=== PATIENT | male | born 1970 | race Caucasian/White ===

== ENCOUNTER 2019-12-11 12:46 | Inpatient (IN) | payer MEDICARE, MEDICAID, SELFPAY ==
--- NOTE | ~2019-12-11 | CT_ITS ---
EXAMINATION: CT abdomen pelvis w con DATE: 12/11/2019 14:02 INDICATION: Blood in stool. TECHNIQUE: Computed tomography (CT) of the abdomen and pelvis was performed with 100 mL Omnipaque 350 intravenous contrast. Automated exposure control and iterative reconstruction technique were employe d. The dose-length product was 429.73 mGy-cm. COMPARISON: CT abdomen and pelvis 07/08/2018 FINDINGS: The visualized portions of the lung bases are clear without pneumonia or pleural effusion. The heart size is normal. No pericardial effusion. There is a small sliding hiatal hernia. There is w all thickening of the distal esophagus. The liver, gallbladder, spleen, pancreas, adrenal glands, and right kidney are normal. There is cortical thinning of left kidney. There are no dilated loops of raymond wel. The appendix is normal. There are no pathologically enlarged lymph nodes. There is no free intra peritoneal fluid. There is an old healed fracture of proximal right femur with internal fixation. The re is mild chronic anterior wedging of T8-T11 vertebral bodies. IMPRESSION: 1. Small sliding hiatal hernia. 2. Wall thickening of the distal esophagus, likely esophagitis. Reviewed, dictated and finalized at location A.
--- NOTE | ~2019-12-11 | XR_ITS ---
XR elbow RT 2V 12/11/2019 20:29 INDICATION: Right elbow pain PROCEDURE: 2 views right elbow. Lateral views nonstandard limiting evaluation for joint effusion. COMPARISON: No prior studies for comparison. FINDINGS: Fracture, dislocation or subluxation is not identified. The soft tissues appear within norm al limits. No foreign bodies are identified. IMPRESSION: 1: NO ACUTE BONE OR JOINT ABNORMALITY IDENTIFIED. Reviewed, dictated and finalized at location A.
--- NOTE | ~2019-12-11 | XR_ITS ---
XR wrist RT min 3V 12/11/2019 20:30 Indication: Right wrist pain Procedure: 3 views right wrist Comparison: No prior studies for comparison. Findings: Osteopenia. There are degenerative changes of the radiocarpal joint with joint space narrow ing. No acute fracture or traumatic malalignment. No significant soft tissue abnormality. No radiopaq ue foreign bodies. Study limited by nonstandard views. Impression: 1: No gross fracture or malalignment. Limited study. Reviewed, dictated and finalized at location A. Impression: 1: No gross fracture or malalignment. Limited study.
[2019-12-11 12:42] VITALS: BP 102/80; PULSE 74; RESP 18; TEMP 36.6; O2SAT 100
[2019-12-11 12:56] LABS: Basophils Absolute Auto 0.1 K/mm3 (0.0-0.1); Basophils Percent Auto 0.7 % (0.2-1.2); Eosinophils Absolute Auto 0.1 K/mm3 (0-0.3); Eosinophils Percent Auto 2.1 % (0-4.4); Hematocrit 39.1 % (42.0-52.0); Hemoglobin 12.8 g/dL (14.0-18.0); Immature Granulocyte Absolute 0.02 K/mm3 (0.00-0.031); Immature Granulocyte Percent A 0.3 % (0-0.5); Lymphocytes Absolute Auto 2.15 K/mm3 (0.9-3.2); Lymphocytes Percent Auto 32.1 % (18.3-44.2); Mean Corpuscular HGB Conc 32.7 g/dl (32-36); Mean Corpuscular Hemoglobin 28.9 pg (26-34); Mean Corpuscular Volume 88.3 fl (80-100); Mean Platelet Volume 8.8 fl (7.4-10.4); Monocytes Absolute Auto 0.6 K/mm3 (0.1-0.6); Monocytes Percent Auto 9.3 % (2.6-8.5); Neutrophils Absolute Auto 3.7 K/mm3 (1.3-6.7); Neutrophils Percent Auto 55.5 % (45.5-73.1); Platelet Count Result 170 k/mm3 (150-375); Red Blood Count 4.43 M/mm3 (4.6-6.20); Red Cell Distribution Width 12.7 % (11.5-14.5); White Blood Count 6.7 K/mm3 (4.5-10.0)
--- NOTE | 2019-12-11 13:00 | ED.GENADULT ---
HPI - General Adult General Chief complaint: GI Bleed Stated complaint: ?GI BLEED Source: patient and EMS History of Present Illness HPI narrative: Patient is 49 y/o female sent from care facility for abdominal pain and bloody stool. Patient admits that he has some left sided abdominal pain. However, he is unable to rate his pain or describe the nature of his pain. There is no known alleviating or exacerbating factor. He was noted to have blood in stool at the facility. Related Data Allergies Allergy/AdvReac Type Severity Reaction Status Date / Time No Known Allergies Allergy Verified 12/11/19 12:49 Review of Systems Review of Systems: ROS unobtainable: Yes unobtainable due to medical condition Exam Const: General: no acute distress and well developed Orientation/consciousness: oriented to person, oriented to place, oriented to time and patient oriented x3 HENMT: Head: normocephalic Ears: external ears normal General nose exam: Normal external nose present Eyes: General: appearance normal, both eyes and all related structures Conjunctivae: conjunctivae normal Neck: Neck: normal visual inspection and full ROM Chest: Chest palpation & inspection: normal inspection of the chest and no tenderness Resp: Effort & Inspection: normal respiratory effort Auscultation: clear to auscultation bilaterally Cardio: Rate: regular rate Rhythm: regular rhythm GI: GI Palp: No abdominal tenderness and Yes Soft to palpation Skin: General skin exam: normal color and turgor normal Neuro: General: oriented to person Cognition (Neuro): abnormal cognition Extrem: General: normal to inspection, full ROM and no pedal edema Psych: Appearance: grossly normal Mental Status: mental status grossly normal Affect: normal affect Course Consultations Consultation #1: Discussed with Dr. Mosquera, who agrees to consult. Date: 12/11/19 Time: 15:28 Consultation #2: Discussed with ANABELLE Vilchis, who agrees to admit to Dr. Watts. Date: 12/11/19 Time: 15:35 Vital Signs Vital signs: Vital Signs Temperature 36.6 C 12/11/19 12:42 Pulse Rate 74 12/11/19 12:42 Respiratory Rate 18 12/11/19 12:42 Blood Pressure 102/80 12/11/19 12:42 Pulse Oximetry 100 12/11/19 12:42 Temperature 36.6 C 12/11/19 12:42 Pulse Rate 74 12/11/19 15:53 Respiratory Rate 17 12/11/19 15:53 Blood Pressure 105/69 12/11/19 15:53 Pulse Oximetry 95 12/11/19 15:53 Medical Decision Making Vital Signs Vital Signs: Vital Signs Temperature 36.6 C 12/11/19 12:42 Pulse Rate 74 12/11/19 12:42 Respiratory Rate 18 12/11/19 12:42 Blood Pressure 102/80 12/11/19 12:42 Pulse Oximetry 100 12/11/19 12:42 Temperature 36.6 C 12/11/19 12:42 Pulse Rate 74 12/11/19 15:53 Respiratory Rate 17 12/11/19 15:53 Blood Pressure 105/69 12/11/19 15:53 Pulse Oximetry 95 12/11/19 15:53 Lab Data Result diagrams: 12/11/19 12:50 12/11/19 12:50 Labs: Lab Results 12/11/19 12/11/19 12/11/19 Range/Units 12:50 12:50 12:50 WBC 6.7 (4.5-10.0) K/mm3 RBC 4.43 L (4.6-6.20) M/mm3 Hgb 12.8 L (14.0-18.0) g/dL Hct 39.1 L (42.0-52.0) % MCV 88.3 (80-100) fl MCH 28.9 (26-34) pg MCHC 32.7 (32-36) g/dl RDW 12.7 (11.5-14.5) % Plt Count 170 (150-375) k/mm3 MPV 8.8 (7.4-10.4) fl Immature Gran % (Auto) 0.3 (0-0.5) % Neut % (Auto) 55.5 (45.5-73.1) % Lymph % (Auto) 32.1 (18.3-44.2) % [place] % (Auto) 9.3 H (2.6-8.5) % Eos % (Auto) 2.1 (0-4.4) % Baso % (Auto) 0.7 (0.2-1.2) % Lymph # (Auto) 2.15 (0.9-3.2) K/mm3 [place] # (Auto) 0.6 (0.1-0.6) K/mm3 Eos # (Auto) 0.1 (0-0.3) K/mm3 Baso # (Auto) 0.1 (0.0-0.1) K/mm3 Abs Immat Gran (auto) 0.02 (0.00-0.031) K/mm3 Absolute Neuts (auto) 3.7 (1.3-6.7) K/mm3 Absolute Nucleated RBC 0.0 (0.0-0.012) K/mm3 Nucleated RBC % 0.0 (0.0-0.2) % Sodium 139 (137-145) mmol/
[2019-12-11 13:08] LABS: Alanine Aminotransferase 14 U/L (4-50); Albumin Level 4.3 g/dL (3.5-5.1); Alkaline Phosphatase 98 U/L (38-126); Anion Gap 7 mmol/L (8-16); Aspartate Amino Transferase 21 U/L (17-59); Bilirubin,Total 0.6 mg/dL (0.2-1.3); Blood Urea Nitrogen 12 mg/dL (9-20); Calcium 9.3 mg/dL (8.4-10.2); Carbon Dioxide 38 mmol/L (22-30); Chloride 94 mmol/L (98-107); Estimated CRCL calculation 89 ml/min; Estimated Glomerular Filt Rate > 60; Glucose 100 mg/dL (75-110); Potassium 3.8 mmol/L (3.4-5.0); Sodium 139 mmol/L (137-145)
[2019-12-11 13:10] LABS: Lipase 91 U/L (23-300)
--- NOTE | 2019-12-11 13:37 | PC.NURSE ---
PATIENT ATTEMPTED TO GIVE URINE SAMPLE BUT WAS UNSUCCESSFUL.
[2019-12-11 13:50] VITALS: BP 105/74; PULSE 87; RESP 18; O2SAT 100
[2019-12-11 14:35] LABS: Add Urine Microscopic? NO; Appearance Urine Clear (Clear); Bilirubin Urine Negative (Negative); Blood Urine Negative (Negative); Color Urine Yellow (Yellow); Glucose Urine UA Negative (Negative); Ketones Urine Negative (Negative); Leukocyte Esterase Ur Negative LEU/UL (Negative); Nitrate Urine Negative (Negative); Protein Urine Negative (Negative); Urobilinogen Urine Negative mg/dL (<2.0)
[2019-12-11 14:42] LABS: Specific Grav Ur 1.033 (1.001-1.035)
[2019-12-11 15:53] VITALS: BP 105/69; PULSE 74; RESP 17; O2SAT 95
--- NOTE | 2019-12-11 16:15 | ADMGEN ---
This patient, Elan Garzon, was admitted to Medical Room 248-01. Patient/family oriented to hospital policies and general routines including ID bracelet, bed and alarms, visiting hours, pain management, procedures, bathroom and other care routines, personal items, smoking policy, room service/diet, and visiting hours. Information on how to activate the Rapid Response Team has been discussed. Patient/Family are encouraged to report perceived risks to care and to ask questions if they do not understand what they are told or what they should do.
[2019-12-11 16:30] VITALS: BMI 22.8
--- NOTE | 2019-12-11 16:47 | WPDGICN ---
Assessment and Plan Assessment and plan (1) Abdominal pain: Qualifiers: Abdominal location: unspecified location Qualified Code(s): R10.9 - Unspecified abdominal pain Code(s): R10.9 - Unspecified abdominal pain Status: Acute Assessment and Plan: Patient has left upper abdominal pain with abnormal CT scan suggesting esophagitis. Plan is for trial of IV Protonix. An EGD will be considered in the morning if pain persists. (2) Hematochezia: Code(s): K92.1 - Melena Status: Acute Assessment and Plan: Was a question or rectal bleeding at the care center. Plan is to verify this with stool Hemoccult. No signs of anemia by blood work. No blood noted at this time. (3) Mental handicap: Code(s): F79 - Unspecified intellectual disabilities Status: Acute GI Consult Note Consult date/time: 12/11/19 16:47 HPI: Elan Garzon is a 49 year old maleI am asked to see at the request of the ER. Patient has a history of mental retardation. Currently lives in a [facility]. Sent to the ER because of pain. Patient has difficulty giving a history. He does report that he has pain on the left side of his abdomen. Also complains of right shoulder pain. There was a question of bleeding that has not been confirmed. A CT scan performed in the ER suggests thickening of the distal esophagus and a hiatal hernia. Review of Systems Review of Systems: ROS unobtainable: Yes unobtainable due to mental status Meds Home Medications and Allergies Allergies Allergy/AdvReac Type Severity Reaction Status Date / Time No Known Allergies Allergy Verified 12/11/19 12:49 Vital Signs Vital Signs - 24 hr 12/11/19 12:42 12/11/19 13:50 12/11/19 15:53 Temperature 97.8 F Pulse Rate 74 87 74 Respiratory Rate 18 18 17 Blood Pressure 102/80 105/74 105/69 Pulse Oximetry 100 100 95 Exam Narrative: Exam Narrative: physical exam reveals patient to be alert but agitated not able to sit quietly. HEENT exam reveals no icterus. Lungs appear clear to auscultation percussion. Heart is without murmur. Abdomen is soft. No masses are encountered he appears mildly tender in left upper quadrant. Results Labs CBC & Chem 7: 12/11/19 12:50 12/11/19 12:50 Labs: Short CBC 12/11/19 Range/Units 12:50 WBC 6.7 (4.5-10.0) K/mm3 Hgb 12.8 L (14.0-18.0) g/dL Hct 39.1 L (42.0-52.0) % Plt Count 170 (150-375) k/mm3 BMP 12/11/19 12:50 Sodium 139 Potassium 3.8 Chloride 94 L Carbon Dioxide 38 H BUN 12 Creatinine 0.80 Glucose 100 Calcium 9.3 Liver Function 12/11/19 Range/Units 12:50 Total Bilirubin 0.6 (0.2-1.3) mg/dL AST 21 (17-59) U/L ALT 14 (4-50) U/L Alkaline Phosphatase 98 (38-126) U/L Albumin 4.3 (3.5-5.1) g/dL Urine 12/11/19 Range/Units 14:29 Urine Color Yellow (Yellow) Urine Appearance Clear (Clear) Urine pH 7.0 (5.0-9.0) Ur Specific [place] 1.033 (1.001-1.035) Urine Protein Negative (Negative) mg/dL Urine Glucose (UA) Negative (Negative) mg/dL
[2019-12-11 17:05] VITALS: BP 101/62; PULSE 67; RESP 20; TEMP 36.9; O2SAT 100
--- NOTE | 2019-12-11 19:00 | PM.IMHP ---
H&P: HPI History of Present Illness Date/Time: 12/11/19 19:00 Chief complaint: abdominal pain Narrative: Elan Garzon is a 49-year-old male with intellectual disability, schizophrenia, bipolar disorder, hypertension, and hyperlipidemia who presented to the emergency department earlier today via EMS from [facility] for evaluation of reported blood in stool. He is quite hard of hearing but once I spoke louder he was able to provide me with a fair history however given his underlying psychiatric illness and intellectual disability, some of this history is supplemented via a review of his electronic medical records. He reports ?just not feeling good? for the past couple of days, noting some vague discomfort in the left upper quadrant as well as fatigue. The pain is worse with palpation and he gives no alleviating factors. His appetite has not been that great, and he tells me is just not hungry. It sounds as though he might suffer from heartburn on occasion as well. Reportedly he had blood in his stool intermittently over the last several weeks, and was sent in today for evaluation. Aside from the abdominal pain, he also reports pain in his right elbow and right wrist and is unsure if he has sustained an injury to the area. He denies fever, chills, sweats, vomiting, pain with bowel movements, and dysuria. Review of Systems Review of Systems: Narrative: Twelve systems were reviewed with pertinent positives and negatives as per HPI. Somewhat limited given his underlying intellectual disability. Aside from what is detailed above, all other systems were reviewed and are negative. [facility] Past Medical History Medical History (Updated 12/11/19 @ 20:02 by Mame Brown PA-C) Bipolar disorder Cerebrovascular accident Old CVA noted on brain CT in July 2018. Chronic anemia Closed right hip fracture (~07/2018) Depression with anxiety Gastroesophageal reflux disease Hyperlipidemia Hypertension Intellectual disability Pneumothorax on left (~09/2018) Schizophrenia Surgical History Surgical History (Updated 12/11/19 @ 19:53 by Mame Brown PA-C) History of appendectomy History of hip surgery (~07/2018) ORIF right hip fracture with trochanteric nail device. History of tonsillectomy Family History Family History (Updated 12/11/19 @ 19:53 by Mame Brown PA-C) Other Unknown family medical history Social History Social History (Updated 12/11/19 @ 19:55 by Mame Brown PA-C) Social History: Surrogate decision maker: Soo Cedeño, power of senior database engineer. Code status: Full code. Smoking status: Never smoker Alcohol intake: never Substance use: never Additional living arrangements comments: Resides in a retirement in [place]. Additional occupation/education comments: Disabled. Spiritual care concerns: No Meds Home Medications and Allergies Home Medications Medication Instructions Recorded Confirmed Type acetaminophen 500 mg PO BID 12/11/19 12/11/19 History baclofen 10 mg PO DAILY 12/11/19 12/11/19 History benztropine 0.5 mg PO TID 12/11/19 12/11/19 History buspirone 10 mg PO TID 12/11/19 12/11/19 History cholecalciferol (vitamin D3) 2,000 unit PO DAILY 12/11/19 12/11/19 History [Vitamin D3] divalproex 125 mg PO DAILY 12/11/19 12/11/19 History divalproex 250 mg PO DAILY 12/11/19 12/11/19 History docusate sodium 100 mg PO DAILY 12/11/19 12/11/19 History ferrous sulfate 325 mg PO DAILY 12/11/19 12/11/19 History hydrochlorothiazide 25 mg PO DAILY 12/11/19 12/11/19 History hydrocodone-acetaminophen [[place]] 1 tablet PO BID PRN 12/11/19 12/11/19 History ibuprofen 800 mg PO BID PRN 12/11/19 12/11/19 History loratadine 10 mg PO DAILY PRN 12/11/19 12/11/19 History losartan 50 mg PO DAILY 12/11/19 12/11/19 History multivitamin,cp-ackc-[id number] 1 tablet PO DAILY 12/11/19 12/11/19 History [Complete Multivitamin] olanzapine [Zyprexa] 5 mg PO HS 12/11/19 12/11/19 History omeprazole
[2019-12-11] MEDS: SODIUM CHLORIDE 0.9% IV 250 ML 100 ML IV CONT (20:40)
[2019-12-11] MEDS: ROSUVASTATIN 10 MG TABLET PO (21:36)
[2019-12-11 22:00] VITALS: BP 98/58; PULSE 82; RESP 16; TEMP 36.6; O2SAT 98
[2019-12-12] VITALS (12 sets, daily range): BP systolic 70–106; BP diastolic 43–69; PULSE 56–77; RESP 14–20; TEMP 36.4–36.8; O2SAT 96–100; BMI 22.8
[2019-12-12 05:17] LABS: Basophils Percent Auto 0.6 % (0.2-1.2); Eosinophils Absolute Auto 0.2 K/mm3 (0-0.3); Eosinophils Percent Auto 3.4 % (0-4.4); Hemoglobin 12.5 g/dL (14.0-18.0); Immature Granulocyte Absolute 0.01 K/mm3 (0.00-0.031); Immature Granulocyte Percent A 0.2 % (0-0.5); Lymphocytes Absolute Auto 1.88 K/mm3 (0.9-3.2); Lymphocytes Percent Auto 37.6 % (18.3-44.2); Mean Corpuscular HGB Conc 32.9 g/dl (32-36); Mean Corpuscular Hemoglobin 28.9 pg (26-34); Mean Corpuscular Volume 87.8 fl (80-100); Mean Platelet Volume 8.9 fl (7.4-10.4); Monocytes Absolute Auto 0.4 K/mm3 (0.1-0.6); Monocytes Percent Auto 8.8 % (2.6-8.5); Neutrophils Absolute Auto 2.5 K/mm3 (1.3-6.7); Neutrophils Percent Auto 49.4 % (45.5-73.1); Platelet Count Result 163 k/mm3 (150-375); Red Blood Count 4.33 M/mm3 (4.6-6.20); Red Cell Distribution Width 12.9 % (11.5-14.5)
[2019-12-12 05:29] LABS: Anion Gap 5 mmol/L (8-16); Blood Urea Nitrogen 9 mg/dL (9-20); Calcium 9.4 mg/dL (8.4-10.2); Carbon Dioxide 37 mmol/L (22-30); Chloride 97 mmol/L (98-107); Estimated CRCL calculation 89 ml/min; Estimated Glomerular Filt Rate > 60; Glucose 84 mg/dL (75-110); Sodium 139 mmol/L (137-145)
[2019-12-12 06:28] LABS: Valproic Acid 21.4 ug/mL (50-120)
--- NOTE | 2019-12-12 08:26 | PM.IMPN ---
Progress Note: A&P Assessment and Plan (1) Abdominal pain: Qualifiers: Abdominal location: unspecified location Qualified Code(s): R10.9 - Unspecified abdominal pain Code(s): R10.9 - Unspecified abdominal pain Status: Acute Assessment and Plan: Patient has left upper abdominal pain and reports of blood in stool from staff. CT of the abdomen and pelvis demonstrated findings of esophagitis history of GERD which could be causing some of his discomfort. Dr. Mosquera has been consulted EGD done trial of IV Protonix. obtain stool for occult blood continue to monitor for resolution of pain and discomfort (2) Blood in stool: Code(s): K92.1 - Melena Status: Acute Assessment and Plan: Patient has left upper abdominal pain and reports of blood in stool from staff. stable vital signs, hemodynamically stable blood pressure and heart rate not tachy stable hemoglobin and hematocrit, CBC obtain stool for occult blood nursing staff monitoring BM and stool output (3) Chronic anemia: Code(s): D64.9 - Anemia, unspecified Status: Acute Assessment and Plan: chronic anemia on daily ferrous sulfate at home stable hemoglobin and hematocrit, (4) Gastroesophageal reflux disease: Code(s): K21.9 - Gastro-esophageal reflux disease without esophagitis Status: Acute Assessment and Plan: daily omeprazole at home (5) Esophagitis: Code(s): K20.90 - Esophagitis, unspecified without bleeding Status: Acute Assessment and Plan: Dr. Mosquera has been consulted EGD done trial of IV Protonix. continue to monitor for resolution of pain and discomfort (6) Intellectual disability: Code(s): F79 - Unspecified intellectual disabilities Status: Acute Assessment and Plan: on Zyprexa, divalproex, BuSpar own, benztropine chronic clear x-rays of the right elbow and wrist given reports of pain. continues to lay on the right side despite attempts at educating to turn (7) Psychiatric illness: Code(s): F99 - Mental disorder, not otherwise specified Status: Acute Assessment and Plan: on Zyprexa, divalproex, BuSpar own, benztropine chronic (8) Hypertension: Code(s): I10 - Essential (primary) hypertension Status: Inactive Assessment and Plan: blood pressures were reviewed well controlled. Home medications Include hydrochlorothiazide and losartan careful resuming his blood pressure meds as BPs are currently controlled avoid hypotension as that only increases the risk of GI or bowel ischemia (9) Hyperlipidemia: Code(s): E78.5 - Hyperlipidemia, unspecified Status: Inactive Assessment and Plan: home medication includes rosuvastatin 10 mg at bedtime resume prior to discharge (10) Dehydration: Code(s): E86.0 - Dehydration Status: Acute Assessment and Plan: dehydrated on exam dry on exam given a L of IV fluids hemodynamically stable with no tachycardia and systolic blood pressure is normal patient will need to be a feeder as he does not initiate his own oral hydration (11) Right arm pain: Code(s): M79.601 - Pain in right arm Status: Acute Assessment and Plan: pain in his right upper extremity. radiology studies of the right wrist and right elbow x-rays were clear without acute fractures or findings. unsure if he has fallen, sustained an injury to the area, or if this side is just sore from him always lying on it; almost like a compression injury. refused to turn on his left side for me and turns himself back onto his right side Subjective Date/time seen: 12/12/19 08:26 Elan had returned to his room from having his EGD with Dr. Mosquera, and was resting in his bed on his right side. Patient refusing to turn to his left side for me. He was willing to turn on his back but when I was done with my exam he quickly
[2019-12-12] MEDS: PANTOPRAZOLE 40 MG TABLET PO (08:51)
[2019-12-12] MEDS: DIVALPROEX SODIUM SPRINKLE 125 MG CAP.DR 250 MG PO (08:52)
[2019-12-12] MEDS: LACTATED RINGERS 1,000 ML 150 ML IV CONT (10:34)
--- NOTE | 2019-12-12 10:55 | WPDANESEPPF ---
Anes - Initial Pre Proc Eval Procedure: Operation Date: 12/12/19 11:30 Proposed Procedures p Esophagogastroduodenoscopy - Harrison Mosquera MD Date/Time: 12/12/19 10:55 Surgeon: Kinga Romero NP Pre Op Diagnosis: abdominal pain Patient Data Age: 49 Gender: M Height: 5 ft 6 in Weight: 64.3 kg Last Vital Signs Temp 36.6 C 12/12/19 10:25 Pulse 68 12/12/19 10:25 Resp 20 12/12/19 10:25 BP 94/55 L 12/12/19 10:25 Pulse Ox 99 12/12/19 10:25 Allergies Allergy/AdvReac Type Severity Reaction Status Date / Time No Known Allergies Allergy Verified 12/12/19 10:23 Home Medications Medication Instructions Recorded Confirmed Type acetaminophen 500 mg PO BID 12/11/19 12/11/19 History baclofen 10 mg PO DAILY 12/11/19 12/11/19 History benztropine 0.5 mg PO TID 12/11/19 12/11/19 History buspirone 10 mg PO TID 12/11/19 12/11/19 History cholecalciferol (vitamin D3) 2,000 unit PO DAILY 12/11/19 12/11/19 History [Vitamin D3] divalproex 125 mg PO DAILY 12/11/19 12/11/19 History divalproex 250 mg PO DAILY 12/11/19 12/11/19 History docusate sodium 100 mg PO DAILY 12/11/19 12/11/19 History ferrous sulfate 325 mg PO DAILY 12/11/19 12/11/19 History hydrochlorothiazide 25 mg PO DAILY 12/11/19 12/11/19 History hydrocodone-acetaminophen [[place]] 1 tablet PO BID PRN 12/11/19 12/11/19 History ibuprofen 800 mg PO BID PRN 12/11/19 12/11/19 History loratadine 10 mg PO DAILY PRN 12/11/19 12/11/19 History losartan 50 mg PO DAILY 12/11/19 12/11/19 History multivitamin,xp-[id number] 1 tablet PO DAILY 12/11/19 12/11/19 History [Complete Multivitamin] olanzapine [Zyprexa] 5 mg PO HS 12/11/19 12/11/19 History omeprazole 20 mg PO DAILY PRN 12/11/19 12/11/19 History polyethylene glycol 3350 [Miralax] 17 g PO DAILY 12/11/19 12/11/19 History rosuvastatin 10 mg PO HS 12/11/19 12/11/19 History Laboratory Tests 12/11/19 12/11/19 12/11/19 12:50 12:50 12:50 WBC 6.7 K/mm3 K/mm3 (4.5-10.0) RBC 4.43 M/mm3 L M/mm3 (4.6-6.20) Hgb 12.8 g/dL L g/dL (14.0-18.0) Hct 39.1 % L % (42.0-52.0) MCV 88.3 fl fl (80-100) MCH 28.9 pg pg (26-34) MCHC 32.7 g/dl g/dl (32-36) RDW 12.7 % % (11.5-14.5) Plt Count 170 k/mm3 k/mm3 (150-375) MPV 8.8 fl fl (7.4-10.4) Immature Gran % (Auto) 0.3 % % (0-0.5) Neut % (Auto) 55.5 % % (45.5-73.1) Lymph % (Auto) 32.1 % % (18.3-44.2) [place] % (Auto) 9.3 % H % (2.6-8.5) Eos % (Auto) 2.1 % % (0-4.4) Baso % (Auto) 0.7 % % (0.2-1.2) Lymph # (Auto) 2.15 K/mm3 K/mm3 (0.9-3.2) [place] # (Auto) 0.6 K/mm3 K/mm3 (0.1-0.6) Eos # (Auto) 0.1 K/mm3 K/mm3 (0-0.3) Baso # (Auto) 0.1 K/mm3 K/mm3 (0.0-0.1) Abs Immat Gran (auto) 0.02 K/mm3 K/mm3 (0.00-0.031) Absolute Neuts (auto) 3.7 K/mm3 K/mm3 (1.3-6.7) Absolute Nucleated RBC 0.0 K/mm3 K/mm3 (0.0-0.012) Nucleated RBC % 0.0 % % (0.0-0.2) Sodium 139 mmol/L mmol/L (137-145) Potassium 3.8 mmol/L mmol/L (3.4-5.0) Chloride 94 mmol/L L mmol/L (98-107) Carbon Dioxide 38 mmol/L H mmol/L (22-30) Anion Gap 7 mmol/L L mmol/L (8-16) BUN 12 mg/dL mg/dL (9-20) Creatinine 0.80 mg/dL mg/dL (0.7-1.3) Estim Creat Clear Calc 89 ml/min ml/min Estimated GFR > 60 (59 - ) Glucose 100 mg/dL mg/dL (75-110) Calcium 9.3 mg/dL mg/dL (8.4-10.2) Magnesium Total Bilirubin 0.6 mg/dL mg/dL (0.2-1.3) AST 21 U/L U/L (17-59) ALT 14 U/L U/L (4-50) Alkaline Phosphatase 98 U/L U/L (38-126) Total Protein 7.0 g/dL g/dL (6.3-8.2) Albumin 4.3 g/dL g/dL (3.5-5.1) Lipase 91 U/L U/L (23-300) Urine Color Urine [place]
--- NOTE | 2019-12-12 11:52 | SUR.PHASEII ---
ALL VISIBLE SKIN INTACT IN POST OP.
--- NOTE | 2019-12-12 12:08 | PC.NURSE ---
Patient return from GI lab per stretcher.
[2019-12-12] MEDS: LOSARTAN POTASSIUM 50 MG TABLET PO (12:24)
[2019-12-12] MEDS: CHOLECALCIFEROL 1,000 UNITS TABLET 2000 UNITS PO (12:26)
[2019-12-12] MEDS: BENZTROPINE MESYLATE 0.5 MG TABLET PO ×2 (12:26→16:51)
[2019-12-12] MEDS: DOCUSATE SODIUM 100 MG CAPSULE PO (12:26)
[2019-12-12] MEDS: busPIRone HCL 10 MG TABLET PO ×2 (12:27→16:51)
[2019-12-12] MEDS: FERROUS SULFATE 324 MG TABLET PO (12:27)
[2019-12-12] MEDS: THERAPEUTIC MULTIVITAMINS/MINERALS TAB (*BKC) 1 TABLET PO (12:27)
[2019-12-12] MEDS: polyethylene glycoL 3350 17 GM POWD.PACK PO (12:27)
[2019-12-12] MEDS: BACLOFEN 10 MG TABLET PO (12:32)
[2019-12-12] MEDS: ACETAMINOPHEN 500 MG TABLET PO ×2 (12:32→16:50)
[2019-12-12] MEDS: HYDROcodone/acetaminophen (*CRX) 7.5-325 MG TABLET 1 TAB PO (14:20)
[2019-12-12] MEDS: DIVALPROEX SODIUM SPRINKLE 125 MG CAP.DR PO (16:50)
[2019-12-12] MEDS: LANSOPRAZOLE ORAL SUSP 30 MG/10 ML ORAL.SUSP PO (16:51)
[2019-12-12] MEDS: ROSUVASTATIN 10 MG TABLET PO (20:26)
[2019-12-13 02:00] VITALS: BP 103/64; PULSE 71; RESP 14; TEMP 36.7; O2SAT 100
[2019-12-13 05:23] VITALS: BP 100/61; PULSE 67; RESP 18; TEMP 36.6; O2SAT 98
[2019-12-13 07:04] LABS: Hematocrit 38.9 % (42.0-52.0); Hemoglobin 12.7 g/dL (14.0-18.0); Mean Corpuscular HGB Conc 32.6 g/dl (32-36); Mean Corpuscular Hemoglobin 28.6 pg (26-34); Mean Corpuscular Volume 87.6 fl (80-100); Mean Platelet Volume 8.9 fl (7.4-10.4); Platelet Count Result 176 k/mm3 (150-375); Red Blood Count 4.44 M/mm3 (4.6-6.20); Red Cell Distribution Width 12.7 % (11.5-14.5); White Blood Count 4.6 K/mm3 (4.5-10.0)
[2019-12-13 07:27] LABS: Potassium 3.9 mmol/L (3.4-5.0)
[2019-12-13 07:50] LABS: Anion Gap 5 mmol/L (8-16); Blood Urea Nitrogen 7 mg/dL (9-20); Calcium 9.5 mg/dL (8.4-10.2); Carbon Dioxide 36 mmol/L (22-30); Chloride 100 mmol/L (98-107); Estimated CRCL calculation 89 ml/min; Estimated Glomerular Filt Rate > 60; Glucose 81 mg/dL (75-110); Sodium 141 mmol/L (137-145)
--- NOTE | 2019-12-13 08:26 | WPDGIPROGNO ---
Progress Note: A&P Additional Plan Patient remains difficult to get a history from. Appears to be tolerating some diet. On physical exam abdomen appears soft mild upper abdominal discomfort identified. Impression 1. Ulcerative esophagitis. This consistent with rather severe acid reflux. Plan is continue Protonix 40 mg p.o. b.i.d.. Avoid nonsteroidal anti-inflammatory agents. Try to elevate head of bed at night. Romayor foods will likely be tolerated best. 2. Mental handicap. Unchanged. May limit his ability to understand this condition. Plan to advance diet. Continue proton pump inhibitor. Disposition per primary care service. Subjective Date/time seen: 12/13/19 08:26 Objective Data Vital Signs Vital Signs: Vital Signs - 24 hr 12/12/19 08:40 12/12/19 10:25 12/12/19 11:32 Temperature 97.9 F Pulse Rate 68 65 Respiratory Rate 20 20 Blood Pressure 104/69 94/55 L 70/43 L Pulse Oximetry 99 99 12/12/19 11:42 12/12/19 11:52 12/12/19 12:02 Temperature Pulse Rate 58 L 56 L 57 L Respiratory Rate 14 16 18 Blood Pressure 77/48 L 92/57 L 101/64 Pulse Oximetry 100 100 100 12/12/19 14:00 12/12/19 18:00 12/12/19 20:00 Temperature 97.6 F 98.3 F Pulse Rate 77 72 72 Respiratory Rate 18 16 16 Blood Pressure 106/67 94/62 L Pulse Oximetry 100 98 98 12/12/19 21:57 12/13/19 02:00 12/13/19 05:23 Temperature 97.8 F 98.0 F 97.8 F Pulse Rate 73 71 67 Respiratory Rate 16 14 18 Blood Pressure 101/69 103/64 100/61 Pulse Oximetry 96 100 98 Intake/Output Intake/Output: Intake & Output 12/10/19 12/11/19 12/12/19 12/13/19 23:59 23:59 23:59 23:59 Intake Total 250 1210 50 Output Total 550 825 900 Balance -300 385 -850 Meds/Results Medications: Active Medications Generic Name Dose Route Start Last Admin Trade Name Freq PRN Reason Stop Dose Admin Acetaminophen 500 mg 12/12/19 09:00 12/12/19 16:50 Acetaminophen 500 Mg Tablet PO 500 mg BID SUZETTE Administration Hydrocodone Bitart/Acetaminophen 1 tab 12/11/19 20:03 12/12/19 14:20 Hydrocodone/Acetaminophen (*Crx) 7.5-325 Mg Tablet PO 1 tab BID PRN Administration Pain Baclofen 10 mg 12/12/19 12:00 12/12/19 12:32 Baclofen 10 Mg Tablet PO 10 mg DAILY@1200 SUZETTE Administration Benztropine Mesylate 0.5 mg 12/12/19 09:00 12/12/19 16:51 Benztropine Mesylate 0.5 Mg Tablet PO 0.5 mg TID SUZETTE Administration Buspirone HCl 10 mg 12/12/19 09:00 12/12/19 16:51 Buspirone Hcl 10 Mg Tablet PO 10 mg TID SUZETTE Administration Calcium Carbonate 200 mg 12/12/19 08:25 Calcium Carbonate (Tums) 500 Mg (200 Mg Elemental) PO Q6H PRN Indigestion Divalproex Sodium 125 mg 12/12/19 16:00 12/12/19 16:50 Divalproex Sodium Sprinkle 125 Mg Cap.Dr PO 125 mg DAILY@1600 [facility] Administration Divalproex Sodium 250 mg 12/12/19 09:00 12/12/19 08:52 Divalproex Sodium Sprinkle 125 Mg Cap.Dr PO 250 mg DAILY SUZETTE Administration Docusate Sodium 100 mg 12/13/19 09:00 Docusate Sodium Liq 100 Mg/10 Ml Udc PO DAILY [facility] Ferrous Sulfate 324 mg 12/12/19 09:00 12/12/19 12:27 Ferrous Sulfate 324 Mg Tablet PO 324 mg DAILY SUZETTE Administration Lansoprazole 30 mg 12/12/19 17:00 12/12/19 16:51 Lansoprazole Oral Susp 30 Mg/10 Ml Oral.Susp PO 30 mg BIDWM SUZETTE Administration Loratadine 10 mg 12/11/19 20:03 Loratadine 10 Mg Tablet PO DAILY PRN Allergy Symptoms Losartan Potassium 50 mg 12/12/19 09:00 12/12/19 12:24 Losartan Potassium 50 Mg Tablet PO 50 mg DAILY SUZETTE Administration Multivitamins/Calcium 1 tablet 12/12/19 09:00 12/12/19 12:27 Therapeutic Multivitamins/Minerals Tab (*Bkc) PO 1 tablet DAILY SUZETTE Administration Olanzapine 5 mg 12/11/19 21:00 12/12/19 20:26 Olanzapine Tab 5 Mg Tablet PO 5 mg HS SUZETTE Administration Polyethylene Glycol 17 gm 12/12/19 09:00 12/12/19 12:27 Polyethylene Glycol 3350 17 Gm Powd.Pack PO
[2019-12-13 08:30] VITALS: BP 117/71; PULSE 71; RESP 23; TEMP 36.6; O2SAT 100
[2019-12-13] MEDS: busPIRone HCL 10 MG TABLET PO ×2 (09:44→13:51)
[2019-12-13] MEDS: FERROUS SULFATE 324 MG TABLET PO (09:44)
[2019-12-13] MEDS: DIVALPROEX SODIUM SPRINKLE 125 MG CAP.DR 250 MG PO (09:44)
[2019-12-13] MEDS: DOCUSATE SODIUM LIQ 100 MG/10 ML UDC PO (09:44)
[2019-12-13] MEDS: BENZTROPINE MESYLATE 0.5 MG TABLET PO ×2 (09:44→13:51)
[2019-12-13] MEDS: CHOLECALCIFEROL 1,000 UNITS TABLET 2000 UNITS PO (09:44)
[2019-12-13] MEDS: LOSARTAN POTASSIUM 50 MG TABLET PO (09:45)
[2019-12-13] MEDS: THERAPEUTIC MULTIVITAMINS/MINERALS TAB (*BKC) 1 TABLET PO (09:45)
[2019-12-13] MEDS: polyethylene glycoL 3350 17 GM POWD.PACK PO (09:45)
[2019-12-13] MEDS: ACETAMINOPHEN 500 MG TABLET PO (09:49)
[2019-12-13] MEDS: LANSOPRAZOLE ORAL SUSP 30 MG/10 ML ORAL.SUSP PO (09:49)
--- NOTE | 2019-12-13 12:21 | PM.DS ---
DS: Admitting Diagnosis Admitting Diagnosis Admitting Diagnosis: abdominal pain DS: Discharge Diagnosis Discharge Diagnosis (1) Ulcerative esophagitis: Code(s): K22.10 - Ulcer of esophagus without bleeding Status: Acute (2) Gastroesophageal reflux disease: Qualifiers: Esophagitis bleeding: with hemorrhage Esophagitis presence: with esophagitis Qualified Code(s): K21.01 - Gastro-esophageal reflux disease with esophagitis, with bleeding Code(s): K21.9 - Gastro-esophageal reflux disease without esophagitis Status: Acute (3) Chronic anemia: Code(s): D64.9 - Anemia, unspecified Status: Acute (4) Intellectual disability: Code(s): F79 - Unspecified intellectual disabilities Status: Acute DS: Summary Hospital Course Reason for hospitalization: abdominal pain Hospital Course: Sent from [facility] to [place] because of pain. Patient has difficulty giving a history. He does report that he has pain on the left side of his abdomen. Also complains of right shoulder pain. There was a question of bleeding. A CT scan performed in the ER suggests thickening of the distal esophagus and a hiatal hernia. EGD revealed ulcerative esophagitis 12/11. Patient ate well after procedure and was at his baseline mental status. He wanted to return home. Status at Discharge Overall status at discharge: patient is back to baseline Time Spent with Patient Time attestation: Total time spent providing and/or coordinating discharge services:35 min Time spent: Greater than 30 minutes Exam Narrative: Exam Narrative: HEENT: sclerae nonicteric, pharyngeal mucosa pink and intact NECK: No JVD CHEST: Clear to auscultation. Normal effort. HEART: NL S1/S2, regular, no murmur ABDOMEN: BS+, soft, mild epigastric tenderness, no mass, no bruits EXTREMITIES: No cyanosis, edema, or clubbing NEUROLOGIC: CN intact and symmetric to inspection. MUSCULOSKELETAL: Tone increased PSYCH: Alert. Oriented to person only. DS: Data Data Completed and Pending Pending studies at discharge: Pending at discharge 12/12/19 11:33 Surgical [PTH] Routine Labs on day of discharge: Labs from last 24 hours 12/13/19 12/13/19 06:24 06:24 WBC 4.6 RBC 4.44 L Hgb 12.7 L Hct 38.9 L MCV 87.6 MCH 28.6 MCHC 32.6 RDW 12.7 Plt Count 176 MPV 8.9 Sodium 141 Potassium 3.9 Chloride 100 Carbon Dioxide 36 H Anion Gap 5 L BUN 7 L Creatinine 0.80 Estim Creat Clear Calc 89 Estimated GFR > 60 Glucose 81 Calcium 9.5 Discharge Plan Discharge Attending physician on discharge: Miguel Jauregui Consulting providers: ; Harrison Mosquera Discharging Clinician: Miguel Jauregui Patient Disposition: [facility] Longterm/Asst Living Activity: other - see discharge instructions Diet: regular Discharge Instructions: Up with assistance as tolerated. Patient Instructions: Pain Management (DC), Acute Abdominal Pain (DC), Esophagitis (DC) Stand Alone Forms: General Discharge Information, [facility] Discharge Discharge Medications: New hydrocodone-acetaminophen [Queen] 7.5-325 mg Tablet 1 tablet PO BID PRN (Reason: Pain) Qty: 10 RF: 0 lansoprazole 30 mg Capsule,Delayed Release(Dr/Ec) 30 mg PO BIDWM Qty: 60 RF: 0 Continued benztropine 0.5 mg Tablet 0.5 mg PO TID RF: 0 baclofen 10 mg Tablet 10 mg PO DAILY RF: 0 buspirone 10 mg Tablet 10 mg PO TID RF: 0 divalproex 125 mg Capsule, Delayed Rel Sprinkle 250 mg PO DAILY RF: 0 losartan 50 mg Tablet 50 mg PO DAILY RF: 0 polyethylene glycol 3350 [Miralax] 17 gram Powder In Packet 17 g PO DAILY RF: 0 olanzapine [Zyprexa] 5 mg Tablet 5 mg PO HS RF: 0 ferrous sulfate 325 mg (65 mg iron) Tablet 325 mg PO DAILY RF: 0 divalproex 125 mg Capsule, Delayed Rel Sprinkle 125 mg PO DAILY RF: 0 docusate sodium 100 mg Tablet 100 mg PO DAILY RF: 0 loratadine
[2019-12-13 14:00] VITALS: BP 93/51; PULSE 70; RESP 15; TEMP 36.8; O2SAT 100
[2019-12-13] MEDS: BACLOFEN 10 MG TABLET PO (14:08)
== END 2019-12-13 17:05 | DRG 368 ==
LOC: ANHED 13:39 → ANH2MED 16:13
PROVIDERS: Internal Medicine Gastroenterology; Nurse Practitioner; Physician Assistant; Admitting Provider Internal Medicine; Emergency Provider Emergency Medicine; PCP General Practice; Visit Provider Internal Medicine
PROC: 0DJ08ZZ Inspection of Upper Intestinal Tract, Via Natural or Artificial Opening Endoscopic (ICD-10-PCS; CPT 43235; principal; 2019-12-12 11:30)
DX: K21.01 Gastro-esophageal reflux disease with esophagitis, with bleeding (principal); K22.11 Ulcer of esophagus with bleeding; K44.9 Diaphragmatic hernia without obstruction or gangrene; K31.7 Polyp of stomach and duodenum; D64.9 Anemia, unspecified; E86.0 Dehydration; F79 Unspecified intellectual disabilities; M79.601 Pain in right arm; F20.9 Schizophrenia, unspecified; F31.9 Bipolar disorder, unspecified; I10 Essential (primary) hypertension; E78.5 Hyperlipidemia, unspecified; F41.8 Other specified anxiety disorders; Z86.73 Personal history of transient ischemic attack (TIA), and cerebral infarction without residual deficits
CPT/HCPCS: 36415; 73070; 73110; 74177; 80048; 80053; 80164; 81003; 83690; 83735; 85025; 85027; 88305; 96360; 96361; 99285; A9270; G0378; J2001; J2704; J7050; J7120; Q9967

== ENCOUNTER 2020-05-05 13:54 | Emergency (ER) | payer MEDICARE, MEDICAID, SELFPAY ==
--- NOTE | ~2020-05-05 | CT_ITS ---
EXAMINATION: CT abdomen pelvis w con DATE: 05/05/2020 15:18 INDICATION: Abdominal pain. TECHNIQUE: Computed tomography (CT) of the abdomen and pelvis was performed with 100 mL Omnipaque-350 intravenous contrast. Automated exposure control and iterative reconstruction technique were employe d. The dose-length product was 652.10 mGy-cm. COMPARISON: 12/11/2019 FINDINGS: Lung bases are clear. Visualized inferior heart is normal. No pericardial or pleural effusion. Athero sclerotic coronary artery calcification. Small sliding-type hiatal hernia with suggestion of edematou s wall thickening at the distal esophagus which could be related to reflux esophagitis. Liver, gallbl adder, pancreas, spleen, bilateral adrenal glands and kidneys are normal. Moderate amount of stool th roughout the colon. No abnormal bowel wall thickening or obstruction. Appendix is normal. Bladder is normal. No free intraperitoneal gas or fluid. No pathologically enlarged abdominal or pelvic lymphade nopathy. Chronic mild anterior wedging at T10-T12. Old healed right proximal right femoral fracture w ith antegrade intramedullary hailey and and femoral neck dynamic compression screw fixation. IMPRESSION: 1. Small sliding-type hiatal hernia with demonstrates . Wall thickening at the distal esophagus sugge stive of reflux esophagitis. 2. No acute intra-abdominal/pelvic process. Reviewed, dictated and finalized at location A. IMPRESSION: 1. Small sliding-type hiatal hernia with demonstrates . Wall thickening at the distal esophagus suggestive of reflux esophagitis. 2. No acute intra-abdominal/pelvic process.
[2020-05-05 13:57] VITALS: BP 97/59; PULSE 73; RESP 16; TEMP 36.8; O2SAT 100
--- NOTE | 2020-05-05 14:26 | ED.GENADULT ---
HPI - General Adult General Chief complaint: Unspecified Stated complaint: L SIDED ABD PAIN Time Seen by Provider: 05/05/20 14:05 Source: RN notes reviewed History of Present Illness HPI narrative: Patient presents to emergency department from [facility] for abdominal pain. History is per patient and the staff patient notes left-sided abdominal pain that has improved per the nursing staff patient's been having abdominal pain for the last day he was given several laxatives at the [facility] with large bowel movement and notes that since he had bowel movement improvement of his pain denies any fevers or chills nausea vomiting diarrhea or any other symptoms scheduled for CT scan of the abdomen pelvis tomorrow Related Data Home Medications Medication Instructions Recorded Confirmed Complete Multivitamin 1 tablet PO DAILY 12/11/19 12/11/19 baclofen 10 mg PO DAILY 12/11/19 12/11/19 benztropine 0.5 mg PO TID 12/11/19 12/11/19 buspirone 10 mg PO TID 12/11/19 12/11/19 cholecalciferol (vitamin D3) 2,000 unit PO DAILY 12/11/19 12/11/19 [Vitamin D3] divalproex 125 mg PO DAILY 12/11/19 12/11/19 divalproex 250 mg PO DAILY 12/11/19 12/11/19 docusate sodium 100 mg PO DAILY 12/11/19 12/11/19 ferrous sulfate 325 mg PO DAILY 12/11/19 12/11/19 loratadine 10 mg PO DAILY PRN 12/11/19 12/11/19 losartan 50 mg PO DAILY 12/11/19 12/11/19 olanzapine [Zyprexa] 5 mg PO HS 12/11/19 12/11/19 polyethylene glycol 3350 [Miralax] 17 g PO DAILY 12/11/19 12/11/19 rosuvastatin 10 mg PO HS 12/11/19 12/11/19 Allergies Allergy/AdvReac Type Severity Reaction Status Date / Time No Known Allergies Allergy Verified 05/05/20 14:06 Review of Systems Review of Systems: Narrative: Gen.: Denies fevers or chills ENT: Denies congestion Respiratory: Denies shortness of breath CV: Denies chest pain GI: See HPI denies burning, urgency, frequency or hematuria Musculoskeletal: Denies back pain or muscle pain Neuro: Denies numbness, tingling, weakness or focal weakness Skin: Denies rash Except as documented, all other systems reviewed and negative [facility] Past Medical History Medical History Bipolar disorder Cerebrovascular accident Old CVA noted on brain CT in July 2018. Chronic anemia Closed right hip fracture (~07/2018) Depression with anxiety Gastroesophageal reflux disease Hyperlipidemia Hypertension Intellectual disability Pneumothorax on left (~09/2018) Schizophrenia Surgical History Surgical History History of appendectomy History of hip surgery (~07/2018) ORIF right hip fracture with trochanteric nail device. History of tonsillectomy Family History Family History Other Unknown family medical history Social History Social History Social History: Surrogate decision maker: Soo Cedeño power of document review attorney. Code status: Full code. Smoking status: Never smoker Alcohol intake: never Substance use: never Additional living arrangements comments: Resides in a [facility]ci in [place]. Additional occupation/education comments: Disabled. Spiritual care concerns: No Exam Narrative: Exam Narrative: APPEARANCE: No acute distress, nontoxic, resting in bed HEENT: Normocephalic, atraumatic, OMM RESPIRATORY: No respiratory distress, clear to auscultation bilaterally with no rhonchi wheezing or rales CARDIOVASCULAR: RRR s murmur ABDOMINAL: Soft nondistended mild diffuse tender palpation no rebound or guarding MUSCULOSKELETAl: Moves all extremities. No clubbing, cyanosis or edema. NEURO: Awake and alert. Following commands, speech normal, no focal deficits SKIN:: Warm, dry. Normal Color PSYCHIATRIC: Normal affect/mood Course Course Emergency Course: Called and discussed with Dr. Jauregui patient's PCP brittany
[2020-05-05 14:39] LABS: Basophils Absolute Auto 0.1 K/mm3 (0.0-0.1); Basophils Percent Auto 0.9 % (0.2-1.2); Eosinophils Absolute Auto 0.2 K/mm3 (0-0.3); Eosinophils Percent Auto 3.3 % (0-4.4); Hematocrit 41.9 % (42.0-52.0); Hemoglobin 13.8 g/dL (14.0-18.0); Immature Granulocyte Absolute 0.02 K/mm3 (0.00-0.031); Immature Granulocyte Percent A 0.3 % (0-0.5); Lymphocytes Absolute Auto 1.95 K/mm3 (0.9-3.2); Lymphocytes Percent Auto 30.6 % (18.3-44.2); Mean Corpuscular HGB Conc 32.9 g/dl (32-36); Mean Corpuscular Hemoglobin 30.1 pg (26-34); Mean Corpuscular Volume 91.5 fl (80-100); Mean Platelet Volume 9.2 fl (7.4-10.4); Monocytes Absolute Auto 0.5 K/mm3 (0.1-0.6); Monocytes Percent Auto 7.1 % (2.6-8.5); Neutrophils Absolute Auto 3.7 K/mm3 (1.3-6.7); Neutrophils Percent Auto 57.8 % (45.5-73.1); Platelet Count Result 171 k/mm3 (150-375); Red Blood Count 4.58 M/mm3 (4.6-6.20); Red Cell Distribution Width 11.9 % (11.5-14.5); White Blood Count 6.4 K/mm3 (4.5-10.0)
[2020-05-05 14:42] LABS: Add Urine Microscopic? YES; Appearance Urine Cloudy (Clear); Bilirubin Urine Negative (Negative); Blood Urine Negative (Negative); Color Urine Yellow (Yellow); Glucose Urine UA Negative (Negative); Ketones Urine Negative (Negative); Leukocyte Esterase Ur Negative LEU/UL (Negative); Mucus Urine Rare /lpf; Nitrate Urine Negative (Negative); Protein Urine Negative (Negative); RBC Urine 0-2 /hpf (0-2); Specific Grav Ur 1.017 (1.001-1.035); Urobilinogen Urine Negative mg/dL (<2.0); WBC Urine 0-3 /hpf
[2020-05-05 15:02] LABS: Alanine Aminotransferase 15 U/L (4-50); Albumin Level 4.1 g/dL (3.5-5.1); Alkaline Phosphatase 91 U/L (38-126); Anion Gap 3 mmol/L (8-16); Aspartate Amino Transferase 24 U/L (17-59); Blood Urea Nitrogen 12 mg/dL (9-20); Calcium 9.2 mg/dL (8.4-10.2); Carbon Dioxide 35 mmol/L (22-30); Chloride 104 mmol/L (98-107); Estimated CRCL calculation 81 ml/min; Estimated Glomerular Filt Rate > 60; Glucose 86 mg/dL (75-110); Lipase 83 U/L (23-300); Potassium 4.6 mmol/L (3.4-5.0); Sodium 142 mmol/L (137-145)
[2020-05-05] MEDS: SODIUM CHLORIDE 0.9% IV 1,000 ML 999 ML IV CONT (15:06)
--- NOTE | 2020-05-05 16:16 | PC.NURSE ---
PT sitting up eating sandwich, chips, and drinking soda
[2020-05-05 16:17] VITALS: BP 108/70; PULSE 74; RESP 16; O2SAT 97
[2020-05-05 17:05] LABS: Valproic Acid < 10.0 ug/mL (50-120)
[2020-05-05 18:40] VITALS: BP 114/72; PULSE 74; RESP 16; O2SAT 99
[2020-05-05 21:29] VITALS: BP 145/97; PULSE 64; RESP 16; O2SAT 97
[2020-05-05 23:26] VITALS: BP 136/86; PULSE 72; RESP 18; O2SAT 99
--- NOTE | 2020-05-05 23:26 | PC.NURSE ---
Assumed care of pt at this time, pt is alert on stretcher, responds to verbal stimuli, dressed w/ assist, IV removed. Per bedside report, EMS is to pick pt up at aprox 0000, per [facility]en unit sec. EMS called w/ update of aprox 0100 arrival time for pt transport. stem roller or crusher operator notified.
[2020-05-06 01:39] VITALS: BP 137/81; PULSE 81; RESP 15; O2SAT 98
--- NOTE | 2020-05-06 01:41 | PC.NURSE ---
Addendum entered by Carmen Boyd 05/06/20 02:14: [facility]ANCE[facility]ED [facility] AT 0209 Original Note: 1709: [facility] was called for return transport. No trucks available. 1710: [facility] was called for return transport to [facility]. ETA 1843 1910: Called [facility] for status...ETA midnight. 2314: Called [facility] for status...ETA 0100 0102: Called [facility] for status...ETA 0230 0123: Called [facility]...declined. 0127: Called [facility] for return transport...accepted...truck en route.
== END 2020-05-06 02:16 ==
PROVIDERS: Emergency Provider Emergency Medicine; PCP General Practice
DX: R10.9 Unspecified abdominal pain (principal); D64.9 Anemia, unspecified; K21.9 Gastro-esophageal reflux disease without esophagitis; E78.5 Hyperlipidemia, unspecified; I10 Essential (primary) hypertension; F31.9 Bipolar disorder, unspecified; F20.9 Schizophrenia, unspecified; F41.8 Other specified anxiety disorders; F79 Unspecified intellectual disabilities; Z86.73 Personal history of transient ischemic attack (TIA), and cerebral infarction without residual deficits; K44.9 Diaphragmatic hernia without obstruction or gangrene; R93.3 Abnormal findings on diagnostic imaging of other parts of digestive tract
CPT/HCPCS: 36415; 74177; 80053; 80164; 81001; 83690; 85025; 96360; 99284; J7030; Q9967

== ENCOUNTER 2020-05-21 09:12 | Inpatient (IN) | payer MEDICARE, MEDICAID, SELFPAY ==
[2020-05-21] VITALS (8 sets, daily range): BP systolic 105–123; BP diastolic 57–91; PULSE 61–75; RESP 12–21; TEMP 36.1–36.7; O2SAT 95–100; BMI 23.7
--- NOTE | ~2020-05-21 | XR_ITS ---
EXAMINATION: XR chest 1V portable DATE: 05/21/2020 10:42 INDICATION: Mid chest pain. TECHNIQUE: A single frontal view of the chest was obtained. COMPARISON: Chest 2 views 10/01/2018, CT abdomen and pelvis 05/05/2020 FINDINGS: The patient is rotated to his right. There is no pneumonia, pleural effusion, or pneumothor ax. The heart size is normal. IMPRESSION: 1. No acute cardiopulmonary disease. Reviewed, dictated and finalized at location A.
--- NOTE | ~2020-05-21 | CT_ITS ---
EXAMINATION: CT abdomen pelvis w con EXAM DATE: 05/21/2020 13:25 INDICATION: Diffuse abdominal pain. TECHNIQUE: Spiral CT of the abdomen and pelvis was performed following intravenous injection of 100 m L Omnipaque 350. Axial, coronal and sagittal images were reviewed. The dose-length product (DLP) fo r this examination was 547.89 mGy-cm. The exposure was tailored according to patient size (auto mA e xposure control), and iterative reconstruction (ASIR) was used as additional dose reduction technique . Comparison is made to prior examination from 05/05/2020. FINDINGS: The liver, spleen, adrenal glands and pancreas are unremarkable. Gallbladder is unremarkab le. No biliary obstruction. Portal and splenic veins are patent. Kidneys enhance symmetrically. T here is no hydronephrosis. The prostate is unremarkable. The bladder is unremarkable. There is no retroperitoneal or pelvic lymphadenopathy. There is mild to moderate scattered arteriosclerotic di sease. The appendix is not positively visualized. There is no pericecal inflammatory change to suggest appe ndicitis. There is moderate-sized gastroesophageal hiatal hernia. There is mild scattered colonic d iverticulosis. There is no adjacent inflammatory change to suggest diverticulitis. There is expected amount of colonic stool. No free intraperitoneal gas. The heart is normal in size. There are no pericardial or pleural effusions. The lung bases are unremarkable. There are no osteoblastic or os teolytic lesions identified. There is a right hip gamma nail. IMPRESSION: 1. No acute intra-abdominal findings. 2. Moderate gastroesophageal hiatal hernia. Reviewed, dictated and finalized at location A.
--- NOTE | ~2020-05-21 | XR_ITS ---
EXAMINATION: XR abdomen/kub 1V EXAM DATE: 05/21/2020 11:53 INDICATION: Abdominal pain. TECHNIQUE: Frontal projection(s) of the abdomen for interpretation. Comparison is made to prior exami nation from 07/26/2018. FINDINGS: There is expected amount of colonic stool and gas. No small bowel dilation, nonobstructiv e bowel gas pattern. There are no suspicious calcifications identified. There is no organomegaly suspected. There is a right hip gamma nail. IMPRESSION: Unremarkable abdomen x-ray exam. Reviewed, dictated and finalized at location A.
--- NOTE | 2020-05-21 10:05 | PC.NURSE ---
[facility]ed [facility] and spoke with Beba. Beba states that pt is bed bound, states that pt is a full code and that she is unaware of when pts last bowl movement was.
[2020-05-21] MEDS: ONDANSETRON INJ 4 MG/2 ML VIAL IV PUSH (10:17)
--- NOTE | 2020-05-21 10:21 | ED.ABDPAIN ---
HPI - Abdominal Pain General Chief Complaint: Abdominal Pain Stated Complaint: abd pain Time Seen by Provider: 05/21/20 09:32 Source: EMS Mode of arrival: EMS Limitations: physical limitation History of Present Illness HPI narrative: Patient is a 50 year old male with history of CVA, bipolar intellectual disabilities who presents for evaluation of abdominal pain. EMS states care home sent patient in for evaluation of abdominal pain. Patient will state he has abdominal pain but he is unable to give specific history about pain. residential reported that he had a normal bowel movement today. He is constantly dry heaving. Related Data Home Medications Medication Instructions Recorded Confirmed Complete Multivitamin 1 tablet PO DAILY 12/11/19 05/21/20 baclofen 10 mg PO DAILY 12/11/19 05/21/20 benztropine 0.5 mg PO TID 12/11/19 05/21/20 buspirone 10 mg PO TID 12/11/19 05/21/20 cholecalciferol (vitamin D3) 2,000 unit PO DAILY 12/11/19 05/21/20 [Vitamin D3] divalproex 125 mg PO DAILY 12/11/19 05/21/20 docusate sodium 100 mg PO DAILY 12/11/19 05/21/20 ferrous sulfate 325 mg PO DAILY 12/11/19 05/21/20 loratadine 10 mg PO DAILY PRN 12/11/19 05/21/20 losartan 50 mg PO DAILY 12/11/19 05/21/20 olanzapine [Zyprexa] 5 mg PO HS 12/11/19 05/21/20 polyethylene glycol 3350 [Miralax] 17 g PO DAILY 12/11/19 05/21/20 rosuvastatin 10 mg PO HS 12/11/19 05/21/20 magnesium citrate [Citroma] 300 ml PO DAILY PRN 05/21/20 05/21/20 omeprazole 20 mg PO BID 05/21/20 05/21/20 ondansetron 4 mg PO Q6H PRN 05/21/20 05/21/20 sennosides-docusate sodium [Senna 2 tab-cap PO PRN PRN 05/21/20 05/21/20 with Docusate Sodium] Allergies Allergy/AdvReac Type Severity Reaction Status Date / Time No Known Allergies Allergy Verified 05/21/20 15:19 Review of Systems Review of Systems: ROS unobtainable: Yes unobtainable due to mental status PMFSH Past Medical History Medical History Bipolar disorder Cerebrovascular accident Old CVA noted on brain CT in July 2018. Chronic anemia Closed right hip fracture (~07/2018) Depression with anxiety Gastroesophageal reflux disease Hyperlipidemia Hypertension Intellectual disability Pneumothorax on left (~09/2018) Schizophrenia Surgical History Surgical History History of appendectomy History of hip surgery (~07/2018) ORIF right hip fracture with trochanteric nail device. History of tonsillectomy Family History Family History Other Unknown family medical history Social History Social History Social History: Surrogate decision maker: Soo Cedeño power of state's attorney. Code status: Full code. Smoking status: Never smoker Alcohol intake: never Substance use: never Substance use type: does not use Additional living arrangements comments: Resides in a nursing home in [place]. Additional occupation/education comments: Disabled. Gender identity (if verbalized by the patient): Male Spiritual care concerns: No Exam Const: General: alert Nutritional Appearance: thin Other: able to state name Eyes: EOM: EOMs intact bilaterally Chest: Chest palpation & inspection: normal inspection of the chest Resp: Effort & Inspection: normal respiratory effort and no retractions Auscultation: clear to auscultation bilaterally Cardio: Rate: regular rate Rhythm: regular rhythm Heart sounds: no murmurs GI: GI Palp: Yes Soft to palpation, Yes Tenderness to palpation present (GI) (diffuse, he reports pain every where you touch even on chest), No Guarding due to palpation present (GI) and No Rigid due to palpation Auscultation: normal bowel sounds : Testes: Testes normal Other: no fecal impaction on rectal exam Neuro: General: moves all extremities Co
[2020-05-21 10:22] LABS: Basophils Percent Auto 0.7 % (0.2-1.2); Eosinophils Absolute Auto 0.1 K/mm3 (0-0.3); Eosinophils Percent Auto 1.9 % (0-4.4); Hematocrit 39.7 % (42.0-52.0); Immature Granulocyte Absolute 0.01 K/mm3 (0.00-0.031); Immature Granulocyte Percent A 0.2 % (0-0.5); Lymphocytes Absolute Auto 1.43 K/mm3 (0.9-3.2); Lymphocytes Percent Auto 25.1 % (18.3-44.2); Mean Corpuscular HGB Conc 32.7 g/dl (32-36); Mean Corpuscular Hemoglobin 29.9 pg (26-34); Mean Corpuscular Volume 91.3 fl (80-100); Mean Platelet Volume 9.3 fl (7.4-10.4); Monocytes Absolute Auto 0.5 K/mm3 (0.1-0.6); Monocytes Percent Auto 9.1 % (2.6-8.5); Neutrophils Absolute Auto 3.6 K/mm3 (1.3-6.7); Platelet Count Result 163 k/mm3 (150-375); Red Blood Count 4.35 M/mm3 (4.6-6.20); Red Cell Distribution Width 11.7 % (11.5-14.5); White Blood Count 5.7 K/mm3 (4.5-10.0)
[2020-05-21 10:27] LABS: Add Urine Microscopic? YES; Appearance Urine Clear (Clear); Bilirubin Urine Negative (Negative); Blood Urine Negative (Negative); Color Urine Yellow (Yellow); Glucose Urine UA Negative (Negative); Ketones Urine Negative (Negative); Leukocyte Esterase Ur Negative LEU/UL (Negative); Mucus Urine Rare /lpf; Nitrate Urine Negative (Negative); Protein Urine Negative (Negative); RBC Urine 0-2 /hpf (0-2); Specific Grav Ur 1.014 (1.001-1.035); Urobilinogen Urine Negative mg/dL (<2.0); WBC Urine 0-3 /hpf
[2020-05-21 10:44] LABS: Alanine Aminotransferase 15 U/L (4-50); Albumin Level 4.5 g/dL (3.5-5.1); Alkaline Phosphatase 82 U/L (38-126); Anion Gap 6 mmol/L (8-16); Aspartate Amino Transferase 20 U/L (17-59); Bilirubin,Total 0.8 mg/dL (0.2-1.3); Blood Urea Nitrogen 12 mg/dL (9-20); Calcium 9.2 mg/dL (8.4-10.2); Carbon Dioxide 35 mmol/L (22-30); Chloride 103 mmol/L (98-107); Estimated CRCL calculation 81 ml/min; Estimated Glomerular Filt Rate > 60; Glucose 91 mg/dL (75-110); Lipase 94 U/L (23-300); Potassium 4.2 mmol/L (3.4-5.0); Sodium 144 mmol/L (137-145)
[2020-05-21] MEDS: BELLADONNA ALK/PHENOB ELIX 10 ML, MAG HYDROX/ALUMINUM HYD/SIMETH 30 ML, LIDOCAINE HCL 2... PO (11:00)
[2020-05-21] MEDS: MORPHINE SULFATE (*CRX) 4 MG/ML INJ IV PUSH (11:01)
[2020-05-21 11:11] LABS: Valproic Acid 10.5 ug/mL (50-120)
[2020-05-21] MEDS: diphenhydrAMINE HCl INJ 50 MG/ML VIAL 25 MG IV PUSH (11:21)
[2020-05-21] MEDS: METOCLOPRAMIDE HCL INJ 10 MG/2 ML VIAL IV PUSH (11:21)
--- NOTE | 2020-05-21 11:31 | PC.NURSE ---
Per beside report, this patient is bed-confined. I have placed padding between his knees and between his lower legs. Position on bed changed to prevent excess pressure at this time.
--- NOTE | 2020-05-21 12:30 | PC.NURSE ---
Patient turned to left side to ease pressure.
--- NOTE | 2020-05-21 14:30 | PC.NURSE ---
Patient repositioned to ease pressure.
--- NOTE | 2020-05-21 15:03 | ADMGEN ---
This patient, Elan Garzon, was admitted to Medical Room 255-01. Patient/family oriented to hospital policies and general routines including ID bracelet, bed and alarms, visiting hours, pain management, procedures, bathroom and other care routines, personal items, smoking policy, room service/diet, and visiting hours. Information on how to activate the Rapid Response Team has been discussed. Patient/Family are encouraged to report perceived risks to care and to ask questions if they do not understand what they are told or what they should do.
--- NOTE | 2020-05-21 15:05 | PM.IMHP ---
H&P: HPI History of Present Illness Date/Time: 05/21/20 15:05Who is from [facility]. The patient has intellectual disability, schizophrenia, bipolar disorder and a history of ulcerative esophagitis. This is consistent with severe acid reflux. The patient had been admitted here on 12/11/2019 and was discharged on 12/13/2019. The patient was seen by GI at that time. Patient was instructed to eat bland food as tolerated and to elevate the head of bed at night. Avoid nonsteroid on anti-inflammatories. The patient was to continue on Protonix b.i.d.. The patient did have an EGD at that time. It was showing reflux esophagitis grade iv. The esophagitis exhibited bleeding on contact. He did have a cold forceps biopsy at that time. He also was found have a medium hiatal hernia. Patient was also found to have multiple medium polyps in the fundus and the body of the stomach. They were not bleeding. The polyps were partially retrieved. The patient comes in today with complaints of abdominal pain. The patient also complains of right arm pain. The patient is constantly dry heaving. Abdominal pelvis CT from today was read as no acute intra-abdominal findings. Moderate gastroesophageal hiatal hernia. Abdominal x-ray was read as unremarkable abdominal x-ray. Patient was given IV fluids, IV Tylenol, and IV Zofran. He was also given a GI cocktail, Benadryl, and Reglan in the emergency room. The patient continued to complain of abdominal pain. GI has been consulted. Patient is being admitted into observation status on the date of service of 05/21/2020. Chief Complaint: Abdominal pain Review of Systems Review of Systems: All systems reviewed & are unremarkable except as noted in HPI and below Constitutional: Constitutional: Reports as per HPI and Reports no additional constitutional complaints Eyes: Eyes: Reports as per HPI and Reports no additional eye complaints ENT: Reports system reviewed and no additional complaints, except as documented and Reports Normal hearing present Cardiovascular: Cardiovascular: Reports no additional cardiovascular complaints Respiratory: Respiratory: Reports no additional respiratory complaints and Reports no additional respiratory complaints Gastrointestinal: Gastrointestinal: Reports as per HPI and Reports no additional gastrointestinal complaints Musculoskeletal: Musculoskeletal: Reports no additional musculoskeletal complaints Integumentary/Breasts: Skin/Breast: Reports system reviewed and no additional complaints, except as docu and Reports as per HPI Neurologic: Reports system reviewed and no additional complaints, except as documented, Reports as per HPI and Reports Normal hearing present Psychiatric: Psychiatric: Reports no additional psychiatric complaints and Reports as per HPI Endocrine: Endocrine: Reports no additional endocrine complaints Hematologic/Lymphatic: Hematologic/Lymphatic: Reports no additional hematologic/lymphatic complaints Allergic/Immunologic: Allergic/Immunologic: Reports no additional allergic/immunologic complaints [facility] Past Medical History Medical History Bipolar disorder Cerebrovascular accident Old CVA noted on brain CT in July 2018. Chronic anemia Closed right hip fracture (~07/2018) Depression with anxiety Gastroesophageal reflux disease Hyperlipidemia Hypertension Intellectual disability Pneumothorax on left (~09/2018) Schizophrenia Surgical History Surgical History History of appendectomy History of hip surgery (~07/2018) ORIF right hip fracture with trochanteric nail device. History of tonsillectomy Family History Family History Other Unknown family medical history Social History Social History Social History: Emilyro
[2020-05-21] MEDS: SODIUM CHLORIDE 0.9% IV 1,000 ML 125 ML IV CONT (16:15)
[2020-05-21] MEDS: OLANZapine 10 MG INJ VIAL 5 MG IM (17:34)
[2020-05-21] MEDS: PANTOPRAZOLE SODIUM IV 40 MG VIAL IV PUSH (20:03)
[2020-05-22] MEDS: SODIUM CHLORIDE 0.9% IV 1,000 ML 125 ML IV CONT ×3 (00:44→16:52)
[2020-05-22 05:38] LABS: Basophils Percent Auto 0.6 % (0.2-1.2); Eosinophils Absolute Auto 0.2 K/mm3 (0-0.3); Eosinophils Percent Auto 3.7 % (0-4.4); Hematocrit 36.6 % (42.0-52.0); Hemoglobin 12.5 g/dL (14.0-18.0); Immature Granulocyte Absolute 0.01 K/mm3 (0.00-0.031); Immature Granulocyte Percent A 0.2 % (0-0.5); Lymphocytes Absolute Auto 1.68 K/mm3 (0.9-3.2); Lymphocytes Percent Auto 32.9 % (18.3-44.2); Mean Corpuscular HGB Conc 34.2 g/dl (32-36); Mean Corpuscular Hemoglobin 30.9 pg (26-34); Mean Corpuscular Volume 90.6 fl (80-100); Mean Platelet Volume 9.3 fl (7.4-10.4); Monocytes Absolute Auto 0.5 K/mm3 (0.1-0.6); Monocytes Percent Auto 9.2 % (2.6-8.5); Neutrophils Absolute Auto 2.7 K/mm3 (1.3-6.7); Neutrophils Percent Auto 53.4 % (45.5-73.1); Platelet Count Result 147 k/mm3 (150-375); Red Blood Count 4.04 M/mm3 (4.6-6.20); Red Cell Distribution Width 11.6 % (11.5-14.5); White Blood Count 5.1 K/mm3 (4.5-10.0)
[2020-05-22 05:59] LABS: Alanine Aminotransferase 12 U/L (4-50); Albumin Level 3.9 g/dL (3.5-5.1); Alkaline Phosphatase 85 U/L (38-126); Anion Gap 2 mmol/L (8-16); Aspartate Amino Transferase 18 U/L (17-59); Bilirubin,Total 1.5 mg/dL (0.2-1.3); Blood Urea Nitrogen 12 mg/dL (9-20); Calcium 8.8 mg/dL (8.4-10.2); Carbon Dioxide 33 mmol/L (22-30); Chloride 106 mmol/L (98-107); Estimated CRCL calculation 74 ml/min; Estimated Glomerular Filt Rate > 60; Glucose 83 mg/dL (75-110); Lipase 56 U/L (23-300); Sodium 141 mmol/L (137-145)
[2020-05-22 06:00] VITALS: BP 151/76; PULSE 73; RESP 21; TEMP 36.3; O2SAT 100
[2020-05-22 08:19] VITALS: O2SAT 92
[2020-05-22] MEDS: PANTOPRAZOLE SODIUM IV 40 MG VIAL IV PUSH ×2 (08:40→20:59)
[2020-05-22 09:04] LABS: Bilirubin Indirect 1.3 mg/dL (0-1.1)
--- NOTE | 2020-05-22 11:54 | PM.IMPN ---
Progress Note: A&P Assessment and Plan (1) Epigastric pain: Code(s): R10.13 - Epigastric pain Status: Acute Assessment and Plan: He has a hx of severe ulcerative esophagitis which was diagnosed on 12/11/20. He now has recurrent epigastric pain. CT abd/pelvis demonstrated no acute findings. Continue analgesics as needed Continue pantoprazole IV BID Continue carafate GI following and input appreciated, EGD planned for 05/24 (2) Nausea & vomiting: Code(s): R11.2 - Nausea with vomiting, unspecified Status: Acute Assessment and Plan: Possibly secondary to esophagitis. GI following, appreciate input. Diet advanced to clear liquids and will see how he tolerates. Continue antiemetics as needed Continue pantoprazole IV BID EGD planned for 05/24 (3) Ulcerative esophagitis: Code(s): K22.10 - Ulcer of esophagus without bleeding Status: Chronic Assessment and Plan: EGD performed 12/11/20 demonstrated severe ulcerative esophagitis, grade IV. Pathology demonstrated squamocolumnar mucosa with erosion and mixed inflammation without metaplasia (including no Tijerina's esophagus). Continue pantoprazole IV BID Continue carafate Pt to avoid NSAIDs, ASA Encourage anti-reflux measures including elevate HOB at night Repeat EGD planned for 05/24 (4) Chronic anemia: Code(s): D64.9 - Anemia, unspecified Status: Acute Assessment and Plan: Labs are consistent with baseline. Continue oral ferrous sulfate Check vitamin B12 and folate Continue to monitor (5) Schizophrenia: Code(s): F20.9 - Schizophrenia, unspecified Status: Chronic Assessment and Plan: Mood is stable. Continue divalproex and olanzapine, resumed today since no longer NPO (6) Hiatal hernia: Code(s): K44.9 - Diaphragmatic hernia without obstruction or gangrene Status: Acute Assessment and Plan: Moderate gastroesophageal hiatal hernia on CT abd/pelvis. Await EGD findings, he may benefit from fundoplication GI following (7) Gastric polyps: Code(s): K31.7 - Polyp of stomach and duodenum Status: Acute Assessment and Plan: Visualized on EGD 12/11/20. Pathology showed fundic gland polyps. Subjective Date/time seen: 05/22/20 11:54 Mr. Garzon is a 50 y.o. male with PMH significant for esophagitis, schizophrenia, intellectual disability, bipolar disorder, hypertension, chronic anemia, and hyperlipidemia who is seen in follow-up for abdominal pain. History is limited given the patients underlying intellectual disability as he only answers some questions and gives minimal answers. He continues to complain of epigastric abdominal pain. He has not had any vomiting. He is voiding without difficulty and continent. He denies chest pain and shortness of breath. He denies fever and chills. He expressed to the nurse that he is hungry and would like to try to eat. He denies leg pain and swelling. Exam Narrative: Exam Narrative: General: Well-developed 50 y.o. male lying supine in bed resting in no acute distress. HEENMT: Normocephalic and atraumatic. Sclera anicteric. EOMI. Oral mucosa tacky. Neck: Supple. Cardiac: Regular rate and rhythm. S1 and S2 normal. Lungs: Lungs are clear to auscultation bilaterally. Abdomen: Bowel sounds active in all 4 quadrants. Abdomen is soft, non-distended, and tender in the epigastrium. No guarding or rebound tenderness. Extremities: Warm and well-perfused. No lower extremity edema or calf tenderness. DP and PT 2+. Muscle wasting in the lower extremities. Right hand contracted. Neurological: Alert and oriented to self. No focal neurological deficits noted. Speech is clear. Skin: Warm and dry. Psychiatric: Patient has underlying intellectual disability and psychiatric illness. Insight and judgement are poor. Patient is pleasant but anxious. Affect flat.
--- NOTE | 2020-05-22 12:41 | WPDGICN ---
Assessment and Plan Assessment and plan (1) Nausea & vomiting: Code(s): R11.2 - Nausea with vomiting, unspecified Status: Acute Assessment and Plan: antiemetics prn ppi twice daily, will add carafate egd to assess esophagus this Sunday (2) Epigastric pain: Code(s): R10.13 - Epigastric pain Status: Acute Assessment and Plan: probably from previous egd findings and severe peptic disease in esophagus (3) Ulcerative esophagitis: Code(s): K22.10 - Ulcer of esophagus without bleeding Status: Chronic (4) Dehydration: Code(s): E86.0 - Dehydration Status: Acute Assessment and Plan: treated medically (5) Psychiatric illness: Code(s): F99 - Mental disorder, not otherwise specified Status: Acute Assessment and Plan: baseline, on multiple meds (6) Gastroesophageal reflux disease: Qualifiers: Esophagitis presence: with esophagitis Esophagitis bleeding: with hemorrhage Qualified Code(s): K21.01 - Gastro-esophageal reflux disease with esophagitis, with bleeding Code(s): K21.9 - Gastro-esophageal reflux disease without esophagitis Status: Acute Assessment and Plan: ppi, carafate (7) Hiatal hernia: Code(s): K44.9 - Diaphragmatic hernia without obstruction or gangrene Status: Acute GI Consult Note Consult date/time: 05/22/20 12:41 HPI: Elan Garzon is a 50 year old male with history of intellectual disability, schizophrenia, bipolar disorder and history of severe ulcerative esophagitis and hiatal hernia (evaluated by Dr Mosquera 11/2019 with EGD) during previous hospitalization. He is poor historian and most of history obtained from records. He came with upper abdominal pain from long term, unable to provide much history, also dry heaving and feeling sick. Abdominal pelvis CT reviewed with no acute intra-abdominal findings, moderate gastroesophageal hiatal hernia. Patient was given IV fluids, IV Tylenol, IV Zofran, GI cocktail and started on ppi. Review of Systems Review of Systems: All systems reviewed & are unremarkable except as noted in HPI and below Constitutional: Constitutional: Reports as per HPI and Reports no additional constitutional complaints Eyes: Eyes: Reports as per HPI and Reports no additional eye complaints ENT: Reports system reviewed and no additional complaints, except as documented and Reports Normal hearing present Cardiovascular: Cardiovascular: Reports no additional cardiovascular complaints Respiratory: Respiratory: Reports no additional respiratory complaints and Reports no additional respiratory complaints Gastrointestinal: Gastrointestinal: Reports as per HPI and Reports no additional gastrointestinal complaints Musculoskeletal: Musculoskeletal: Reports no additional musculoskeletal complaints Integumentary/Breasts: Skin/Breast: Reports system reviewed and no additional complaints, except as docu and Reports as per HPI Neurologic: Reports system reviewed and no additional complaints, except as documented, Reports as per HPI and Reports Normal hearing present Psychiatric: Psychiatric: Reports no additional psychiatric complaints and Reports as per HPI Endocrine: Endocrine: Reports no additional endocrine complaints Hematologic/Lymphatic: Hematologic/Lymphatic: Reports no additional hematologic/lymphatic complaints Allergic/Immunologic: Allergic/Immunologic: Reports no additional allergic/immunologic complaints [facility] Past Medical History Medical History Bipolar disorder Cerebrovascular accident Old CVA noted on brain CT in July 2018. Chronic anemia Closed right hip fracture (~07/2018) Depression with anxiety Gastroesophageal reflux disease Hyperlipidemia Hypertension Intellectual disability Pneumothorax on left (~09/2018) Schizophrenia Surgical History Surgical History (Reviewed 05/21/20 @ 15
[2020-05-22 13:56] VITALS: BP 137/84; PULSE 75; RESP 20; TEMP 36.6; O2SAT 100
[2020-05-22] MEDS: BENZTROPINE MESYLATE 0.5 MG TABLET PO ×2 (14:32→16:41)
[2020-05-22] MEDS: busPIRone HCL 10 MG TABLET PO ×2 (14:32→16:41)
[2020-05-22] MEDS: BACLOFEN 10 MG TABLET PO (14:32)
[2020-05-22] MEDS: SUCRALFATE SUSP 100 MG/ML 10 ML UDC 1000 MG PO ×2 (16:41→21:00)
[2020-05-22] MEDS: FERROUS SULFATE 324 MG TABLET PO (16:41)
[2020-05-22] MEDS: DIVALPROEX SODIUM SPRINKLE 125 MG CAP.DR PO (16:41)
[2020-05-22] MEDS: ONDANSETRON INJ 4 MG/2 ML VIAL IV PUSH (16:52)
[2020-05-22] MEDS: ROSUVASTATIN 10 MG TABLET PO (20:59)
[2020-05-22] MEDS: ENOXAPARIN 40 MG/0.4 ML SYRINGE SUB-Q (21:00)
[2020-05-22 21:30] VITALS: BP 132/77; PULSE 66; RESP 16; TEMP 36.4; O2SAT 98
[2020-05-22 21:50] VITALS: O2SAT 99
[2020-05-23] MEDS: SODIUM CHLORIDE 0.9% IV 1,000 ML 125 ML IV CONT (01:00)
[2020-05-23 05:30] LABS: Basophils Percent Auto 0.5 % (0.2-1.2); Eosinophils Absolute Auto 0.2 K/mm3 (0-0.3); Eosinophils Percent Auto 3.2 % (0-4.4); Hemoglobin 12.3 g/dL (14.0-18.0); Immature Granulocyte Absolute 0.02 K/mm3 (0.00-0.031); Immature Granulocyte Percent A 0.4 % (0-0.5); Lymphocytes Absolute Auto 1.43 K/mm3 (0.9-3.2); Lymphocytes Percent Auto 25.8 % (18.3-44.2); Mean Corpuscular HGB Conc 34.2 g/dl (32-36); Mean Corpuscular Hemoglobin 30.4 pg (26-34); Mean Corpuscular Volume 89.1 fl (80-100); Mean Platelet Volume 9.1 fl (7.4-10.4); Monocytes Absolute Auto 0.5 K/mm3 (0.1-0.6); Monocytes Percent Auto 8.3 % (2.6-8.5); Neutrophils Absolute Auto 3.4 K/mm3 (1.3-6.7); Neutrophils Percent Auto 61.8 % (45.5-73.1); Platelet Count Result 149 k/mm3 (150-375); Red Blood Count 4.04 M/mm3 (4.6-6.20); Red Cell Distribution Width 11.7 % (11.5-14.5); White Blood Count 5.5 K/mm3 (4.5-10.0)
[2020-05-23 05:39] LABS: Alanine Aminotransferase 11 U/L (4-50); Albumin Level 3.9 g/dL (3.5-5.1); Alkaline Phosphatase 82 U/L (38-126); Anion Gap 3 mmol/L (8-16); Aspartate Amino Transferase 18 U/L (17-59); Bilirubin,Total 1.4 mg/dL (0.2-1.3); Blood Urea Nitrogen 7 mg/dL (9-20); Carbon Dioxide 32 mmol/L (22-30); Chloride 108 mmol/L (98-107); Estimated CRCL calculation 81 ml/min; Estimated Glomerular Filt Rate > 60; Glucose 84 mg/dL (75-110); Magnesium 1.7 mg/dL (1.6-2.3); Potassium 4.4 mmol/L (3.4-5.0); Sodium 143 mmol/L (137-145)
[2020-05-23 06:00] VITALS: BP 135/76; PULSE 62; RESP 18; TEMP 36.5; O2SAT 97
[2020-05-23] MEDS: SUCRALFATE SUSP 100 MG/ML 10 ML UDC 1000 MG PO ×4 (06:31→20:43)
[2020-05-23 06:46] LABS: Folic Acid > 20.0 ng/mL (2.76->20)
[2020-05-23] MEDS: SODIUM CHLORIDE 0.9% IV 1,000 ML 75 ML IV CONT (09:04)
[2020-05-23] MEDS: ONDANSETRON INJ 4 MG/2 ML VIAL IV PUSH (09:05)
[2020-05-23] MEDS: FERROUS SULFATE 324 MG TABLET PO (09:05)
[2020-05-23] MEDS: PANTOPRAZOLE SODIUM IV 40 MG VIAL IV PUSH ×2 (09:05→20:43)
[2020-05-23] MEDS: BENZTROPINE MESYLATE 0.5 MG TABLET PO ×3 (09:05→17:21)
[2020-05-23] MEDS: busPIRone HCL 10 MG TABLET PO ×3 (09:05→17:21)
[2020-05-23] MEDS: DOCUSATE SODIUM 100 MG CAPSULE PO (09:05)
[2020-05-23] MEDS: CHOLECALCIFEROL 1,000 UNITS TABLET 2000 UNITS PO (09:33)
[2020-05-23] MEDS: LOSARTAN POTASSIUM 50 MG TABLET PO (09:33)
--- NOTE | 2020-05-23 10:10 | PM.IMPN ---
Progress Note: A&P Assessment and Plan (1) Epigastric pain: Code(s): R10.13 - Epigastric pain Status: Acute Assessment and Plan: He has a hx of severe ulcerative esophagitis which was diagnosed on 12/11/20. He now has recurrent epigastric pain. CT abd/pelvis demonstrated no acute findings. Continue analgesics as needed Continue pantoprazole IV BID Continue carafate GI following and input appreciated, EGD planned for 05/24 (2) Nausea & vomiting: Code(s): R11.2 - Nausea with vomiting, unspecified Status: Acute Assessment and Plan: Possibly secondary to esophagitis. He has not had any vomiting. He reports some nausea still. He is tolerating full liquid diet. GI following, appreciate input Continue antiemetics as needed Continue pantoprazole IV BID EGD planned for 05/24 (3) Ulcerative esophagitis: Code(s): K22.10 - Ulcer of esophagus without bleeding Status: Chronic Assessment and Plan: EGD performed 12/11/20 demonstrated severe ulcerative esophagitis, grade IV. Pathology demonstrated squamocolumnar mucosa with erosion and mixed inflammation without metaplasia (including no Tijerina's esophagus). Continue pantoprazole IV BID Continue carafate Pt to avoid NSAIDs, ASA Encourage anti-reflux measures including elevate HOB at night Repeat EGD planned for 05/24 (4) Chronic anemia: Code(s): D64.9 - Anemia, unspecified Status: Acute Assessment and Plan: Labs are consistent with baseline. Vitamin B12 and folate sufficient. Continue oral ferrous sulfate Continue to monitor (5) Schizophrenia: Code(s): F20.9 - Schizophrenia, unspecified Status: Chronic Assessment and Plan: Mood is stable. Continue divalproex and olanzapine (6) Hiatal hernia: Code(s): K44.9 - Diaphragmatic hernia without obstruction or gangrene Status: Acute Assessment and Plan: Moderate gastroesophageal hiatal hernia on CT abd/pelvis. Await EGD findings, he may benefit from fundoplication GI following (7) Gastric polyps: Code(s): K31.7 - Polyp of stomach and duodenum Status: Acute Assessment and Plan: Visualized on EGD 12/11/20. Pathology showed fundic gland polyps. Subjective Date/time seen: 05/23/20 10:10 Mr. Garzon is a 50 y.o. male with PMH significant for esophagitis, schizophrenia, intellectual disability, bipolar disorder, hypertension, chronic anemia, and hyperlipidemia who is seen in follow-up for abdominal pain. History is limited given the patients underlying intellectual disability. He was advanced to full liquids and he is doing okay with this. He has belching and flatus per RN reports. He has not had a bowel movement yet. He still complains of epigastric pain which improves with IV tylenol. He also notes some mild nausea. He denies chest pain and shortness of breath. He is voiding okay with no issues. He did work with OT today. Exam Narrative: Exam Narrative: General: Well-developed 50 y.o. male lying on his right side in bed in no acute distress. HEENMT: Normocephalic and atraumatic. Sclera anicteric. EOMI. Oral mucosa tacky. Neck: Supple. Cardiac: Regular rate and rhythm. S1 and S2 normal. Lungs: Lungs are clear to auscultation bilaterally. Abdomen: Bowel sounds are normoactive. Abdomen is soft, non-distended, and tender in the epigastrium without rebound tenderness or guarding. Extremities: Warm and well-perfused. No lower extremity edema or calf tenderness. DP and PT 2+. Muscle wasting in the lower extremities. Contracture of the right hand. Neurological: Alert and oriented to self. No focal neurological deficits noted. Speech is clear. Skin: Warm and dry. Psychiatric: Patient has underlying intellectual disability and psychiatric illness. Insight and judgement are poor. Affect flat. Mood pleasant. Objective Data Vital S
--- NOTE | 2020-05-23 10:19 | WPDGIPROGNO ---
Progress Note: A&P Assessment and Plan (1) Ulcerative esophagitis: Code(s): K22.10 - Ulcer of esophagus without bleeding Status: Chronic Assessment and Plan: will proceed with egd tomorrow to reassess, last time had severe esophagitis continue with iv protonix and carafate (2) Epigastric pain: Code(s): R10.13 - Epigastric pain Status: Acute Assessment and Plan: will assess with egd on liquid diet for now (3) Hiatal hernia: Code(s): K44.9 - Diaphragmatic hernia without obstruction or gangrene Status: Acute (4) Intellectual disability: Code(s): F79 - Unspecified intellectual disabilities Status: Acute Subjective Date/time seen: 05/23/20 10:19 Interval history: still epigastric discomfort Review of Systems Review of Systems: All systems reviewed & are unremarkable except as noted in HPI and below Exam Const: General: no acute distress Limitations: behavioral limitations HENMT: General nose exam: Normal nares present Eyes: General: appearance normal, both eyes and all related structures Neck: Neck: supple Resp: Auscultation: clear to auscultation bilaterally Cardio: Rate: regular rate GI: Inspection: non-distended GI Palp: Yes Soft to palpation Auscultation: normal bowel sounds Skin: General skin exam: normal color Neuro: Cognition (Neuro): abnormal cognition (baseline) Motor exam (neuro): 5/5 motor strength present throughout Extrem: General: no edema Psych: Affect: Anxious affect present Other: flat affect Objective Data Vital Signs Vital Signs: Vital Signs - 24 hr 05/22/20 13:56 05/22/20 21:30 05/22/20 21:50 Temperature 97.8 F 97.6 F Pulse Rate 75 66 Respiratory Rate 20 16 Blood Pressure 137/84 132/77 Pulse Oximetry 100 98 99 05/23/20 06:00 Temperature 97.7 F Pulse Rate 62 Respiratory Rate 18 Blood Pressure 135/76 Pulse Oximetry 97 Intake/Output Intake/Output: Intake & Output 05/20/20 05/21/20 05/22/20 05/23/20 23:59 23:59 23:59 23:59 Intake Total 200 3400 2550 Output Total 150 2700 1450 Balance 50 700 1100 Meds/Results Medications: Active Medications Generic Name Dose Route Start Last Admin Trade Name Freq PRN Reason Stop Dose Admin Baclofen 10 mg 05/22/20 12:00 05/22/20 14:32 Baclofen 10 Mg Tablet PO 10 mg NOON SUZETTE Administration Benztropine Mesylate 0.5 mg 05/22/20 13:45 05/23/20 09:05 Benztropine Mesylate 0.5 Mg Tablet PO 0.5 mg TID SUZETTE Administration Buspirone HCl 10 mg 05/22/20 13:45 05/23/20 09:05 Buspirone Hcl 10 Mg Tablet PO 10 mg TID SUZETTE Administration Divalproex Sodium 125 mg 05/22/20 16:00 05/22/20 16:41 Divalproex Sodium Sprinkle 125 Mg Cap.Dr PO 125 mg DAILY@1600 SUZETTE Administration Docusate Sodium 100 mg 05/23/20 09:00 05/23/20 09:05 Docusate Sodium 100 Mg Capsule PO 100 mg DAILY SUZETTE Administration Enoxaparin Sodium 40 mg 05/22/20 21:00 05/22/20 21:00 Enoxaparin 40 Mg/0.4 Ml Syringe SUB-Q 40 mg HS SUZETTE Administration Ferrous Sulfate 324 mg 05/22/20 09:00 05/23/20 09:05 Ferrous Sulfate 324 Mg Tablet PO 324 mg DAILY SUZETTE Administration Sodium Chloride 1,000 mls @ 75 mls/hr 05/21/20 13:40 05/23/20 09:04 Normal Saline Iv IV CONT 75 mls/hr .[id number] SUZETTE Administration Lorazepam 1 mg 05/21/20 15:04 Lorazepam Inj (*Crx) 2 Mg/Ml Vial IV PUSH Q6H PRN Anxiety Losartan Potassium 50 mg 05/23/20 09:00 05/23/20 09:33 Losartan Potassium 50 Mg Tablet PO 50 mg DAILY SUZETTE Administration Olanzapine 5 mg 05/22/20 21:00 05/22/20 21:00 Olanzapine Tab 5 Mg Tablet PO 5 mg HS SUZETTE Administration Ondansetron HCl 4 mg 05/21/20 13:40 05/23/20 09:05 Ondansetron Inj 4 Mg/2 Ml Vial IV PUSH 4 mg Q4H PRN Administration Nausea Pantoprazole Sodium 40 mg 05/21/20 21:00 05/23/20 09:05 Pantoprazole Sodium Iv 40 Mg Vial IV PUSH 40 mg Q12HR SUZETTE Admini
[2020-05-23] MEDS: BACLOFEN 10 MG TABLET PO (11:55)
[2020-05-23 14:00] VITALS: BP 127/85; PULSE 77; RESP 18; TEMP 36.2; O2SAT 100
[2020-05-23] MEDS: DIVALPROEX SODIUM SPRINKLE 125 MG CAP.DR PO (17:21)
[2020-05-23] MEDS: ROSUVASTATIN 10 MG TABLET PO (20:43)
[2020-05-23] MEDS: ENOXAPARIN 40 MG/0.4 ML SYRINGE SUB-Q (20:54)
[2020-05-23 21:26] VITALS: BP 128/87; PULSE 59; RESP 18; TEMP 36.8; O2SAT 97
[2020-05-24] VITALS (7 sets, daily range): BP systolic 97–136; BP diastolic 55–85; PULSE 52–75; RESP 14–18; TEMP 36.3–36.7; O2SAT 98–100
[2020-05-24] MEDS: SODIUM CHLORIDE 0.9% IV 1,000 ML 75 ML IV CONT ×2 (00:29→19:31)
[2020-05-24 05:58] LABS: Basophils Percent Auto 0.5 % (0.2-1.2); Eosinophils Absolute Auto 0.2 K/mm3 (0-0.3); Eosinophils Percent Auto 4.1 % (0-4.4); Hematocrit 35.8 % (42.0-52.0); Hemoglobin 12.3 g/dL (14.0-18.0); Immature Granulocyte Absolute 0.02 K/mm3 (0.00-0.031); Immature Granulocyte Percent A 0.3 % (0-0.5); Lymphocytes Percent Auto 30.9 % (18.3-44.2); Mean Corpuscular HGB Conc 34.4 g/dl (32-36); Mean Corpuscular Hemoglobin 30.6 pg (26-34); Mean Corpuscular Volume 89.1 fl (80-100); Mean Platelet Volume 9.3 fl (7.4-10.4); Monocytes Absolute Auto 0.6 K/mm3 (0.1-0.6); Monocytes Percent Auto 9.9 % (2.6-8.5); Neutrophils Absolute Auto 3.2 K/mm3 (1.3-6.7); Neutrophils Percent Auto 54.3 % (45.5-73.1); Platelet Count Result 152 k/mm3 (150-375); Red Blood Count 4.02 M/mm3 (4.6-6.20); Red Cell Distribution Width 11.8 % (11.5-14.5); White Blood Count 5.8 K/mm3 (4.5-10.0)
[2020-05-24 06:14] LABS: Alanine Aminotransferase 11 U/L (4-50); Albumin Level 3.9 g/dL (3.5-5.1); Alkaline Phosphatase 84 U/L (38-126); Anion Gap 4 mmol/L (8-16); Aspartate Amino Transferase 20 U/L (17-59); Bilirubin,Total 1.2 mg/dL (0.2-1.3); Blood Urea Nitrogen 5 mg/dL (9-20); Calcium 8.6 mg/dL (8.4-10.2); Carbon Dioxide 31 mmol/L (22-30); Chloride 108 mmol/L (98-107); Estimated CRCL calculation 81 ml/min; Estimated Glomerular Filt Rate > 60; Glucose 82 mg/dL (75-110); Magnesium 1.7 mg/dL (1.6-2.3); Potassium 3.7 mmol/L (3.4-5.0); Sodium 143 mmol/L (137-145)
[2020-05-24] MEDS: SUCRALFATE SUSP 100 MG/ML 10 ML UDC 1000 MG PO ×4 (06:53→20:05)
[2020-05-24] MEDS: ONDANSETRON INJ 4 MG/2 ML VIAL IV PUSH (08:28)
[2020-05-24] MEDS: PANTOPRAZOLE SODIUM IV 40 MG VIAL IV PUSH ×2 (08:28→20:05)
[2020-05-24] MEDS: busPIRone HCL 10 MG TABLET PO ×3 (10:08→17:03)
[2020-05-24] MEDS: BENZTROPINE MESYLATE 0.5 MG TABLET PO ×3 (10:08→17:03)
[2020-05-24] MEDS: LACTATED RINGERS 1,000 ML 150 ML IV CONT (11:25)
--- NOTE | 2020-05-24 11:25 | WPDANESEPPF ---
Anes - Initial Pre Proc Eval Procedure: Operation Date: 05/24/20 12:00 Proposed Procedures p Esophagogastroduodenoscopy - Ottoniel House MD Date/Time: 05/24/20 11:25 Surgeon: Kinga Romero NP Pre Op Diagnosis: intractable abdominal pain Patient Data Age: 50 Gender: M Height: 5 ft 7 in Weight: 68.8 kg Last Vital Signs Temp 98.0 F 05/24/20 11:21 Pulse 60 05/24/20 11:21 Resp 16 05/24/20 11:21 BP 97/56 L 05/24/20 11:21 Pulse Ox 100 05/24/20 11:21 Allergies Allergy/AdvReac Type Severity Reaction Status Date / Time No Known Allergies Allergy Verified 05/21/20 15:19 Home Medications Medication Instructions Recorded Confirmed Type Complete Multivitamin 1 tablet PO DAILY 12/11/19 05/21/20 History baclofen 10 mg PO DAILY 12/11/19 05/21/20 History benztropine 0.5 mg PO TID 12/11/19 05/21/20 History buspirone 10 mg PO TID 12/11/19 05/21/20 History cholecalciferol (vitamin D3) 2,000 unit PO DAILY 12/11/19 05/21/20 History [Vitamin D3] divalproex 125 mg PO DAILY 12/11/19 05/21/20 History docusate sodium 100 mg PO DAILY 12/11/19 05/21/20 History ferrous sulfate 325 mg PO DAILY 12/11/19 05/21/20 History loratadine 10 mg PO DAILY PRN 12/11/19 05/21/20 History losartan 50 mg PO DAILY 12/11/19 05/21/20 History olanzapine [Zyprexa] 5 mg PO HS 12/11/19 05/21/20 History polyethylene glycol 3350 [Miralax] 17 g PO DAILY 12/11/19 05/21/20 History rosuvastatin 10 mg PO HS 12/11/19 05/21/20 History acetaminophen 1,000 mg PO BID #0 tablet 12/13/19 05/21/20 Rx hydrocodone-acetaminophen [[place]] 1 tablet PO BID PRN #10 tablet 12/13/19 05/21/20 Rx magnesium citrate [Citroma] 300 ml PO DAILY PRN 05/21/20 05/21/20 History omeprazole 20 mg PO BID 05/21/20 05/21/20 History ondansetron 4 mg PO Q6H PRN 05/21/20 05/21/20 History sennosides-docusate sodium [Senna 2 tab-cap PO PRN PRN 05/21/20 05/21/20 History with Docusate Sodium] Laboratory Tests 05/23/20 05/24/20 05/24/20 14:01 05:28 05:28 WBC 5.8 K/mm3 K/mm3 (4.5-10.0) RBC 4.02 M/mm3 L M/mm3 (4.6-6.20) Hgb 12.3 g/dL L g/dL (14.0-18.0) Hct 35.8 % L % (42.0-52.0) MCV 89.1 fl fl (80-100) MCH 30.6 pg pg (26-34) MCHC 34.4 g/dl g/dl (32-36) RDW 11.8 % % (11.5-14.5) Plt Count 152 k/mm3 k/mm3 (150-375) MPV 9.3 fl fl (7.4-10.4) Immature Gran % (Auto) 0.3 % % (0-0.5) Neut % (Auto) 54.3 % % (45.5-73.1) Lymph % (Auto) 30.9 % % (18.3-44.2) [place] % (Auto) 9.9 % H % (2.6-8.5) Eos % (Auto) 4.1 % % (0-4.4) Baso % (Auto) 0.5 % % (0.2-1.2) Lymph # (Auto) 1.80 K/mm3 K/mm3 (0.9-3.2) [place] # (Auto) 0.6 K/mm3 K/mm3 (0.1-0.6) Eos # (Auto) 0.2 K/mm3 K/mm3 (0-0.3) Baso # (Auto) 0.0 K/mm3 K/mm3 (0.0-0.1) Abs Immat Gran (auto) 0.02 K/mm3 K/mm3 (0.00-0.031) Absolute Neuts (auto) 3.2 K/mm3 K/mm3 (1.3-6.7) Absolute Nucleated RBC 0.0 K/mm3 K/mm3 (0.0-0.012) Nucleated RBC % 0.0 % % (0.0-0.2) Sodium 143 mmol/L mmol/L (137-145) Potassium 3.7 mmol/L mmol/L (3.4-5.0) Chloride 108 mmol/L H mmol/L (98-107) Carbon Dioxide 31 mmol/L H mmol/L (22-30) Anion Gap 4 mmol/L L mmol/L (8-16) BUN 5 mg/dL L mg/dL (9-20) Creatinine 0.90 mg/dL mg/dL (0.7-1.3) Estim Creat Clear Calc 81 ml/min ml/min Estimated GFR > 60 (59 - ) Glucose 82 mg/dL mg/dL (75-110) Calcium 8.6 mg/dL mg/dL (8.4-10.2) Magnesium 1.7 mg/dL mg/dL (1.6-2.3) Total Bilirubin 1.2 mg/dL mg/dL (0.2-1.3) AST 20 U/L U/L (17-59) ALT 11 U/L U/L (4-50) Alkaline Phosphatase 84 U/L U/L (38-126) Total Protein 6.0 g/dL L g/dL (6.3-8.2) Albumin 3.9 g/dL g/dL (3.5-
[2020-05-24] MEDS: FERROUS SULFATE 324 MG TABLET PO (13:39)
[2020-05-24] MEDS: BACLOFEN 10 MG TABLET PO (13:39)
[2020-05-24] MEDS: CHOLECALCIFEROL 1,000 UNITS TABLET 2000 UNITS PO (13:39)
[2020-05-24] MEDS: LOSARTAN POTASSIUM 50 MG TABLET PO (13:39)
--- NOTE | 2020-05-24 16:16 | PM.IMPN ---
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 continues to have pain, especially with gentle palpation to upper abdomen. 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 continue with iv protonix and carafate advanced from liquid diet to regular diet by GI dr. (2) Epigastric pain: Code(s): R10.13 - Epigastric pain Status: Acute Assessment and Plan: advanced from liquid diet to regular diet by GI dr. continues to have pain, especially with gentle palpation to upper abdomen. 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 Continued protonix. appreciate GI consulation and treating (3) Hiatal hernia: Code(s): K44.9 - Diaphragmatic hernia without obstruction or gangrene Status: Acute Assessment and Plan: underwent EGD today no mention of hiatal hernia in EGD report (4) Intellectual disability: Code(s): F79 - Unspecified intellectual disabilities Status: Acute Assessment and Plan: He is difficult to exam and discuss, due to his delayed mental status and mental health co-morbidities. Must keep questions simple and limited. Also very hard of hearing and needs to read lips - difficult to do with mask protocol. Subjective Date/time seen: 05/24/20 16:16 Interval history: Elan is very slowly improving but still having epigastric and generalized abdominal discomfort.. He is tolerating some of his diet today. No N/V. He continues to have pain, especially with gentle palpation to upper abdomen. He underwent an EGD today, found 2 cm Tijerina's Distal Esophagus with biopsies done and 2 polyps removed with 1 clipped due to bleeding. Continued oral protonix. He is difficult to exam and discuss, due to his delayed mental status and mental health co-morbidities. Review of Systems Review of Systems: All systems reviewed & are unremarkable except as noted in HPI and below ROS unobtainable: Yes unobtainable due to mental status Constitutional: Constitutional: Reports as per HPI, Reports no additional constitutional complaints, Reports anorexia, Reports fatigue, Denies headache(s), Reports malaise, Reports poor appetite, Reports weakness and Reports weight loss Eyes: Eyes: Reports as per HPI and Reports no additional eye complaints ENT: Reports system reviewed and no additional complaints, except as documented, Reports as per HPI and Reports Normal hearing present Cardiovascular: Cardiovascular: Reports as per HPI, Reports no additional cardiovascular complaints, Denies chest pain, Denies chest pain at rest and Denies chest pain with activity Respiratory: Respiratory: Reports as per HPI, Reports no additional respiratory complaints, Reports no additional respiratory complaints, Denies chest congestion, Reports cough, Denies hemoptysis, Denies pain with cough, Denies dyspnea, Denies dyspnea on exertion, Denies snoring, Denies stridor and Denies wheezing Gastrointestinal: Gastrointestinal: Reports as per HPI, Reports no additional gastrointestinal complaints, Reports abdominal pain, Denies belching, Denies melena, Denies bloating, Reports dyspepsia, Denies diarrhea, Denies loose stools, Denies nausea, Denies odynophagia, Denies vomiting and Denies hematemesis Genitourinary: Genitourinary: Reports as per HPI Musculoskeletal: Musculoskeletal: Reports no additional musculoskeletal complaints, Reports as per HPI and Denies back pain Integumentary/Breasts: Skin/Breast: Reports system reviewed and no additional complaints, except as docu and Reports as per HPI Neurologic: Reports system reviewed and no additional complaints, except as documented, Reports as per HPI and Reports Normal hearing p
[2020-05-24] MEDS: DIVALPROEX SODIUM SPRINKLE 125 MG CAP.DR PO (17:03)
[2020-05-24 19:43] LABS: SARS-CoV-2 RNA PCR Negative
[2020-05-24] MEDS: ENOXAPARIN 40 MG/0.4 ML SYRINGE SUB-Q (20:05)
[2020-05-24] MEDS: ROSUVASTATIN 10 MG TABLET PO (20:05)
[2020-05-25 05:07] VITALS: BP 143/80; PULSE 64; RESP 20; TEMP 36.3; O2SAT 97
[2020-05-25] MEDS: SUCRALFATE SUSP 100 MG/ML 10 ML UDC 1000 MG PO ×2 (06:31→11:47)
--- NOTE | 2020-05-25 07:10 | WPDGIPROGNO ---
Progress Note: A&P Assessment and Plan (1) Epigastric pain: Code(s): R10.13 - Epigastric pain Status: Acute Assessment and Plan: pain seems to be diminished. Nothing specific was seen on endoscopy to explain his symptoms. I did find what looks like Tijerina's esophagus and biopsies are pending. He certainly should be discharged on PPI (2) Ulcerative esophagitis: Code(s): K22.10 - Ulcer of esophagus without bleeding Status: Chronic Assessment and Plan: much improved over previous endoscopy. No ulceration although now it looks as though he may have a short segment of Tijerina's mucosa Subjective Date/time seen: 05/25/20 07:10 the patient was sleepy but arousable. He denies pain at this time. It appeared that he had eaten some potato chips earlier. I asked him if he wanted breakfast and he said yes. Awaiting results of his biopsies but if stable he could be discharged and call the office tomorrow Exam GI: Inspection: normal to inspection GI Palp: Yes Soft to palpation, Yes Tenderness to palpation present (GI) ( minimal tenderness in epigastric area) and No Guarding due to palpation present (GI) Auscultation: normal bowel sounds Objective Data Vital Signs Vital Signs: Vital Signs - 24 hr 05/24/20 11:21 05/24/20 12:20 05/24/20 12:30 Temperature 36.7 C Pulse Rate 60 52 L 55 L Respiratory Rate 16 16 14 Blood Pressure 97/56 L 97/55 L 122/73 Pulse Oximetry 100 100 100 05/24/20 12:40 05/24/20 14:00 05/24/20 21:06 Temperature 36.7 C 36.3 C L Pulse Rate 58 L 64 75 Respiratory Rate 15 16 18 Blood Pressure 125/82 135/64 136/85 Pulse Oximetry 100 100 100 05/25/20 05:07 Temperature 36.3 C L Pulse Rate 64 Respiratory Rate 20 Blood Pressure 143/80 H Pulse Oximetry 97 Intake/Output Intake/Output: Intake & Output 05/22/20 05/23/20 05/24/20 05/25/20 23:59 23:59 23:59 23:59 Intake Total 3400 4610 2030 240 Output Total 2700 2275 1900 600 Balance 700 2335 130 -360 Meds/Results Medications: Active Medications Generic Name Dose Route Start Last Admin Trade Name Freq PRN Reason Stop Dose Admin Baclofen 10 mg 05/22/20 12:00 05/24/20 13:39 Baclofen 10 Mg Tablet PO 10 mg NOON SUZETTE Administration Benztropine Mesylate 0.5 mg 05/22/20 13:45 05/24/20 17:03 Benztropine Mesylate 0.5 Mg Tablet PO 0.5 mg TID SUZETTE Administration Buspirone HCl 10 mg 05/22/20 13:45 05/24/20 17:03 Buspirone Hcl 10 Mg Tablet PO 10 mg TID SUZETTE Administration Divalproex Sodium 125 mg 05/22/20 16:00 05/24/20 17:03 Divalproex Sodium Sprinkle 125 Mg Cap.Dr PO 125 mg DAILY@1600 SUZETTE Administration Docusate Sodium 100 mg 05/23/20 09:00 05/24/20 10:05 Docusate Sodium 100 Mg Capsule PO Not Given DAILY SUZETTE Enoxaparin Sodium 40 mg 05/22/20 21:00 05/24/20 20:05 Enoxaparin 40 Mg/0.4 Ml Syringe SUB-Q 40 mg HS SUZETTE Administration Ferrous Sulfate 324 mg 05/22/20 09:00 05/24/20 13:39 Ferrous Sulfate 324 Mg Tablet PO 324 mg DAILY SUZETTE Administration Sodium Chloride 1,000 mls @ 75 mls/hr 05/21/20 13:40 05/24/20 19:31 Normal Saline Iv IV CONT 75 mls/hr .[id number] SUZETTE Administration Lorazepam 1 mg 05/21/20 15:04 Lorazepam Inj (*Crx) 2 Mg/Ml Vial IV PUSH Q6H PRN Anxiety Losartan Potassium 50 mg 05/23/20 09:00 05/24/20 13:39 Losartan Potassium 50 Mg Tablet PO 50 mg DAILY SUZETTE Administration Olanzapine 5 mg 05/22/20 21:00 05/24/20 20:05 Olanzapine Tab 5 Mg Tablet PO 5 mg HS SUZETTE Administration Ondansetron HCl 4 mg 05/21/20 13:40 05/24/20 08:28 Ondansetron Inj 4 Mg/2 Ml Vial IV PUSH 4 mg Q4H PRN Administration Nausea Pantoprazole Sodium 40 mg 05/21/20 21:00 05/24/20 20:05 Pantoprazole Sodium Iv 40 Mg Vial IV PUSH 40 mg Q12HR SUZETTE Administration Rosuvastatin Calcium 10 mg 05/22/20 21:00 05/24/20 20:05 Rosuvastatin 10 Mg Tablet PO 10 mg HS SUZETTE Administration
[2020-05-25 08:33] VITALS: BP 130/81; PULSE 61; RESP 12; TEMP 36.5; O2SAT 99
--- NOTE | 2020-05-25 08:39 | WPDANESPN ---
Anes - Prog Note Post-Op Date/Time: 05/25/20 08:39 Cardiovascular status: normal Respiratory status: normal Airway patency: baseline Mental status: baseline Post-Op hydration status: normal Vital Signs: Last Vital Signs Temp 36.5 C 05/25/20 08:33 Pulse 61 05/25/20 08:33 Resp 12 05/25/20 08:33 BP 130/81 05/25/20 08:33 Pulse Ox 99 05/25/20 08:33 Pain Score (VAS): 02/21 I/O: Intake & Output 05/24/20 05/25/20 05/25/20 23:59 07:59 15:59 Intake Total 580 240 Output Total 600 Balance 580 -360 Laboratory Tests 05/24/20 05:28 05/24/20 05:28 05/23/20 14:01 SARS-CoV-2 RNA (RT-PCR) Negative Post-procedural complaints: none Patient Feedback: Patient satisfied with anesthetic care.
[2020-05-25] MEDS: SODIUM CHLORIDE 0.9% IV 1,000 ML 75 ML IV CONT (09:10)
[2020-05-25] MEDS: LOSARTAN POTASSIUM 50 MG TABLET PO (10:01)
[2020-05-25] MEDS: FERROUS SULFATE 324 MG TABLET PO (10:01)
[2020-05-25] MEDS: CHOLECALCIFEROL 1,000 UNITS TABLET 2000 UNITS PO (10:02)
[2020-05-25] MEDS: busPIRone HCL 10 MG TABLET PO ×2 (10:03→14:04)
[2020-05-25] MEDS: BENZTROPINE MESYLATE 0.5 MG TABLET PO ×2 (10:05→14:06)
[2020-05-25] MEDS: DOCUSATE SODIUM 100 MG CAPSULE PO (10:06)
[2020-05-25] MEDS: PANTOPRAZOLE SODIUM IV 40 MG VIAL IV PUSH (10:08)
--- NOTE | 2020-05-25 10:19 | PC.NURSE ---
GAVE PT DOCUSATE CAPSULE IN APPLESAUCE, INSTRUCTED PT TO SWALLOW PILL WHOLE. PT BIT CAPSULE, RELEASING CONTENTS INTO PT MOUTH. PT SPAT OUT BROKEN SHELL OF CAPSULE, NO LIQUID NOTED. SHELL DISPOSED OF.
[2020-05-25] MEDS: BACLOFEN 10 MG TABLET PO (11:50)
--- NOTE | 2020-05-25 13:39 | PM.DS ---
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 House which demonstrated 2 cm short-segment Tijerina's mucosa in the distal esophagus. Biopsies taken to confirm diagnosis which are pending. He will need to call Dr. moss office in 2-3 days to obtain results and will need to follow-up as an outpatient. He was started on pantoprazole 40 mg BID. (2) Ulcerative esophagitis: Code(s): K22.10 - Ulcer of esophagus without bleeding Status: Chronic Assessment and Plan: History of severe ulcerative esophagitis diagnosed on 12/11/2020 from previous EGD. This was felt to be the source of his epigastric pain. CT abdomen/pelvis demonstrated no acute findings. Continue Protonix as above. He was started on carafate. Diet was slowly advanced. Continue bland diet. Follow up with GI as above. (3) Gastric polyps: Code(s): K31.7 - Polyp of stomach and duodenum Status: Acute Assessment and Plan: Visualized on EGD in the fundus. Two polypectomies were performed. Clip placed at polypectomy site to prevent bleeding. (4) Chronic anemia: Code(s): D64.9 - Anemia, unspecified Status: Acute Assessment and Plan: Hemoglobin and hematocrit remained consistent with baseline. Vitals were stable and he had no evidence of bleeding. Continue ferrous sulfate. (5) Intellectual disability: Code(s): F79 - Unspecified intellectual disabilities Status: Acute Assessment and Plan: Given intellectual disability, there was difficulty with communicating to explain results and instructions. The patient resides in a detention with his mother. I provided all instructions to detention to implement. [place] staff manages patient's medications. (6) Schizophrenia: Code(s): F20.9 - Schizophrenia, unspecified Status: Chronic Assessment and Plan: Mood remained stable. Continue psychiatric medication regimen. DS: Summary Hospital Course Reason for hospitalization: Epigastric pain Hospital Course: Date of admission: 05/21/2020 Date of discharge: 05/25/2020 Elmo Garzon is a 50-year-old male with history intellectual disability, bipolar disorder, schizophrenia, CVA, chronic anemia, GERD, and erosive esophagitis to the emergency department on 05/21/2020 from detention with complaints of epigastric pain. He had been having regular bowel movements but was dry heaving. He was not able to provide much further history. Upon presentation to the ED, his vital signs are stable and he was afebrile, H&H slightly decreased, additional CBC and BMP unremarkable, lipase 94, CXR with no acute cardiopulmonary disease, abdominal x-ray unremarkable, and CT abdomen/pelvis showed no acute intra-abdominal findings with moderate gastroesophageal hiatal hernia. He was admitted to the hospitalist service for further evaluation and management and was seen in consultation by Gastroenterology. Please see above for further details. He underwent EGD on 05/24/2020 which demonstrated likely Tijerina esophagus. His diet was slowly advanced and his epigastric pain improved significantly. He should continue a bland diet and follow-up with GI. Given his overall improvement, he was determined to no longer require inpatient care and felt to be stable for discharge. I explained to him his medication changes and worrisome signs and symptoms for which to return, however given his intellectual disability he had difficulty with understanding this. I then provided further instructions to detention staff, including worrisome signs and symptoms for which to return and follow-up instructions. He was discharged in hemodynamically stable condition on 05/25/2020.
--- NOTE | 2020-05-25 15:20 | PC.NURSE ---
On 05/25/20, the student, [FLORI SANCHEZ], provided care and completed [facility] documentation on this patient. I have reviewed the student's documentation and agree with the findings.
== END 2020-05-25 16:10 | DRG 382 ==
LOC: ANHED 12:18 → ANH2MED 14:11
PROVIDERS: Internal Medicine Gastroenterology; Physician Assistant; Admitting Provider Internal Medicine; Emergency Provider General Practice; PCP General Practice; Visit Provider Physician Assistant
PROC: 0DJ08ZZ Inspection of Upper Intestinal Tract, Via Natural or Artificial Opening Endoscopic (ICD-10-PCS; CPT 43235; principal; 2020-05-24 12:00)
DX: K22.10 Ulcer of esophagus without bleeding (principal); K21.00 Gastro-esophageal reflux disease with esophagitis, without bleeding; K44.9 Diaphragmatic hernia without obstruction or gangrene; K31.7 Polyp of stomach and duodenum; Z20.822 Contact with and (suspected) exposure to COVID-19; E86.0 Dehydration; D64.9 Anemia, unspecified; F20.9 Schizophrenia, unspecified; F79 Unspecified intellectual disabilities; F31.9 Bipolar disorder, unspecified; F41.8 Other specified anxiety disorders; E78.5 Hyperlipidemia, unspecified; M79.601 Pain in right arm; I10 Essential (primary) hypertension; Z86.73 Personal history of transient ischemic attack (TIA), and cerebral infarction without residual deficits; Z79.899 Other long term (current) drug therapy
CPT/HCPCS: 36415; 71045; 74018; 74177; 80053; 80164; 81001; 82248; 82607; 82746; 83690; 83735; 85025; 88305; 88313; 96361; 96372; 96374; 96375; 96376; 97110; 97116; 97161; 97166; 99285; A9270; C9113; C9803; G0378; J0131; J1200; J1650; J2270; J2405; J2704; J2765; J7030; J7120; Q9967; U0003; U0005

== ENCOUNTER 2020-06-30 10:32 | Inpatient (IN) | payer MEDICARE, MEDICAID, SELFPAY ==
[2020-06-30] VITALS (18 sets, daily range): BP systolic 93–137; BP diastolic 51–92; PULSE 60–106; RESP 12–22; TEMP 36.7–36.8; O2SAT 22–100
--- NOTE | ~2020-06-30 | CT_ITS ---
EXAMINATION: CT abdomen pelvis w con EXAM DATE: 06/30/2020 12:11 INDICATION: Diffuse abdominal pain . TECHNIQUE: Spiral CT of the abdomen and pelvis was performed following intravenous injection of 100 m L Omnipaque 350. Axial, coronal and sagittal images of the abdomen and pelvis were reviewed. The do se-length product (DLP) for this examination was 597.66 mGy-cm. The exposure was tailored according to patient size (auto mA exposure control), and iterative reconstruction (ASIR) was used as additiona l dose reduction technique. Comparison is made to prior examination from 05/21/2020. FINDINGS: The liver, spleen, adrenal glands and pancreas are unremarkable. Gallbladder is unremarka ble. No biliary obstruction. Portal and splenic veins are patent. Kidneys enhance symmetrically. There is no hydronephrosis. The prostate is unremarkable. The bladder is unremarkable. There is n o retroperitoneal or pelvic lymphadenopathy. There is mild to moderate scattered arteriosclerotic d isease. The appendix is not positively visualized. There is no pericecal inflammatory change to suggest appe ndicitis. There is moderate-sized gastroesophageal hiatal hernia. There is mild scattered colonic d iverticulosis. There is no adjacent inflammatory change to suggest diverticulitis. There is moderate amount of colonic stool. No free intraperitoneal gas. The heart is normal in size. There are no pericardial or pleural effusions. The lung bases are unremarkable. There are no osteoblastic or os teolytic lesions identified. There is a right hip gamma nail. There is no significant interval change . IMPRESSION: 1. No acute intra-abdominal findings. 2. Moderate gastroesophageal hiatal hernia. Reviewed, dictated and finalized at location A.
--- NOTE | ~2020-06-30 | NM_ITS ---
EXAMINATION: NM hepatobiliary wo pharm DATE: 07/02/2020 10:04 INDICATION: Cholelithiasis. Abdominal pain. COMPARISON: CT abdomen and pelvis 06/30/2020 TECHNIQUE: 5 mCi Tc-99m mebrofenin (Choletec) was administered intravenously. Scintigraphic images o f the abdomen were obtained for one hour. Then, the patient drank 8 oz Ensure, and imaging was contin ued for 60 minutes. FINDINGS: There is normal clearance of radiotracer from the blood pool. There is homogeneous tracer u ptake by the liver. Activity progresses to the bowel and gallbladder. Gallbladder ejection fraction (GBEF) was 11%. Note that with this technique, normal GBEF >= 33%. IMPRESSION: 1. Low gallbladder ejection fraction, consistent with gallbladder dysfunction and/or chronic cholecy stitis. Reviewed, dictated and finalized at location A. IMPRESSION: 1. Low gallbladder ejection fraction, consistent with gallbladder dysfunction and/or chronic cholecystitis.
--- NOTE | ~2020-06-30 | XR_ITS ---
EXAMINATION: XR abdomen/kub 1V INDICATION: Constipation and abdominal pain TECHNIQUE: Supine views of the abdomen were obtained on 2 radiographs. COMPARISON: 05/21/2020 FINDINGS: The bowel gas pattern is nonspecific. There are no dilated loops of bowel. Calcified athero sclerosis is noted. There are changes of antegrade intramedullary hailey and interlocking intratrochante brittany screw fixation in the right femur. The lung bases are clear. IMPRESSION: 1. No radiographic correlate for the patient's symptoms. Reviewed, dictated and finalized at location A.
--- NOTE | ~2020-06-30 | US_ITS ---
EXAMINATION: US abdomen limited DATE: 07/01/2020 12:38 INDICATION: Abdominal pain. TECHNIQUE: Multiple grayscale and Doppler ultrasound images of the abdomen were obtained. COMPARISON: CT abdomen and pelvis 06/30/2020 FINDINGS: The pancreas is obscured by bowel gas. The liver is normal without focal lesion. There is n ormal flow in main portal vein. The gallbladder is normal in size and contains gallstones. No gallbla dder wall thickening. There was a positive sonographic Mack sign. The common duct is normal and liya sures 3 mm. Right kidney is normal. IMPRESSION: 1. Cholelithiasis. No imaging evidence of acute cholecystitis despite a positive sonographic Mack s ign. Reviewed, dictated and finalized at location A. IMPRESSION: 1. Cholelithiasis. No imaging evidence of acute cholecystitis despite a positiv e sonographic Mack sign.
--- NOTE | 2020-06-30 11:19 | ED.ABDPAIN ---
HPI - Abdominal Pain General Chief Complaint: Abdominal Pain Stated Complaint: LLQ ABD PAIN/VOMITING Time Seen by Provider: 06/30/20 10:56 Source: patient, EMS and RN notes reviewed Mode of arrival: EMS Limitations: clinical condition History of Present Illness HPI narrative: Patient is 50 years old white male brought [facility] because of diffuse abdominal pain for unknown duration. History of intellectual disability. Unable to information from the patient, according to the old records that patient been having abdominal pain for months. Related Data Home Medications Medication Instructions Recorded Confirmed Complete Multivitamin 1 tablet PO DAILY 12/11/19 06/14/20 baclofen 10 mg PO DAILY 12/11/19 06/14/20 benztropine 0.5 mg PO TID 12/11/19 06/14/20 buspirone 10 mg PO TID 12/11/19 06/14/20 cholecalciferol (vitamin D3) 2,000 unit PO DAILY 12/11/19 06/14/20 [Vitamin D3] divalproex 125 mg PO DAILY 12/11/19 06/14/20 docusate sodium 100 mg PO DAILY 12/11/19 06/14/20 ferrous sulfate 325 mg PO DAILY 12/11/19 06/14/20 loratadine 10 mg PO DAILY PRN 12/11/19 06/14/20 losartan 50 mg PO DAILY 12/11/19 06/14/20 olanzapine [Zyprexa] 5 mg PO HS 12/11/19 06/14/20 polyethylene glycol 3350 [Miralax] 17 g PO DAILY 12/11/19 06/14/20 rosuvastatin 10 mg PO HS 12/11/19 06/14/20 magnesium citrate [Citroma] 300 ml PO DAILY PRN 05/21/20 06/14/20 ondansetron 4 mg PO Q6H PRN 05/21/20 06/14/20 sennosides-docusate sodium [Senna 2 tab-cap PO PRN PRN 05/21/20 06/14/20 with Docusate Sodium] Allergies Allergy/AdvReac Type Severity Reaction Status Date / Time No Known Allergies Allergy Verified 06/14/20 14:51 Review of Systems Review of Systems: ROS unobtainable: Yes unobtainable due to medical condition PMFSH Past Medical History Medical History Bipolar disorder Cerebrovascular accident Old CVA noted on brain CT in July 2018. Chronic anemia Closed right hip fracture (~07/2018) Depression with anxiety Epigastric pain Gastroesophageal reflux disease Hiatal hernia Hyperlipidemia Hypertension Intellectual disability Nausea & vomiting Pneumothorax on left (~09/2018) Schizophrenia Surgical History Surgical History History of appendectomy History of hip surgery (~07/2018) ORIF right hip fracture with trochanteric nail device. History of tonsillectomy Family History Family History Other Unknown family medical history Social History Social History Social History: Surrogate decision maker: Soo Cedeño power of bankruptcy attorney. Code status: Full code. Smoking status: Never smoker Alcohol intake: never Substance use: never Substance use type: does not use Additional living arrangements comments: Resides in a halfway in [place]. Additional occupation/education comments: Disabled. Gender identity (if verbalized by the patient): Male Spiritual care concerns: No Exam Narrative: Exam Narrative: General appearance: Well-developed, well-nourished, looks in pain, Skin: Pale Head: Normocephalic, nontraumatic Eyes: Clear conjunctiva ENT: Oropharynx normal, ears normal, nose normal Neck: Supple, nontender Chest and respiratory: Airway patent, no respiratory distress, no accessory muscle use Heart: Regular rate/rhythm Abdomen: Diffuse generalized abdominal tenderness, quiet bowel sounds, diffuse guarding, no rebound Neurologic: Alert Course Course Emergency Course: Stable Consultations C
[2020-06-30] MEDS: ONDANSETRON INJ 4 MG/2 ML VIAL (11:32)
[2020-06-30] MEDS: SODIUM CHLORIDE 0.9% IV 1,000 ML 999 ML (11:32)
[2020-06-30] MEDS: HYDROmorphone HCL INJ (*CRX) 1 MG/ML SYR (11:32)
[2020-06-30 11:37] LABS: Basophils Percent Auto 0.5 % (0.2-1.2); Eosinophils Absolute Auto 0.1 K/mm3 (0-0.3); Eosinophils Percent Auto 2.3 % (0-4.4); Hematocrit 36.5 % (42.0-52.0); Hemoglobin 12.1 g/dL (14.0-18.0); Immature Granulocyte Absolute 0.01 K/mm3 (0.00-0.031); Immature Granulocyte Percent A 0.2 % (0-0.5); Lymphocytes Absolute Auto 1.78 K/mm3 (0.9-3.2); Lymphocytes Percent Auto 28.9 % (18.3-44.2); Mean Corpuscular HGB Conc 33.2 g/dl (32-36); Mean Corpuscular Volume 90.3 fl (80-100); Mean Platelet Volume 9.1 fl (7.4-10.4); Monocytes Absolute Auto 0.5 K/mm3 (0.1-0.6); Monocytes Percent Auto 7.5 % (2.6-8.5); Neutrophils Absolute Auto 3.7 K/mm3 (1.3-6.7); Neutrophils Percent Auto 60.6 % (45.5-73.1); Platelet Count Result 159 k/mm3 (150-375); Red Blood Count 4.04 M/mm3 (4.6-6.20); Red Cell Distribution Width 11.7 % (11.5-14.5); White Blood Count 6.2 K/mm3 (4.5-10.0)
[2020-06-30 11:47] LABS: Alanine Aminotransferase 14 U/L (4-50); Albumin Level 4.2 g/dL (3.5-5.1); Alkaline Phosphatase 77 U/L (38-126); Anion Gap 4 mmol/L (8-16); Aspartate Amino Transferase 21 U/L (17-59); Bilirubin,Total 0.8 mg/dL (0.2-1.3); Blood Urea Nitrogen 13 mg/dL (9-20); Calcium 9.4 mg/dL (8.4-10.2); Carbon Dioxide 36 mmol/L (22-30); Chloride 103 mmol/L (98-107); Estimated Glomerular Filt Rate > 60; Glucose 97 mg/dL (75-110); Lipase 83 U/L (23-300); Potassium 4.3 mmol/L (3.4-5.0); Sodium 143 mmol/L (137-145)
[2020-06-30 13:01] LABS: Add Urine Microscopic? YES; Appearance Urine Clear (Clear); Bilirubin Urine Negative (Negative); Blood Urine Negative (Negative); Color Urine Amber (Yellow); Glucose Urine UA Negative (Negative); Ketones Urine Negative (Negative); Leukocyte Esterase Ur Negative LEU/UL (Negative); Mucus Urine Few /lpf; Nitrate Urine Negative (Negative); Protein Urine 1+ mg/dL (Negative); Urobilinogen Urine Negative mg/dL (<2.0); WBC Urine 0-3 /hpf
[2020-06-30 13:11] LABS: Specific Grav Ur 1.048 (1.001-1.035)
--- NOTE | 2020-06-30 13:30 | PM.IMHP ---
H&P: HPI History of Present Illness Date/Time: 06/30/20 13:30 Chief Complaint: Abdominal pain. Narrative: This is a 50-year-old male with GERD and history of ulcerative esophagitis, intellectual disability, schizophrenia, bipolar disorder, hypertension, and hyperlipidemia who presented to the emergency department earlier today via EMS from [place] for evaluation of abdominal pain. The patient is quite hard of hearing and if you speak loudly enough to him he seems to understand and is able to provide a fair history. Given his underlying psychiatric illness and intellectual disability however some of the following is supplemented via a review of his electronic medical records. The patient is known to the hospitalist service with prior visits for similar complaints. More recently had an upper endoscopy per Dr. House on 05/24/2020 which showed a gastric polyp and findings Tijerina's esophagitis. Today he comes in once again with diffuse abdominal pain that he is unable to truly localize. He cannot really qualify the pain either any gives no aggravating or alleviating factors. It is my understanding that he was referred to a surgeon for evaluation for possible gallbladder dysfunction however he has not yet had an appointment. At the time my evaluation he is resting comfortably and when I go to examine him he guards his abdomen and grimaces and moans in pain. He denies fever, chills, sweats, chest pain, shortness of breath, vomiting, and diarrhea. [facility] Past Medical History Medical History (Updated 06/30/20 @ 19:51 by Mame Brown PA-C) Bipolar disorder Cerebrovascular accident Old CVA noted on brain CT in July 2018. Chronic anemia Closed right hip fracture (~07/2018) Depression with anxiety Epigastric pain Gastroesophageal reflux disease Hiatal hernia Hyperlipidemia Hypertension Intellectual disability Nausea & vomiting Pneumothorax on left (~09/2018) Schizophrenia Surgical History Surgical History History of appendectomy History of hip surgery (~07/2018) ORIF right hip fracture with trochanteric nail device. History of tonsillectomy Family History Family History Other Unknown family medical history Social History Social History Social History: Surrogate decision maker: Soo Cedeño power of ip attorney. Code status: Full code. Smoking status: Never smoker Alcohol intake: unknown Substance use: unknown Substance use type: does not use Additional living arrangements comments: Resides in a fdc in [place]. Additional occupation/education comments: Disabled. Gender identity (if verbalized by the patient): Male Spiritual care concerns: No Meds Home Medications and Allergies Home Medications Medication Instructions Recorded Confirmed Type baclofen 10 mg PO DAILY 12/11/19 06/30/20 History benztropine 0.5 mg PO TID 12/11/19 06/30/20 History buspirone 10 mg PO TID 12/11/19 06/30/20 History cholecalciferol (vitamin D3) 2,000 unit PO DAILY 12/11/19 06/30/20 History [Vitamin D3] divalproex 125 mg PO DAILY 12/11/19 06/30/20 History docusate sodium 100 mg PO DAILY 12/11/19 06/30/20 History ferrous sulfate 325 mg PO DAILY 12/11/19 06/30/20 History loratadine 10 mg PO DAILY PRN 12/11/19 06/30/20 History losartan 50 mg PO DAILY 12/11/19 06/30/20 History olanzapine [Zyprexa] 5 mg PO HS 12/11/19 06/30/20 History polyethylene glycol 3350 [Miralax] 17 g PO DAILY 12/11/19 06/30/20 History rosuvastatin 10 mg PO HS 12/11/19 06/30/20 History acetaminophen 1,000 mg PO BID #0 tablet 12/13/19 06/30/20 Rx magnesium citrate [Citroma] 30 ml PO DAILY PRN 05/21/20 06/30/20 History ondansetron 4 mg PO Q6H PRN 05/21/20 06/30/20 History sennosides-docusate sodium [Senna 2 tab-cap PO Q6H PRN 05/21/20 06/30/20 History with Docusate So
[2020-06-30] MEDS: PANTOPRAZOLE SODIUM IV 40 MG VIAL IV PUSH (16:03)
--- NOTE | 2020-06-30 16:10 | PC.NURSE ---
This patient, Elan Garzon, was admitted to [facility] Surg Room 331-01. Patient/family oriented to hospital policies and general routines including ID bracelet, bed and alarms, visiting hours, pain management, procedures, bathroom and other care routines, personal items, smoking policy, room service/diet, and visiting hours. Report received from BOO RN Information on how to activate the Rapid Response Team has been discussed. Patient/Family are encouraged to report perceived risks to care and to ask questions if they do not understand what they are told or what they should do.
--- NOTE | 2020-06-30 16:54 | WPDGICN ---
Assessment and Plan Assessment and plan (1) Abdominal pain: Qualifiers: Abdominal location: generalized Qualified Code(s): R10.84 - Generalized abdominal pain Code(s): R10.9 - Unspecified abdominal pain Status: Acute Assessment and Plan: I will obtain serum lead levels to rule out the remote possibility of lead poisoning. Also will obtain C reactive protein. In my opinion he does not have an acute abdomen. He is NPO for now. I will wait until morning to try feeding him GI Consult Note Consult date/time: 06/30/20 16:54 HPI: Elan Garzon is a 50 year old male who presents to the emergency room with a complaint of abdominal pain. He was recently hospitalized with the same symptoms and evaluation was negative. He has had 2 previous CAT scans that were unremarkable. Although he was found to have erosive esophagitis on endoscopy last fall, 1 that I performed a few weeks ago did not show any significant disease to account for his symptoms. I had recently seen him in the office and examination was the same. He seems tender diffusely in his abdomen. Findings are otherwise unremarkable. Obtaining a history from him which is reliable is challenging because he suffers from schizophrenia, and he is very non communicative. Evaluation in the emergency room was negative but they felt that it would be best to watch him overnight. When I walk into his room he was lying on his side, awake and appeared comfortable. I spoke to him for a while and he did not complain until after I asked him if he was having pain. At that point he grabbed his abdomen, squeezing it, while moaning. Likewise when I try to examine him. He yelled out when my fingers were barely touching his skin! Review of Systems Review of Systems: All systems reviewed & are unremarkable except as noted in HPI and below PMFSH Past Medical History Medical History Bipolar disorder Cerebrovascular accident Old CVA noted on brain CT in July 2018. Chronic anemia Closed right hip fracture (~07/2018) Depression with anxiety Epigastric pain Gastroesophageal reflux disease Hiatal hernia Hyperlipidemia Hypertension Intellectual disability Nausea & vomiting Pneumothorax on left (~09/2018) Schizophrenia Surgical History Surgical History History of appendectomy History of hip surgery (~07/2018) ORIF right hip fracture with trochanteric nail device. History of tonsillectomy Family History Family History Other Unknown family medical history Social History Social History Social History: Surrogate decision maker: Soo Cedeño power of food analyst. Code status: Full code. Smoking status: Never smoker Alcohol intake: unknown Substance use: unknown Substance use type: does not use Additional living arrangements comments: Resides in a fdc in [place]. Additional occupation/education comments: Disabled. Gender identity (if verbalized by the patient): Male Spiritual care concerns: No Meds Home Medications and Allergies Home Medications Medication Instructions Recorded Confirmed Type Complete Multivitamin 1 tablet PO DAILY 12/11/19 06/14/20 History baclofen 10 mg PO DAILY 12/11/19 06/14/20 History benztropine 0.5 mg PO TID 12/11/19 06/14/20 History buspirone 10 mg PO TID 12/11/19 06/14/20 History cholecalciferol (vitamin D3) 2,000 unit PO DAILY 12/11/19 06/14/20 History [Vitamin D3] divalproex 125 mg PO DAILY 12/11/19 06/14/20 History docusate sodium 100 mg PO DAILY 12/11/19 06/14/20 History ferrous sulfate 325 mg PO DAILY 12/11/19 06/14/20 History loratadine 10 mg PO DAILY PRN 12/11/19 06/14/20 History losartan 50 mg PO DAILY 12/11/19 06/14/20 History olanzapine [Zyprexa] 5 mg PO H
[2020-06-30] MEDS: SODIUM CHLORIDE 0.9% IV 1,000 ML 125 ML IV CONT (17:42)
[2020-06-30 17:44] LABS: CRP 0.5 mg/dL (<1.0)
[2020-07-01] MEDS: SODIUM CHLORIDE 0.9% IV 1,000 ML 125 ML IV CONT ×3 (04:31→23:20)
[2020-07-01 05:34] VITALS: BP 135/87; PULSE 77; RESP 18; TEMP 37.2; O2SAT 99
[2020-07-01] MEDS: PANTOPRAZOLE SODIUM IV 40 MG VIAL IV PUSH (08:47)
[2020-07-01] MEDS: HYDROmorphone HCL INJ (*CRX) 1 MG/ML SYR 0.5 MG IV PUSH ×3 (08:51→23:43)
[2020-07-01 10:25] VITALS: O2SAT 96
--- NOTE | 2020-07-01 11:32 | WPDGIPROGNO ---
Progress Note: A&P Assessment and Plan (1) Abdominal pain: Qualifiers: Abdominal location: generalized Qualified Code(s): R10.84 - Generalized abdominal pain Code(s): R10.9 - Unspecified abdominal pain Status: Acute Assessment and Plan: I am not sure that we will ever find a reason for his pain. The fact that he was tender to light touch, even when I pressed my thumb in to his right flank, and stroke to his left flank with my finger, stain OUCH each time, leads me to doubt that he has an organic illness as there is no localization. 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 I would like to try him on a tricyclic such as amitriptyline. it can take a few weeks to see the benefit of this. Therefore from my perspective he could be discharged and follow up in the office in a couple of weeks Also it appears a hydromorphone did not relieve his pain as he had had an injection a little less than 2 hours before I saw him. Subjective Date/time seen: 07/01/20 11:32 the patient was lying on his right side. Awake. Appears comfortable. However, when I ask him if he is having any pain he points to his mid abdomen, groaning as he does so. He states that it never goes away. He states he has no problem eating. Review of Systems Review of Systems: All systems reviewed & are unremarkable except as noted in HPI and below Exam Const: General: cooperative Nutritional Appearance: average body habitus GI: Inspection: normal to inspection GI Palp: Yes abdominal tenderness ( Generalized. Tender to even very light touch), Yes Soft to palpation and Yes Guarding due to palpation present (GI) Auscultation: normal bowel sounds Other: he pointed to his mid abdomen as the source of his pain. I press slightly with my thumb on his right flank and he flanged and set out loudly. I dense stroke to his left flank lightly with my index finger with the same result and complaint of pain. Objective Data Vital Signs Vital Signs: Vital Signs - 24 hr 06/30/20 12:12 06/30/20 12:13 06/30/20 12:15 Temperature Pulse Rate 67 64 62 Respiratory Rate 13 12 Blood Pressure 93/51 L 109/76 Pulse Oximetry 100 100 99 06/30/20 12:16 06/30/20 12:30 06/30/20 13:29 Temperature Pulse Rate 61 95 106 H Respiratory Rate 12 15 14 Blood Pressure 126/92 H 109/66 Pulse Oximetry 99 98 22 L 06/30/20 14:03 06/30/20 15:13 06/30/20 15:15 Temperature Pulse Rate 65 63 63 Respiratory Rate 12 22 H 17 Blood Pressure 115/76 125/80 Pulse Oximetry 99 100 100 06/30/20 15:16 06/30/20 15:42 06/30/20 20:15 Temperature Pulse Rate 62 65 60 Respiratory Rate 14 14 18 Blood Pressure 116/73 Pulse Oximetry 100 99 98 06/30/20 21:56 07/01/20 05:34 07/01/20 10:25 Temperature 36.8 C 37.2 C Pulse Rate 60 77 Respiratory Rate 18 18 Blood Pressure 137/66 135/87 Pulse Oximetry 98 99 96 Intake/Output Intake/Output: Intake & Output 06/28/20 06/29/20 06/30/20 07/01/20 23:59 23:59 23:59 23:59 Intake Total 1000 1000 Output Total 225 240 Balance 775 760 Meds/Results Medications: Active Medications Generic Name Dose Route Start Last Admin Trade Name Freq PRN Reason Stop Dose Admin Baclofen 10 mg 07/01/20 12:00 Baclofen 10 Mg Tablet PO 1200 SUZETTE Benztropine Mesylate 0.5 mg 07/01/20 13:00 Benztropine Mesylate 0.5 Mg Tablet PO TID SUZETTE Buspirone HCl 10 mg 07/01/20 09:15 Buspirone Hcl 10 Mg Tablet PO TID [facility] Dicyclomine HCl 20 mg 06/30/20 14:06 Dicyclomine Hcl Inj 20 Mg/2 Ml Vial IM Q6H PRN Abdominal Cramping Divalproex Sodium 125 mg 07/01/20 16:00 Divalproex Sodium Sprinkle 125 Mg Cap.Dr PO DAILY@1600 [facility] Docusate Sodium 100 mg 07/01/20 09:15 Docusate Sodium 100 Mg Capsule PO DAILY [facility] Ferrous Sulfate 324 mg 07/01/20 09:15 Ferrous Sulfate 324 Mg Tablet PO DAILY SUZETTE Hydromorphone HCl 0.5 mg 06/30/20 14:06
[2020-07-01 14:00] VITALS: BP 130/73; PULSE 82; RESP 16; TEMP 37.1; O2SAT 100
--- NOTE | 2020-07-01 15:28 | PM.IMPN ---
Progress Note: A&P Assessment and Plan (1) Intractable abdominal pain: Code(s): R10.9 - Unspecified abdominal pain Status: Acute Assessment and Plan: Has been undergoing outpatient work up. Endoscopy 05/[address] House demonstrated healing of his previously esophagitis. Appreciate Dr. House's recommendations. He describes he may have a component of visceral hypersensitivity and has started amitriptyline for same. Right upper quadrant ultrasound demonstrates cholelithiasis. Apparently he had been referred to a general surgeon on outpatient basis for evaluation of this but had not yet been to an appointment. Will obtain HIDA scan to evaluate the function of the gallbladder. Differentials include visceral hypersensitivity, biliary dyskinesia. HIDA in AM. Continue supportive care, IV hydration. (2) Gastroesophageal reflux disease: Qualifiers: Esophagitis presence: with esophagitis Esophagitis bleeding: with hemorrhage Qualified Code(s): K21.01 - Gastro-esophageal reflux disease with esophagitis, with bleeding Code(s): K21.9 - Gastro-esophageal reflux disease without esophagitis Status: Chronic Assessment and Plan: Continue PPI. (3) Chronic anemia: Code(s): D64.9 - Anemia, unspecified Status: Chronic Assessment and Plan: Appears chronic based on review of previous labs. H&H low but stable, no evidence of acute bleeding. Monitor CBC. Continue his home iron supplementation. (4) Dehydration: Code(s): E86.0 - Dehydration Status: Acute Assessment and Plan: Continue IV hydration and monitor fluid status since he is still vomiting. (5) Hypertension: Code(s): I10 - Essential (primary) hypertension Status: Chronic Assessment and Plan: Blood pressures reviewed, stable last 130/73. Resume his home losartan in AM. Monitor BP and adjust treatment as needed. (6) Intellectual disability: Code(s): F79 - Unspecified intellectual disabilities Status: Chronic Assessment and Plan: Cooperative. Resting. (7) Psychiatric illness: Code(s): F99 - Mental disorder, not otherwise specified Status: Chronic Assessment and Plan: EMR indicates he has diagnoses of schizophrenia and bipolar disorder. Continue his home medications. Subjective Date/time seen: 07/01/20 1430 Interval history: Mr. Garzon is a 50yo M admitted for abdominal pain. He is a bit difficult to obtain a reliable history from due to intellectual disability, schizophrenia and bipolar disorder. Upon my entering the room he is sleeping comfortably. Once I wake him up, he does start to moan and seem to be in pain. Nursing has notified me late this afternoon that he was vomiting and couldn't keep down clear liquids with medications. Further complete review of systems is unobtainable. Review of Systems Review of Systems: ROS unobtainable: Yes unobtainable due to medical condition Exam Narrative: Exam Narrative: General: Thin, chronically ill-appearing male lying on his left side in bed in no acute distress. HEENT: Hard of hearing. PERRL, EOMI. Sclerae anicteric. Tacky mucous membranes. Lips are cracked. Neck: Supple. No JVD. Respiratory: Lungs are clear to auscultation bilaterally. Respirations even and nonlabored. Tolerating room air. Cardiovascular: Rate and rhythm regular. Gastrointestinal: He begins to guard his stomach before even touch him, grimacing and moaning with even barely touching the abdomen. Positive bowel sounds. Skin: Warm and dry. Generalized pallor. Extremities: No cyanosis, clubbing, or edema. Right arm is co
[2020-07-01] MEDS: ONDANSETRON INJ 4 MG/2 ML VIAL IV PUSH (16:06)
--- NOTE | 2020-07-01 18:00 | PC.NURSE ---
Patient drank and tired to eat but when he does he has a couple of bites and his stomach hurts. Patient belches and dry heaves. Also c/o abdomen hurts.
[2020-07-01] MEDS: AMITRIPTYLINE HCL 10 MG TABLET PO (20:27)
[2020-07-01] MEDS: ROSUVASTATIN 10 MG TABLET PO (20:27)
[2020-07-01 21:47] VITALS: BP 137/81; PULSE 86; RESP 20; TEMP 36.7; O2SAT 99
[2020-07-01 22:45] VITALS: O2SAT 98
[2020-07-02 05:42] VITALS: BP 154/82; PULSE 80; RESP 18; TEMP 37.1; O2SAT 97
[2020-07-02] MEDS: ONDANSETRON INJ 4 MG/2 ML VIAL IV PUSH ×2 (10:18→14:21)
[2020-07-02] MEDS: HYDROmorphone HCL INJ (*CRX) 1 MG/ML SYR 0.5 MG IV PUSH ×3 (10:18→15:15)
[2020-07-02] MEDS: PANTOPRAZOLE SODIUM IV 40 MG VIAL IV PUSH (10:22)
--- NOTE | 2020-07-02 12:23 | WPDGIPROGNO ---
Progress Note: A&P Assessment and Plan (1) Abdominal pain: Qualifiers: Abdominal location: generalized Qualified Code(s): R10.84 - Generalized abdominal pain Code(s): R10.9 - Unspecified abdominal pain Status: Acute Additional Plan because he has gallstones, he is getting a HIDA scan today. Surgery consult would be appropriate Time Spent With Patient Time with patient: less than 15 minutes Subjective Date/time seen: 07/02/20 12:23 he complained of pain when he had dinner last night. By my examination he is always tender. Review of Systems Review of Systems: All systems reviewed & are unremarkable except as noted in HPI and below Exam GI: Inspection: normal to inspection GI Palp: Yes Tenderness to palpation present (GI) ( Diffusely) Auscultation: normal bowel sounds Objective Data Vital Signs Vital Signs: Vital Signs - 24 hr 07/01/20 14:00 07/01/20 21:47 07/01/20 22:45 Temperature 37.1 C 36.7 C Pulse Rate 82 86 Respiratory Rate 16 20 Blood Pressure 130/73 137/81 Pulse Oximetry 100 99 98 07/02/20 05:42 Temperature 37.1 C Pulse Rate 80 Respiratory Rate 18 Blood Pressure 154/82 H Pulse Oximetry 97 Intake/Output Intake/Output: Intake & Output 06/29/20 06/30/20 07/01/20 07/02/20 23:59 23:59 23:59 23:59 Intake Total 1000 3240 Output Total 225 640 700 Balance 775 2600 -700 Meds/Results Medications: Active Medications Generic Name Dose Route Start Last Admin Trade Name Freq PRN Reason Stop Dose Admin Amitriptyline HCl 10 mg 07/01/20 21:00 07/01/20 20:27 Amitriptyline Hcl 10 Mg Tablet PO 10 mg HS SUZETTE Administration Baclofen 10 mg 07/01/20 12:00 07/01/20 16:00 Baclofen 10 Mg Tablet PO Not Given 1200 SUZETTE Benztropine Mesylate 0.5 mg 07/01/20 13:00 07/02/20 11:44 Benztropine Mesylate 0.5 Mg Tablet PO Not Given TID SUZETTE Buspirone HCl 10 mg 07/01/20 09:15 07/02/20 11:44 Buspirone Hcl 10 Mg Tablet PO Not Given TID SUZETTE Dicyclomine HCl 20 mg 06/30/20 14:06 Dicyclomine Hcl Inj 20 Mg/2 Ml Vial IM Q6H PRN Abdominal Cramping Divalproex Sodium 125 mg 07/01/20 16:00 07/01/20 16:40 Divalproex Sodium Sprinkle 125 Mg Cap.Dr PO Not Given DAILY@1600 [facility] Docusate Sodium 100 mg 07/01/20 09:15 07/02/20 11:45 Docusate Sodium 100 Mg Capsule PO Not Given DAILY [facility] Ferrous Sulfate 324 mg 07/01/20 09:15 07/02/20 11:45 Ferrous Sulfate 324 Mg Tablet PO Not Given DAILY [facility] Hydromorphone HCl 0.5 mg 06/30/20 14:06 07/02/20 10:18 Hydromorphone Hcl Inj (*Crx) 1 Mg/Ml Syr IV PUSH 0.5 mg Q4H PRN Administration Pain Rated 7-10 Sodium Chloride 1,000 mls @ 125 mls/hr 06/30/20 14:10 07/01/20 23:20 Normal Saline Iv IV CONT 125 mls/hr .Q8H SUZETTE Administration Losartan Potassium 50 mg 07/02/20 09:00 07/02/20 11:45 Losartan Potassium 50 Mg Tablet PO Not Given DAILY [facility] Olanzapine 5 mg 07/01/20 21:00 07/01/20 20:27 Olanzapine Tab 5 Mg Tablet PO 5 mg HS SUZETTE Administration Ondansetron HCl 4 mg 06/30/20 14:06 07/02/20 10:18 Ondansetron Inj 4 Mg/2 Ml Vial IV PUSH 4 mg Q4H PRN Administration Nausea Pantoprazole Sodium 40 mg 06/30/20 09:00 07/02/20 10:22 Pantoprazole Sodium Iv 40 Mg Vial IV PUSH 40 mg QAM SUZETTE Administration Rosuvastatin Calcium 10 mg 07/01/20 21:00 07/01/20 20:27 Rosuvastatin 10 Mg Tablet PO 10 mg HS SUZETTE Administration Vitamin D 2,000 units 07/01/20 09:25 07/02/20 11:44 Cholecalciferol 1,000 Units Tablet PO Not Given DAILY [facility] Radiology Results: ITS Impressions Abdomen/Pelvis CT 06/30/20 12:13 IMPRESSION: 1. No acute intra-abdominal findings. 2. Moderate gastroesophageal hiatal hernia. Abdomen Ultrasound 07/01/20 12:51 IMPRESSION: 1. Cholelithiasis. No imaging evidence of acute cholecystitis despite a positive sonographic Mack sign. Hepatobiliary Scan
--- NOTE | 2020-07-02 12:58 | PM.IMPN ---
Progress Note: A&P Assessment and Plan (1) Intractable abdominal pain: Code(s): R10.9 - Unspecified abdominal pain Status: Acute Assessment and Plan: Has been undergoing outpatient work up. Endoscopy 05/[address] House demonstrated healing of his previously seen esophagitis. Appreciate Dr. House's recommendations. He describes he may have a component of visceral hypersensitivity and has started amitriptyline for same. RUQ ultrasound demonstrates cholelithiasis. Apparently he had been referred to a general surgeon on outpatient basis for evaluation of this but had not yet been to an appointment. HIDA demonstrates low gallbladder EF suggesting possible biliary dyskinesia or chronic cholecystitis. He is not tolerating any oral intake without dry heaving. Will consult general surgery and appreciate their recommendations. Continue IV hydration and pain control. (2) Gastroesophageal reflux disease: Qualifiers: Esophagitis presence: with esophagitis Esophagitis bleeding: with hemorrhage Qualified Code(s): K21.01 - Gastro-esophageal reflux disease with esophagitis, with bleeding Code(s): K21.9 - Gastro-esophageal reflux disease without esophagitis Status: Chronic Assessment and Plan: Continue PPI. (3) Chronic anemia: Code(s): D64.9 - Anemia, unspecified Status: Chronic Assessment and Plan: Appears chronic based on review of previous labs. H&H low but stable, no evidence of acute bleeding. Monitor CBC. Continue his home iron supplementation. (4) Dehydration: Code(s): E86.0 - Dehydration Status: Acute Assessment and Plan: Continue IV hydration and monitor fluid status since he is still vomiting. (5) Hypertension: Code(s): I10 - Essential (primary) hypertension Status: Chronic Assessment and Plan: Blood pressures reviewed, a bit elevated this morning but overall stable. Continue losartan although I am unsure if he is throwing up his medications. Monitor BP and adjust treatment as needed. (6) Intellectual disability: Code(s): F79 - Unspecified intellectual disabilities Status: Chronic Assessment and Plan: Cooperative. Resting. (7) Psychiatric illness: Code(s): F99 - Mental disorder, not otherwise specified Status: Chronic Assessment and Plan: EMR indicates he has diagnoses of schizophrenia and bipolar disorder. Continue his home medications as he can tolerate. Subjective Date/time seen: 07/02/20 12:30 Interval history: Mr. Garzon is a 50yo M admitted for abdominal pain. He is difficult to obtain a reliable history from due to intellectual disability, schizophrenia and bipolar disorder, and being hard of hearing. Upon my entering the room he is sleeping comfortably. Once I wake him up, he does start to moan and clench his stomach. Nursing has notified me that he has not tolerated any oral intake and keeps dry heaving. Further complete review of systems is unobtainable. Review of Systems Review of Systems: ROS unobtainable: Yes unobtainable due to medical condition Exam Narrative: Exam Narrative: General: Thin, chronically ill-appearing male lying on his right side in bed in no acute distress. HEENT: Hard of hearing. PERRL, EOMI. Sclerae anicteric. Tacky mucous membranes. Lips are cracked. Neck: Supple. No JVD. Respiratory: Lungs are clear to auscultation bilaterally. Respirations even and nonlabored. Tolerating room air. Cardiovascular: Rate and rhythm regular. Gastrointestinal: He begins to guard his stomach before I even touch him, grimacing and moaning with barely touching t
[2020-07-02 14:00] VITALS: BP 119/77; PULSE 83; RESP 22; TEMP 36.6; O2SAT 99
--- NOTE | 2020-07-02 15:46 | WPDCN ---
Assessment and Plan Assessment and plan (1) Intractable abdominal pain: Code(s): R10.9 - Unspecified abdominal pain Status: Acute Assessment and Plan: hard to evaluate nature of true pain, believe pt has chronic cholecystitis, cholelithiasis but doubt he would be this symptomatic given no findings suggesting acute cholecystitis, would likely benefit from cholecystectomy but not sure to what extent, long d/w POA and plan to observe over the weekend before making decision regarding surgery, will try to restart diet and advance to low fat diet as cb (2) Mental handicap: Code(s): F79 - Unspecified intellectual disabilities Status: Acute Assessment and Plan: difficult exam and history, largely obtained via chart, pt went from sleeping to writhing around in pain, pt reports tenderness whether I palpated abdomen or upper arm HPI Data of Consult Date/Time: 07/02/20 15:46 Requesting Physician: SHU Haji Primary Care Provider: Kervin Burton, Consult Narrative Narrative: Elan Garzon is a 50 year old male we are being asked to evaluate for intractable abdominal pain. Pt has had this pain for quite a while and has been apparently progressively worsening. Pt is largely non-communicative so history is very difficult to obtain. Pt resides at [facility] and from chart he has not been able to tolerate much po secondary to pain and dry heaves. Pt has had extensive workup that has been largely unremarkable. Recent U/S and HIDA are suggestive of chronic cholecystitis, cholelithiasis. Review of Systems Review of Systems: ROS unobtainable: Yes unobtainable due to mental status PMFSH Past Medical History Medical History Bipolar disorder Cerebrovascular accident Old CVA noted on brain CT in July 2018. Chronic anemia Closed right hip fracture (~07/2018) Depression with anxiety Epigastric pain Gastroesophageal reflux disease Hiatal hernia Hyperlipidemia Hypertension Intellectual disability Nausea & vomiting Pneumothorax on left (~09/2018) Schizophrenia Surgical History Surgical History History of appendectomy History of hip surgery (~07/2018) ORIF right hip fracture with trochanteric nail device. History of tonsillectomy Family History Family History Other Unknown family medical history Social History Social History Social History: Surrogate decision maker: Soo Cedeño power of prosecuting attorney. Code status: Full code. Smoking status: Never smoker Alcohol intake: unknown Substance use: unknown Substance use type: does not use Additional living arrangements comments: Res[facility] in a [facility] in [place]. Additional occupation/education comments: Disabled. Gender identity (if verbalized by the patient): Male Spiritual care concerns: No Meds Home Medications and Allergies Home Medications Medication Instructions Recorded Confirmed Type baclofen 10 mg PO DAILY 12/11/19 06/30/20 History benztropine 0.5 mg PO TID 12/11/19 06/30/20 History buspirone 10 mg PO TID 12/11/19 06/30/20 History cholecalciferol (vitamin D3) 2,000 unit PO DAILY 12/11/19 06/30/20 History [Vitamin D3] divalproex 125 mg PO DAILY 12/11/19 06/30/20 History docusate sodium 100 mg PO DAILY 12/11/19 06/30/20 History ferrous sulfate 325 mg PO DAILY 12/11/19 06/30/20 History loratadine 10 mg PO DAILY PRN 12/11/19 06/30/20 History losartan 50 mg PO DAILY 12/11/19 06/30/20 History olanzapine [Zyprexa] 5 mg PO HS 12/11/19 06/30/20 History polyethylene glycol 3350 [Miralax] 17 g PO DAILY 12/11/19 06/30/20 History rosuvastatin 10 mg PO HS 12/11/19 06/30/20 History acetaminophen 1,000 mg PO BID #0 tablet 12/13/19 06/30/20 Rx magnesium citrate [Citroma] 30 ml PO DAILY PRN
[2020-07-02 15:52] LABS: Lead, Blood <1 mcg/dL (<5)
[2020-07-02] MEDS: SODIUM CHLORIDE 0.9% IV 1,000 ML 125 ML IV CONT (16:27)
--- NOTE | 2020-07-02 17:00 | PC.NURSE ---
Patient ate 1/2 sandwich and 20 minutes later screaming out in pain. Radha [facility] called.
[2020-07-02] MEDS: BENZTROPINE MESYLATE 0.5 MG TABLET PO (17:23)
[2020-07-02] MEDS: DIVALPROEX SODIUM SPRINKLE 125 MG CAP.DR PO (17:23)
[2020-07-02] MEDS: busPIRone HCL 10 MG TABLET PO (17:24)
[2020-07-02] MEDS: AMITRIPTYLINE HCL 10 MG TABLET PO (20:50)
[2020-07-02] MEDS: ROSUVASTATIN 10 MG TABLET PO (20:50)
[2020-07-02 22:00] VITALS: BP 131/78; PULSE 78; RESP 16; TEMP 36.2; O2SAT 97
[2020-07-03] MEDS: SODIUM CHLORIDE 0.9% IV 1,000 ML 125 ML IV CONT (04:41)
[2020-07-03 06:00] VITALS: BP 157/59; PULSE 69; RESP 16; TEMP 36.7; O2SAT 100
[2020-07-03] MEDS: HYDROmorphone HCL INJ (*CRX) 1 MG/ML SYR 0.5 MG IV PUSH (07:30)
[2020-07-03 08:26] LABS: Basophils Percent Auto 0.4 % (0.2-1.2); Eosinophils Absolute Auto 0.2 K/mm3 (0-0.3); Eosinophils Percent Auto 3.9 % (0-4.4); Hematocrit 34.3 % (42.0-52.0); Hemoglobin 11.6 g/dL (14.0-18.0); Immature Granulocyte Absolute 0.01 K/mm3 (0.00-0.031); Immature Granulocyte Percent A 0.2 % (0-0.5); Lymphocytes Absolute Auto 1.28 K/mm3 (0.9-3.2); Lymphocytes Percent Auto 27.5 % (18.3-44.2); Mean Corpuscular HGB Conc 33.8 g/dl (32-36); Mean Corpuscular Hemoglobin 29.7 pg (26-34); Mean Corpuscular Volume 87.7 fl (80-100); Monocytes Absolute Auto 0.5 K/mm3 (0.1-0.6); Monocytes Percent Auto 9.7 % (2.6-8.5); Neutrophils Absolute Auto 2.7 K/mm3 (1.3-6.7); Neutrophils Percent Auto 58.3 % (45.5-73.1); Platelet Count Result 146 k/mm3 (150-375); Red Blood Count 3.91 M/mm3 (4.6-6.20); Red Cell Distribution Width 11.4 % (11.5-14.5); White Blood Count 4.7 K/mm3 (4.5-10.0)
[2020-07-03] MEDS: SODIUM CHLORIDE 0.9% IV 1,000 ML 75 ML IV CONT ×2 (08:30→12:22)
[2020-07-03] MEDS: BENZTROPINE MESYLATE 0.5 MG TABLET PO ×3 (08:32→17:21)
[2020-07-03] MEDS: busPIRone HCL 10 MG TABLET PO ×3 (08:32→17:21)
[2020-07-03] MEDS: DOCUSATE SODIUM 100 MG CAPSULE PO (08:32)
[2020-07-03] MEDS: FERROUS SULFATE 324 MG TABLET PO (08:32)
[2020-07-03] MEDS: CHOLECALCIFEROL 1,000 UNITS TABLET 2000 UNITS PO (08:32)
[2020-07-03] MEDS: LOSARTAN POTASSIUM 50 MG TABLET PO (08:33)
[2020-07-03] MEDS: PANTOPRAZOLE SODIUM IV 40 MG VIAL IV PUSH (08:33)
[2020-07-03 08:47] LABS: Alanine Aminotransferase 10 U/L (4-50); Albumin Level 3.8 g/dL (3.5-5.1); Alkaline Phosphatase 76 U/L (38-126); Anion Gap 5 mmol/L (8-16); Aspartate Amino Transferase 19 U/L (17-59); Bilirubin,Total 0.9 mg/dL (0.2-1.3); Blood Urea Nitrogen 7 mg/dL (9-20); Calcium 9.1 mg/dL (8.4-10.2); Carbon Dioxide 30 mmol/L (22-30); Chloride 106 mmol/L (98-107); Estimated Glomerular Filt Rate > 60; Glucose 91 mg/dL (75-110); Magnesium 1.7 mg/dL (1.6-2.3); Potassium 4.1 mmol/L (3.4-5.0); Sodium 141 mmol/L (137-145)
--- NOTE | 2020-07-03 09:18 | PM.PNGS ---
Progress Note: A&P Assessment and Plan (1) Chronic cholecystitis: Code(s): K81.1 - Chronic cholecystitis Status: Acute Assessment and Plan: cb po, low fat diet, if cont to have intractable pain, N/V will proceed c cholecystectomy early next week Subjective Subjective Date/Time Seen: 07/03/20 09:18 no acute changes, still c/o pain, but was able to cb some po Review of Systems Review of Systems: ROS unobtainable: Yes unobtainable due to mental status Exam Const: General: no acute distress and ill appearing Nutritional Appearance: overweight Resp: Effort & Inspection: normal respiratory effort Auscultation: clear to auscultation bilaterally Cardio: Rate: regular rate Rhythm: regular rhythm GI: Inspection: normal to inspection GI Palp: Yes Soft to palpation and Yes Tenderness to palpation present (GI) Objective Data Vital Signs Vital Signs: Vital Signs - 24 hr 07/02/20 14:00 07/02/20 22:00 07/03/20 06:00 Temperature 36.6 C 36.2 C L 36.7 C Pulse Rate 83 78 69 Respiratory Rate 22 H 16 16 Blood Pressure 119/77 131/78 157/59 H Pulse Oximetry 99 97 100 Intake/Output Intake/Output: Intake & Output 06/30/20 07/01/20 07/02/20 07/03/20 23:59 23:59 23:59 23:59 Intake Total 1000 3240 1240 2150 Output Total 044 059 4282 1250 Balance 775 2600 40 900 Meds/Results Medications: Active Medications Generic Name Dose Route Start Last Admin Trade Name Freq PRN Reason Stop Dose Admin Amitriptyline HCl 10 mg 07/01/20 21:00 07/02/20 20:50 Amitriptyline Hcl 10 Mg Tablet PO 10 mg HS SUZETTE Administration Baclofen 10 mg 07/01/20 12:00 07/02/20 12:53 Baclofen 10 Mg Tablet PO Not Given 1200 SUZETTE Benztropine Mesylate 0.5 mg 07/01/20 13:00 07/03/20 08:32 Benztropine Mesylate 0.5 Mg Tablet PO 0.5 mg TID SUZETTE Administration Buspirone HCl 10 mg 07/01/20 09:15 07/03/20 08:32 Buspirone Hcl 10 Mg Tablet PO 10 mg TID SUZETTE Administration Dicyclomine HCl 20 mg 06/30/20 14:06 Dicyclomine Hcl Inj 20 Mg/2 Ml Vial IM Q6H PRN Abdominal Cramping Divalproex Sodium 125 mg 07/01/20 16:00 07/02/20 17:23 Divalproex Sodium Sprinkle 125 Mg Cap.Dr PO 125 mg DAILY@1600 SUZETTE Administration Docusate Sodium 100 mg 07/01/20 09:15 07/03/20 08:32 Docusate Sodium 100 Mg Capsule PO 100 mg DAILY SUZETTE Administration Ferrous Sulfate 324 mg 07/01/20 09:15 07/03/20 08:32 Ferrous Sulfate 324 Mg Tablet PO 324 mg DAILY SUZETTE Administration Hydromorphone HCl 0.5 mg 06/30/20 14:06 07/03/20 07:30 Hydromorphone Hcl Inj (*Crx) 1 Mg/Ml Syr IV PUSH 0.5 mg Q4H PRN Administration Pain Rated 7-10 Sodium Chloride 1,000 mls @ 75 mls/hr 06/30/20 14:10 07/03/20 08:30 Normal Saline Iv IV CONT 75 mls/hr .[id number] SUZETTE Administration Losartan Potassium 50 mg 07/02/20 09:00 07/03/20 08:33 Losartan Potassium 50 Mg Tablet PO 50 mg DAILY SUZETTE Administration Olanzapine 5 mg 07/01/20 21:00 07/02/20 20:50 Olanzapine Tab 5 Mg Tablet PO 5 mg HS SUZETTE Administration Ondansetron HCl 4 mg 06/30/20 14:06 07/02/20 14:21 Ondansetron Inj 4 Mg/2 Ml Vial IV PUSH 4 mg Q4H PRN Administration Nausea Pantoprazole Sodium 40 mg 06/30/20 09:00 07/03/20 08:33 Pantoprazole Sodium Iv 40 Mg Vial IV PUSH 40 mg QAM SUZETTE Administration Rosuvastatin Calcium 10 mg 07/01/20 21:00 07/02/20 20:50 Rosuvastatin 10 Mg Tablet PO 10 mg HS SUZETTE Administration Vitamin D 2,000 units 07/01/20 09:25 07/03/20 08:32 Cholecalciferol 1,000 Units Tablet PO 2,000 units DAILY SUZETTE Administration Radiology Results: ITS Impressions Abdomen/Pelvis CT 06/30/20 12:13 IMPRESSION: 1. No acute intra-abdominal findings. 2. Moderate gastroesophageal hiatal hernia. Abdomen Ultrasound 07/01/20 12:51 IMPRESSION: 1. Cholelithiasis. No imaging evidence of acute cholecystitis despite a positive sonographic Mack
--- NOTE | 2020-07-03 10:13 | WPDGIPROGNO ---
Progress Note: A&P Additional Plan Bia for Dr. House 03 Jul 2020 Patient continues to demonstrate abdominal pain. Not answering questions. Edu some po VSS soft/tender Hct 34, WBC 5. LFT's normal A/P Abdominal pain and abnormal imaging-biliary - Abnormal HIDA - Case d/w Dr. Borjas of surgery - POA has not consented to CCx - Observe over weekend and consider CCx Sunday Thanks, [facility] [phone] Subjective Date/time seen: 07/03/20 10:13 Objective Data Vital Signs Vital Signs: Vital Signs - 24 hr 07/02/20 14:00 07/02/20 22:00 07/03/20 06:00 Temperature 36.6 C 36.2 C L 36.7 C Pulse Rate 83 78 69 Respiratory Rate 22 H 16 16 Blood Pressure 119/77 131/78 157/59 H Pulse Oximetry 99 97 100 Intake/Output Intake/Output: Intake & Output 06/30/20 07/01/20 07/02/20 07/03/20 23:59 23:59 23:59 23:59 Intake Total 1000 3240 1240 2150 Output Total 578 624 2019 1250 Balance 775 2600 40 900 Meds/Results Medications: Active Medications Generic Name Dose Route Start Last Admin Trade Name Freq PRN Reason Stop Dose Admin Amitriptyline HCl 10 mg 07/01/20 21:00 07/02/20 20:50 Amitriptyline Hcl 10 Mg Tablet PO 10 mg HS SUZETTE Administration Baclofen 10 mg 07/01/20 12:00 07/02/20 12:53 Baclofen 10 Mg Tablet PO Not Given 1200 SUZETTE Benztropine Mesylate 0.5 mg 07/01/20 13:00 07/03/20 08:32 Benztropine Mesylate 0.5 Mg Tablet PO 0.5 mg TID SUZETTE Administration Buspirone HCl 10 mg 07/01/20 09:15 07/03/20 08:32 Buspirone Hcl 10 Mg Tablet PO 10 mg TID SUZETTE Administration Dicyclomine HCl 20 mg 06/30/20 14:06 Dicyclomine Hcl Inj 20 Mg/2 Ml Vial IM Q6H PRN Abdominal Cramping Divalproex Sodium 125 mg 07/01/20 16:00 07/02/20 17:23 Divalproex Sodium Sprinkle 125 Mg Cap.Dr PO 125 mg DAILY@1600 SUZETTE Administration Docusate Sodium 100 mg 07/01/20 09:15 07/03/20 08:32 Docusate Sodium 100 Mg Capsule PO 100 mg DAILY SUZETTE Administration Ferrous Sulfate 324 mg 07/01/20 09:15 07/03/20 08:32 Ferrous Sulfate 324 Mg Tablet PO 324 mg DAILY SUZETTE Administration Hydromorphone HCl 0.5 mg 06/30/20 14:06 07/03/20 07:30 Hydromorphone Hcl Inj (*Crx) 1 Mg/Ml Syr IV PUSH 0.5 mg Q4H PRN Administration Pain Rated 7-10 Sodium Chloride 1,000 mls @ 75 mls/hr 06/30/20 14:10 07/03/20 08:30 Normal Saline Iv IV CONT 75 mls/hr .[id number] SUZETTE Administration Losartan Potassium 50 mg 07/02/20 09:00 07/03/20 08:33 Losartan Potassium 50 Mg Tablet PO 50 mg DAILY SUZETTE Administration Magnesium Oxide 400 mg 07/03/20 09:50 Magnesium Oxide 400 Mg Tablet PO QAM SUZETTE Olanzapine 5 mg 07/01/20 21:00 07/02/20 20:50 Olanzapine Tab 5 Mg Tablet PO 5 mg HS SUZETTE Administration Ondansetron HCl 4 mg 06/30/20 14:06 07/02/20 14:21 Ondansetron Inj 4 Mg/2 Ml Vial IV PUSH 4 mg Q4H PRN Administration Nausea Pantoprazole Sodium 40 mg 06/30/20 09:00 07/03/20 08:33 Pantoprazole Sodium Iv 40 Mg Vial IV PUSH 40 mg QAM SUZETTE Administration Rosuvastatin Calcium 10 mg 07/01/20 21:00 07/02/20 20:50 Rosuvastatin 10 Mg Tablet PO 10 mg HS SUZETTE Administration Vitamin D 2,000 units 07/01/20 09:25 07/03/20 08:32 Cholecalciferol 1,000 Units Tablet PO 2,000 units DAILY SUZETTE Administration Radiology Results: ITS Impressions Abdomen/Pelvis CT 06/30/20 12:13 IMPRESSION: 1. No acute intra-abdominal findings. 2. Moderate gastroesophageal hiatal hernia. Abdomen Ultrasound 07/01/20 12:51 IMPRESSION: 1. Cholelithiasis. No imaging evidence of acute cholecystitis despite a positive sonographic Mack sign. Hepatobiliary Scan Nuclear Medicine 07/02/20 10:17 IMPRESSION: 1. Low gallbladder ejection fraction, consistent with gallbladder dysfunction and/or chronic cholecystitis. Labs Labs: Laboratory Results - last 24 hr 06/30/20 07/03/20 07/03/20 17:14 08:14 08:14 WBC
[2020-07-03] MEDS: BACLOFEN 10 MG TABLET PO (12:18)
[2020-07-03] MEDS: MAGNESIUM OXIDE 400 MG TABLET PO (12:18)
[2020-07-03] MEDS: ONDANSETRON INJ 4 MG/2 ML VIAL IV PUSH (12:22)
--- NOTE | 2020-07-03 12:23 | PM.IMPN ---
Progress Note: A&P Assessment and Plan (1) Intractable abdominal pain: Code(s): R10.9 - Unspecified abdominal pain Status: Acute Assessment and Plan: Has been undergoing outpatient work up. Endoscopy 05/[address] House demonstrated healing of his previously seen esophagitis. Appreciate Dr. House's recommendations. He describes he may have a component of visceral hypersensitivity and has started amitriptyline for same. RUQ ultrasound demonstrates cholelithiasis. Apparently he had been referred to a general surgeon on outpatient basis for evaluation of this but had not yet been to an appointment. HIDA demonstrated low gallbladder EF suggesting possible biliary dyskinesia or chronic cholecystitis. Appreciate surgery recommendations - Noted Dr Borjas's plan to advance diet and monitor this weekend to evaluate if he needs cholecystectomy. Continue IV hydration and pain control. (2) Gastroesophageal reflux disease: Qualifiers: Esophagitis presence: with esophagitis Esophagitis bleeding: with hemorrhage Qualified Code(s): K21.01 - Gastro-esophageal reflux disease with esophagitis, with bleeding Code(s): K21.9 - Gastro-esophageal reflux disease without esophagitis Status: Chronic Assessment and Plan: Continue PPI. (3) Chronic anemia: Code(s): D64.9 - Anemia, unspecified Status: Chronic Assessment and Plan: Appears chronic based on review of previous labs. H&H low but stable, no evidence of acute bleeding. Monitor CBC. Continue his home iron supplementation. (4) Dehydration: Code(s): E86.0 - Dehydration Status: Acute Assessment and Plan: Continue gentle IV hydration until he can tolerate a bit more PO intake. (5) Hypertension: Code(s): I10 - Essential (primary) hypertension Status: Chronic Assessment and Plan: Blood pressures reviewed, a bit elevated this morning but overall stable. Continue losartan although I am unsure if he is throwing up his medications. Monitor BP and adjust treatment as needed. (6) Intellectual disability: Code(s): F79 - Unspecified intellectual disabilities Status: Chronic Assessment and Plan: Cooperative. Resting. (7) Psychiatric illness: Code(s): F99 - Mental disorder, not otherwise specified Status: Chronic Assessment and Plan: EMR indicates he has diagnoses of schizophrenia and bipolar disorder. Continue his home medications as he can tolerate. Subjective Date/time seen: 07/03/20 1015 Interval history: Mr. Garzon is a 50yo M admitted for abdominal pain. He is difficult to obtain a reliable history from due to intellectual disability, schizophrenia and bipolar disorder, and being hard of hearing. Tells me his stomach hurts. Further complete review of systems is unobtainable. Has not had any vomiting today so far. Review of Systems Review of Systems: ROS unobtainable: Yes unobtainable due to medical condition Exam Narrative: Exam Narrative: General: Thin, chronically ill-appearing male lying on his right side in bed in no acute distress. HEENT: Hard of hearing++. PERRL, EOMI. Sclerae anicteric. Tacky mucous membranes. Lips are cracked. Neck: Supple. No JVD. Respiratory: Lungs are clear to auscultation bilaterally. Respirations even and nonlabored. Tolerating room air. Cardiovascular: Rate and rhythm regular. Gastrointestinal: He begins to guard his stomach before I touch him, grimacing and moaning with even auscultating the abdomen. Bowel sounds present. Skin: Warm and dry. Generalized pallor. Extremities: No edema or pain to palpation. Atrop
[2020-07-03 14:00] VITALS: BP 108/66; PULSE 77; RESP 16; TEMP 36.4; O2SAT 99
[2020-07-03 16:18] VITALS: O2SAT 99
[2020-07-03] MEDS: DIVALPROEX SODIUM SPRINKLE 125 MG CAP.DR PO (17:20)
[2020-07-03] MEDS: AMITRIPTYLINE HCL 10 MG TABLET PO (20:31)
[2020-07-03] MEDS: ROSUVASTATIN 10 MG TABLET PO (20:31)
[2020-07-03 21:05] VITALS: O2SAT 98
[2020-07-03 22:00] VITALS: BP 116/65; PULSE 65; RESP 16; TEMP 36.9; O2SAT 98
[2020-07-04] MEDS: SODIUM CHLORIDE 0.9% IV 1,000 ML 75 ML IV CONT (01:45)
[2020-07-04 06:00] VITALS: BP 147/90; PULSE 57; RESP 16; TEMP 37.2; O2SAT 100
[2020-07-04] MEDS: CHOLECALCIFEROL 1,000 UNITS TABLET 2000 UNITS PO (08:16)
[2020-07-04] MEDS: BENZTROPINE MESYLATE 0.5 MG TABLET PO ×2 (08:16→12:07)
[2020-07-04] MEDS: DOCUSATE SODIUM 100 MG CAPSULE PO (08:16)
[2020-07-04] MEDS: FERROUS SULFATE 324 MG TABLET PO (08:16)
[2020-07-04] MEDS: MAGNESIUM OXIDE 400 MG TABLET PO (08:16)
[2020-07-04] MEDS: busPIRone HCL 10 MG TABLET PO ×2 (08:16→12:08)
[2020-07-04] MEDS: LOSARTAN POTASSIUM 50 MG TABLET PO (08:16)
[2020-07-04] MEDS: PANTOPRAZOLE SODIUM IV 40 MG VIAL IV PUSH (08:17)
--- NOTE | 2020-07-04 08:32 | PM.IMPN ---
Progress Note: A&P Assessment and Plan (1) Intractable abdominal pain: Code(s): R10.9 - Unspecified abdominal pain Status: Acute Assessment and Plan: Has been undergoing outpatient work up. Endoscopy 05/[address] House demonstrated healing of his previously seen esophagitis. Appreciate Dr. House's recommendations. He describes he may have a component of visceral hypersensitivity and has started amitriptyline for same. RUQ ultrasound demonstrates cholelithiasis. Apparently he had been referred to a general surgeon on outpatient basis for evaluation of this but had not yet been to an appointment. HIDA demonstrated low gallbladder EF suggesting possible biliary dyskinesia or chronic cholecystitis. Appreciate surgery recommendations - Noted Dr Borjas's plan to advance diet as tolerated, monitor this weekend and re-evaluate Sunday if he needs cholecystectomy. He seems more comfortable today. Continue gentle IV hydration and pain control. (2) Gastroesophageal reflux disease: Qualifiers: Esophagitis presence: with esophagitis Esophagitis bleeding: with hemorrhage Qualified Code(s): K21.01 - Gastro-esophageal reflux disease with esophagitis, with bleeding Code(s): K21.9 - Gastro-esophageal reflux disease without esophagitis Status: Chronic Assessment and Plan: Continue PPI. (3) Chronic anemia: Code(s): D64.9 - Anemia, unspecified Status: Chronic Assessment and Plan: Appears chronic based on review of previous labs. H&H low but stable, no evidence of acute bleeding. Monitor CBC. Continue his home iron supplementation. (4) Dehydration: Code(s): E86.0 - Dehydration Status: Acute Assessment and Plan: Continue gentle IV hydration for now until he can tolerate a bit more PO intake. (5) Hypertension: Code(s): I10 - Essential (primary) hypertension Status: Chronic Assessment and Plan: Blood pressures reviewed, last 147/90. Continue losartan. Monitor BP and adjust treatment as needed. (6) Intellectual disability: Code(s): F79 - Unspecified intellectual disabilities Status: Chronic Assessment and Plan: Cooperative. Resting. (7) Psychiatric illness: Code(s): F99 - Mental disorder, not otherwise specified Status: Chronic Assessment and Plan: EMR indicates he has diagnoses of schizophrenia and bipolar disorder. Continue his home medications as he can tolerate. Subjective Date/time seen: 07/04/20 08:30 Interval history: Mr. Garzon is a 50yo M admitted for abdominal pain. He is difficult to obtain a reliable history from due to intellectual disability, schizophrenia and bipolar disorder, and being hard of hearing. Tells me his stomach hurts. Further complete review of systems is unobtainable. Has not had any vomiting today so far. Seems more comfortable than yesterday. Review of Systems Review of Systems: ROS unobtainable: Yes unobtainable due to medical condition Exam Narrative: Exam Narrative: General: Thin, chronically ill-appearing male lying on his right side in bed in no acute distress. HEENT: Hard of hearing++. PERRL, EOMI. Sclerae anicteric. Tacky mucous membranes. Lips are cracked. Neck: Supple. No JVD. Respiratory: Lungs are clear to auscultation bilaterally. Respirations even and nonlabored. Tolerating room air. Cardiovascular: Rate and rhythm regular. Gastrointestinal: He begins to guard his stomach before I touch him, grimacing and moaning with even auscultating the abdomen. Bowel sounds present. Skin: Warm and dry. Generalized pallor. Extremities: No edema or pain t
[2020-07-04] MEDS: HYDROmorphone HCL INJ (*CRX) 1 MG/ML SYR 0.5 MG IV PUSH (09:24)
[2020-07-04 09:51] VITALS: O2SAT 97
--- NOTE | 2020-07-04 10:33 | PM.PNGS ---
Progress Note: A&P Assessment and Plan (1) Chronic cholecystitis: Code(s): K81.1 - Chronic cholecystitis Status: Acute Assessment and Plan: would likely benefit from cholecystectomy, long d/w POA and she would like to hold off on surgery at this time, she would like pt to be transferred back to [facility] and reevaluated in a few wks as outpt, cont low fat diet for now (2) Psychiatric illness: Code(s): F99 - Mental disorder, not otherwise specified Status: Chronic Assessment and Plan: difficult exam given mental status Subjective Subjective Date/Time Seen: 07/04/20 10:33 doing better, less pain med requirement, cb po, resting comfortably this am Review of Systems Review of Systems: ROS unobtainable: Yes unobtainable due to mental status Exam Const: General: no acute distress Resp: Effort & Inspection: normal respiratory effort Auscultation: clear to auscultation bilaterally Cardio: Rate: regular rate Rhythm: regular rhythm GI: Inspection: normal to inspection and non-distended GI Palp: Yes Soft to palpation, Yes Tenderness to palpation present (GI) and No Guarding due to palpation present (GI) Objective Data Vital Signs Vital Signs: Vital Signs - 24 hr 07/03/20 14:00 07/03/20 16:18 07/03/20 21:05 Temperature 36.4 C L Pulse Rate 77 Respiratory Rate 16 Blood Pressure 108/66 Pulse Oximetry 99 99 98 07/03/20 22:00 07/04/20 06:00 07/04/20 09:51 Temperature 36.9 C 37.2 C Pulse Rate 65 57 L Respiratory Rate 16 16 Blood Pressure 116/65 147/90 H Pulse Oximetry 98 100 97 Intake/Output Intake/Output: Intake & Output 07/01/20 07/02/20 07/03/20 07/04/20 23:59 23:59 23:59 23:59 Intake Total 3240 1240 4130 1150 Output Total 640 1200 2150 550 Balance 2600 40 1980 600 Meds/Results Medications: Active Medications Generic Name Dose Route Start Last Admin Trade Name Freq PRN Reason Stop Dose Admin Acetaminophen 650 mg 07/04/20 08:58 Acetaminophen 325 Mg Tablet PO Q4H PRN Pain Rated 5 or Less Hydrocodone Bitart/Acetaminophen 1 tab 07/04/20 08:58 Hydrocodone/Acetaminophen (*Crx) 5-325 Mg Tablet PO Q6H PRN Pain Rated 6 or Greater Amitriptyline HCl 10 mg 07/01/20 21:00 07/03/20 20:31 Amitriptyline Hcl 10 Mg Tablet PO 10 mg HS SUZETTE Administration Baclofen 10 mg 07/01/20 12:00 07/03/20 12:18 Baclofen 10 Mg Tablet PO 10 mg 1200 SUZETTE Administration Benztropine Mesylate 0.5 mg 07/01/20 13:00 07/04/20 08:16 Benztropine Mesylate 0.5 Mg Tablet PO 0.5 mg TID SUZETTE Administration Buspirone HCl 10 mg 07/01/20 09:15 07/04/20 08:16 Buspirone Hcl 10 Mg Tablet PO 10 mg TID SUZETTE Administration Dicyclomine HCl 20 mg 06/30/20 14:06 Dicyclomine Hcl Inj 20 Mg/2 Ml Vial IM Q6H PRN Abdominal Cramping Divalproex Sodium 125 mg 07/01/20 16:00 07/03/20 17:20 Divalproex Sodium Sprinkle 125 Mg Cap.Dr PO 125 mg DAILY@1600 SUZETTE Administration Docusate Sodium 100 mg 07/01/20 09:15 07/04/20 08:16 Docusate Sodium 100 Mg Capsule PO 100 mg DAILY SUZETTE Administration Ferrous Sulfate 324 mg 07/01/20 09:15 07/04/20 08:16 Ferrous Sulfate 324 Mg Tablet PO 324 mg DAILY SUZETTE Administration Hydromorphone HCl 0.5 mg 07/04/20 08:58 07/04/20 09:24 Hydromorphone Hcl Inj (*Crx) 1 Mg/Ml Syr IV PUSH 0.5 mg Q4H PRN Administration Breakthrough Pain Sodium Chloride 1,000 mls @ 75 mls/hr 06/30/20 14:10 07/04/20 01:45 Normal Saline Iv IV CONT 75 mls/hr .[id number] SUZETTE Administration Losartan Potassium 50 mg 07/02/20 09:00 07/04/20 08:16 Losartan Potassium 50 Mg Tablet PO 50 mg DAILY SUZETTE Administration Magnesium Oxide 400 mg 07/03/20 09:50 07/04/20 08:16 Magnesium Oxide 400 Mg Tablet PO 400 mg QAM SUZETTE Administration Olanzapine 5 mg 07/01/20 21:00 07/03/20 20:31 Olanzapine Tab 5 Mg Tablet PO 5 mg HS SUZETTE Administration Ondansetro
--- NOTE | 2020-07-04 10:38 | WPDGIPROGNO ---
Progress Note: A&P Additional Plan Bia for Dr. House 04 Jul 2020 Patient continues to demonstrate abdominal pain. Not answering questions. Per nurse cb some po VSS soft/tender 07-03-2020 Hct 34, WBC 5. LFT's normal A/P Abdominal pain and abnormal imaging-biliary: - Abnormal HIDA - Case d/w Dr. Borjas of surgery yesterday - POA has not consented to CCx - Observe over weekend and consider CCx Sunday Further recommendations per Dr. House tomorrow. Thanks, [facility] [phone] Subjective Date/time seen: 07/04/20 10:38 Objective Data Vital Signs Vital Signs: Vital Signs - 24 hr 07/03/20 14:00 07/03/20 16:18 07/03/20 21:05 Temperature 36.4 C L Pulse Rate 77 Respiratory Rate 16 Blood Pressure 108/66 Pulse Oximetry 99 99 98 07/03/20 22:00 07/04/20 06:00 07/04/20 09:51 Temperature 36.9 C 37.2 C Pulse Rate 65 57 L Respiratory Rate 16 16 Blood Pressure 116/65 147/90 H Pulse Oximetry 98 100 97 Intake/Output Intake/Output: Intake & Output 07/01/20 07/02/20 07/03/20 07/04/20 23:59 23:59 23:59 23:59 Intake Total 3240 1240 4130 1150 Output Total 640 1200 2150 550 Balance 2600 40 1980 600 Meds/Results Medications: Active Medications Generic Name Dose Route Start Last Admin Trade Name Freq PRN Reason Stop Dose Admin Acetaminophen 650 mg 07/04/20 08:58 Acetaminophen 325 Mg Tablet PO Q4H PRN Pain Rated 5 or Less Hydrocodone Bitart/Acetaminophen 1 tab 07/04/20 08:58 Hydrocodone/Acetaminophen (*Crx) 5-325 Mg Tablet PO Q6H PRN Pain Rated 6 or Greater Amitriptyline HCl 10 mg 07/01/20 21:00 07/03/20 20:31 Amitriptyline Hcl 10 Mg Tablet PO 10 mg HS SUZETTE Administration Baclofen 10 mg 07/01/20 12:00 07/03/20 12:18 Baclofen 10 Mg Tablet PO 10 mg 1200 SUZETTE Administration Benztropine Mesylate 0.5 mg 07/01/20 13:00 07/04/20 08:16 Benztropine Mesylate 0.5 Mg Tablet PO 0.5 mg TID SUZETTE Administration Buspirone HCl 10 mg 07/01/20 09:15 07/04/20 08:16 Buspirone Hcl 10 Mg Tablet PO 10 mg TID SUZETTE Administration Dicyclomine HCl 20 mg 06/30/20 14:06 Dicyclomine Hcl Inj 20 Mg/2 Ml Vial IM Q6H PRN Abdominal Cramping Divalproex Sodium 125 mg 07/01/20 16:00 07/03/20 17:20 Divalproex Sodium Sprinkle 125 Mg Cap.Dr PO 125 mg DAILY@1600 SUZETTE Administration Docusate Sodium 100 mg 07/01/20 09:15 07/04/20 08:16 Docusate Sodium 100 Mg Capsule PO 100 mg DAILY SUZETTE Administration Ferrous Sulfate 324 mg 07/01/20 09:15 07/04/20 08:16 Ferrous Sulfate 324 Mg Tablet PO 324 mg DAILY SUZETTE Administration Hydromorphone HCl 0.5 mg 07/04/20 08:58 07/04/20 09:24 Hydromorphone Hcl Inj (*Crx) 1 Mg/Ml Syr IV PUSH 0.5 mg Q4H PRN Administration Breakthrough Pain Sodium Chloride 1,000 mls @ 75 mls/hr 06/30/20 14:10 07/04/20 01:45 Normal Saline Iv IV CONT 75 mls/hr .[id number] SUZETTE Administration Losartan Potassium 50 mg 07/02/20 09:00 07/04/20 08:16 Losartan Potassium 50 Mg Tablet PO 50 mg DAILY SUZETTE Administration Magnesium Oxide 400 mg 07/03/20 09:50 07/04/20 08:16 Magnesium Oxide 400 Mg Tablet PO 400 mg QAM SUZETTE Administration Olanzapine 5 mg 07/01/20 21:00 07/03/20 20:31 Olanzapine Tab 5 Mg Tablet PO 5 mg HS SUZETTE Administration Ondansetron HCl 4 mg 06/30/20 14:06 07/03/20 12:22 Ondansetron Inj 4 Mg/2 Ml Vial IV PUSH 4 mg Q4H PRN Administration Nausea Pantoprazole Sodium 40 mg 06/30/20 09:00 07/04/20 08:17 Pantoprazole Sodium Iv 40 Mg Vial IV PUSH 40 mg QAM SUZETTE Administration Rosuvastatin Calcium 10 mg 07/01/20 21:00 07/03/20 20:31 Rosuvastatin 10 Mg Tablet PO 10 mg HS SUZETTE Administration Vitamin D 2,000 units 07/01/20 09:25 07/04/20 08:16 Cholecalciferol 1,000 Units Tablet PO 2,000 units DAILY SUZETTE Administration Radiology Results: ITS Impressions Abdomen/Pelvis CT 06/30/20 12:13 IMPRESSION:
--- NOTE | 2020-07-04 11:47 | PM.DS ---
DS: Admitting Diagnosis Admitting Diagnosis Admitting Diagnosis: Intractable abdominal pain DS: Discharge Diagnosis Discharge Diagnosis (1) Intractable abdominal pain: Code(s): R10.9 - Unspecified abdominal pain Status: Acute Assessment and Plan: Date of Admission 06/30/20 Date of Discharge 07/04/20 Mr. Garzon is a 50 yo M with intellectual disability, schizophrenia, bipolar disorder, GERD, chronic anemia, and hypertension who [facility] for evaluation of intermittent abdominal pain. It is very difficult to obtain a reliable history directly from the patient thus most of this information is obtained from EMR. It was noted from [facility] staff that his abdominal pain has been ongoing for months. He had an outpatient ultrasound that showed gallstones, and he apparently was referred to a general surgeon but had not been to an appointment yet. He has also followed with [facility], Dr House, on an outpatient basis and had a recent EGD early May that did not reveal an etiology of his pain. Initially he was not able to tolerate any oral intake and was dry heaving, hollering out in pain. He was treated with supportive care including bowel rest, pain control, IV hydration, and antiemetics. He was seen by GI, Dr House, who started the patient on amitriptyline to treat visceral hypersensitivity. RUQ ultrasound was repeated and again demonstrated cholelithiasis without evidence of acute cholecystitis. HIDA scan was obtained that showed reduced gallbladder ejection fraction consistent with possible chronic cholecystitis. General surgery was consulted and patient was evaluated by Dr Borjas. Dr Borjas spoke with patient's POA at length and POA wished to hold off on laparoscopic cholecystectomy for now. Dr Borjas recommends to follow up as outpatient for reevaluation. Day of discharge, he has had no vomiting or dry heaving and has eaten some solid food without complaining of worsening pain. He is hemodynamically stable for discharge today 07/04 and is encouraged to follow up with general surgery outpatient. Endoscopy 05/[address] House demonstrated healing of his previously seen esophagitis. Dr House, GI, describes he may have a component of visceral hypersensitivity and has started amitriptyline for same. RUQ ultrasound demonstrates cholelithiasis. HIDA demonstrated low gallbladder EF suggesting possible biliary dyskinesia or chronic cholecystitis. Appreciate surgery recommendations - Noted Dr Borjas's plan to follow up outpatient. Diet advanced slowly as tolerated. Tolerating solid food today. (2) Gastroesophageal reflux disease: Qualifiers: Esophagitis presence: with esophagitis Esophagitis bleeding: with hemorrhage Qualified Code(s): K21.01 - Gastro-esophageal reflux disease with esophagitis, with bleeding Code(s): K21.9 - Gastro-esophageal reflux disease without esophagitis Status: Chronic Assessment and Plan: Continue PPI. (3) Chronic anemia: Code(s): D64.9 - Anemia, unspecified Status: Chronic Assessment and Plan: Appears chronic based on review of previous labs. H&H low but stable, no evidence of acute bleeding. Continue his home iron supplementation. (4) Dehydration: Code(s): E86.0 - Dehydration Status: Acute Assessment and Plan: Treated with IV hydration. (5) Hypertension: Code(s): I10 - Essential (primary) hypertension Status: Chronic Assessment and Plan: Continue home losartan. (6) Intellectual disability: Code(s): F79 - Unspecified intellectual disabilities Status: Chronic Assessment and Plan: Viktor
[2020-07-04] MEDS: BACLOFEN 10 MG TABLET PO (12:07)
--- NOTE | 2020-07-04 12:51 | PC.NURSE ---
Report called to [facility] at [facility] [place] [facility] [place] Zora Zhang.
[2020-07-05 10:02] LABS: Collection Sample VENOUS
== END 2020-07-04 13:50 | DRG 444 ==
LOC: ANHED 14:05 → ANH3MEDSUR 15:31
PROVIDERS: Internal Medicine Gastroenterology; Physician Assistant; Admitting Provider Hospitalist; Emergency Provider Emergency Medicine; PCP General Practice; Visit Provider Family Medicine
DX: K81.1 Chronic cholecystitis (principal); K20.91 Esophagitis, unspecified with bleeding; R10.9 Unspecified abdominal pain; E78.5 Hyperlipidemia, unspecified; D64.9 Anemia, unspecified; E86.0 Dehydration; I10 Essential (primary) hypertension; F20.9 Schizophrenia, unspecified
CPT/HCPCS: 36415; 51701; 74018; 74177; 76705; 78226; 80053; 81001; 83605; 83655; 83690; 83735; 85025; 86140; 96361; 96374; 96375; 96376; 99285; A9270; A9537; C9113; G0378; J1170; J2405; J7030; Q9967

== ENCOUNTER 2020-07-21 00:38 | Day surgery (SDC) | payer MEDICARE, MEDICAID, SELFPAY ==
[2020-07-21] VITALS (11 sets, daily range): BP systolic 113–174; BP diastolic 77–104; PULSE 60–72; RESP 10–20; TEMP 36.1–36.6; O2SAT 100
--- NOTE | 2020-07-21 09:59 | WPDANESEPPF ---
Anes - Initial Pre Proc Eval Procedure: Operation Date: 07/21/20 12:00 Proposed Procedures p Laparoscopic Cholecystectomy - Sophia Borjas MD Date/Time: 07/21/20 09:59 Surgeon: Sophia Borjas MD Pre Op Diagnosis: cholecystitis with stones Patient Data Age: 50 Gender: M Height: Weight: 67 kg Allergies Allergy/AdvReac Type Severity Reaction Status Date / Time No Known Allergies Allergy Verified 07/15/20 15:30 Home Medications Medication Instructions Recorded Confirmed Type baclofen 10 mg PO DAILY 12/11/19 07/15/20 History benztropine 0.5 mg PO TID 12/11/19 07/15/20 History buspirone 10 mg PO TID 12/11/19 07/15/20 History cholecalciferol (vitamin D3) 2,000 unit PO DAILY 12/11/19 07/15/20 History [Vitamin D3] divalproex 125 mg PO QPM 12/11/19 07/15/20 History docusate sodium 100 mg PO DAILY 12/11/19 07/15/20 History ferrous sulfate 325 mg PO DAILY 12/11/19 07/15/20 History loratadine 10 mg PO DAILY PRN 12/11/19 07/15/20 History losartan 50 mg PO QAM 12/11/19 07/15/20 History olanzapine [Zyprexa] 5 mg PO HS 12/11/19 07/15/20 History polyethylene glycol 3350 [Miralax] 17 g PO DAILY 12/11/19 07/15/20 History rosuvastatin 10 mg PO HS 12/11/19 07/15/20 History acetaminophen 1,000 mg PO BID #0 tablet 12/13/19 07/15/20 Rx magnesium citrate [Citroma] 30 ml PO DAILY PRN 05/21/20 07/15/20 History ondansetron 4 mg PO Q6H PRN 05/21/20 07/15/20 History sennosides-docusate sodium [Senna 2 tab-cap PO Q6-8H PRN 05/21/20 07/15/20 History with Docusate Sodium] Adult One Daily Multivitamin 1 tablet PO DAILY 06/30/20 07/15/20 History Fleet Enema 118 ml RECTAL ONCE PRN 06/30/20 07/15/20 History bisacodyl 10 mg RECTAL DAILY PRN 06/30/20 07/15/20 History famotidine 20 mg PO BID 06/30/20 07/15/20 History magnesium hydroxide [Milk of 2,400 mg PO HS PRN 06/30/20 07/15/20 History Magnesia] omeprazole 20 mg PO BID 06/30/20 07/15/20 History amitriptyline 10 mg PO HS 30 Days #30 tablet 07/04/20 07/15/20 Rx hydrocodone-acetaminophen 1 tablet PO Q8H PRN #7 tablet 07/04/20 07/15/20 Rx magnesium oxide 400 mg PO QAM 14 Days #14 tablet 07/04/20 07/15/20 Rx Patient hx anesthesia problems: none Family hx anesthesia problems: none PMFSH Past Medical History Medical History Bipolar disorder Cerebrovascular accident Old CVA noted on brain CT in July 2018. Chronic anemia Closed right hip fracture (~07/2018) Depression with anxiety Epigastric pain Gastroesophageal reflux disease Hiatal hernia Hyperlipidemia Hypertension Intellectual disability Nausea & vomiting Pneumothorax on left (~09/2018) Schizophrenia Surgical History Surgical History History of appendectomy History of hip surgery (~07/2018) ORIF right hip fracture with trochanteric nail device. History of tonsillectomy Family History Family History Other Unknown family medical history Social History Social History Social History: Surrogate decision maker: Soo Cedeño power of personal injury attorney. Code status: Full code. Smoking status: Never smoker Additional smoking assessment comments: NO SMOKING, DRUG OR ALCHOLOL USE AVAILABLE FROM [facility] Alcohol intake: unknown Substance use: unknown Substance use type: does not use Living arrangements: longterm Additional living arrangements comments: Resides in a [facility] in [place]. Additional occupation/education comments: Disabled. Gender identity (if verbalized by the patient): Male Spiritual care concerns: No Anes - Eval Final PreProcedure Day of Procedure 07/21/20 09:59 Patient weight: normal Heart: regular rate and rhythm Lungs: decreased breath sounds Airway: Mallampati scale class III Neurological: other (alert) Last oral intake: >/=
--- NOTE | 2020-07-21 10:15 | SUR.PREOP ---
verified with Ananth Blackman Nurse, that patient did not take any medications this AM and has been NPO since midnight.
[2020-07-21] MEDS: KETOROLAC 15 MG/ML VIAL (*BKC) IV PUSH (10:27)
[2020-07-21] MEDS: ACETAMINOPHEN 500 MG TABLET 1000 MG PO (10:27)
[2020-07-21] MEDS: LACTATED RINGERS 1,000 ML 30 ML IV CONT ×2 (10:27→11:56)
--- NOTE | 2020-07-21 10:30 | WPDHPUPDATE1 ---
History and Physical Update Update Date/Time: 07/21/20 10:30 History and Physical has been reviewed, including an updated exam of the patient. There are NO changes in the patient's condition. Risks, benefits, and alternatives have been discussed and questions answered. Patient agrees to proceed with procedure.
[2020-07-21] MEDS: BUPIVACAINE/EPINEPHRINE 0.5% 10 ML VIAL 30 ML INFILTRATE (10:48)
[2020-07-21] MEDS: ceFAZolin 2 GM/D5W 50 ML 2 GM/50 ML BAG IVPB (10:48)
[2020-07-21 11:42] LABS: Alanine Aminotransferase 16 U/L (4-50); Albumin Level 4.7 g/dL (3.5-5.1); Alkaline Phosphatase 97 U/L (38-126); Aspartate Amino Transferase 28 U/L (17-59); Bilirubin,Total 0.8 mg/dL (0.2-1.3); Lipase 83 U/L (23-300)
[2020-07-21 11:43] LABS: Amylase 98 U/L (30-110)
--- NOTE | 2020-07-21 11:55 | W.PM.PROC2 ---
Procedure Note - Detailed Date of Procedure 07/21/20 Pre-op Diagnosis cholecystitis with stones Post-op Diagnosis same Procedure Performed laparoscopic cholecystectomy Surgeon Sophia Borjas MD Anesthesia general Indications 50 y/o M c chronic cholecystitis, cholelithiasis Findings chronic cholecystitis Description of Procedure The patient was taken to the operating room placed in the supine position. After adequate induction of general anesthesia, the patient was prepped and draped in normal sterile fashion. A time-out was then performed to verify the patient's identity as well as the procedure being performed. I then made a 5 mm incision in the infraumbilical region. Through this, a Veress needle was placed into the peritoneal cavity and CO2 gas was then insufflated. After adequate pneumoperitoneum was achieved, the Veress needle was removed and a 5 mm optiview trocar was placed through this incision under direct visualization. I then placed the laparoscope through this trocar site and under direct visualization placed a further 12 mm subxiphoid port as well as 2 additional 5 mm ports in the right upper abdomen. The gallbladder was then identified and was noted to be moderately inflamed. I was able to place a grasper at the dome of the gallbladder and this was retracted anterior and cephalad up over the liver. A 2nd retractor was then placed at the infundibulum and retracted laterally, this allowed visualization of the triangle of Calot. I then was able to visualize the cystic duct in its entirety from its proximal insertion into the gallbladder, to its distal junction with the common hepatic/common bile duct junction. At this point, I carefully skeletonized the proximal cystic duct with the [place] dissector. I then clipped and transected the proximal cystic duct. Next I visualized the cystic artery. Again the artery was skeletonized, clipped, and transected. I then used the Bovie cautery to take down the peritoneal attachments of the gallbladder off the liver bed. Once the gallbladder specimen was completely detached, an endo-pouch was placed through the 12 mm port site. I then placed the gallbladder specimen into the Endo pouch and removed the endo-pouch from the 12 mm port site. The specimen will now be sent to pathology for further review. I then copiously irrigated the right upper quadrant. Hemostasis was noted in the liver bed, the clips were noted to be in good position on both the cystic duct stump and the cystic artery stump. No other pathology was noted in the right upper quadrant. I then moved the laparoscope to the subxiphoid port. No iatrogenic injury or other pathology was noted in the lower abdomen. I then closed the 12 mm trocar site under direct visualization using the Terence cone and 0 Vicryl suture. At this point, the abdomen was desufflated and all ports removed. All port sites were then closed with 4.O Monocryl subcuticular sutures. Dermabond was placed on each incision. The patient tolerated the procedure well, was extubated in the operating room postoperative and will be transferred to the recovery room in stable condition. Estimated Blood Loss 5 Drains No Packing No Pathology yes Complications No immediate complications Condition stable Disposition PACU
--- NOTE | 2020-07-21 12:27 | SUR.PHASEI ---
1220- Pt has a 2x2 gauze over rt lower quad surgical site. Surgical site bleeding and dressing saturated. Dressing removed and new gauze to hold pressure per RN. Called Dr. Borjas and explained that site is bleeding, no skin glue noted. Pressure being held per RN. Bleeding slowing down. He stated to hold pressure and apply new dressing. Call if bleeding does not slow down or stop.
[2020-07-21] MEDS: fentaNYL CITRATE INJ (*CRX) 100 MCG/2 ML VIAL 25 MCG IV PUSH ×3 (12:54→13:07)
[2020-07-21] MEDS: oxyCODONE (*CRX) 5 MG/5 ML ORAL SOLN IR PO (14:12)
== END 2020-07-21 14:45 ==
PROVIDERS: PCP General Practice; Visit Provider Surgery
PROC: 0FT44ZZ Resection of Gallbladder, Percutaneous Endoscopic Approach (ICD-10-PCS; CPT 47562; principal; 2020-07-21 12:00)
DX: K80.10 Calculus of gallbladder with chronic cholecystitis without obstruction (principal); I10 Essential (primary) hypertension; E78.5 Hyperlipidemia, unspecified; K21.9 Gastro-esophageal reflux disease without esophagitis; D64.9 Anemia, unspecified; F31.9 Bipolar disorder, unspecified; F20.9 Schizophrenia, unspecified; Z86.73 Personal history of transient ischemic attack (TIA), and cerebral infarction without residual deficits; Z79.891 Long term (current) use of opiate analgesic
CPT/HCPCS: 47562; 36415; 80076; 82150; 83690; 86850; 86900; 86901; 88304; A9270; J0690; J1100; J1885; J2250; J2405; J2704; J2710; J3010; J7030; J7120

== ENCOUNTER 2020-08-15 18:30 | Inpatient (IN) | payer MEDICARE, MEDICAID, SELFPAY ==
[2020-08-15] VITALS (20 sets, daily range): BP systolic 138–167; BP diastolic 86–116; PULSE 107–126; RESP 13–27; TEMP 37.1–37.7; O2SAT 95–100; BMI 21.6
--- NOTE | ~2020-08-15 | CT_ITS ---
EXAMINATION: CT abdomen pelvis w con EXAM DATE: 08/15/2020 19:53 INDICATION: Nausea and abdominal pain. TECHNIQUE: Spiral CT of the abdomen and pelvis was performed following intravenous injection of 100 m L Omnipaque 350. Axial, coronal and sagittal images of the abdomen and pelvis were reviewed. The do se-length product (DLP) for this examination was 468.89 mGy-cm. The exposure was tailored according to patient size (auto mA exposure control), and iterative reconstruction (ASIR) was used as additiona l dose reduction technique. Comparison is made to prior examination from 06/30/2020. FINDINGS: The liver, spleen, adrenal glands and pancreas are unremarkable. There are cholecystectomy clips. Portal and splenic veins are patent. Kidneys enhance symmetrically. There is no hydronephr osis. The prostate is unremarkable. The bladder is unremarkable. There is no retroperitoneal or p elvic lymphadenopathy. There is mild to moderate scattered arteriosclerotic disease. The appendix is not positively visualized. There is no pericecal inflammatory change to suggest appe ndicitis. There is moderate-sized gastroesophageal hiatal hernia. There is colonic fluid, correlat e for diarrhea. No free intraperitoneal gas. The heart is normal in size. There are no pericardi al or pleural effusions. The lung bases are unremarkable. There are no osteoblastic or osteolytic l esions identified. There is a right hip gamma nail. IMPRESSION: 1. Colonic fluid, correlate for diarrhea or gastroenteritis. 2. Moderate hiatal hernia. Reviewed, dictated and finalized at location .
--- NOTE | ~2020-08-15 | XR_ITS ---
EXAMINATION: XR abdomen obstructive series DATE: 08/18/2020 09:18 INDICATION: Constipation. TECHNIQUE: Upright and supine views of the abdomen were obtained. COMPARISON: CT abdomen and pelvis 08/15/2020 FINDINGS: There are no dilated loops of bowel. There is a small volume of stool in the colon. No free intraperitoneal gas. Surgical clips in the right upper quadrant are likely from cholecystectomy. The re is a moderate-sized hiatal hernia. There is internal fixation of proximal right femur. IMPRESSION: 1. Moderate-sized hiatal hernia. Reviewed, dictated and finalized at location A.
--- NOTE | 2020-08-15 18:43 | ECG_ITS ---
Measurements Intervals [place] Rate: 106 P: 42 PA: 160 QRS: 69 QRSD: 77 T: 50 QT: 326 QTc: 435 Interpretive Statements SINUS TACHYCARDIA ABNORMAL ECG Electronically Signed On 08-15-2020 21:48:14 CDT by Cornelio Waddell D.O.
[2020-08-15 18:54] LABS: Basophils Percent Auto 0.2 % (0.2-1.2); Eosinophils Percent Auto 0.1 % (0-4.4); Hematocrit 45.5 % (42.0-52.0); Hemoglobin 14.7 g/dL (14.0-18.0); Immature Granulocyte Absolute 0.06 K/mm3 (0.00-0.031); Immature Granulocyte Percent A 0.4 % (0-0.5); Lymphocytes Absolute Auto 1.44 K/mm3 (0.9-3.2); Lymphocytes Percent Auto 9.3 % (18.3-44.2); Mean Corpuscular HGB Conc 32.3 g/dl (32-36); Mean Corpuscular Hemoglobin 29.8 pg (26-34); Mean Corpuscular Volume 92.1 fl (80-100); Mean Platelet Volume 10.4 fl (7.4-10.4); Monocytes Absolute Auto 1.2 K/mm3 (0.1-0.6); Monocytes Percent Auto 7.7 % (2.6-8.5); Neutrophils Absolute Auto 12.7 K/mm3 (1.3-6.7); Neutrophils Percent Auto 82.3 % (45.5-73.1); Platelet Count Result 215 k/mm3 (150-375); Red Blood Count 4.94 M/mm3 (4.6-6.20); Red Cell Distribution Width 12.1 % (11.5-14.5); White Blood Count 15.4 K/mm3 (4.5-10.0)
[2020-08-15] MEDS: MORPHINE SULFATE (*CRX) 4 MG/ML INJ IV PUSH (19:10)
[2020-08-15] MEDS: SODIUM CHLORIDE 0.9% IV 1,000 ML 999 ML IV CONT (19:10)
[2020-08-15] MEDS: ONDANSETRON INJ 4 MG/2 ML VIAL IV PUSH (19:10)
--- NOTE | 2020-08-15 19:17 | ED.GENADULT ---
HPI - General Adult General Chief complaint: Abdominal Pain Stated complaint: bowel obstruction? Time Seen by Provider: 08/15/20 18:43 Source: EMS and RN notes reviewed History of Present Illness HPI narrative: Patient is a 50 y/o male sent here for abdominal pain and vomiting. Patient has been vomiting up dark brown liquid. Patient is poor historian and unable to provide additional history. It's uncertain how long it's his symptoms has been going on. Of note, he had gallbladder surgery about 1 month ago. Related Data Home Medications Medication Instructions Recorded Confirmed baclofen 10 mg PO DAILY 12/11/19 08/10/20 benztropine 0.5 mg PO TID 12/11/19 08/10/20 buspirone 10 mg PO TID 12/11/19 08/10/20 cholecalciferol (vitamin D3) 2,000 unit PO DAILY 12/11/19 08/10/20 [Vitamin D3] divalproex 125 mg PO QPM 12/11/19 08/10/20 docusate sodium 100 mg PO DAILY 12/11/19 08/10/20 ferrous sulfate 325 mg PO DAILY 12/11/19 08/10/20 loratadine 10 mg PO DAILY PRN 12/11/19 08/10/20 losartan 50 mg PO QAM 12/11/19 08/10/20 olanzapine [Zyprexa] 5 mg PO HS 12/11/19 08/10/20 polyethylene glycol 3350 [Miralax] 17 g PO DAILY 12/11/19 08/10/20 rosuvastatin 10 mg PO HS 12/11/19 08/10/20 magnesium citrate [Citroma] 30 ml PO DAILY PRN 05/21/20 08/10/20 ondansetron 4 mg PO Q6H PRN 05/21/20 08/10/20 sennosides-docusate sodium [Senna 2 tab-cap PO Q6-8H PRN 05/21/20 08/10/20 with Docusate Sodium] Adult One Daily Multivitamin 1 tablet PO DAILY 06/30/20 08/10/20 Fleet Enema 118 ml RECTAL ONCE PRN 06/30/20 08/10/20 bisacodyl 10 mg RECTAL DAILY PRN 06/30/20 08/10/20 famotidine 20 mg PO BID 06/30/20 08/10/20 magnesium hydroxide [Milk of 2,400 mg PO HS PRN 06/30/20 08/10/20 Magnesia] omeprazole 20 mg PO BID 06/30/20 08/10/20 Allergies Allergy/AdvReac Type Severity Reaction Status Date / Time No Known Allergies Allergy Verified 08/10/20 13:36 Review of Systems Review of Systems: ROS unobtainable: Yes unobtainable due to mental status PMFSH Past Medical History Medical History Bipolar disorder Cerebrovascular accident Old CVA noted on brain CT in July 2018. Chronic anemia Closed right hip fracture (~07/2018) Depression with anxiety Epigastric pain Gastroesophageal reflux disease Hiatal hernia Hyperlipidemia Hypertension Intellectual disability Nausea & vomiting Pneumothorax on left (~09/2018) Schizophrenia Surgical History Surgical History History of appendectomy History of hip surgery (~07/2018) ORIF right hip fracture with trochanteric nail device. History of tonsillectomy Hx laparoscopic cholecystectomy Family History Family History Other Unknown family medical history Social History Social History Social History: Surrogate decision maker: Soo Cedeño power of welfare supervisor. Code status: Full code. Smoking status: Never smoker Additional smoking assessment comments: NO SMOKING, DRUG OR ALCHOLOL USE AVAILABLE FROM [facility] Alcohol intake: unknown Substance use: unknown Substance use type: does not use Additional living arrangements comments: Resides in a halfway in [place]. Additional occupation/education comments: Disabled. Gender identity (if verbalized by the patient): Male Spiritual care concerns: No Exam Const: General: no acute distress, well developed and ill appearing Orientation/consciousness: lethargic HENMT: Head: normocephalic Ears: external ears normal General nose exam: Normal external nose present Eyes: General: appearance normal, both eyes and all related structures Conjunctivae: conjunctivae normal Neck: Neck: normal visual inspection and full ROM Chest: Chest palpation & inspection: normal inspection of the chest and no tenderness Resp: Effort & In
[2020-08-15 19:29] LABS: Albumin Level 5.1 g/dL (3.5-5.1); Alkaline Phosphatase 108 U/L (38-126); Anion Gap 14 mmol/L (8-16); Aspartate Amino Transferase 38 U/L (17-59); Bilirubin,Total 1.1 mg/dL (0.2-1.3); Blood Urea Nitrogen 22 mg/dL (9-20); Carbon Dioxide 28 mmol/L (22-30); Chloride 103 mmol/L (98-107); Estimated CRCL calculation 77 ml/min; Estimated Glomerular Filt Rate > 60; Glucose 139 mg/dL (75-110); Lipase 68 U/L (23-300); Potassium 4.2 mmol/L (3.4-5.0); Sodium 145 mmol/L (137-145)
[2020-08-15 19:41] LABS: Alanine Aminotransferase 21 U/L (4-50)
[2020-08-15 19:42] LABS: Add Urine Microscopic? YES; Appearance Urine Clear (Clear); Bilirubin Urine Negative (Negative); Blood Urine Negative (Negative); Color Urine Yellow (Yellow); Glucose Urine UA Negative (Negative); Ketones Urine Trace mg/dL (Negative); Leukocyte Esterase Ur Negative LEU/UL (Negative); Mucus Urine Rare /lpf; Nitrate Urine Negative (Negative); Protein Urine 2+ mg/dL (Negative); RBC Urine 0-2 /hpf (0-2); Specific Grav Ur 1.026 (1.001-1.035); Urobilinogen Urine Negative mg/dL (<2.0); WBC Urine 0-3 /hpf
--- NOTE | 2020-08-15 22:15 | PM.IMHP ---
H&P: HPI History of Present Illness Date/Time: 08/15/20 22:15 Chief Complaint: Abdominal pain, nausea and Vomiting Narrative: Patient is a 50 y/o male who is sent from his correction for abdominal pain and nausea vomiting that has been going on for past few days. He has poor historian and most of the history is taken from the medical record. According to the records he has been vomiting dark brown liquid since past few days and has not been eating well. He does state that whenever he eats something everything comes back up. He also reports is really hurting in his belly and points to the lower area of the abdomen. he denies any fever or chills. He has underlying bipolar disorder history of stroke intellectual disability. CT abdomen done in the ER showed colonic fluid correlate for diarrhea gastroenteritis with no other abnormality. Review of Systems Review of Systems: ROS unobtainable: Yes unobtainable due to medical condition PMFSH Past Medical History Medical History Bipolar disorder Cerebrovascular accident Old CVA noted on brain CT in July 2018. Chronic anemia Closed right hip fracture (~07/2018) Depression with anxiety Epigastric pain Gastroesophageal reflux disease Hiatal hernia Hyperlipidemia Hypertension Intellectual disability Nausea & vomiting Pneumothorax on left (~09/2018) Schizophrenia Surgical History Surgical History History of appendectomy History of hip surgery (~07/2018) ORIF right hip fracture with trochanteric nail device. History of tonsillectomy Hx laparoscopic cholecystectomy Family History Family History Other Unknown family medical history Social History Social History Social History: Surrogate decision maker: Soo Cedeño power of tax associate attorney. Code status: Full code. Smoking status: Never smoker Additional smoking assessment comments: NO SMOKING, DRUG OR ALCHOLOL USE AVAILABLE FROM GROUP [facility] Alcohol intake: unknown Substance use: unknown Substance use type: does not use Additional living arrangements comments: Resides in a correction in [employer]. Additional occupation/education comments: Disabled. Gender identity (if verbalized by the patient): Male Spiritual care concerns: No Meds Home Medications and Allergies Home Medications Medication Instructions Recorded Confirmed Type baclofen 10 mg PO DAILY 12/11/19 08/10/20 History benztropine 0.5 mg PO TID 12/11/19 08/10/20 History buspirone 10 mg PO TID 12/11/19 08/10/20 History cholecalciferol (vitamin D3) 2,000 unit PO DAILY 12/11/19 08/10/20 History [Vitamin D3] divalproex 125 mg PO QPM 12/11/19 08/10/20 History docusate sodium 100 mg PO DAILY 12/11/19 08/10/20 History ferrous sulfate 325 mg PO DAILY 12/11/19 08/10/20 History loratadine 10 mg PO DAILY PRN 12/11/19 08/10/20 History losartan 50 mg PO QAM 12/11/19 08/10/20 History olanzapine [Zyprexa] 5 mg PO HS 12/11/19 08/10/20 History polyethylene glycol 3350 [Miralax] 17 g PO DAILY 12/11/19 08/10/20 History rosuvastatin 10 mg PO HS 12/11/19 08/10/20 History acetaminophen 1,000 mg PO BID #0 tablet 12/13/19 08/10/20 Rx magnesium citrate [Citroma] 30 ml PO DAILY PRN 05/21/20 08/10/20 History ondansetron 4 mg PO Q6H PRN 05/21/20 08/10/20 History sennosides-docusate sodium [Senna 2 tab-cap PO Q6-8H PRN 05/21/20 08/10/20 History with Docusate Sodium] Adult One Daily Multivitamin 1 tablet PO DAILY 06/30/20 08/10/20 History Fleet Enema 118 ml RECTAL ONCE PRN 06/30/20 08/10/20 History bisacodyl 10 mg RECTAL DAILY PRN 06/30/20 08/10/20 History famotidine 20 mg PO BID 06/30/20 08/10/20 History magnesium hydroxide [Milk of 2,400 mg PO HS PRN 06/30/20 08/10/20 History Magnesia] omeprazole 20 mg PO BID 06/30/20 08/10/20 History amitriptyline
[2020-08-15] MEDS: SODIUM CHLORIDE 0.9% IV 1,000 ML 100 ML IV CONT (23:23)
--- NOTE | 2020-08-15 23:37 | ADMGEN ---
This patient, Elan Garzon, was admitted to 2 Medical Room 240-01. Patient/family oriented to hospital policies and general routines including ID bracelet, bed and alarms, visiting hours, pain management, procedures, bathroom and other care routines, personal items, smoking policy, room service/diet, and visiting hours. Information on how to activate the Rapid Response Team has been discussed. Patient/Family are encouraged to report perceived risks to care and to ask questions if they do not understand what they are told or what they should do.
[2020-08-16 04:41] VITALS: BP 130/85; PULSE 102; RESP 16; TEMP 36.4; O2SAT 97
[2020-08-16] MEDS: BACLOFEN 10 MG TABLET PO (09:04)
[2020-08-16] MEDS: ACETAMINOPHEN 500 MG TABLET 1000 MG PO ×2 (09:04→17:30)
[2020-08-16] MEDS: THERAPEUTIC MULTIVITAMINS/MINERALS TAB (*BKC) 1 TABLET PO (09:04)
[2020-08-16] MEDS: LOSARTAN POTASSIUM 50 MG TABLET PO (09:04)
[2020-08-16] MEDS: CHOLECALCIFEROL 1,000 UNITS TABLET 2000 UNITS PO (09:04)
[2020-08-16] MEDS: FAMOTIDINE 20 MG TABLET PO ×2 (09:04→17:30)
[2020-08-16] MEDS: polyethylene glycoL 3350 17 GM POWD.PACK PO (09:05)
[2020-08-16] MEDS: ENOXAPARIN 40 MG/0.4 ML SYRINGE SUB-Q (09:05)
[2020-08-16] MEDS: busPIRone HCL 10 MG TABLET PO ×3 (09:05→17:29)
[2020-08-16] MEDS: FERROUS SULFATE 324 MG TABLET PO (09:05)
[2020-08-16] MEDS: MAGNESIUM OXIDE 400 MG TABLET PO (09:05)
[2020-08-16] MEDS: DOCUSATE SODIUM 100 MG CAPSULE PO (09:05)
[2020-08-16] MEDS: PANTOPRAZOLE 40 MG TABLET PO (09:06)
[2020-08-16] MEDS: BENZTROPINE MESYLATE 0.5 MG TABLET PO ×2 (13:01→17:29)
[2020-08-16 14:00] VITALS: BP 129/86; PULSE 91; RESP 12; TEMP 36.6; O2SAT 100
--- NOTE | 2020-08-16 15:50 | PM.IMPN ---
Progress Note: A&P Assessment and Plan (1) Gastroenteritis: Code(s): K52.9 - Noninfective gastroenteritis and colitis, unspecified Status: Acute Assessment and Plan: consulted GI due to frequent GI history - gastroenteritis and hope to rule out H.Pylori IVFs restarted clear liquid diet at this time on IV protonix BID and Carafate now WBC 15.4 now, no fevers noted Started on IV Cipro and IV Flagyl he has received Zofran for nausea and that has resolved at this point no diarrhea today per nursing staff (2) Dehydration: Code(s): E86.0 - Dehydration Status: Acute Assessment and Plan: has received over 3 L of IV fluids during ER admission restarted him on maintenance fluids 75 mL an hour normal saline this evening on clear liquid diet orally ordered strict intake and output tracking the 1st CBC showed patient to be dry - but repeating the CBC this evening and in the morning maintaining renal function, BUN is 22 but creatinine is 0.9 repeating a BMP this evening (3) Leukocytosis: Code(s): D72.829 - Elevated white blood cell count, unspecified Status: Acute Assessment and Plan: WBC 15.4 at admission rechecking this evening and in the morning IVFs Started on IV Cipro and IV Flagyl he has received Zofran for nausea and that has resolved at this point no diarrhea today per nursing staff no cough and lung sounds are clear, lipase is normal at 68, his urinalysis is clear. (4) Intractable nausea and vomiting: Code(s): R11.2 - Nausea with vomiting, unspecified Status: Acute Assessment and Plan: stopped for now none today ordered strict Intake/output no concerns per nursing staff using IV for most meds in my past experience, found that this patient easily becomes nauseated with motion or repositioning - almost similar to motion sickness or s/s during symptomatic orthostatic hypotension or severe dehydration (except this patient does not ambulate but does use wheelchair , so need to minimize quick movements during repositioning and rehydrate) will order vital sign checks at lying and sitting - partial set of orthostatic VS (5) Hypertension: Qualifiers: Hypertension type: essential hypertension Qualified Code(s): I10 - Essential (primary) hypertension Code(s): I10 - Essential (primary) hypertension Status: Chronic Assessment and Plan: chronic and treated Hyperlipidemia continue home medications heart rate 102-110, blood pressure 130/85 continue to monitor electrolytes and vital signs (6) Psychiatric illness: Code(s): F99 - Mental disorder, not otherwise specified Status: Chronic Assessment and Plan: Chronic and stable continue home medications at discharge patient will likely return to the same facility as I believe his mother lives there as well (7) Chronic anemia: Code(s): D64.9 - Anemia, unspecified Status: Chronic Assessment and Plan: H/H = 14.7/ 45.5 is actually elevated or normal for this patient, while upon review of all his other labwork shows him to be chronically anemic - today's CBC results seems to be further evidence that he is dry, restarted IVFs. Last Iron level checked in 2019. on daily iron at home. (8) Gastroesophageal reflux disease: Qualifiers: Esophagitis bleeding: with hemorrhage Esophagitis presence: with esophagitis Qualified Code(s): K21.01 - Gastro-esophageal reflux disease with esophagitis, with bleeding Code(s): K21.9 - Gastro-esophageal reflux disease without esophagitis Status: Chronic Assessment and Plan: consulted GI due to frequent GI history - gastroenteritis and hope to rule out H.Pylori Hiatal hernia IVFs restarted clear liquid diet at this time on IV protonix BID and Carafate now WBC 15.4 now, no fevers noted (9) Intellectual disability: Code(s): F79 - Unspecified intellectual disabilities
[2020-08-16] MEDS: LORATADINE 10 MG TABLET PO (17:30)
[2020-08-16] MEDS: DIVALPROEX SODIUM SPRINKLE 125 MG CAP.DR PO (17:30)
[2020-08-16] MEDS: SUCRALFATE SUSP 100 MG/ML 10 ML UDC 1000 MG PO ×2 (17:31→20:07)
[2020-08-16] MEDS: metroNIDAZOLE 500 MG/ISO 100ML 500 MG/100 ML BAG 100 MG IVPB ×2 (17:31→22:34)
[2020-08-16] MEDS: CIPROFLOXACIN 400 MG/D5W 200ML 200 ML 200 MG IVPB (18:33)
[2020-08-16] MEDS: SODIUM CHLORIDE 0.9% IV 1,000 ML 75 ML IV CONT (18:35)
[2020-08-16] MEDS: ONDANSETRON INJ 4 MG/2 ML VIAL IV PUSH (18:35)
--- NOTE | 2020-08-16 18:44 | PC.NURSE ---
On 08/16/20, the LP RN, Leny Conway, provided care and completed [facility] documentation on this patient. I have reviewed the LP RN's documentation and agree with the findings.
[2020-08-16 19:05] LABS: Hematocrit 36.1 % (42.0-52.0); Hemoglobin 11.5 g/dL (14.0-18.0); Mean Corpuscular HGB Conc 31.9 g/dl (32-36); Mean Corpuscular Hemoglobin 30.1 pg (26-34); Mean Corpuscular Volume 94.5 fl (80-100); Mean Platelet Volume 9.3 fl (7.4-10.4); Platelet Count Result 152 k/mm3 (150-375); Red Blood Count 3.82 M/mm3 (4.6-6.20); Red Cell Distribution Width 11.9 % (11.5-14.5); White Blood Count 7.4 K/mm3 (4.5-10.0)
[2020-08-16 19:16] LABS: Anion Gap 8 mmol/L (8-16); Blood Urea Nitrogen 16 mg/dL (9-20); Calcium 8.8 mg/dL (8.4-10.2); Carbon Dioxide 30 mmol/L (22-30); Chloride 103 mmol/L (98-107); Estimated CRCL calculation 91 ml/min; Estimated Glomerular Filt Rate > 60; Glucose 127 mg/dL (75-110); Potassium 4.1 mmol/L (3.4-5.0); Sodium 141 mmol/L (137-145)
[2020-08-16] MEDS: PANTOPRAZOLE SODIUM IV 40 MG VIAL IV PUSH (20:07)
[2020-08-16] MEDS: ROSUVASTATIN 10 MG TABLET PO (20:07)
[2020-08-16] MEDS: OLANZapine 5 MG TABLET PO (20:07)
[2020-08-16] MEDS: AMITRIPTYLINE HCL 10 MG TABLET PO (20:07)
[2020-08-16 22:00] VITALS: BP 118/60; PULSE 84; RESP 18; TEMP 36.6; O2SAT 100
[2020-08-17] VITALS (8 sets, daily range): BP systolic 110–128; BP diastolic 66–84; PULSE 67–88; RESP 13–28; TEMP 36.1–36.6; O2SAT 96–100
[2020-08-17 05:05] LABS: Basophils Percent Auto 0.7 % (0.2-1.2); Eosinophils Absolute Auto 0.4 K/mm3 (0-0.3); Eosinophils Percent Auto 7.1 % (0-4.4); Hematocrit 33.9 % (42.0-52.0); Hemoglobin 10.9 g/dL (14.0-18.0); Immature Granulocyte Absolute 0.02 K/mm3 (0.00-0.031); Immature Granulocyte Percent A 0.3 % (0-0.5); Lymphocytes Absolute Auto 1.98 K/mm3 (0.9-3.2); Lymphocytes Percent Auto 32.6 % (18.3-44.2); Mean Corpuscular HGB Conc 32.2 g/dl (32-36); Mean Corpuscular Hemoglobin 30.1 pg (26-34); Mean Corpuscular Volume 93.6 fl (80-100); Mean Platelet Volume 9.7 fl (7.4-10.4); Monocytes Absolute Auto 0.7 K/mm3 (0.1-0.6); Monocytes Percent Auto 10.7 % (2.6-8.5); Neutrophils Percent Auto 48.6 % (45.5-73.1); Platelet Count Result 148 k/mm3 (150-375); Red Blood Count 3.62 M/mm3 (4.6-6.20); Red Cell Distribution Width 11.8 % (11.5-14.5); White Blood Count 6.1 K/mm3 (4.5-10.0)
[2020-08-17 05:25] LABS: Alanine Aminotransferase 9 U/L (4-50); Albumin Level 3.6 g/dL (3.5-5.1); Alkaline Phosphatase 67 U/L (38-126); Anion Gap 6 mmol/L (8-16); Aspartate Amino Transferase 15 U/L (17-59); Blood Urea Nitrogen 11 mg/dL (9-20); Calcium 8.7 mg/dL (8.4-10.2); Carbon Dioxide 30 mmol/L (22-30); Chloride 107 mmol/L (98-107); Estimated CRCL calculation 91 ml/min; Estimated Glomerular Filt Rate > 60; Glucose 87 mg/dL (75-110); Potassium 4.4 mmol/L (3.4-5.0); Sodium 143 mmol/L (137-145)
[2020-08-17] MEDS: metroNIDAZOLE 500 MG/ISO 100ML 500 MG/100 ML BAG 100 MG IVPB ×3 (06:24→20:07)
[2020-08-17] MEDS: SUCRALFATE SUSP 100 MG/ML 10 ML UDC 1000 MG PO ×4 (06:24→20:07)
[2020-08-17] MEDS: CIPROFLOXACIN 400 MG/D5W 200ML 200 ML 200 MG IVPB ×2 (08:24→17:35)
[2020-08-17] MEDS: SODIUM CHLORIDE 0.9% IV 1,000 ML 60 ML IV CONT (09:55)
[2020-08-17] MEDS: LACTATED RINGERS 1,000 ML 150 ML IV CONT (11:20)
--- NOTE | 2020-08-17 11:30 | WPDANESEPPF ---
Anes - Initial Pre Proc Eval Procedure: Operation Date: 08/17/20 12:30 Proposed Procedures p Esophagogastroduodenoscopy - Ottoniel House MD Date/Time: 08/17/20 11:30 Surgeon: aRdha Nevarez PA-C Pre Op Diagnosis: Gastroenteritis Patient Data Age: 50 Gender: M Height: 1.75 m Weight: 66.8 kg Last Vital Signs Temp 97.2 F L 08/17/20 11:18 Pulse 74 08/17/20 11:18 Resp 20 08/17/20 11:18 BP 116/75 08/17/20 11:18 Pulse Ox 100 08/17/20 11:18 Allergies Allergy/AdvReac Type Severity Reaction Status Date / Time No Known Allergies Allergy Verified 08/17/20 11:17 Home Medications Medication Instructions Recorded Confirmed Type baclofen 10 mg PO DAILY 12/11/19 08/15/20 History benztropine 0.5 mg PO TID 12/11/19 08/15/20 History buspirone 10 mg PO TID 12/11/19 08/15/20 History cholecalciferol (vitamin D3) 2,000 unit PO DAILY 12/11/19 08/15/20 History [Vitamin D3] divalproex 125 mg PO QPM 12/11/19 08/15/20 History docusate sodium 100 mg PO DAILY 12/11/19 08/15/20 History ferrous sulfate 325 mg PO DAILY 12/11/19 08/15/20 History loratadine 10 mg PO DAILY PRN 12/11/19 08/15/20 History losartan 50 mg PO QAM 12/11/19 08/15/20 History olanzapine [Zyprexa] 5 mg PO HS 12/11/19 08/15/20 History polyethylene glycol 3350 [Miralax] 17 g PO DAILY 12/11/19 08/15/20 History rosuvastatin 10 mg PO HS 12/11/19 08/15/20 History acetaminophen 1,000 mg PO BID #0 tablet 12/13/19 08/15/20 Rx magnesium citrate [Citroma] 30 ml PO DAILY PRN 05/21/20 08/15/20 History ondansetron 4 mg PO Q6H PRN 05/21/20 08/15/20 History sennosides-docusate sodium [Senna 2 tab-cap PO Q6-8H PRN 05/21/20 08/15/20 History with Docusate Sodium] Adult One Daily Multivitamin 1 tablet PO DAILY 06/30/20 08/15/20 History Fleet Enema 118 ml RECTAL ONCE PRN 06/30/20 08/15/20 History bisacodyl 10 mg RECTAL DAILY PRN 06/30/20 08/15/20 History famotidine 20 mg PO BID 06/30/20 08/15/20 History magnesium hydroxide [Milk of 2,400 mg PO HS PRN 06/30/20 08/15/20 History Magnesia] omeprazole 20 mg PO BID 06/30/20 08/15/20 History amitriptyline 10 mg PO HS 30 Days #30 tablet 07/04/20 08/15/20 Rx hydrocodone-acetaminophen 1 tablet PO Q8H PRN #7 tablet 07/04/20 08/15/20 Rx magnesium oxide 400 mg PO QAM 14 Days #14 tablet 07/04/20 08/15/20 Rx Laboratory Tests 08/16/20 08/16/20 08/17/20 19:00 19:00 04:44 WBC 7.4 K/mm3 K/mm3 6.1 K/mm3 K/mm3 (4.5-10.0) (4.5-10.0) RBC 3.82 M/mm3 L M/mm3 3.62 M/mm3 L M/mm3 (4.6-6.20) (4.6-6.20) Hgb 11.5 g/dL L D g/dL 10.9 g/dL L g/dL (14.0-18.0) (14.0-18.0) Hct 36.1 % L % 33.9 % L % (42.0-52.0) (42.0-52.0) MCV 94.5 fl fl 93.6 fl fl (80-100) (80-100) MCH 30.1 pg pg 30.1 pg pg (26-34) (26-34) MCHC 31.9 g/dl L g/dl 32.2 g/dl g/dl (32-36) (32-36) RDW 11.9 % % 11.8 % % (11.5-14.5) (11.5-14.5) Plt Count 152 k/mm3 k/mm3 148 k/mm3 L k/mm3 (150-375) (150-375) MPV 9.3 fl fl 9.7 fl fl (7.4-10.4) (7.4-10.4) Immature Gran % (Auto) 0.3 % % (0-0.5) Neut % (Auto) 48.6 % % (45.5-73.1) Lymph % (Auto) 32.6 % % (18.3-44.2) [place] % (Auto) 10.7 % H % (2.6-8.5) Eos % (Auto) 7.1 % H % (0-4.4) Baso % (Auto) 0.7 % % (0.2-1.2) Lymph # (Auto) 1.98 K/mm3 K/mm3 (0.9-3.2) [place] # (Auto) 0.7 K/mm3 H K/mm3 (0.1-0.6) Eos # (Auto) 0.4 K/mm3 H K/mm3 (0-0.3) Baso # (Auto) 0.0 K/mm3 K/mm3 (0.0-0.1) Abs Immat Gran (auto) 0.02 K/mm3 K/mm3 (0.00-0.031) Absolute Neuts (auto) 3.0 K/mm3 K/mm3 (1.3-6.7) Absolute Nucleated RBC 0.0 K/mm3 K/mm3 (0.0-0.012) Nucleated RBC % 0.0 % % (0.0-0.2) Sodium 141 mmol/L mmol/L (137-145) Potassium 4.1 mmol/L mmol/L (3.4-5.0) Chloride 103 mmol/L mmol/L (98-107) Carbon Dioxide 30 mmol/L mmol/L (22-30) Anion Ga
--- NOTE | 2020-08-17 12:26 | WPDGICN ---
Assessment and Plan Assessment and plan (1) Leukocytosis: Code(s): D72.829 - Elevated white blood cell count, unspecified Status: Acute Assessment and Plan: this is resolving but suggests the possibility of a recent infection (2) Intractable nausea and vomiting: Code(s): R11.2 - Nausea with vomiting, unspecified Status: Acute Assessment and Plan: to be assessed with EGD today. He has been tested in the past for H pylori. We will try to do it again today but results will not be totally valid due to the fact he has been on a PPI. (3) Epigastric pain: Code(s): R10.13 - Epigastric pain Status: Acute Assessment and Plan: I doubt that he has ulcers. None were present when he had endoscopy with for similar symptomatology a few months ago, although now he apparently has had some very dark emesis suggesting the possibility of blood. Lovenox has been held pending EGD GI Consult Note Consult date/time: 08/17/20 12:26 HPI: Elan Garzon is a 50 year old male Who was hospitalized having been brought to emergency room with vomiting and abdominal pain. He has been hospitalized in the past with abdominal pain. A few months ago with perform an EGD that showed some gastritis. He then as now he complains of severe pain even before 1 touches his abdomen. He had been found have gallstones and had an abnormal HIDA scan. Subsequently his gallbladder was removed 2 months ago. On admission he did have an elevated white blood count which is now normal. CT scan was normal except for showing fluid in the colon. He has AFib. It is difficult to obtain a very thorough history because he has history of cerebrovascular accident. He has a diagnosis of schizophrenia, and also is known to have some intellectual disability Review of Systems Review of Systems: All systems reviewed & are unremarkable except as noted in HPI and below FOR[facility]LY [facility] Past Medical History Medical History Bipolar disorder Cerebrovascular accident Old CVA noted on brain CT in July 2018. Chronic anemia Closed right hip fracture (~07/2018) Depression with anxiety Epigastric pain Gastroesophageal reflux disease Hiatal hernia Hyperlipidemia Hypertension Intellectual disability Nausea & vomiting Pneumothorax on left (~09/2018) Schizophrenia Surgical History Surgical History History of appendectomy History of hip surgery (~07/2018) ORIF right hip fracture with trochanteric nail device. History of tonsillectomy Hx laparoscopic cholecystectomy Family History Family History Other Unknown family medical history Social History Social History Social History: Surrogate decision maker: Soo Cedeño power of yard stocker. Code status: Full code. Smoking status: Unknown if ever smoked Alcohol intake: unknown Substance use: unknown Substance use type: does not use Additional living arrangements comments: Resides in a nursing home in [place]. Additional occupation/education comments: Disabled. Gender identity (if verbalized by the patient): Male Spiritual care concerns: No Meds Home Medications and Allergies Home Medications Medication Instructions Recorded Confirmed Type baclofen 10 mg PO DAILY 12/11/19 08/15/20 History benztropine 0.5 mg PO TID 12/11/19 08/15/20 History buspirone 10 mg PO TID 12/11/19 08/15/20 History cholecalciferol (vitamin D3) 2,000 unit PO DAILY 12/11/19 08/15/20 History [Vitamin D3] divalproex 125 mg PO QPM 12/11/19 08/15/20 History docusate sodium 100 mg PO DAILY 12/11/19 08/15/20 History ferrous sulfate 325 mg PO DAILY 12/11/19 08/15/20 History loratadine 10 mg PO DAILY PRN 12/11/19 08/15/20 History losartan 50 mg PO QAM 12/11/19 08/15/20 Hi
--- NOTE | 2020-08-17 12:43 | PM.IMPN ---
Progress Note: A&P Assessment and Plan (1) Gastroenteritis: Code(s): K52.9 - Noninfective gastroenteritis and colitis, unspecified Status: Acute Assessment and Plan: Patient is a 50-year-old man with a history of *, who presented to the emergency room via EMS from his half-way facility with complaints of abdominal pain and an episode of coffee-ground emesis prior to EMS arrival. Initial labs showed low-grade temperature at 99.9? F, tachycardic rate at 126 per, increased respiratory rate 22, blood pressure elevated 156/116, pulse ox normal at 96% on room air. Initial labs showed leukocytosis at 15,400, with elevated neutrophils at 82%, normal H&H, normal CMP, normal urinalysis. CT abdomen pelvis showed colonic fluid, correlate with diarrhea or gastroenteritis. The patient was started on IV antibiotics for gastroenteritis with IV Flagyl and Cipro and started on IV fluid hydration. GI was consulted for further evaluation and monitoring. GI was consulted and is planning on performing an EGD today for further evaluation due to coffee-ground emesis in GI symptoms Appreciate GIs input for diet advancement Continue on IV protonix BID and Carafate now WBC was 15.4, and now normal. no more fevers. Continue on IV Cipro and IV Flagyl p.r.n. Zofran for nausea stool cultures were ordered but never obtained since he has not had any more bowel movements during admission. Continue monitoring. Appreciate GIs input (2) Coffee ground emesis: Code(s): K92.0 - Hematemesis Status: Acute Assessment and Plan: Prior to arrival. He has not had any more episodes of vomiting while admitted. He had been started on Lovenox for DVT prophylaxis but will keep this on hold until we can get an EGD for further evaluation of the GI bleeding. Continue PPI twice daily. Appreciate GI is the recommendations. SCDs for DVT prophylaxis until further evaluation can be done. (3) Dehydration: Code(s): E86.0 - Dehydration Status: Acute Assessment and Plan: has received over 3 L of IV fluids during ER admission continued on maintenance fluids 60 mL an hour normal saline until he is able to advance his diet without any issues appears well hydrated at this time BMP is normal. Continue monitoring. (4) Leukocytosis: Code(s): D72.829 - Elevated white blood cell count, unspecified Status: Acute Assessment and Plan: WBC 15.4 at admission. Normalized. Continue IV antibiotics. Continue monitoring. (5) Intractable nausea and vomiting: Code(s): R11.2 - Nausea with vomiting, unspecified Status: Acute Assessment and Plan: Resolved. Still having some abdominal discomfort. Plans for EGD today. Will see about advancing his diet after EGD findings. (6) Hypertension: Qualifiers: Hypertension type: essential hypertension Qualified Code(s): I10 - Essential (primary) hypertension Code(s): I10 - Essential (primary) hypertension Status: Chronic Assessment and Plan: Blood pressure stable at 112/84. Continue on home medications, Lisinopril. Continue monitoring. (7) Psychiatric illness: Code(s): F99 - Mental disorder, not otherwise specified Status: Chronic Assessment and Plan: Continue home medications. (8) Chronic anemia: Code(s): D64.9 - Anemia, unspecified Status: Chronic Assessment and Plan: H&H was within normal limits on arrival, which showed he was dehydrated since He is anemic at baseline. H&H is 10/33%. Iron labs
[2020-08-17] MEDS: ONDANSETRON INJ 4 MG/2 ML VIAL IV PUSH ×2 (13:00→18:43)
[2020-08-17] MEDS: HYDROcodone/acetaminophen (*CRX) 5-325 MG TABLET 1 TAB PO (13:35)
[2020-08-17] MEDS: FAMOTIDINE 20 MG TABLET PO ×2 (14:27→17:39)
[2020-08-17] MEDS: LOSARTAN POTASSIUM 50 MG TABLET PO (14:27)
[2020-08-17] MEDS: MAGNESIUM OXIDE 400 MG TABLET PO (14:27)
[2020-08-17] MEDS: BENZTROPINE MESYLATE 0.5 MG TABLET PO ×2 (14:27→17:38)
[2020-08-17] MEDS: BACLOFEN 10 MG TABLET PO (14:27)
[2020-08-17] MEDS: FERROUS SULFATE 324 MG TABLET PO (14:27)
[2020-08-17] MEDS: CHOLECALCIFEROL 1,000 UNITS TABLET 2000 UNITS PO (14:27)
[2020-08-17] MEDS: DOCUSATE SODIUM 100 MG CAPSULE PO (14:28)
[2020-08-17] MEDS: LORATADINE 10 MG TABLET PO (14:28)
[2020-08-17] MEDS: busPIRone HCL 10 MG TABLET PO ×2 (14:28→17:39)
[2020-08-17] MEDS: ACETAMINOPHEN 500 MG TABLET 1000 MG PO (17:38)
[2020-08-17] MEDS: DIVALPROEX SODIUM SPRINKLE 125 MG CAP.DR PO (17:38)
[2020-08-17] MEDS: OLANZapine 5 MG TABLET PO (20:07)
[2020-08-17] MEDS: AMITRIPTYLINE HCL 10 MG TABLET PO (20:07)
[2020-08-17] MEDS: ROSUVASTATIN 10 MG TABLET PO (20:07)
[2020-08-17] MEDS: PANTOPRAZOLE SODIUM IV 40 MG VIAL IV PUSH (20:17)
[2020-08-18] MEDS: metroNIDAZOLE 500 MG/ISO 100ML 500 MG/100 ML BAG 100 MG IVPB ×3 (05:01→20:06)
[2020-08-18 05:39] LABS: Hemoglobin 10.7 g/dL (14.0-18.0); Mean Corpuscular HGB Conc 31.5 g/dl (32-36); Mean Corpuscular Hemoglobin 29.6 pg (26-34); Mean Corpuscular Volume 94.2 fl (80-100); Mean Platelet Volume 9.6 fl (7.4-10.4); Platelet Count Result 147 k/mm3 (150-375); Red Blood Count 3.61 M/mm3 (4.6-6.20); Red Cell Distribution Width 11.7 % (11.5-14.5); White Blood Count 5.1 K/mm3 (4.5-10.0)
[2020-08-18 05:44] LABS: Anion Gap 7 mmol/L (8-16); Blood Urea Nitrogen 9 mg/dL (9-20); Calcium 8.9 mg/dL (8.4-10.2); Carbon Dioxide 32 mmol/L (22-30); Chloride 105 mmol/L (98-107); Estimated CRCL calculation 82 ml/min; Estimated Glomerular Filt Rate > 60; Glucose 86 mg/dL (75-110); Potassium 4.1 mmol/L (3.4-5.0); Sodium 144 mmol/L (137-145)
[2020-08-18 06:00] VITALS: BP 123/80; PULSE 72; RESP 16; TEMP 36.4; O2SAT 97
[2020-08-18] MEDS: CIPROFLOXACIN 400 MG/D5W 200ML 200 ML 200 MG IVPB ×2 (06:08→18:01)
[2020-08-18] MEDS: SODIUM CHLORIDE 0.9% IV 1,000 ML 60 ML IV CONT (06:08)
[2020-08-18] MEDS: SUCRALFATE SUSP 100 MG/ML 10 ML UDC 1000 MG PO ×3 (06:09→20:05)
[2020-08-18] MEDS: CHOLECALCIFEROL 1,000 UNITS TABLET 2000 UNITS PO (09:02)
[2020-08-18] MEDS: THERAPEUTIC MULTIVITAMINS/MINERALS TAB (*BKC) 1 TABLET PO (09:02)
[2020-08-18] MEDS: LORATADINE 10 MG TABLET PO (09:02)
[2020-08-18] MEDS: MAGNESIUM OXIDE 400 MG TABLET PO (09:02)
[2020-08-18] MEDS: FERROUS SULFATE 324 MG TABLET PO (09:02)
[2020-08-18] MEDS: ACETAMINOPHEN 500 MG TABLET 1000 MG PO ×2 (09:02→18:00)
[2020-08-18] MEDS: BACLOFEN 10 MG TABLET PO (09:02)
[2020-08-18] MEDS: DOCUSATE SODIUM 100 MG CAPSULE PO (09:02)
[2020-08-18] MEDS: LOSARTAN POTASSIUM 50 MG TABLET PO (09:02)
[2020-08-18] MEDS: BENZTROPINE MESYLATE 0.5 MG TABLET PO ×2 (09:02→18:00)
[2020-08-18] MEDS: busPIRone HCL 10 MG TABLET PO ×2 (09:02→18:00)
[2020-08-18] MEDS: PANTOPRAZOLE SODIUM IV 40 MG VIAL IV PUSH ×2 (09:03→20:05)
[2020-08-18] MEDS: FAMOTIDINE 20 MG TABLET PO ×2 (09:03→18:01)
[2020-08-18 14:00] VITALS: BP 138/85; PULSE 89; RESP 16; TEMP 36.7; O2SAT 98
[2020-08-18] MEDS: ONDANSETRON INJ 4 MG/2 ML VIAL IV PUSH (14:46)
--- NOTE | 2020-08-18 15:07 | PM.IMPN ---
Progress Note: A&P Assessment and Plan (1) Gastroenteritis: Code(s): K52.9 - Noninfective gastroenteritis and colitis, unspecified Status: Acute Assessment and Plan: Patient is a 50-year-old man with a history of intellectual delay, who presented to the emergency room via EMS from his care home facility with complaints of abdominal pain and an episode of coffee-ground emesis prior to EMS arrival. Initial labs showed low-grade temperature at 99.9? F, tachycardic rate at 126 per, increased respiratory rate 22, blood pressure elevated 156/116, pulse ox normal at 96% on room air. Initial labs showed leukocytosis at 15,400, with elevated neutrophils at 82%, normal H&H, normal CMP, normal urinalysis. CT abdomen pelvis showed colonic fluid, correlate with diarrhea or gastroenteritis. The patient was started on IV antibiotics for gastroenteritis with IV Flagyl and Cipro and started on IV fluid hydration. GI was consulted for further evaluation and monitoring. 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 H. Pylori was negative. Nothing found to explain why the patient has abdominal pain. I called Dr. House,GI, who does not recommend any further work up at this time. Continue on IV protonix BID and Carafate now Since the patient continues to have abdominal pain, has not had a bowel movement since arrival and has a history of constipation I will order an obstructive abdominal x-ray series for further evaluation. WBC was 15.4, and now normal. no more fevers. Continue on IV Cipro and IV Flagyl P.r.n. Zofran for nausea Stool cultures were ordered but never obtained since he has not had any more bowel movements during admission. Continue monitoring. Appreciate GIs input (2) Coffee ground emesis: Code(s): K92.0 - Hematemesis Status: Acute Assessment and Plan: Prior to arrival. He has not had any more episodes of vomiting while admitted. He had been started on Lovenox for DVT prophylaxis but will keep this on hold until we can get an EGD for further evaluation of the GI bleeding. Continue PPI twice daily. Appreciate GI is the recommendations. SCDs for DVT prophylaxis until further evaluation can be done. (3) Dehydration: Code(s): E86.0 - Dehydration Status: Acute Assessment and Plan: He has received over 3 L of IV fluids during ER admission continued on maintenance fluids 60 mL an hour normal saline until he is able to advance his diet without any issues appears well hydrated at this time BMP is normal. Continue monitoring. (4) Leukocytosis: Code(s): D72.829 - Elevated white blood cell count, unspecified Status: Acute Assessment and Plan: WBC 15.4 at admission. Normalized. Continue IV antibiotics. Continue monitoring. (5) Intractable nausea and vomiting: Code(s): R11.2 - Nausea with vomiting, unspecified Status: Acute Assessment and Plan: Resolved. Still having some abdominal discomfort. Plans for EGD today. Will see about advancing his diet after EGD findings. (6) Hypertension: Qualifiers: Hypertension type: essential hypertension Qualified Code(s): I10 - Essential (primary) hypertension Code(s): I10 - Essential (primary) hypertension Status: Chronic Assessment and Plan: Blood pressure stable at 122/78. Continue on home medications, Lisinopril. Continue monitoring. (7) Psychiatric illness: Code(s): F99 - Mental disorder, not otherwise specified Status: Chronic
[2020-08-18 16:10] VITALS: O2SAT 98
[2020-08-18 20:00] VITALS: PULSE 80; RESP 16; O2SAT 99
[2020-08-18] MEDS: OLANZapine 5 MG TABLET PO (20:05)
[2020-08-18] MEDS: ROSUVASTATIN 10 MG TABLET PO (20:05)
[2020-08-18] MEDS: AMITRIPTYLINE HCL 10 MG TABLET PO (20:05)
[2020-08-18] MEDS: HYDROcodone/acetaminophen (*CRX) 5-325 MG TABLET 1 TAB PO (20:06)
[2020-08-18 20:53] VITALS: BP 137/89; PULSE 80; RESP 16; TEMP 36.7; O2SAT 99
[2020-08-19] MEDS: SODIUM CHLORIDE 0.9% IV 1,000 ML 60 ML IV CONT (03:34)
[2020-08-19 05:05] VITALS: BP 122/78; PULSE 60; RESP 16; TEMP 36.4; O2SAT 99
[2020-08-19] MEDS: metroNIDAZOLE 500 MG/ISO 100ML 500 MG/100 ML BAG 100 MG IVPB (05:05)
[2020-08-19] MEDS: CIPROFLOXACIN 400 MG/D5W 200ML 200 ML 200 MG IVPB (06:11)
--- NOTE | 2020-08-19 06:42 | WPDGIPROGNO ---
Progress Note: A&P Assessment and Plan (1) Abdominal pain: Qualifiers: Abdominal location: generalized Qualified Code(s): R10.84 - Generalized abdominal pain Code(s): R10.9 - Unspecified abdominal pain Status: Acute Assessment and Plan: I we have not yet been able to correlate his complaint of pain , which is all is diffuse and exquisite, with any organic disease process. I believe there for that that particular symptom is somewhat fabricated. there is no doubt that he was vomiting on admission but we see no explanation for that. Now that he is able to tolerate eating I think that he could be discharged (2) Esophagitis: Code(s): K20.90 - Esophagitis, unspecified without bleeding Status: Acute Assessment and Plan: I again took biopsies to rule out Tijerina's. This had been done twice before. I believe what looks like Tijerina's is simply excoriation, and denuded epithelium from acid reflux. Oddly he does not complain of chest pain. Most recent biopsies are still pending. (3) Psychiatric illness: Code(s): F99 - Mental disorder, not otherwise specified Status: Acute Assessment and Plan: This makes clarification of his symptomatology difficult, as his symptoms seem to be more subjective than obstructive. I will sign off for now. I think he can be discharged Subjective Date/time seen: 08/19/20 06:42 The patient was sleeping soundly when I entered the room. He woke when I called his name. As he has done couple days ago, when I had touched and moved slightly his blanket, without actually touching his abdomen, he wailed out in pain! I had mentioned to the hospitalist that I had seen the same thing on a previous admission. I think the fact we have a very negative workup, multiple times on multiple admissions and now with his dramatic almost theatrical complaints of pain, that is safe to say that he does not have organic disease. I do not see a need for any further workup at this time Review of Systems Review of Systems: All systems reviewed & are unremarkable except as noted in HPI and below Exam Const: General: comfortable ( asleep, until I woke him) Limitations: behavioral limitations and language barrier GI: Inspection: normal to inspection GI Palp: Yes abdominal tenderness ( always diffuse pain vocalized loudly by patient with light touch) Auscultation: normal bowel sounds Objective Data Vital Signs Vital Signs: Vital Signs - 24 hr 08/18/20 14:00 08/18/20 16:10 08/18/20 20:00 Temperature 36.7 C Pulse Rate 89 80 Respiratory Rate 16 16 Blood Pressure 138/85 Pulse Oximetry 98 98 99 08/18/20 20:53 08/19/20 05:05 Temperature 36.7 C 36.4 C L Pulse Rate 80 60 Respiratory Rate 16 16 Blood Pressure 137/89 122/78 Pulse Oximetry 99 99 Intake/Output Intake/Output: Intake & Output 08/16/20 08/17/20 08/18/20 08/19/20 23:59 23:59 23:59 23:59 Intake Total 3165 2020 3790 400 Output Total 400 1650 3950 650 Balance 9219 491 -733 -305 Meds/Results Medications: Active Medications Generic Name Dose Route Start Last Admin Trade Name Freq PRN Reason Stop Dose Admin Acetaminophen 1,000 mg 08/16/20 09:00 08/18/20 18:00 Acetaminophen 500 Mg Tablet PO 1,000 mg BID SUZETTE Administration Hydrocodone Bitart/Acetaminophen 1 tab 08/16/20 00:36 08/18/20 20:06 Hydrocodone/Acetaminophen (*Crx) 5-325 Mg Tablet PO 1 tab Q8H PRN Administration pain (scale score 7-10) Amitriptyline HCl 10 mg 08/16/20 21:00 08/18/20 20:05 Amitriptyline Hcl 10 Mg Tablet PO 10 mg HS SUZETTE Administration Baclofen 10 mg 08/16/20 09:00 08/18/20 09:02 Baclofen 10 Mg Tablet PO 10 mg DAILY SUZETTE Administration Benztropine Mesylate 0.5 mg 08/16/20 09:00 08/18/20 18:00 Benztropine Mesylate 0.5 Mg Tablet PO 0.5 mg TID SUZETTE Administration Bisacodyl 10 mg 08/16/20 00:36 Bisacodyl 10 Mg Suppository RECTAL DAILY P
[2020-08-19] MEDS: SUCRALFATE SUSP 100 MG/ML 10 ML UDC 1000 MG PO (06:52)
[2020-08-19] MEDS: CHOLECALCIFEROL 1,000 UNITS TABLET 2000 UNITS PO (07:59)
[2020-08-19] MEDS: MAGNESIUM OXIDE 400 MG TABLET PO (08:00)
[2020-08-19] MEDS: FERROUS SULFATE 324 MG TABLET PO (08:00)
[2020-08-19] MEDS: BACLOFEN 10 MG TABLET PO (08:00)
[2020-08-19] MEDS: LORATADINE 10 MG TABLET PO (08:00)
[2020-08-19] MEDS: busPIRone HCL 10 MG TABLET PO (08:00)
[2020-08-19] MEDS: DOCUSATE SODIUM 100 MG CAPSULE PO (08:00)
[2020-08-19] MEDS: BENZTROPINE MESYLATE 0.5 MG TABLET PO (08:00)
[2020-08-19] MEDS: THERAPEUTIC MULTIVITAMINS/MINERALS TAB (*BKC) 1 TABLET PO (08:00)
[2020-08-19] MEDS: ACETAMINOPHEN 500 MG TABLET 1000 MG PO (08:00)
[2020-08-19] MEDS: FAMOTIDINE 20 MG TABLET PO (08:01)
[2020-08-19] MEDS: PANTOPRAZOLE SODIUM IV 40 MG VIAL IV PUSH (08:01)
[2020-08-19] MEDS: LOSARTAN POTASSIUM 50 MG TABLET PO (08:01)
[2020-08-19] MEDS: ENOXAPARIN 40 MG/0.4 ML SYRINGE SUB-Q (08:01)
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
== END 2020-08-19 12:30 | DRG 391 ==
LOC: ANHED 18:52 → ANH2MED 22:20
PROVIDERS: Emergency Medicine Emergency Medical Services; Internal Medicine Gastroenterology; Nurse Practitioner; Admitting Provider Internal Medicine; Emergency Provider Emergency Medicine; PCP General Practice; Visit Provider Physician Assistant
PROC: 0DJ08ZZ Inspection of Upper Intestinal Tract, Via Natural or Artificial Opening Endoscopic (ICD-10-PCS; CPT 43235; principal; 2020-08-17 12:30)
DX: K52.9 Noninfective gastroenteritis and colitis, unspecified (principal); K21.01 Gastro-esophageal reflux disease with esophagitis, with bleeding; E86.0 Dehydration; K31.7 Polyp of stomach and duodenum; K31.9 Disease of stomach and duodenum, unspecified; K44.9 Diaphragmatic hernia without obstruction or gangrene; D72.829 Elevated white blood cell count, unspecified; I10 Essential (primary) hypertension; D64.9 Anemia, unspecified; F79 Unspecified intellectual disabilities; E78.5 Hyperlipidemia, unspecified; F31.9 Bipolar disorder, unspecified; F20.9 Schizophrenia, unspecified; F41.8 Other specified anxiety disorders; Z90.49 Acquired absence of other specified parts of digestive tract; Z86.73 Personal history of transient ischemic attack (TIA), and cerebral infarction without residual deficits
CPT/HCPCS: 36415; 74019; 74177; 80048; 80053; 81001; 83690; 85025; 85027; 87081; 88305; 93005; 96361; 96372; 96374; 96375; 99285; A9270; C9113; G0378; J0744; J1650; J2270; J2405; J2704; J7030; J7120; Q9967

== ENCOUNTER 2020-10-24 21:25 | Emergency (ER) | payer MEDICARE, MEDICAID, SELFPAY ==
--- NOTE | ~2020-10-24 | CT_ITS ---
EXAMINATION: CT abdomen pelvis w con EXAM DATE: 10/24/2020 23:32 INDICATION: Abdominal pain . TECHNIQUE: Spiral CT of the abdomen and pelvis was performed following intravenous injection of 100 m L Omnipaque 350. Axial, coronal and sagittal images of the abdomen and pelvis were reviewed. The do se-length product (DLP) for this examination was 592.56 mGy-cm. The exposure was tailored according to patient size (auto mA exposure control), and iterative reconstruction (ASIR) was used as additiona l dose reduction technique. There is no prior study for comparison. FINDINGS: There is moderate-sized gastroesophageal hiatal hernia. There is diffuse edema of the dista l esophagus consistent with esophagitis. The liver, spleen, adrenal glands and pancreas are unremark able. There are cholecystectomy clips. Portal and splenic veins are patent. Kidneys enhance symmet rically. There is no hydronephrosis. The prostate is unremarkable. The bladder is unremarkable. There is no retroperitoneal or pelvic lymphadenopathy. There is mild scattered arteriosclerotic dis ease. There are no findings to suggest appendicitis. There is expected amount of colonic stool. No free intraperitoneal gas. The heart is normal in size. There are no pericardial or pleural effusions. Lungs appear somewhat hyperinflated with narrow cardiac silhouette. There is a right hip gamma nail. There are old left rib fractures posteriorly. IMPRESSION: Moderate hiatal hernia, esophageal edema. Esophagitis. Reviewed, dictated and finalized at location B.
[2020-10-24 21:24] VITALS: BP 158/115; PULSE 91; RESP 15; TEMP 37.7; O2SAT 99
[2020-10-24] MEDS: ONDANSETRON INJ 4 MG/2 ML VIAL IV PUSH (22:22)
[2020-10-24] MEDS: SODIUM CHLORIDE 0.9% IV 1,000 ML 999 ML IV CONT (22:22)
[2020-10-24] MEDS: DICYCLOMINE HCL INJ 20 MG/2 ML VIAL IM (22:22)
[2020-10-24 22:24] LABS: Basophils Percent Auto 0.5 % (0.2-1.2); Eosinophils Absolute Auto 0.1 K/mm3 (0-0.3); Immature Granulocyte Absolute 0.01 K/mm3 (0.00-0.031); Immature Granulocyte Percent A 0.2 % (0-0.5); Lymphocytes Absolute Auto 1.45 K/mm3 (0.9-3.2); Lymphocytes Percent Auto 25.1 % (18.3-44.2); Mean Corpuscular HGB Conc 32.5 g/dl (32-36); Mean Corpuscular Hemoglobin 30.6 pg (26-34); Mean Corpuscular Volume 94.1 fl (80-100); Mean Platelet Volume 9.9 fl (7.4-10.4); Monocytes Absolute Auto 0.6 K/mm3 (0.1-0.6); Monocytes Percent Auto 9.7 % (2.6-8.5); Neutrophils Absolute Auto 3.7 K/mm3 (1.3-6.7); Neutrophils Percent Auto 63.5 % (45.5-73.1); Platelet Count Result 155 k/mm3 (150-375); Red Blood Count 4.25 M/mm3 (4.6-6.20); Red Cell Distribution Width 12.2 % (11.5-14.5); White Blood Count 5.8 K/mm3 (4.5-10.0)
[2020-10-24 22:51] LABS: Alanine Aminotransferase 10 U/L (4-50); Albumin Level 4.1 g/dL (3.5-5.1); Alkaline Phosphatase 88 U/L (38-126); Anion Gap 8 mmol/L (8-16); Aspartate Amino Transferase 17 U/L (17-59); Bilirubin,Total 0.6 mg/dL (0.2-1.3); Blood Urea Nitrogen 12 mg/dL (9-20); Calcium 9.3 mg/dL (8.4-10.2); Carbon Dioxide 31 mmol/L (22-30); Chloride 104 mmol/L (98-107); Estimated CRCL calculation 72 ml/min; Estimated Glomerular Filt Rate > 60; Glucose 119 mg/dL (65-110); Lipase 93 U/L (23-300); Potassium 4.4 mmol/L (3.4-5.0); Sodium 143 mmol/L (137-145)
[2020-10-24 22:52] LABS: Lactic Acid Reflex 0.9 mmol/L (0.7-2.1)
[2020-10-24 23:00] LABS: Add Urine Microscopic? YES; Appearance Urine Clear (Clear); Bilirubin Urine Negative (Negative); Blood Urine Negative (Negative); Color Urine Yellow (Yellow); Glucose Urine UA Negative (Negative); Ketones Urine Negative (Negative); Leukocyte Esterase Ur Negative LEU/UL (Negative); Mucus Urine Rare /lpf; Nitrate Urine Negative (Negative); Protein Urine Negative (Negative); RBC Urine 0-2 /hpf (0-2); WBC Urine 0-3 /hpf
--- NOTE | 2020-10-25 00:30 | ED.GENADULT ---
HPI - General Adult General Chief complaint: Abdominal Pain Stated complaint: abd pain Time Seen by Provider: 10/24/20 21:42 History of Present Illness HPI narrative: Patient is a 50-year-old gentleman who presents the emergency department with chief complaint of abdominal pain patient reports that for the last week he has been having discomfort throughout his abdomen reports is not worsened by anything nor is it improved by anything. The patient has had significant decreased appetite and has only been taking protein shakes. Patient denies vomiting reports that he has had constipation with this patient reports not improved by anything or is worsened by anything Related Data Home Medications Medication Instructions Recorded Confirmed baclofen 10 mg PO DAILY 12/11/19 08/15/20 benztropine 0.5 mg PO TID 12/11/19 08/15/20 buspirone 10 mg PO TID 12/11/19 08/15/20 cholecalciferol (vitamin D3) 2,000 unit PO DAILY 12/11/19 08/15/20 [Vitamin D3] divalproex 125 mg PO QPM 12/11/19 08/15/20 docusate sodium 100 mg PO DAILY 12/11/19 08/15/20 ferrous sulfate 325 mg PO DAILY 12/11/19 08/15/20 loratadine 10 mg PO DAILY PRN 12/11/19 08/15/20 losartan 50 mg PO QAM 12/11/19 08/15/20 olanzapine [Zyprexa] 5 mg PO HS 12/11/19 08/15/20 polyethylene glycol 3350 [Miralax] 17 g PO DAILY 12/11/19 08/15/20 rosuvastatin 10 mg PO HS 12/11/19 08/15/20 magnesium citrate [Citroma] 30 ml PO DAILY PRN 05/21/20 08/15/20 ondansetron 4 mg PO Q6H PRN 05/21/20 08/15/20 sennosides-docusate sodium [Senna 2 tab-cap PO Q6-8H PRN 05/21/20 08/15/20 with Docusate Sodium] Adult One Daily Multivitamin 1 tablet PO DAILY 06/30/20 08/15/20 Fleet Enema 118 ml RECTAL ONCE PRN 06/30/20 08/15/20 bisacodyl 10 mg RECTAL DAILY PRN 06/30/20 08/15/20 famotidine 20 mg PO BID 06/30/20 08/15/20 magnesium hydroxide [Milk of 2,400 mg PO HS PRN 06/30/20 08/15/20 Magnesia] omeprazole 20 mg PO BID 06/30/20 08/15/20 Allergies Allergy/AdvReac Type Severity Reaction Status Date / Time No Known Allergies Allergy Verified 08/17/20 11:17 Review of Systems Review of Systems: A 10 system review of systems was completed on the patient and is negative except for what is stated in the HPI. Nursing and ancillary documentation was reviewed. [facility] Past Medical History Medical History Bipolar disorder Cerebrovascular accident Old CVA noted on brain CT in July 2018. Chronic anemia Closed right hip fracture (~07/2018) Depression with anxiety Epigastric pain Gastroesophageal reflux disease Hiatal hernia Hyperlipidemia Hypertension Intellectual disability Nausea & vomiting Pneumothorax on left (~09/2018) Schizophrenia Surgical History Surgical History History of appendectomy History of hip surgery (~07/2018) ORIF right hip fracture with trochanteric nail device. History of tonsillectomy Hx laparoscopic cholecystectomy Family History Family History Other Unknown family medical history Social History Social History Social History: Surrogate decision maker: Soo Cedeño power of personal injury attorney. Code status: Full code. Smoking status: Unknown if ever smoked Alcohol intake: unknown Substance use: unknown Substance use type: does not use Additional living arrangements comments: Res[place] [facility] [place]. Additional occupation/education comments: Disabled. Gender identity (if verbalized by the patient): Male Spiritual care concerns: No Exam Narrative: GENERAL: Well-appearing, well-nourished, and in no acute distress. HEAD: Normocephalic, atraumatic. EYES: PERRLA and EOMI. ENT: Nares clear, no rhinorrhea or epistaxis. Mucous membranes moist. NECK: Supple. CHEST: Clear to auscultation. No resp
[2020-10-25 01:00] VITALS: BP 150/95; PULSE 88; RESP 18; O2SAT 100
[2020-10-25 02:00] VITALS: BP 147/96; PULSE 87; RESP 18; O2SAT 100
[2020-10-25 03:01] VITALS: BP 148/89; PULSE 88; RESP 18; O2SAT 100
[2020-10-25 03:07] VITALS: BP 156/98; PULSE 89; RESP 18; O2SAT 97
== END 2020-10-25 06:00 ==
PROVIDERS: Emergency Provider Emergency Medicine; PCP General Practice
DX: R10.9 Unspecified abdominal pain (principal); K29.70 Gastritis, unspecified, without bleeding; K59.00 Constipation, unspecified; F31.9 Bipolar disorder, unspecified; F41.8 Other specified anxiety disorders; E78.5 Hyperlipidemia, unspecified; I10 Essential (primary) hypertension; F20.9 Schizophrenia, unspecified; Z86.73 Personal history of transient ischemic attack (TIA), and cerebral infarction without residual deficits; Z86.2 Personal history of diseases of the blood and blood-forming organs and certain disorders involving the immune mechanism; Z87.19 Personal history of other diseases of the digestive system; Z90.49 Acquired absence of other specified parts of digestive tract; Z90.89 Acquired absence of other organs
CPT/HCPCS: 36415; 51701; 74177; 80053; 81001; 83605; 83690; 85025; 96361; 96372; 96374; 99284; J0500; J2405; J7030; Q9967

== ENCOUNTER 2021-06-27 09:45 | Observation (INO) | payer OTHER, SELFPAY ==
[2021-06-27] VITALS (16 sets, daily range): BP systolic 117–150; BP diastolic 72–96; PULSE 73–91; RESP 13–25; TEMP 36.4–36.8; O2SAT 93–100; BMI 20.5
--- NOTE | ~2021-06-27 | CT_ITS ---
EXAMINATION: CT chest abdomen pelvis w con DATE: 06/27/2021 11:09 INDICATION: Epigastric abdominal pain. TECHNIQUE: Computed tomography (CT) of the chest, abdomen, and pelvis was performed with 100 mL Omnip aque 300 intravenous contrast. Automated exposure control and iterative reconstruction technique were employed. The dose-length product was 836.10 mGy-cm. COMPARISON: CT abdomen and pelvis 10/24/2020 FINDINGS: CHEST CT: There is a small left pneumothorax. There is a small left pleural effusion. There is mild dependent a telectasis on the left. The heart size is normal. There are coronary artery calcifications. No perica rdial effusion. There is a small sliding hiatal hernia. There is fluid in the esophagus. There is mil d chronic anterior wedging of multiple thoracic vertebral bodies. There are old left rib fractures. ABDOMEN/PELVIS CT: The liver is normal. There are changes of cholecystectomy. There is a 9 mm cyst in the spleen. The pa ncreas and adrenal glands are normal. There is cortical thinning of the kidneys. The appendix is norm al. There are no dilated loops of bowel. There are no pathologically enlarged lymph nodes. There is n o free intraperitoneal fluid. There is internal fixation of right femur. There is mild lumbar spondyl osis. IMPRESSION: 1. Small left hydropneumothorax. 2. Small sliding hiatal hernia. Reviewed, dictated and finalized at location B.
--- NOTE | ~2021-06-27 | XR_ITS ---
EXAMINATION: XR chest 2V DATE: 06/27/2021 10:14 INDICATION: Chest pain. TECHNIQUE: Frontal and lateral views of the chest were obtained. COMPARISON: Chest single view 05/21/2020 FINDINGS: There is a small left pneumothorax. No pneumonia or pleural effusion. The heart size is nor mal. There is thoracic kyphosis with mild chronic anterior wedging of multiple vertebral bodies. Ther e are surgical clips in the abdomen. IMPRESSION: 1. Small left pneumothorax. I called this result to Dr. Dozier. Reviewed, dictated and finalized at location B.
--- NOTE | ~2021-06-27 | XR_ITS ---
EXAMINATION: XR chest 2V DATE: 06/28/2021 06:12 INDICATION: Pneumothorax TECHNIQUE: frontal and lateral views of the chest were obtained. COMPARISON: Chest radiograph dated 06/27/2021 FINDINGS: Patient is rotated slightly to the left. No interval change in a small left pneumothorax. No other ai rspace opacities, pulmonary edema or pleural effusion. The cardiomediastinal silhouette is normal. Th oracic kyphosis with mild anterior wedging of the few lower thoracic vertebral bodies. Cholecystectom y clips in the right upper quadrant. IMPRESSION: 1. Unchanged small left pneumothorax. Reviewed, dictated and finalized at location A.
--- NOTE | 2021-06-27 09:50 | ECG_ITS ---
Measurements Intervals [place] Rate: 82 P: 74 CT: 155 QRS: 81 QRSD: 82 T: 81 QT: 343 QTc: 401 Interpretive Statements SINUS RHYTHM MINIMAL Q WAVES- INFERIOR LEADS BASELINE ARTIFACT- I, II, III, AVR, AVL, AVF, V1 BORDERLINE ECG Electronically Signed On 06-27-2021 11:20:28 CDT by Cornelio Waddell D.O.
--- NOTE | 2021-06-27 10:04 | ED.CHESTPAIN ---
HPI - Chest Pain General Chief Complaint: Chest Pain Stated Complaint: chest pain, int x 1 week Time Seen by Provider: 06/27/21 09:51 Source: patient and old records reviewed Mode of arrival: EMS History of Present Illness HPI narrative: 51 y/o male presents from a local LT facility. He has significant developmental disability and is very [place]. He is complaining of chest pain and epigastric pain. According to the retirement staff, he has been complaining of the chest pain for about week. The [employer] saw him today and sent him to the ER for evaluation. He is saying that he feels like he cannot belch. He is poor historian due to his mental limitations. He does have a history of a lot of GI problems. He was seen here in October of last year and was found to have esophagitis at that time. He has had is gallbladder previously removed. He has not had any fever. No vomiting or diarrhea. Related Data Home Medications Medication Instructions Recorded Confirmed baclofen 10 mg PO DAILY 12/11/19 08/15/20 benztropine 0.5 mg PO TID 12/11/19 08/15/20 buspirone 10 mg PO TID 12/11/19 08/15/20 cholecalciferol (vitamin D3) 2,000 unit PO DAILY 12/11/19 08/15/20 [Vitamin D3] divalproex 125 mg PO QPM 12/11/19 08/15/20 docusate sodium 100 mg PO DAILY 12/11/19 08/15/20 ferrous sulfate 325 mg PO DAILY 12/11/19 08/15/20 loratadine 10 mg PO DAILY PRN 12/11/19 08/15/20 losartan 50 mg PO QAM 12/11/19 08/15/20 olanzapine [Zyprexa] 5 mg PO HS 12/11/19 08/15/20 polyethylene glycol 3350 [Miralax] 17 g PO DAILY 12/11/19 08/15/20 rosuvastatin 10 mg PO HS 12/11/19 08/15/20 magnesium citrate [Citroma] 30 ml PO DAILY PRN 05/21/20 08/15/20 ondansetron 4 mg PO Q6H PRN 05/21/20 08/15/20 sennosides-docusate sodium [Senna 2 tab-cap PO Q6-8H PRN 05/21/20 08/15/20 with Docusate Sodium] Adult One Daily Multivitamin 1 tablet PO DAILY 06/30/20 08/15/20 Fleet Enema 118 ml RECTAL ONCE PRN 06/30/20 08/15/20 bisacodyl 10 mg RECTAL DAILY PRN 06/30/20 08/15/20 famotidine 20 mg PO BID 06/30/20 08/15/20 magnesium hydroxide [Milk of 2,400 mg PO HS PRN 06/30/20 08/15/20 Magnesia] omeprazole 20 mg PO BID 06/30/20 08/15/20 Allergies Allergy/AdvReac Type Severity Reaction Status Date / Time No Known Allergies Allergy Verified 08/17/20 11:17 [facility] Past Medical History Medical History (Updated 06/27/21 @ 14:29 by Elise Hernandez, LUIS) Bipolar disorder Cerebrovascular accident Old CVA noted on brain CT in July 2018. Chronic anemia Closed right hip fracture (~07/2018) Depression with anxiety Epigastric pain Gastroesophageal reflux disease Hiatal hernia Hyperlipidemia Hypertension Intellectual disability Nausea & vomiting Pneumothorax on left (~09/2018) Schizophrenia Surgical History Surgical History History of appendectomy History of hip surgery (~07/2018) ORIF right hip fracture with trochanteric nail device. History of tonsillectomy Hx laparoscopic cholecystectomy Family History Family History Other Unknown family medical history Social History Social History Social History: Surrogate decision maker: Soo Cedeño power of trial attorney. Code status: Full code. Smoking status: Unknown if ever smoked Alcohol intake: unknown Substance use: unknown Substance use type: does not use Additional living arrangements comments: Resides in a [facility] in [place]. Additional occupation/education comments: Disabled. Gender identity (if verbalized by the patient): Male Spiritual care concerns: No Exam Const: General: no acute distress and alert Orientation/consciousness: patient oriented x3 HENMT: Head: normal to inspection Eyes: Conjunctivae: conjunctivae normal Neck: Neck: normal visual inspection Chest: Chest palpation & inspection: normal inspection of the
--- NOTE | 2021-06-27 10:07 | PC.NURSE ---
Pt taken to X-ray
[2021-06-27] MEDS: PANTOPRAZOLE SODIUM IV 40 MG VIAL IV PUSH (10:30)
[2021-06-27] MEDS: SODIUM CHLORIDE 0.9% IV 1,000 ML 999 ML IV CONT (10:30)
[2021-06-27] MEDS: ONDANSETRON INJ 4 MG/2 ML VIAL IV PUSH (10:31)
[2021-06-27 10:47] LABS: Alanine Aminotransferase 16 U/L (6-50); Albumin Level 4.3 g/dL (3.5-5.1); Alkaline Phosphatase 97 U/L (38-126); Anion Gap 7 mmol/L (8-16); Aspartate Amino Transferase 20 U/L (17-59); Bilirubin,Total 0.8 mg/dL (0.2-1.3); Blood Urea Nitrogen 10 mg/dL (9-20); Calcium 9.5 mg/dL (8.4-10.2); Carbon Dioxide 33 mmol/L (22-30); Chloride 103 mmol/L (98-107); Estimated CRCL calculation 88 ml/min; Estimated Glomerular Filt Rate > 60; Glucose 97 mg/dL (65-110); Lipase 113 U/L (23-300); Potassium 4.8 mmol/L (3.4-5.0); Sodium 143 mmol/L (137-145)
[2021-06-27 10:53] LABS: Basophils Percent Auto 0.4 % (0.2-1.2); Eosinophils Absolute Auto 0.1 K/mm3 (0-0.3); Eosinophils Percent Auto 2.1 % (0-4.4); Hematocrit 39.9 % (42.0-52.0); Immature Granulocyte Absolute 0.01 K/mm3 (0.00-0.031); Immature Granulocyte Percent A 0.1 % (0-0.5); Lymphocytes Absolute Auto 1.65 K/mm3 (0.9-3.2); Lymphocytes Percent Auto 24.3 % (18.3-44.2); Mean Corpuscular HGB Conc 32.6 g/dl (32-36); Mean Corpuscular Hemoglobin 31.5 pg (26-34); Mean Corpuscular Volume 96.6 fl (80-100); Mean Platelet Volume 10.3 fl (7.4-10.4); Monocytes Absolute Auto 0.6 K/mm3 (0.1-0.6); Monocytes Percent Auto 8.8 % (2.6-8.5); Neutrophils Absolute Auto 4.4 K/mm3 (1.3-6.7); Neutrophils Percent Auto 64.3 % (45.5-73.1); Platelet Count Result 178 k/mm3 (150-375); Red Blood Count 4.13 M/mm3 (4.6-6.20); Red Cell Distribution Width 11.6 % (11.5-14.5); White Blood Count 6.8 K/mm3 (4.5-10.0)
[2021-06-27 10:58] LABS: Troponin I < 0.012 ng/mL (0.000-0.034)
[2021-06-27 11:04] LABS: Partial Thromboplastin Time 30.5 SECONDS (22.3-36.8); Prothrombin Time 12.8 Seconds (11.1-14.7)
--- NOTE | 2021-06-27 13:14 | PM.IMHP ---
H&P: HPI History of Present Illness Date/Time: 06/27/21 13:14 this is a 51-year-old male patient who resides in a Long-term facility. The patient has significant developmental disabilities and is very hard of hearing. The patient was complaining of left-sided chest pain and epigastric discomfort. He has been complaining of this for approximately 1 week. A provider at the facility saw the patient and sent him to the emergency room. The patient states that his stomach hurts and he cannot belch. Patient was seen here several times in the past for GI symptoms. Patient recently had a gallbladder removed and has a history of esophagitis. The patient was given a GI cocktail in the emergency room, Protonix, Zofran and a [place]. Patient's H&H remains at his baseline 13.[address] of the abdomen chest and pelvis was read as a small left hydropneumothorax. Small sliding hiatal hernia. Chest x-ray also shows the small left pneumothorax. Surgery has been consulted and requested that a repeat chest x-ray be performed tomorrow. The patient is being admitted to observation status on the date of service of 06/27/2021. ( His last EGD was noted on 08/17/2020. He was diagnosed with reflux esophagitis, Tijerina's esophagus without dysplasia, gastric polyp and duodenal nodule.) Chief Complaint: left chest pain Review of Systems Review of Systems: All systems reviewed & are unremarkable except as noted in HPI and below Constitutional: Constitutional: Reports as per HPI and Reports no additional constitutional complaints Eyes: Eyes: Reports as per HPI and Reports no additional eye complaints ENT: Reports system reviewed and no additional complaints, except as documented and Reports Normal hearing present Cardiovascular: Cardiovascular: Reports no additional cardiovascular complaints Respiratory: Respiratory: Reports no additional respiratory complaints and Reports no additional respiratory complaints Gastrointestinal: Gastrointestinal: Reports as per HPI and Reports no additional gastrointestinal complaints Musculoskeletal: Musculoskeletal: Reports no additional musculoskeletal complaints Integumentary/Breasts: Skin/Breast: Reports system reviewed and no additional complaints, except as docu and Reports as per HPI Neurologic: Reports system reviewed and no additional complaints, except as documented, Reports as per HPI and Reports Normal hearing present Psychiatric: Psychiatric: Reports no additional psychiatric complaints and Reports as per HPI Endocrine: Endocrine: Reports no additional endocrine complaints Hematologic/Lymphatic: Hematologic/Lymphatic: Reports no additional hematologic/lymphatic complaints Allergic/Immunologic: Allergic/Immunologic: Reports no additional allergic/immunologic complaints [facility] Past Medical History Medical History (Updated 06/27/21 @ 14:20 by Cuca Trinidad NP) Bipolar disorder Cerebrovascular accident Old CVA noted on brain CT in July 2018. Chronic anemia Closed right hip fracture (~07/2018) Depression with anxiety Epigastric pain Gastroesophageal reflux disease Hiatal hernia Hyperlipidemia Hypertension Intellectual disability Nausea & vomiting Pneumothorax on left (~09/2018) Schizophrenia Surgical History Surgical History History of appendectomy History of hip surgery (~07/2018) ORIF right hip fracture with trochanteric nail device. History of tonsillectomy Hx laparoscopic cholecystectomy Family History Family History Other Unknown family medical history Social History Social History Social History: Surrogate decision maker: Soo Cedeño power of divorce attorney. Code status: Full code. Smoking status: Unknown if ever smoked Alcohol intake: unknown Substance use: unknown Substance use type
[2021-06-27 13:50] LABS: Troponin I < 0.012 ng/mL (0.000-0.034)
--- NOTE | 2021-06-27 15:18 | ADMGEN ---
This patient, Elan Garzon, was admitted to [facility] Surg Room 325-01 at 1450. Patient/family oriented to hospital policies and general routines including ID bracelet, bed and alarms, visiting hours, pain management, procedures, bathroom and other care routines, personal items, smoking policy, room service/diet, and visiting hours. Information on how to activate the Rapid Response Team has been discussed. Patient/Family are encouraged to report perceived risks to care and to ask questions if they do not understand what they are told or what they should do.
[2021-06-27 16:16] LABS: Troponin I < 0.012 ng/mL (0.000-0.034)
--- NOTE | 2021-06-27 16:25 | PM.CNGS ---
Assessment and Plan Assessment and plan (1) Hemopneumothorax on left: Code(s): J94.2 - Hemothorax Status: Acute Assessment and Plan: Small apical left pneumothorax noted on CT. Would recommend to continue to monitor this for now. Will repeat a chest x-ray tomorrow morning. If this remains stable, then he will likely be able to be discharged. If this enlarges, then he may require chest tube placement. (2) Intellectual disability: Code(s): F79 - Unspecified intellectual disabilities Status: Chronic (3) Schizophrenia: Qualifiers: Schizophrenia type: unspecified Qualified Code(s): F20.9 - Schizophrenia, unspecified Code(s): F20.9 - Schizophrenia, unspecified Status: Chronic (4) Hypertension: Qualifiers: Hypertension type: essential hypertension Qualified Code(s): I10 - Essential (primary) hypertension Code(s): I10 - Essential (primary) hypertension Status: Chronic Additional Plan I have discussed the patient's case and plan of care with Dr. Noriega. Thank you for allowing us to see the patient in consultation and we will continue to follow along with you. History of Present Illness Consult details Consult date: 06/27/21 Reason for consult: other (Small left pneumothorax) Requesting physician: Elise Hernandez APRN Narrative: This is a 51-year-old male who presented from a custodial with a history of significant developmental disability and who is hard of hearing. He is alert but unable to answer majority of my questions, therefore his history is compiled from review of his electronic medical record. He apparently had been complaining of left-sided chest pain and epigastric discomfort for 1 week which prompted the nursing facility to send him into the ER. In the ED, he was found to have a small left apical pneumothorax on chest x-ray. He had a CT of the chest abdomen and pelvis that showed a small left hydropneumothorax, small sliding hiatal hernia. He has been admitted. Our service is consulted for these small left pneumothorax. The patient is now seen on medical floor. Vital signs are stable. Review of Systems Review of Systems: ROS unobtainable: Yes unobtainable due to medical condition [facility] Past Medical History Medical History Bipolar disorder Cerebrovascular accident Old CVA noted on brain CT in July 2018. Chronic anemia Closed right hip fracture (~07/2018) Depression with anxiety Epigastric pain Gastroesophageal reflux disease Hiatal hernia Hyperlipidemia Hypertension Intellectual disability Nausea & vomiting Pneumothorax on left (~09/2018) Schizophrenia Surgical History Surgical History History of appendectomy History of hip surgery (~07/2018) ORIF right hip fracture with trochanteric nail device. History of tonsillectomy Hx laparoscopic cholecystectomy Family History Family History Other Unknown family medical history Social History Social History Social History: Surrogate decision maker: Soo Cedeño power of state's attorney. Code status: Full code. Smoking status: Unknown if ever smoked Alcohol intake: unknown Substance use: unknown Substance use type: does not use Additional living arrangements comments: Resides in a [facility] in [place]. Additional occupation/education comments: Disabled. Gender identity (if verbalized by the patient): Male Spiritual care concerns: No Meds Home Medications and Allergies Home Medications Medication Instructions Recorded Confirmed Type baclofen 10 mg PO DAILY 12/11/19 08/15/20 History benztropine 0.5 mg PO TID 12/11/19 08/15/20 History buspirone 10 mg PO TID 12/11/19 08/15/20 History cholecalciferol (vitamin D3)
--- NOTE | 2021-06-27 17:43 | PM.IMPN ---
Subjective Date/time seen: 06/27/21 17:43 Objective Data Vital Signs Vital Signs: Vital Signs - 24 hr 06/27/21 09:51 06/27/21 10:06 06/27/21 10:18 Temperature 98.2 F Pulse Rate 85 87 81 Respiratory Rate 16 16 Blood Pressure 117/87 Pulse Oximetry 99 06/27/21 10:30 06/27/21 10:31 06/27/21 10:32 Temperature Pulse Rate 86 83 82 Respiratory Rate 18 18 15 Blood Pressure 123/95 H 136/86 Pulse Oximetry 97 98 97 06/27/21 10:45 06/27/21 10:46 06/27/21 11:43 Temperature Pulse Rate 89 91 Respiratory Rate 13 25 H Blood Pressure 132/87 Pulse Oximetry 96 97 99 06/27/21 12:07 06/27/21 13:50 06/27/21 14:40 Temperature Pulse Rate 73 77 77 Respiratory Rate 14 20 17 Blood Pressure 123/96 H 126/72 150/83 H Pulse Oximetry 100 100 100 06/27/21 14:50 Temperature 97.8 F Pulse Rate 79 Respiratory Rate 16 Blood Pressure 121/73 Pulse Oximetry 96 Intake/Output Intake/Output: Intake & Output 06/24/21 06/25/21 06/26/21 06/27/21 23:59 23:59 23:59 23:59 Intake Total 1000 Balance 1000 Meds/Results Medications: Active Medications Generic Name Dose Route Start Last Admin Trade Name Freq PRN Reason Stop Dose Admin Hydrocodone Bitart/Acetaminophen 1 tab 06/27/21 13:10 Hydrocodone/Acetaminophen (*Crx) 5-325 Mg Tablet PO Q4H PRN Pain Rated 4-6 Ondansetron HCl 4 mg 06/27/21 13:10 Ondansetron Inj 4 Mg/2 Ml Vial IV PUSH Q4H PRN Nausea Pantoprazole Sodium 20 mg 06/27/21 17:00 Pantoprazole Sodium Iv 40 Mg Vial IV PUSH BID [facility] Radiology Results: ITS Impressions Chest X-Ray 06/27/21 10:14 IMPRESSION: 1. Small left pneumothorax. I called this result to Dr. Dozier. Chest/Abdomen/Pelvis CT 06/27/21 11:40 IMPRESSION: 1. Small left hydropneumothorax. 2. Small sliding hiatal hernia. Labs Labs: Laboratory Results - last 24 hr 06/27/21 06/27/21 06/27/21 10:19 10:19 10:19 WBC 6.8 RBC 4.13 L Hgb 13.0 L Hct 39.9 L MCV 96.6 MCH 31.5 MCHC 32.6 RDW 11.6 Plt Count 178 MPV 10.3 Immature Gran % (Auto) 0.1 Neut % (Auto) 64.3 Lymph % (Auto) 24.3 [place] % (Auto) 8.8 H Eos % (Auto) 2.1 Baso % (Auto) 0.4 Lymph # (Auto) 1.65 [place] # (Auto) 0.6 Eos # (Auto) 0.1 Baso # (Auto) 0.0 Abs Immat Gran (auto) 0.01 Absolute Neuts (auto) 4.4 Absolute Nucleated RBC 0.0 Nucleated RBC % 0.0 PT 12.8 INR 1.0 APTT 30.5 Sodium 143 Potassium 4.8 Chloride 103 Carbon Dioxide 33 H Anion Gap 7 L BUN 10 Creatinine 0.80 Estim Creat Clear Calc 88 Estimated GFR > 60 Glucose 97 Calcium 9.5 Total Bilirubin 0.8 AST 20 ALT 16 Alkaline Phosphatase 97 Troponin I < 0.012 Total Protein 7.0 Albumin 4.3 Lipase 113 06/27/21 06/27/21 13:24 15:27 WBC RBC Hgb Hct MCV MCH MCHC RDW Plt Count MPV Immature Gran % (Auto) Neut % (Auto) Lymph % (Auto) [place] % (Auto) Eos % (Auto) Baso % (Auto) Lymph # (Auto) [place] # (Auto) Eos # (Auto) Baso # (Auto) Abs Immat Gran (auto) Absolute Neuts (auto) Absolute Nucleated RBC Nucleated RBC % PT INR APTT Sodium Potassium Chloride Carbon Dioxide Anion Gap BUN Creatinine Estim Creat Clear Calc Estimated GFR Glucose Calcium Total Bilirubin AST ALT Alkaline Phosphatase Troponin I < 0.012 < 0.012 Total Protein Albumin Lipase Quality VTE Prophylaxis VTE prophylaxis: mechanical ordered
[2021-06-27] MEDS: PANTOPRAZOLE SODIUM IV 40 MG VIAL 20 MG IV PUSH (18:01)
[2021-06-27] MEDS: busPIRone HCL 10 MG TABLET PO (21:03)
[2021-06-27] MEDS: AMITRIPTYLINE HCL 10 MG TABLET PO (21:03)
[2021-06-27] MEDS: DIVALPROEX SODIUM SPRINKLE 125 MG CAP.DR 250 MG PO (21:03)
[2021-06-27] MEDS: ROSUVASTATIN 10 MG TABLET PO (21:04)
[2021-06-27] MEDS: OLANZapine 5 MG TABLET PO (21:04)
[2021-06-27] MEDS: HYDROcodone/acetaminophen (*CRX) 5-325 MG TABLET 1 TAB PO (21:04)
[2021-06-27] MEDS: BENZTROPINE MESYLATE 0.5 MG TABLET PO (21:04)
[2021-06-28] VITALS (10 sets, daily range): BP systolic 96–120; BP diastolic 56–73; PULSE 68–88; RESP 16–20; TEMP 36.4–36.6; O2SAT 94–99
[2021-06-28] MEDS: busPIRone HCL 10 MG TABLET PO ×3 (05:48→21:05)
[2021-06-28 06:17] LABS: Basophils Percent Auto 0.4 % (0.2-1.2); Eosinophils Absolute Auto 0.2 K/mm3 (0-0.3); Eosinophils Percent Auto 4.3 % (0-4.4); Hematocrit 36.5 % (42.0-52.0); Hemoglobin 12.4 g/dL (14.0-18.0); Immature Granulocyte Absolute 0.01 K/mm3 (0.00-0.031); Immature Granulocyte Percent A 0.2 % (0-0.5); Lymphocytes Absolute Auto 1.74 K/mm3 (0.9-3.2); Lymphocytes Percent Auto 35.5 % (18.3-44.2); Mean Corpuscular Volume 94.3 fl (80-100); Mean Platelet Volume 9.8 fl (7.4-10.4); Monocytes Absolute Auto 0.5 K/mm3 (0.1-0.6); Monocytes Percent Auto 9.6 % (2.6-8.5); Neutrophils Absolute Auto 2.5 K/mm3 (1.3-6.7); Platelet Count Result 143 k/mm3 (150-375); Red Blood Count 3.87 M/mm3 (4.6-6.20); Red Cell Distribution Width 11.4 % (11.5-14.5); White Blood Count 4.9 K/mm3 (4.5-10.0)
[2021-06-28 06:26] LABS: Alanine Aminotransferase 13 U/L (6-50); Albumin Level 3.7 g/dL (3.5-5.1); Alkaline Phosphatase 89 U/L (38-126); Anion Gap 4 mmol/L (8-16); Aspartate Amino Transferase 20 U/L (17-59); Bilirubin,Total 0.8 mg/dL (0.2-1.3); Blood Urea Nitrogen 8 mg/dL (9-20); Carbon Dioxide 36 mmol/L (22-30); Chloride 102 mmol/L (98-107); Estimated CRCL calculation 79 ml/min; Estimated Glomerular Filt Rate > 60; Glucose 83 mg/dL (65-110); Lipase 58 U/L (23-300); Magnesium 1.7 mg/dL (1.6-2.3); Potassium 4.7 mmol/L (3.4-5.0); Sodium 142 mmol/L (137-145)
[2021-06-28] MEDS: BACLOFEN 10 MG TABLET PO (10:00)
[2021-06-28] MEDS: LOSARTAN POTASSIUM 25 MG TABLET PO (10:00)
[2021-06-28] MEDS: PANTOPRAZOLE SODIUM IV 40 MG VIAL 20 MG IV PUSH ×2 (10:00→16:47)
[2021-06-28] MEDS: SENNA/DOCUSATE SODIUM TABLET 2 TAB PO (10:00)
[2021-06-28] MEDS: SACCHAROMYCES BOULARDII 250 MG CAPSULE PO ×2 (10:00→16:47)
[2021-06-28] MEDS: DOCUSATE SODIUM 100 MG CAPSULE PO (10:00)
[2021-06-28] MEDS: polyethylene glycoL 3350 17 GM POWD.PACK PO (10:00)
[2021-06-28] MEDS: BENZTROPINE MESYLATE 0.5 MG TABLET PO ×2 (10:01→21:05)
[2021-06-28] MEDS: FERROUS SULFATE 324 MG TABLET PO (10:01)
[2021-06-28] MEDS: CHOLECALCIFEROL 1,000 UNITS TABLET 2000 UNITS PO (10:01)
[2021-06-28] MEDS: THERAPEUTIC MULTIVITAMINS/MINERALS TAB (*BKC) 1 TABLET PO (10:01)
--- NOTE | 2021-06-28 10:34 | PM.IMPN ---
Progress Note: A&P Assessment and Plan (1) Hydropneumothorax: Code(s): J94.8 - Other specified pleural conditions Status: Acute Assessment and Plan: surgery has been consulted. Repeat chest x-ray 06/28/2021. Patient still complaining of chest pain continue pain control most likely related to pneumothorax. (2) Hypertension: Qualifiers: Hypertension type: essential hypertension Qualified Code(s): I10 - Essential (primary) hypertension Code(s): I10 - Essential (primary) hypertension Status: Chronic Assessment and Plan: Continue with home medication. Continue with losartan. . (3) Schizophrenia: Qualifiers: Schizophrenia type: unspecified Qualified Code(s): F20.9 - Schizophrenia, unspecified Code(s): F20.9 - Schizophrenia, unspecified Status: Chronic Assessment and Plan: Continue with home medications. Continue with Zyprexa. (4) Epigastric pain: Code(s): R10.13 - Epigastric pain Status: Acute Assessment and Plan: IV Protonix. The patient did have a GI cocktail earlier. The patient is also on Vicodin. He has chronic stomach issues. Improved. (5) Intellectual disability: Code(s): F79 - Unspecified intellectual disabilities Status: Chronic Assessment and Plan: It is very difficult for the patient to communicate. . (6) Hyperlipidemia: Code(s): E78.5 - Hyperlipidemia, unspecified Status: Acute Assessment and Plan: Continue with home medication it looks like he has been on rosuvastatin. (7) Chronic anemia: Code(s): D64.9 - Anemia, unspecified Status: Chronic Assessment and Plan: Patient appears to be at his baseline. Continue with ferrous sulfate (8) Depression with anxiety: Code(s): F41.8 - Other specified anxiety disorders Status: Inactive Assessment and Plan: Continue with home medications. Subjective Date/time seen: 06/28/21 10:34 Interval history: 51 years old male was admitted to the hospital with chest pain was found to have hydropneumothorax surgery was consulted conservative management was started repeat chest x-ray today Patient is poor historian still complaining of chest pain Patient denies fever headache fever shortness of breath I am seeing the patient for chest pain Exam Narrative: Alert Chest no wheeze crackles Abdomen nontender nondistended CVS S1 + S2 Lower extremity edema Neurology functional quadriparesis Objective Data Vital Signs Vital Signs: Vital Signs - 24 hr 06/27/21 10:45 06/27/21 10:46 06/27/21 11:43 Temperature Pulse Rate 89 91 Respiratory Rate 13 25 H Blood Pressure 132/87 Pulse Oximetry 96 97 99 06/27/21 12:07 06/27/21 13:50 06/27/21 14:40 Temperature Pulse Rate 73 77 77 Respiratory Rate 14 20 17 Blood Pressure 123/96 H 126/72 150/83 H Pulse Oximetry 100 100 100 06/27/21 14:50 06/27/21 20:00 06/27/21 20:48 Temperature 97.8 F Pulse Rate 79 75 Respiratory Rate 16 Blood Pressure 121/73 Pulse Oximetry 96 93 06/27/21 21:36 06/28/21 00:00 06/28/21 04:00 Temperature 97.6 F Pulse Rate 75 78 88 Respiratory Rate 17 Blood Pressure 132/78 Pulse Oximetry 98 06/28/21 05:34 Temperature 97.8 F Pulse Rate 70 Respiratory Rate 18 Blood Pressure 115/66 Pulse Oximetry 99 Intake/Output Intake/Output: Intake & Output 06/25/21 06/26/21 06/27/21 06/28/21 23:59 23:59 23:59 23:59 Intake Total 2210 Output Total 300 200 Balance 1910 -200 Meds/Results Medications: Active Medications Generic Name Dose Route Start Last Admin Trade Name Freq PRN Reason Stop Dose Admin Hydrocodone Bitart/Acetaminophen 1 tab 06/27/21 13:10 06/27/21 21:04 Hydrocodone/Acetaminophen (*Crx) 5-325 Mg Tablet PO 1 tab Q4H PRN Administration Pain Rated 4-6 Amitriptyline HCl 10 mg 06/27/21 21:00 06/27/21 21:03 Amitriptyl
[2021-06-28] MEDS: HYDROcodone/acetaminophen (*CRX) 5-325 MG TABLET 1 TAB PO ×2 (10:38→16:50)
--- NOTE | 2021-06-28 11:19 | PM.PNGS ---
Progress Note: A&P Assessment and Plan (1) Hemopneumothorax on left: Code(s): J94.2 - Hemothorax Status: Acute Assessment and Plan: Chest x-ray this morning still shows a small left pneumothorax that is unchanged. He is still on room air and doing well. This appears stable and it is okay from our standpoint to discharge the patient back to the snf. He can follow-up with the primary provider at the snf. (2) Intellectual disability: Code(s): F79 - Unspecified intellectual disabilities Status: Chronic (3) Schizophrenia: Qualifiers: Schizophrenia type: unspecified Qualified Code(s): F20.9 - Schizophrenia, unspecified Code(s): F20.9 - Schizophrenia, unspecified Status: Chronic (4) Hypertension: Qualifiers: Hypertension type: essential hypertension Qualified Code(s): I10 - Essential (primary) hypertension Code(s): I10 - Essential (primary) hypertension Status: Chronic Additional Plan I have discussed the patient's case and plan of care with Dr. Noriega. Subjective Subjective Date/Time Seen: 06/28/21 11:19 Patient reports: no new complaints Interval history: Patient with significant developmental disability and history is difficult to obtain. He still reports having some chest pain in the same location pointing to his left anterior chest. No other complaints at this time. Remains on room air and without any respiratory distress. Exam Const: General: comfortable and no acute distress Chest: Chest palpation & inspection: normal inspection of the chest Resp: Effort & Inspection: normal respiratory effort Auscultation: clear to auscultation bilaterally Psych: Insight: Limited insight present (Psych) Judgement: Limited judgement present (Psych) Objective Data Vital Signs Vital Signs: Vital Signs - 24 hr 06/27/21 11:43 06/27/21 12:07 06/27/21 13:50 Temperature Pulse Rate 73 77 Respiratory Rate 14 20 Blood Pressure 123/96 H 126/72 Pulse Oximetry 99 100 100 06/27/21 14:40 06/27/21 14:50 06/27/21 20:00 Temperature 97.8 F Pulse Rate 77 79 75 Respiratory Rate 17 16 Blood Pressure 150/83 H 121/73 Pulse Oximetry 100 96 06/27/21 20:48 06/27/21 21:36 06/28/21 00:00 Temperature 97.6 F Pulse Rate 75 78 Respiratory Rate 17 Blood Pressure 132/78 Pulse Oximetry 93 98 06/28/21 04:00 06/28/21 05:34 06/28/21 08:00 Temperature 97.8 F Pulse Rate 88 70 73 Respiratory Rate 18 Blood Pressure 115/66 Pulse Oximetry 99 Intake/Output Intake/Output: Intake & Output 06/25/21 06/26/21 06/27/21 06/28/21 23:59 23:59 23:59 23:59 Intake Total 2210 Output Total 300 200 Balance 1910 -200 Meds/Results Medications: Active Medications Generic Name Dose Route Start Last Admin Trade Name Freq PRN Reason Stop Dose Admin Hydrocodone Bitart/Acetaminophen 1 tab 06/27/21 13:10 06/28/21 10:38 Hydrocodone/Acetaminophen (*Crx) 5-325 Mg Tablet PO 1 tab Q4H PRN Administration Pain Rated 4-6 Amitriptyline HCl 10 mg 06/27/21 21:00 06/27/21 21:03 Amitriptyline Hcl 10 Mg Tablet PO 10 mg HS SUZETTE Administration Baclofen 10 mg 06/28/21 09:00 06/28/21 10:00 Baclofen 10 Mg Tablet PO 10 mg DAILY SUZETTE Administration Benztropine Mesylate 0.5 mg 06/27/21 21:00 06/28/21 10:01 Benztropine Mesylate 0.5 Mg Tablet PO 0.5 mg Q12HR SUZETTE Administration Bisacodyl 10 mg 06/27/21 18:32 Bisacodyl 10 Mg Suppository RECTAL DAILY PRN Constipation Buspirone HCl 10 mg 06/27/21 22:00 06/28/21 05:48 Buspirone Hcl 10 Mg Tablet PO 10 mg Q8HR SUZETTE Administration Divalproex Sodium 250 mg 06/27/21 17:00 06/27/21 21:03 Divalproex Sodium Sprinkle 125 Mg Cap.Dr PO 250 mg DAILY@1700 SUZETTE Administration Docusate Sodium 100 mg 06/28/21 09:00 06/28/21 10:00 Docusate Sodium 100 Mg Capsule PO 100 mg DAILY SUZETTE Administration Zach
[2021-06-28] MEDS: DIVALPROEX SODIUM SPRINKLE 125 MG CAP.DR 250 MG PO (16:47)
[2021-06-28] MEDS: ROSUVASTATIN 10 MG TABLET PO (21:05)
[2021-06-28] MEDS: OLANZapine 5 MG TABLET PO (21:05)
[2021-06-28] MEDS: AMITRIPTYLINE HCL 10 MG TABLET PO (21:06)
[2021-06-29] VITALS (7 sets, daily range): BP systolic 111–112; BP diastolic 71–73; PULSE 53–83; RESP 16–20; TEMP 36.1–36.3; O2SAT 97–99
[2021-06-29] MEDS: busPIRone HCL 10 MG TABLET PO ×2 (05:52→15:56)
[2021-06-29] MEDS: HYDROcodone/acetaminophen (*CRX) 5-325 MG TABLET 1 TAB PO ×2 (09:39→15:54)
[2021-06-29] MEDS: PANTOPRAZOLE SODIUM IV 40 MG VIAL 20 MG IV PUSH ×2 (09:41→17:52)
[2021-06-29] MEDS: CHOLECALCIFEROL 1,000 UNITS TABLET 2000 UNITS PO (09:41)
[2021-06-29] MEDS: polyethylene glycoL 3350 17 GM POWD.PACK PO (09:41)
[2021-06-29] MEDS: BENZTROPINE MESYLATE 0.5 MG TABLET PO (09:42)
[2021-06-29] MEDS: LORATADINE 10 MG TABLET PO (09:42)
[2021-06-29] MEDS: LOSARTAN POTASSIUM 25 MG TABLET PO (09:42)
[2021-06-29] MEDS: BACLOFEN 10 MG TABLET PO (09:42)
[2021-06-29] MEDS: SACCHAROMYCES BOULARDII 250 MG CAPSULE PO ×2 (09:42→17:53)
[2021-06-29] MEDS: FERROUS SULFATE 324 MG TABLET PO (09:42)
[2021-06-29] MEDS: THERAPEUTIC MULTIVITAMINS/MINERALS TAB (*BKC) 1 TABLET PO (09:42)
[2021-06-29] MEDS: DOCUSATE SODIUM 100 MG CAPSULE PO (09:42)
--- NOTE | 2021-06-29 10:55 | PM.DS ---
DS: Admitting Diagnosis Discharge Date 06/29/2021 Admitting Diagnosis Chest pain DS: Discharge Diagnosis Discharge Diagnosis (1) Hydropneumothorax: Code(s): J94.8 - Other specified pleural conditions Status: Acute Assessment and Plan: surgery has been consulted. Repeat chest x-ray 06/28/2021 no significant change. Chest pain has improved continue pain medication troponin was negative Most likely chest pain is related to pneumothorax expected to improve follow-up chest x-ray in 2 weeks. (2) Hypertension: Qualifiers: Hypertension type: essential hypertension Qualified Code(s): I10 - Essential (primary) hypertension Code(s): I10 - Essential (primary) hypertension Status: Chronic Assessment and Plan: Continue with home medication. Continue with losartan. . (3) Schizophrenia: Qualifiers: Schizophrenia type: unspecified Qualified Code(s): F20.9 - Schizophrenia, unspecified Code(s): F20.9 - Schizophrenia, unspecified Status: Chronic Assessment and Plan: Continue with home medications. Continue with Zyprexa. (4) Epigastric pain: Code(s): R10.13 - Epigastric pain Status: Acute Assessment and Plan: Protonix. The patient did have a GI cocktail earlier. The patient is also on Vicodin. He has chronic stomach issues. Improved. Follow-up with GI as outpatient (5) Intellectual disability: Code(s): F79 - Unspecified intellectual disabilities Status: Chronic Assessment and Plan: It is very difficult for the patient to communicate. . (6) Hyperlipidemia: Code(s): E78.5 - Hyperlipidemia, unspecified Status: Acute Assessment and Plan: Continue with home medication . (7) Chronic anemia: Code(s): D64.9 - Anemia, unspecified Status: Chronic Assessment and Plan: Patient appears to be at his baseline. Continue with ferrous sulfate (8) Depression with anxiety: Code(s): F41.8 - Other specified anxiety disorders Status: Inactive Assessment and Plan: Continue with home medications. DS: Summary Hospital Course Hospital Course: 51 years old male was admitted to the hospital with chest pain was found to have hydropneumothorax surgery was consulted conservative management no surgical intervention repeat chest x-ray in 2 weeks recommend follow-up with pulmonology as out pt Time Spent with Patient Time attestation: Total time spent providing and/or coordinating discharge services: 35 minutes Exam Narrative: Alert Chest no wheeze crackles Abdomen nontender nondistended CVS S1 + S2 Lower extremity edema Neurology functional quadriparesis Discharge Plan Discharge Attending physician on discharge: Emilie Carter M.A. Consulting providers: Ruben Noriega Discharging Clinician: Emilie Carter M.A. Patient Disposition: SNF Activity: as tolerated Diet: other - see discharge instructions Discharge Instructions: Resume home diet Patient Instructions: Spontaneous Pneumothorax (DC) Stand Alone Forms: General Discharge Information Follow-up/Referrals: Micheal,Kervin Mares MD [Primary Care Provider] - Ruben Noriega, [Physician] - Discharge Medications: Continued benztropine 0.5 mg Tablet 0.5 mg PO BID RF: 0 baclofen 10 mg Tablet 10 mg PO DAILY RF: 0 buspirone 10 mg Tablet 10 mg PO TID RF: 0 losartan 50 mg Tablet 25 mg PO QAM RF: 0 polyethylene glycol 3350 [Miralax] 17 gram Powder In Packet 17 g PO DAILY RF: 0 olanzapine [Zyprexa] 5 mg Tablet 5 mg PO HS RF: 0 ferrous sulfate 325 mg (65 mg iron) Tablet 325 mg PO DAILY RF: 0 divalproex 125 mg Capsule, Delayed Rel Sprinkle 250 mg PO QPM RF: 0 docusate sodium 100 mg Tablet 100 mg PO DAILY RF: 0 loratadine 10 mg Tablet 10 mg PO DAILY PRN (Reason: Allergy Symptoms) RF: 0 rosuvastatin 10 m
[2021-06-29 11:42] LABS: EDCOVIDSCREEN Negative (Negative)
[2021-06-29] MEDS: DIVALPROEX SODIUM SPRINKLE 125 MG CAP.DR 250 MG PO (17:53)
== END 2021-06-29 18:50 ==
LOC: ANHED 11:51 → ANH3MEDSUR 14:29
PROVIDERS: Emergency Medicine; Nurse Practitioner; Admitting Provider Family Medicine; Emergency Provider Nurse Practitioner Family; PCP General Practice; Visit Provider Internal Medicine
DX: R07.9 Chest pain, unspecified (principal); J94.2 Hemothorax; I10 Essential (primary) hypertension; K21.9 Gastro-esophageal reflux disease without esophagitis; E78.5 Hyperlipidemia, unspecified; F20.9 Schizophrenia, unspecified; R10.13 Epigastric pain; F79 Unspecified intellectual disabilities; D64.9 Anemia, unspecified; F41.8 Other specified anxiety disorders
CPT/HCPCS: 36415; 71046; 71260; 74177; 80053; 82728; 83690; 83735; 84443; 84484; 85025; 85610; 85730; 87426; 93005; 96361; 96374; 96375; 96376; 99285; A9270; C9113; C9803; G0378; J2405; J7030; Q9967

== ENCOUNTER 2022-04-04 10:02 | Emergency (ER) | payer OTHER, SELFPAY ==
[2022-04-04] VITALS (17 sets, daily range): BP systolic 104–137; BP diastolic 43–98; PULSE 80–95; RESP 12–19; TEMP 36.9; O2SAT 90–100
--- NOTE | ~2022-04-04 | CT_ITS ---
EXAMINATION: CT abdomen pelvis w con DATE: 04/04/2022 12:02 INDICATION: Bilateral lower abdominal pain TECHNIQUE: Computed tomography (CT) of the abdomen and pelvis was performed with 100 cc Omnipaque 350 intravenous contrast. The dose-length product was 523.46 mGy-cm. Automated exposure control and iter ative reconstruction technique were employed. COMPARISON: CT dated 06/27/2021 FINDINGS: Lung bases are unremarkable. Heart size normal. Large hiatal hernia containing debris in th e distal esophagus and stomach. No significant pleural or pericardial effusion. Fatty infiltration of the liver. The spleen, pancreas, adrenal glands and kidneys are unremarkable. S tatus post cholecystectomy. Nonobstructive bowel pattern. Moderate fluid throughout the colon with re tained fecal material in the distal colon and rectum. No obstruction. No significant vascular abnorma lity. No lymphadenopathy. No free air or free fluid. There is dynamic compression screw and intramedu llary hailey in the right femur. There is scoliosis. IMPRESSION: 1. Large hiatal hernia with retained debris in the distal esophagus and stomach. 2: Moderate retained fecal material in the distal colon and rectum, consistent with fecal impaction. Reviewed, dictated and finalized at location L. [place] CLASS WELDER IMPRESSION: 1. Large hiatal hernia with retained debris in the distal esophagus and stomach . 2: Moderate retained fecal material in the distal colon and rectum, consistent with fecal impaction.
[2022-04-04] MEDS: ONDANSETRON INJ 4 MG/2 ML VIAL IV PUSH (10:49)
[2022-04-04] MEDS: MORPHINE SULFATE (*CRX) 4 MG/ML INJ IV PUSH (10:50)
[2022-04-04 11:00] LABS: Appearance Urine Clear (Clear); Bilirubin Urine Negative (Negative); Blood Urine Negative (Negative); Color Urine Yellow (Yellow); Glucose Urine UA Negative (Negative); Ketones Urine Negative (Negative); Leukocyte Esterase Ur Negative LEU/UL (Negative); Nitrate Urine Negative (Negative); Protein Urine Negative (Negative); Specific Grav Ur 1.015 (1.001-1.035)
[2022-04-04 11:01] LABS: Basophils Percent Auto 0.3 % (0.2-1.2); Eosinophils Absolute Auto 0.1 K/mm3 (0-0.3); Hematocrit 39.6 % (42.0-52.0); Immature Granulocyte Absolute 0.02 K/mm3 (0.00-0.031); Immature Granulocyte Percent A 0.3 % (0-0.5); Immature Platelet Fraction Pct 2.6 % (0.9-11.2); Lymphocytes Absolute Auto 1.28 K/mm3 (0.9-3.2); Lymphocytes Percent Auto 19.1 % (18.3-44.2); Mean Corpuscular HGB Conc 32.8 g/dl (32-36); Mean Corpuscular Hemoglobin 31.3 pg (26-34); Mean Corpuscular Volume 95.2 fl (80-100); Mean Platelet Volume 9.8 fl (7.4-10.4); Monocytes Absolute Auto 0.7 K/mm3 (0.1-0.6); Monocytes Percent Auto 10.9 % (2.6-8.5); Neutrophils Absolute Auto 4.6 K/mm3 (1.3-6.7); Neutrophils Percent Auto 68.4 % (45.5-73.1); Platelet Count Result 136 k/mm3 (150-375); Red Blood Count 4.16 M/mm3 (4.6-6.20); Red Cell Distribution Width 12.4 % (11.5-14.5); White Blood Count 6.7 K/mm3 (4.5-10.0)
[2022-04-04 11:03] LABS: Mucus Urine Rare /lpf; WBC Urine 0-3 /hpf
[2022-04-04 11:09] LABS: Add Urine Microscopic? YES
[2022-04-04 11:11] LABS: Alanine Aminotransferase 25 U/L (6-50); Albumin Level 4.3 g/dL (3.5-5.1); Alkaline Phosphatase 96 U/L (38-126); Anion Gap 5 mmol/L (8-16); Aspartate Amino Transferase 22 U/L (17-59); Bilirubin,Total 0.6 mg/dL (0.2-1.3); Blood Urea Nitrogen 14 mg/dL (9-20); Calcium 8.9 mg/dL (8.4-10.2); Carbon Dioxide 31 mmol/L (22-30); Chloride 102 mmol/L (98-107); Estimated Glomerular Filt Rate > 60; Glucose 91 mg/dL (65-110); Lipase 67 U/L (23-300); Potassium 3.9 mmol/L (3.4-5.0); Sodium 138 mmol/L (137-145)
--- NOTE | 2022-04-04 17:42 | ED.ABDPAIN ---
HPI - Abdominal Pain General Chief Complaint: Abdominal Pain Stated Complaint: abdominal pain Time Seen by Provider: 04/04/22 10:23 History of Present Illness HPI narrative: [facility] pain. Patient is apparently had some liquid diarrhea today. Patient has difficulty providing history given the fact that he has intellectual disability. Patient has some nausea. He does report that he had watery stool and some lower abdominal pain but that is the extent of it. Related Data Home Medications Medication Instructions Recorded Confirmed baclofen 10 mg tablet 10 mg PO DAILY 12/11/19 06/27/21 benztropine 0.5 mg tablet 0.5 mg PO BID 12/11/19 06/27/21 buspirone 10 mg tablet 10 mg PO TID 12/11/19 06/27/21 cholecalciferol (vitamin D3) 50 2,000 unit PO DAILY 12/11/19 06/27/21 mcg (2,000 unit) capsule (Vitamin D3) divalproex 125 mg capsule,delayed 250 mg PO QPM 12/11/19 06/27/21 release sprinkle docusate sodium 100 mg tablet 100 mg PO DAILY 12/11/19 06/27/21 ferrous sulfate 325 mg (65 mg 325 mg PO DAILY 12/11/19 06/27/21 iron) tablet loratadine 10 mg tablet 10 mg PO DAILY PRN Allergy Symptoms 12/11/19 06/27/21 losartan 50 mg tablet 25 mg PO QAM 12/11/19 06/27/21 olanzapine 5 mg tablet (Zyprexa) 5 mg PO HS 12/11/19 06/27/21 polyethylene glycol 3350 17 gram 17 g PO DAILY 12/11/19 06/27/21 oral powder packet (Miralax) rosuvastatin 10 mg tablet 10 mg PO HS 12/11/19 06/27/21 magnesium citrate (Citroma oral 30 ml PO DAILY PRN constipation 05/21/20 06/27/21 solution) ondansetron 4 mg disintegrating 4 mg PO Q6H PRN Nausea 05/21/20 06/27/21 tablet sennosides 8.6 mg-docusate sodium 2 tab-cap PO Q6-8H PRN Constipation 05/21/20 06/27/21 50 mg tablet (Senna with Docusate Sodium) bisacodyl 10 mg rectal suppository 10 mg RECTAL DAILY PRN Constipation 06/30/20 06/27/21 famotidine 20 mg tablet 20 mg PO BID 06/30/20 06/27/21 magnesium hydroxide 400 mg/5 mL 2,400 mg PO HS PRN Constipation 06/30/20 06/27/21 oral suspension (Milk of Magnesia) multivitamin with minerals-folic 1 tablet PO DAILY 06/30/20 06/27/21 acid 0.4 mg tablet (Adult One Daily Multivitamin) omeprazole 20 mg capsule,delayed 20 mg PO BID 06/30/20 06/27/21 release sodium phosphates 19 gram-7 118 ml RECTAL ONCE PRN Constipation 06/30/20 06/27/21 gram/118 mL enema (Fleet Enema) acetaminophen 500 mg tablet 1,000 mg PO TID PRN Pain (Scale 06/27/21 06/27/21 Score 1-3),fever magnesium oxide 400 mg (241.3 mg 400 mg PO QAM PRN electrolyte 06/27/21 06/27/21 magnesium) tablet imbalance Allergies Allergy/AdvReac Type Severity Reaction Status Date / Time No Known Allergies Allergy Verified 08/17/20 11:17 Review of Systems Review of Systems: ROS unobtainable: Yes unobtainable due to mental status PMFSH Past Medical History Medical History Bipolar disorder Cerebrovascular accident Old CVA noted on brain CT in July 2018. Chronic anemia Closed right hip fracture (~07/2018) Depression with anxiety Epigastric pain Gastroesophageal reflux disease Hiatal hernia Hyperlipidemia Hypertension Intellectual disability Nausea & vomiting Pneumothorax on left (~09/2018) Schizophrenia Surgical History Surgical History History of appendectomy History of hip surgery (~07/2018) ORIF right hip fracture with trochanteric nail device. History of tonsillectomy Hx laparoscopic cholecystectomy Family History Family History Other Unknown family medical history Social History Social History Social History: Surrogate decision maker: Soo Cedeño, power of trademark attorney. Code status: Full code. Smoking status: Unknown if ever smoked Alcohol intake: unknown Substance use: unknown S
--- NOTE | 2022-04-04 20:21 | PC.NURSE ---
Shon Cardoza called and d/c instructions reviewed with nurse.
== END 2022-04-04 21:09 ==
PROVIDERS: Emergency Provider Emergency Medicine
DX: K44.0 Diaphragmatic hernia with obstruction, without gangrene (principal); I10 Essential (primary) hypertension; E78.5 Hyperlipidemia, unspecified; D64.9 Anemia, unspecified; K21.9 Gastro-esophageal reflux disease without esophagitis; F79 Unspecified intellectual disabilities; F31.9 Bipolar disorder, unspecified; F41.8 Other specified anxiety disorders; F20.9 Schizophrenia, unspecified; Z86.73 Personal history of transient ischemic attack (TIA), and cerebral infarction without residual deficits
CPT/HCPCS: 36415; 74177; 80053; 81001; 83690; 85025; 85055; 96374; 96375; 99284; J2270; J2405; Q9967

== ENCOUNTER 2022-04-11 22:22 | Emergency (ER) | payer OTHER, SELFPAY ==
--- NOTE | ~2022-04-11 | CT_ITS ---
CT of the Abdomen and Pelvis: Indication: Abdominal pain Technique: 2.5 mm axial scans were obtained through the abdomen and pelvis following intravenous adm inistration of 100 cc of Omnipaque 350. Dose reduction technique was used on this scan by utilizing a utomated exposure control and iterative reconstruction technique. The dose-length product (DLP) was 4 24.74 mGy-cm. COMPARISON: 04/04/2022 Findings: Scans through the lung bases demonstrate moderate hiatal hernia. The liver, spleen, pancreas, adrenals and kidneys are within normal limits. Cholecystectomy clips not ed. No evidence of aortic aneurysm. No lymphadenopathy. No bowel obstruction or bowel wall thickening. Moderate stool burden noted. There is no evidence to s uggest acute appendicitis. Images through the pelvis were performed. Urinary bladder unremarkable. No pelvic mass seen. No ascit es. Impression: Moderate stool burden. Correlate for constipation. Stable moderate hiatal hernia. Reviewed, dictated and finalized at [facility]. AROUND ENGINEER Impression: Moderate stool burden. Correlate for constipation. Stable moderate hiatal hernia.
[2022-04-11 22:31] VITALS: BP 127/89; PULSE 86; RESP 17; TEMP 36.7; O2SAT 100
[2022-04-11 22:45] VITALS: BP 130/91; PULSE 81; RESP 14; O2SAT 100
[2022-04-11 23:48] LABS: Basophils Percent Auto 0.5 % (0.2-1.2); Eosinophils Absolute Auto 0.2 K/mm3 (0-0.3); Eosinophils Percent Auto 3.2 % (0-4.4); Hematocrit 39.3 % (42.0-52.0); Immature Granulocyte Absolute 0.02 K/mm3 (0.00-0.031); Immature Granulocyte Percent A 0.3 % (0-0.5); Lymphocytes Absolute Auto 2.28 K/mm3 (0.9-3.2); Lymphocytes Percent Auto 36.5 % (18.3-44.2); Mean Corpuscular HGB Conc 33.1 g/dl (32-36); Mean Corpuscular Hemoglobin 31.3 pg (26-34); Mean Corpuscular Volume 94.5 fl (80-100); Mean Platelet Volume 9.4 fl (7.4-10.4); Monocytes Absolute Auto 0.6 K/mm3 (0.1-0.6); Neutrophils Absolute Auto 3.2 K/mm3 (1.3-6.7); Neutrophils Percent Auto 50.5 % (45.5-73.1); Platelet Count Result 161 k/mm3 (150-375); Red Blood Count 4.16 M/mm3 (4.6-6.20); Red Cell Distribution Width 12.5 % (11.5-14.5); White Blood Count 6.3 K/mm3 (4.5-10.0)
[2022-04-12] VITALS: BP 127/89; PULSE 89; RESP 14; O2SAT 95
--- NOTE | 2022-04-12 00:02 | ED.ABDPAIN ---
HPI - Abdominal Pain General Chief Complaint: Abdominal Pain Stated Complaint: abdominal pain and constipation Time Seen by Provider: 04/11/22 22:56 Source: patient and old records reviewed Mode of arrival: EMS Limitations: clinical condition History of Present Illness HPI narrative: Patient is a 52 y/o male who presents to the ED via EMS with c/o abdominal pain. Patient is a resident of [facility]. He has a history of Parkinson's disease, schizophrenia, and intellectual disability. History limited due to this. Patient reports having diffuse left-sided abdominal pain since 630 am this morning. He does have history of frequent constipation per records, recently seen in the ED and required enemas for fecal impaction. Per EMS report, patient was given enema around noon today at the senior care with no bowel movement. He is unable to tell me when he last had a bowel movement. Patient denies any nausea or vomiting at this time. No fevers. Related Data Home Medications Medication Instructions Recorded Confirmed baclofen 10 mg tablet 10 mg PO DAILY 12/11/19 06/27/21 benztropine 0.5 mg tablet 0.5 mg PO BID 12/11/19 06/27/21 buspirone 10 mg tablet 10 mg PO TID 12/11/19 06/27/21 cholecalciferol (vitamin D3) 50 2,000 unit PO DAILY 12/11/19 06/27/21 mcg (2,000 unit) capsule (Vitamin D3) divalproex 125 mg capsule,delayed 250 mg PO QPM 12/11/19 06/27/21 release sprinkle docusate sodium 100 mg tablet 100 mg PO DAILY 12/11/19 06/27/21 ferrous sulfate 325 mg (65 mg 325 mg PO DAILY 12/11/19 06/27/21 iron) tablet loratadine 10 mg tablet 10 mg PO DAILY PRN Allergy Symptoms 12/11/19 06/27/21 losartan 50 mg tablet 25 mg PO QAM 12/11/19 06/27/21 olanzapine 5 mg tablet (Zyprexa) 5 mg PO HS 12/11/19 06/27/21 polyethylene glycol 3350 17 gram 17 g PO DAILY 12/11/19 06/27/21 oral powder packet (Miralax) rosuvastatin 10 mg tablet 10 mg PO HS 12/11/19 06/27/21 magnesium citrate (Citroma oral 30 ml PO DAILY PRN constipation 05/21/20 06/27/21 solution) ondansetron 4 mg disintegrating 4 mg PO Q6H PRN Nausea 05/21/20 06/27/21 tablet sennosides 8.6 mg-docusate sodium 2 tab-cap PO Q6-8H PRN Constipation 05/21/20 06/27/21 50 mg tablet (Senna with Docusate Sodium) bisacodyl 10 mg rectal suppository 10 mg RECTAL DAILY PRN Constipation 06/30/20 06/27/21 famotidine 20 mg tablet 20 mg PO BID 06/30/20 06/27/21 magnesium hydroxide 400 mg/5 mL 2,400 mg PO HS PRN Constipation 06/30/20 06/27/21 oral suspension (Milk of Magnesia) multivitamin with minerals-folic 1 tablet PO DAILY 06/30/20 06/27/21 acid 0.4 mg tablet (Adult One Daily Multivitamin) omeprazole 20 mg capsule,delayed 20 mg PO BID 06/30/20 06/27/21 release sodium phosphates 19 gram-7 118 ml RECTAL ONCE PRN Constipation 06/30/20 06/27/21 gram/118 mL enema (Fleet Enema) acetaminophen 500 mg tablet 1,000 mg PO TID PRN Pain (Scale 06/27/21 06/27/21 Score 1-3),fever magnesium oxide 400 mg (241.3 mg 400 mg PO QAM PRN electrolyte 06/27/21 06/27/21 magnesium) tablet imbalance Allergies Allergy/AdvReac Type Severity Reaction Status Date / Time No Known Allergies Allergy Verified 04/11/22 22:22 Review of Systems Review of Systems: All systems reviewed & are unremarkable except as noted in HPI and below ROS unobtainable: Yes unobtainable due to mental status PMFSH Past Medical History Medical History Bipolar disorder Cerebrovascular accident Old CVA noted on brain CT in July 2018. Chronic anemia Closed right hip fracture (~07/2018) Depression with anxiety Epigastric pain Gastroesophageal reflux disease Hiatal hernia Hyperlipidemia Hypertension Intellectual disability Nausea & vomiting Pneumothorax on left (~09/2018) Schizophrenia Surgical History Surgical History History of appendectomy History of hip surgery (~07/2018)
[2022-04-12 00:04] LABS: Alanine Aminotransferase 21 U/L (6-50); Albumin Level 4.3 g/dL (3.5-5.1); Alkaline Phosphatase 102 U/L (38-126); Anion Gap 7 mmol/L (8-16); Aspartate Amino Transferase 24 U/L (17-59); Bilirubin,Total 0.8 mg/dL (0.2-1.3); Blood Urea Nitrogen 13 mg/dL (9-20); Calcium 9.4 mg/dL (8.4-10.2); Carbon Dioxide 31 mmol/L (22-30); Chloride 104 mmol/L (98-107); Estimated Glomerular Filt Rate > 60; Glucose 91 mg/dL (65-110); Lipase 84 U/L (23-300); Potassium 4.1 mmol/L (3.4-5.0); Sodium 142 mmol/L (137-145)
[2022-04-12] MEDS: ONDANSETRON INJ 4 MG/2 ML VIAL IV PUSH (00:19)
[2022-04-12] MEDS: SODIUM CHLORIDE 0.9% IV 1,000 ML 999 ML IV CONT (00:19)
[2022-04-12] MEDS: MORPHINE SULFATE (*CRX) 4 MG/ML INJ IV PUSH (00:20)
[2022-04-12 00:34] LABS: Lactic Acid Reflex 1.7 mmol/L (0.7-2.0)
[2022-04-12 00:56] LABS: Influenza A QL RT-PCR Negative (Negative); Influenza B QL RT-PCR Negative (Negative); SARS-CoV-2 RNA PCR Negative
[2022-04-12 01:00] VITALS: BP 133/96; PULSE 89; RESP 14; O2SAT 100
[2022-04-12 01:04] LABS: Appearance Urine Clear (Clear); Bilirubin Urine Negative (Negative); Blood Urine Negative (Negative); Color Urine Yellow (Yellow); Glucose Urine UA Negative (Negative); Ketones Urine 1+ mg/dL (Negative); Leukocyte Esterase Ur Negative LEU/UL (Negative); Nitrate Urine Negative (Negative); Protein Urine Negative (Negative); Specific Grav Ur 1.015 (1.001-1.035); pH Urine 7.5 (5.0-9.0)
[2022-04-12 01:10] LABS: Bacteria Urine Trace /hpf; Mucus Urine Rare /lpf; RBC Urine 0-2 /hpf (0-2); WBC Urine 0-3 /hpf
[2022-04-12 01:15] LABS: Add Urine Microscopic? YES
[2022-04-12 01:48] VITALS: BP 109/86; PULSE 81; RESP 14; O2SAT 100
[2022-04-12 03:32] VITALS: BP 153/97; PULSE 81; RESP 14; O2SAT 96
[2022-04-12 05:34] VITALS: BP 159/74; PULSE 98; RESP 14; O2SAT 96
[2022-04-12] MEDS: polyethylene glycoL 3350 17 GM POWD.PACK PO (06:41)
[2022-04-12] MEDS: BISACODYL 5 MG TABLET EC PO (06:41)
== END 2022-04-12 06:44 ==
PROVIDERS: Emergency Provider Physician Assistant
DX: K59.00 Constipation, unspecified (principal); R10.9 Unspecified abdominal pain; Z20.822 Contact with and (suspected) exposure to COVID-19; F31.9 Bipolar disorder, unspecified; Z86.73 Personal history of transient ischemic attack (TIA), and cerebral infarction without residual deficits; D64.9 Anemia, unspecified; F41.9 Anxiety disorder, unspecified; K21.9 Gastro-esophageal reflux disease without esophagitis; E78.5 Hyperlipidemia, unspecified; I10 Essential (primary) hypertension
CPT/HCPCS: 36415; 51701; 74177; 80053; 81001; 83605; 83690; 85025; 87636; 96361; 96374; 96375; 99284; A9270; J2270; J2405; J7030; Q9967

== ENCOUNTER 2022-06-10 16:29 | Observation (INO) | payer OTHER, SELFPAY ==
--- NOTE | ~2022-06-10 | CT_ITS ---
EXAMINATION: CT abdomen pelvis w con DATE: 06/10/2022 18:05 INDICATION: Abdominal pain TECHNIQUE: Computed tomography (CT) of the abdomen and pelvis was performed with 100 mL Omnipaque-350 intravenous contrast. Automated exposure control and iterative reconstruction technique were employe d. The dose-length product was 1219.38 mGy-cm. COMPARISON: 04/12/2022 FINDINGS: Lung bases are clear. Heart size is normal. No pericardial or pleural effusion. Moderate-sized slidin g-type hiatal hernia. Cholecystectomy clips at the gallbladder fossa. Liver, spleen, pancreas, bilate ral adrenal glands and kidneys are normal. Large amount of stool scattered throughout the colon. Ther e are few diverticula along the sigmoid colon without adjacent comparison 8 to suggest diverticulitis . The appendix is not visualized. No pericecal inflammatory change to suggest acute appendicitis. No bowel obstruction. Bladder is normal. Small left hydrocele. No free intraperitoneal gas or fluid. No pathologically enlarged abdominal or pelvic lymphadenopathy. Chronic mild to moderate anterior wedgin g at T10-T12. Old healed proximal right femoral fracture with antegrade intramedullary hailey and femora l neck dynamic compression screw fixation. IMPRESSION: 1. Large amount of colonic stool which could be seen with constipation. No other acute intra-abdomina l/pelvic process. 2. Moderate-sized sliding-type hiatal hernia. Reviewed, dictated and finalized at location A. IMPRESSION: 1. Large amount of colonic stool which could be seen with constipation. No othe r acute intra-abdominal/pelvic process. 2. Moderate-sized sliding-type hiatal hernia.
--- NOTE | ~2022-06-10 | XR_ITS ---
EXAMINATION: XR chest 1V portable DATE: 06/10/2022 21:25 INDICATION: Chest discomfort TECHNIQUE: frontal view of the chest was obtained. COMPARISON: Chest radiograph dated 06/28/2021 FINDINGS: The lungs are clear with no focal airspace opacities, pulmonary edema, pleural effusion or pneumothor ax. The cardiomediastinal silhouette is normal. Visualized bones and soft tissues are unremarkable. IMPRESSION: 1. No acute cardiopulmonary disease. Reviewed, dictated and finalized at location A.
[2022-06-10 16:31] VITALS: BP 150/97; PULSE 65; RESP 18; TEMP 36.6; O2SAT 100
[2022-06-10 17:12] VITALS: BP 128/89; PULSE 72; RESP 18; O2SAT 100
[2022-06-10 17:14] LABS: Basophils Percent Auto 0.6 % (0.2-1.2); Eosinophils Absolute Auto 0.1 K/mm3 (0-0.3); Eosinophils Percent Auto 1.6 % (0-4.4); Hematocrit 41.1 % (42.0-52.0); Hemoglobin 14.2 g/dL (14.0-18.0); Immature Granulocyte Absolute 0.02 K/mm3 (0.00-0.031); Immature Granulocyte Percent A 0.3 % (0-0.5); Lymphocytes Absolute Auto 2.14 K/mm3 (0.9-3.2); Lymphocytes Percent Auto 31.6 % (18.3-44.2); Mean Corpuscular HGB Conc 34.5 g/dl (32-36); Mean Corpuscular Hemoglobin 31.4 pg (26-34); Mean Corpuscular Volume 90.9 fl (80-100); Mean Platelet Volume 9.9 fl (7.4-10.4); Monocytes Absolute Auto 0.7 K/mm3 (0.1-0.6); Monocytes Percent Auto 10.5 % (2.6-8.5); Neutrophils Absolute Auto 3.8 K/mm3 (1.3-6.7); Neutrophils Percent Auto 55.4 % (45.5-73.1); Platelet Count Result 164 k/mm3 (150-375); Red Blood Count 4.52 M/mm3 (4.6-6.20); Red Cell Distribution Width 11.9 % (11.5-14.5); White Blood Count 6.8 K/mm3 (4.5-10.0)
[2022-06-10] MEDS: HYDROmorphone HCL INJ (*CRX) 1 MG/ML SYR 0.5 MG IV PUSH (17:16)
[2022-06-10 17:17] LABS: Appearance Urine Clear (Clear); Bilirubin Urine Negative (Negative); Blood Urine Negative (Negative); Color Urine Yellow (Yellow); Glucose Urine UA Negative (Negative); Ketones Urine Trace mg/dL (Negative); Leukocyte Esterase Ur Negative LEU/UL (Negative); Nitrate Urine Negative (Negative); Protein Urine Negative (Negative); Specific Grav Ur 1.012 (1.001-1.035); pH Urine >=9.0 (5.0-9.0)
[2022-06-10 17:25] LABS: Alanine Aminotransferase 24 U/L (6-50); Albumin Level 4.7 g/dL (3.5-5.1); Alkaline Phosphatase 121 U/L (38-126); Anion Gap 11 mmol/L (8-16); Aspartate Amino Transferase 26 U/L (17-59); Bilirubin,Total 1.2 mg/dL (0.2-1.3); Blood Urea Nitrogen 13 mg/dL (9-20); Calcium 9.6 mg/dL (8.4-10.2); Carbon Dioxide 28 mmol/L (22-30); Chloride 105 mmol/L (98-107); Estimated CRCL calculation 65 ml/min; Estimated Glomerular Filt Rate > 60; Glucose 86 mg/dL (65-110); Lactic Acid Reflex 2.3 mmol/L (0.7-2.0); Potassium 4.2 mmol/L (3.4-5.0); Sodium 144 mmol/L (137-145)
[2022-06-10 17:26] LABS: Prothrombin Time 13.2 Seconds (11.1-14.7)
[2022-06-10 17:27] LABS: Partial Thromboplastin Time 30.1 SECONDS (22.3-36.8)
[2022-06-10 17:39] LABS: Add Urine Microscopic? NO
--- NOTE | 2022-06-10 18:25 | ED.ABDPAIN ---
HPI - Abdominal Pain General Chief Complaint: Abdominal Pain Stated Complaint: abd pain Time Seen by Provider: 06/10/22 16:45 History of Present Illness HPI narrative: 52-year-old male who has severe intellectual disability presented to the ED from a local [facility] for evaluation of abdominal pain. Upon arrival to the ED patient is only able to say he has abdominal pain. Patient looks very uncomfortable in the emergency department. Abdomen is tender to palpation. Patient is alert and oriented x1 at baseline is unable to provide any history. Related Data Home Medications Medication Instructions Recorded Confirmed baclofen 10 mg tablet 10 mg PO DAILY 12/11/19 06/27/21 benztropine 0.5 mg tablet 0.5 mg PO BID 12/11/19 06/27/21 buspirone 10 mg tablet 10 mg PO TID 12/11/19 06/27/21 cholecalciferol (vitamin D3) 50 2,000 unit PO DAILY 12/11/19 06/27/21 mcg (2,000 unit) capsule (Vitamin D3) divalproex 125 mg capsule,delayed 250 mg PO QPM 12/11/19 06/27/21 release sprinkle docusate sodium 100 mg tablet 100 mg PO DAILY 12/11/19 06/27/21 ferrous sulfate 325 mg (65 mg 325 mg PO DAILY 12/11/19 06/27/21 iron) tablet loratadine 10 mg tablet 10 mg PO DAILY PRN Allergy Symptoms 12/11/19 06/27/21 losartan 50 mg tablet 25 mg PO QAM 12/11/19 06/27/21 olanzapine 5 mg tablet (Zyprexa) 5 mg PO HS 12/11/19 06/27/21 polyethylene glycol 3350 17 gram 17 g PO DAILY 12/11/19 06/27/21 oral powder packet (Miralax) rosuvastatin 10 mg tablet 10 mg PO HS 12/11/19 06/27/21 magnesium citrate (Citroma oral 30 ml PO DAILY PRN constipation 05/21/20 06/27/21 solution) ondansetron 4 mg disintegrating 4 mg PO Q6H PRN Nausea 05/21/20 06/27/21 tablet sennosides 8.6 mg-docusate sodium 2 tab-cap PO Q6-8H PRN Constipation 05/21/20 06/27/21 50 mg tablet (Senna with Docusate Sodium) bisacodyl 10 mg rectal suppository 10 mg RECTAL DAILY PRN Constipation 06/30/20 06/27/21 famotidine 20 mg tablet 20 mg PO BID 06/30/20 06/27/21 magnesium hydroxide 400 mg/5 mL 2,400 mg PO HS PRN Constipation 06/30/20 06/27/21 oral suspension (Milk of Magnesia) multivitamin with minerals-folic 1 tablet PO DAILY 06/30/20 06/27/21 acid 0.4 mg tablet (Adult One Daily Multivitamin) omeprazole 20 mg capsule,delayed 20 mg PO BID 06/30/20 06/27/21 release sodium phosphates 19 gram-7 118 ml RECTAL ONCE PRN Constipation 06/30/20 06/27/21 gram/118 mL enema (Fleet Enema) acetaminophen 500 mg tablet 1,000 mg PO TID PRN Pain (Scale 06/27/21 06/27/21 Score 1-3),fever magnesium oxide 400 mg (241.3 mg 400 mg PO QAM PRN electrolyte 06/27/21 06/27/21 magnesium) tablet imbalance Allergies Allergy/AdvReac Type Severity Reaction Status Date / Time No Known Allergies Allergy Verified 06/10/22 16:42 Review of Systems Review of Systems: ROS unobtainable: Yes unobtainable due to medical condition [facility] Past Medical History Medical History Bipolar disorder Cerebrovascular accident Old CVA noted on brain CT in July 2018. Chronic anemia Closed right hip fracture (~07/2018) Depression with anxiety Epigastric pain Gastroesophageal reflux disease Hiatal hernia Hyperlipidemia Hypertension Intellectual disability Nausea & vomiting Pneumothorax on left (~09/2018) Schizophrenia Surgical History Surgical History History of appendectomy History of hip surgery (~07/2018) ORIF right hip fracture with trochanteric nail device. History of tonsillectomy Hx laparoscopic cholecystectomy Family History Family History Other Unknown family medical history Social History Social History Social History: Surrogate decision maker: Soo Cedeño power of stack yield engineer. Code status: Full code. Smoking status: Unknown if ever smoked
--- NOTE | 2022-06-10 18:33 | PM.IMHP ---
H&P: HPI History of Present Illness Date/Time: 06/10/22 18:33 Chief Complaint: Abdominal pain Narrative: This is a 52-year-old intellectually disabled patient who is from [facility]. He has chronic constipation and chronic stomach pain. The patient has been seen by GI outpatient mccann. The patient came into the emergency room today to be evaluated for this abdominal pain. The patient was complaining of being very uncomfortable in his abdomen was tender to palpation. When I assessed the patient he stated that he was trying to sleep and that he no longer had any pain. Abdominal pelvis CT was read as the following. Large amount of colonic stool which could be seen with constipation. No other acute intra-abdominal/pelvic process. 2. Moderate-sized sliding-type hiatal hernia. The patient was started on IV fluids, he was given Dilaudid in the emergency room and an enema has been ordered. The patient does currently reside at a facility. I feel that the patient could possibly be return back to the facility safely as he has chronic constipation and abdominal issues. However the provider did not feel comfortable sending the patient back to the facility. Therefore the patient was admitted to the hospital as observation status on the date of service of 06/10/2022. Review of Systems Review of Systems: All systems reviewed & are unremarkable except as noted in HPI and below Constitutional: Constitutional: Reports as per HPI and Reports no additional constitutional complaints Eyes: Eyes: Reports as per HPI and Reports no additional eye complaints ENT: Reports system reviewed and no additional complaints, except as documented and Reports Normal hearing present Cardiovascular: Cardiovascular: Reports no additional cardiovascular complaints Respiratory: Respiratory: Reports no additional respiratory complaints and Reports no additional respiratory complaints Gastrointestinal: Gastrointestinal: Reports as per HPI and Reports no additional gastrointestinal complaints Musculoskeletal: Musculoskeletal: Reports no additional musculoskeletal complaints Integumentary/Breasts: Skin/Breast: Reports system reviewed and no additional complaints, except as docu and Reports as per HPI Neurologic: Reports system reviewed and no additional complaints, except as documented, Reports as per HPI and Reports Normal hearing present Psychiatric: Psychiatric: Reports no additional psychiatric complaints and Reports as per HPI Endocrine: Endocrine: Reports no additional endocrine complaints Hematologic/Lymphatic: Hematologic/Lymphatic: Reports no additional hematologic/lymphatic complaints Allergic/Immunologic: Allergic/Immunologic: Reports no additional allergic/immunologic complaints [facility] Past Medical History Medical History (Updated 06/10/22 @ 21:15 by Cuca Trinidad NP) Bipolar disorder Cerebrovascular accident Old CVA noted on brain CT in July 2018. Chronic anemia Closed right hip fracture (~07/2018) Depression with anxiety Epigastric pain Gastroesophageal reflux disease Hernia Hiatal hernia Hyperlipidemia Hypertension Intellectual disability Nausea & vomiting Parkinsons Pneumothorax on left (~09/2018) Schizophrenia Surgical History Surgical History History of appendectomy History of hip surgery (~07/2018) ORIF right hip fracture with trochanteric nail device. History of tonsillectomy Hx laparoscopic cholecystectomy Family History Family History Other Unknown family medical history Social History Social History (Updated 06/10/22 @ 21:22 by Cuca Trinidad NP) Social History: He is from [facility]. Surrogate decision maker: Soo Cedeño power of salesperson neckties. Code status: Full code. Smoking status: Unknown if ever smoked Alcohol intake: unknown Substance use: unknown Substance use ty
[2022-06-10] MEDS: SODIUM CHLORIDE 0.9% IV 1,000 ML 999 ML IV CONT (18:40)
[2022-06-10] MEDS: BISACODYL 10 MG SUPPOSITORY RECTAL (18:52)
[2022-06-10 18:56] VITALS: BP 131/79; PULSE 75; RESP 18; O2SAT 96
[2022-06-10 19:44] VITALS: BP 131/96; PULSE 83; O2SAT 92
[2022-06-10 19:57] VITALS: BP 131/96; PULSE 89; RESP 16; TEMP 36.1; O2SAT 96
[2022-06-10 20:12] LABS: Reflex Lactic Acid Yes or No Add Lactic
[2022-06-10 20:35] LABS: Lactic Acid 0.8 mmol/L (0.7-2.0)
[2022-06-10] MEDS: SODIUM CHLORIDE 0.9% IV 1,000 ML 75 ML IV CONT (22:23)
[2022-06-10] MEDS: MAG HYDROX/AL HYDROX/SIMETH 30 ML UDC (22:24)
[2022-06-10] MEDS: BELLADONNA ALK/PHENOB ELIX 10 ML, MAG HYDROX/ALUMINUM HYD/SIMETH 30 ML, LIDOCAINE HCL 2... PO (22:24)
[2022-06-10 22:49] VITALS: BMI 24.0
[2022-06-11 04:18] VITALS: BP 107/61; PULSE 74; RESP 17; TEMP 36.1; O2SAT 97
[2022-06-11 07:25] LABS: Basophils Percent Auto 0.4 % (0.2-1.2); Eosinophils Absolute Auto 0.2 K/mm3 (0-0.3); Eosinophils Percent Auto 2.9 % (0-4.4); Hematocrit 37.9 % (42.0-52.0); Hemoglobin 12.4 g/dL (14.0-18.0); Immature Granulocyte Absolute 0.01 K/mm3 (0.00-0.031); Immature Granulocyte Percent A 0.2 % (0-0.5); Immature Platelet Fraction Pct 2.9 % (0.9-11.2); Lymphocytes Absolute Auto 1.61 K/mm3 (0.9-3.2); Lymphocytes Percent Auto 31.4 % (18.3-44.2); Mean Corpuscular HGB Conc 32.7 g/dl (32-36); Mean Corpuscular Hemoglobin 30.5 pg (26-34); Mean Corpuscular Volume 93.1 fl (80-100); Mean Platelet Volume 9.4 fl (7.4-10.4); Monocytes Absolute Auto 0.6 K/mm3 (0.1-0.6); Monocytes Percent Auto 11.9 % (2.6-8.5); Neutrophils Absolute Auto 2.7 K/mm3 (1.3-6.7); Neutrophils Percent Auto 53.2 % (45.5-73.1); Platelet Count Result 147 k/mm3 (150-375); Red Blood Count 4.07 M/mm3 (4.6-6.20); Red Cell Distribution Width 11.9 % (11.5-14.5); White Blood Count 5.1 K/mm3 (4.5-10.0)
[2022-06-11 07:30] LABS: Lactic Acid Reflex 0.7 mmol/L (0.7-2.0)
[2022-06-11 07:31] LABS: Alanine Aminotransferase 29 U/L (6-50); Albumin Level 3.9 g/dL (3.5-5.1); Alkaline Phosphatase 90 U/L (38-126); Anion Gap 3 mmol/L (8-16); Aspartate Amino Transferase 29 U/L (17-59); Bilirubin,Total 1.3 mg/dL (0.2-1.3); Blood Urea Nitrogen 11 mg/dL (9-20); Calcium 8.6 mg/dL (8.4-10.2); Carbon Dioxide 33 mmol/L (22-30); Chloride 105 mmol/L (98-107); Estimated CRCL calculation 65 ml/min; Estimated Glomerular Filt Rate > 60; Glucose 85 mg/dL (65-110); Potassium 4.2 mmol/L (3.4-5.0); Sodium 141 mmol/L (137-145)
[2022-06-11] MEDS: polyethylene glycoL 3350 17 GM POWD.PACK PO ×2 (08:54→17:07)
[2022-06-11] MEDS: DOCUSATE SODIUM 100 MG CAPSULE PO ×2 (08:54→20:58)
[2022-06-11] MEDS: FAMOTIDINE 20 MG/2 ML VIAL IV PUSH ×2 (08:55→20:58)
[2022-06-11] MEDS: PANTOPRAZOLE 40 MG TABLET PO ×2 (08:55→17:07)
--- NOTE | 2022-06-11 09:57 | WPDGICN ---
Assessment and Plan Assessment and plan (1) Psychiatric illness: Code(s): F99 - Mental disorder, not otherwise specified Status: Acute Assessment and Plan: Patient unable to give useful history because of his mental in capacity. (2) Intellectual disability: Code(s): F79 - Unspecified intellectual disabilities Status: Chronic (3) Ulcerative esophagitis: Code(s): K22.10 - Ulcer of esophagus without bleeding Status: Chronic Assessment and Plan: Patient has a history of ulcerative esophagitis by endoscopy in 2019. Plan to maintain on long-term PPI therapy. No need for follow-up endoscopy at present for recent endoscopies showed resolution this esophagitis. (4) Constipation: Qualifiers: Constipation type: unspecified constipation type Qualified Code(s): K59.00 - Constipation, unspecified Code(s): K59.00 - Constipation, unspecified Status: Inactive Assessment and Plan: Patient with apparent constipation by imaging studies. Likely this contributes to his abdominal pain. Unable to obtain any more specifics from patient's history. Would recommend routine long going use of laxatives. Avoid narcotics as there is a question he is use them at the long-term. Will start MiraLax on a daily basis. Consider cleansing enemas if this fails to produce significant action. GI Consult Note Consult date/time: 06/11/22 09:57 Reason for consult: constipation and abdominal pain. HPI: Elan Garzon is a 52 year old male I am asked to see at the request of the hospitalist service. Patient comfortable at rest when seen this morning. Denies significant abdominal pain. Apparently is mentally deficient. He has chronic constipation and chronic stomach pains. Patient presented to the emergency room where CT scan imaging revealed a large amount of excess stool. It apparently has been some time since his last bowel movement. Patient is unable to give any useful history. Patient known to my service because in 2019 he had significant erosive esophagitis. More recent follow-up by other financial auditor revealed no significant findings to account for abdominal pain. Patient currently comfortable at rest. Offers no complaints at present. Review of Systems Review of Systems: Review of systems noncontributory. [facility] Past Medical History Medical History (Updated 06/10/22 @ 21:15 by Cuca Trinidad NP) Bipolar disorder Cerebrovascular accident Old CVA noted on brain CT in July 2018. Chronic anemia Closed right hip fracture (~07/2018) Depression with anxiety Epigastric pain Gastroesophageal reflux disease Hernia Hiatal hernia Hyperlipidemia Hypertension Intellectual disability Nausea & vomiting Parkinsons Pneumothorax on left (~09/2018) Schizophrenia Surgical History Surgical History History of appendectomy History of hip surgery (~07/2018) ORIF right hip fracture with trochanteric nail device. History of tonsillectomy Hx laparoscopic cholecystectomy Family History Family History Other Unknown family medical history Social History Social History (Updated 06/10/22 @ 21:22 by Cuca Trinidad NP) Social History: He is from [facility]. Surrogate decision maker: Soo Cedeño power of financial analysis advisor. Code status: Full code. Smoking status: Never smoker Alcohol intake: never Substance use: never Substance use type: does not use Living arrangements: long-term Additional occupation/education comments: Disabled. Gender identity (if verbalized by the patient): Male Spiritual care concerns: No Meds Home Medications and Allergies Home Medications Medication Instructions Recorded Confirmed Type baclofen 10 mg tablet 10 mg PO DAILY 12/11/19 06/10/22 History benztropine 0.5
[2022-06-11] MEDS: FERROUS SULFATE 324 MG TABLET PO (10:20)
[2022-06-11] MEDS: busPIRone HCL 10 MG TABLET PO ×3 (10:20→17:07)
[2022-06-11] MEDS: CHOLECALCIFEROL 1,000 UNITS TABLET 2000 UNITS PO (10:20)
[2022-06-11] MEDS: LOSARTAN POTASSIUM 25 MG TABLET PO (10:20)
[2022-06-11] MEDS: BENZTROPINE MESYLATE 0.5 MG TABLET PO ×2 (10:21→17:06)
[2022-06-11] MEDS: THERAPEUTIC MULTIVITAMINS/MINERALS TAB (*BKC) 1 TABLET PO (10:21)
[2022-06-11] MEDS: BACLOFEN 10 MG TABLET PO (10:21)
[2022-06-11] MEDS: BISACODYL 10 MG SUPPOSITORY RECTAL (10:34)
--- NOTE | 2022-06-11 13:20 | PM.IMPN ---
Progress Note: A&P Assessment and Plan (1) Acute constipation: Code(s): K59.00 - Constipation, unspecified Status: Acute Assessment and Plan: patient reportedly complained of abdominal pain at nursing facility.CT a/p showed large amount of colonic stool with no acute intra-abdominal/ pelvic process. Patient reportedly has frequent issues with constipation received Fleet enema admission patient had a large bowel movement this morning continue MiraLax b.i.d., Colace b.i.d., and Dulcolax suppository will need to maintain bowel regimen limit narcotics GI was consulted on admission and conditions are appreciated (2) Epigastric pain: Code(s): R10.13 - Epigastric pain Status: Acute Assessment and Plan: patient reportedly complained of epigastric abdominal pain on presentation. Unable to offer any complaints to myself and patient appears comfortable continue Pepcid patient received a GI cocktail on admission symptoms resolved at this time (3) Psychiatric illness: Code(s): F99 - Mental disorder, not otherwise specified Status: Acute Assessment and Plan: patient with history of bipolar disorder and schizophrenia continue home medications including Zyprexa, Depakote, BuSpar (4) Hypertension: Qualifiers: Hypertension type: essential hypertension Qualified Code(s): I10 - Essential (primary) hypertension Code(s): I10 - Essential (primary) hypertension Status: Chronic Assessment and Plan: blood pressure is stable. Continue home losartan (5) Intellectual disability: Code(s): F79 - Unspecified intellectual disabilities Status: Chronic Assessment and Plan: At baseline Subjective Date/time seen: 06/11/22 13:20 Interval history: Date of service: 06/11/22 Elan Garzon is a 52 year old male with a history of HTN, hyperlipidemia, bipolar disorder, CVA, anemia, intellectual disability, parkinsons, and schizophrenia who is seen in follow up for constipation. Patient is a poor historian and is not able to contribute to history. He says hello and states that he is tired but does not provide any additional verbal responses or answer questions. Review of Systems Review of Systems: ROS unobtainable: Yes unobtainable due to medical condition Exam Narrative: General: Well-nourished, chronically ill-appearing 51-year-old male, supine in bed , comfortable, NARD Neuro: awake, alert, not answer orientation, able follow simple commands, no focal neuro deficits noted HEENMT: normocephalic, atraumatic, EOMI, sclerae anicteric Respiratory: clear to auscultation bilaterally, nonlabored breathing Cardio: regular rate, regular rhythm with S1-S2 Abdomen: nondistended, normoactive bowel sounds, soft, nontender to palpation Extremities: no edema, erythema, or tenderness to palpation Skin: no rashes or lesions, warm and dry Psych: appropriate mood and affect, judgment and insight poor Objective Data Vital Signs Vital Signs: Vital Signs - 24 hr 06/10/22 16:31 06/10/22 17:12 06/10/22 18:56 Temperature 97.9 F Pulse Rate 65 72 75 Respiratory Rate 18 18 18 Blood Pressure 150/97 H 128/89 131/79 Pulse Oximetry 100 100 96 Oxygen Delivery Room Air 06/10/22 19:44 06/10/22 19:57 06/11/22 04:18 Temperature 97 F L 97 F L Pulse Rate 83 89 74 Respiratory Rate 16 17 Blood Pressure 131/96 H 131/96 H 107/61 Pulse Oximetry 92 96 97 Oxygen Delivery Intake/Output Intake/Output: Intake & Output 06/08/22 06/09/22 06/10/22 06/11/22 23:59 23:59 23:59 23:59 Intake Total 1000 615 Balance 1000 615 Meds/Results Medications: Active Medications Generic Name Dose Route Start Last Admin Trade Name Freq PRN Reason Stop Dose Admin Acetaminophen 1,000 mg 06/11/22 00:41 Acetaminophen 500 Mg Tablet PO TID PRN Pain 1-3 or fever Hydrocodone Bitart/Aceta
[2022-06-11 14:10] VITALS: BP 109/68; PULSE 87; RESP 14; TEMP 36.4; O2SAT 97
[2022-06-11] MEDS: DIVALPROEX SODIUM SPRINKLE 125 MG CAP.DR 250 MG PO (17:07)
[2022-06-11] MEDS: SODIUM CHLORIDE 0.9% IV 1,000 ML 75 ML IV CONT (17:09)
[2022-06-11] MEDS: ONDANSETRON INJ 4 MG/2 ML VIAL IV PUSH (18:13)
[2022-06-11 19:23] VITALS: BP 130/81; PULSE 77; RESP 16; TEMP 36.4; O2SAT 99
[2022-06-11] MEDS: AMITRIPTYLINE HCL 10 MG TABLET PO (20:58)
[2022-06-11] MEDS: ROSUVASTATIN 10 MG TABLET PO (20:58)
[2022-06-11] MEDS: OLANZapine 5 MG TABLET PO (20:58)
[2022-06-12 04:44] VITALS: BP 110/95; PULSE 60; RESP 16; TEMP 36.1; O2SAT 100
[2022-06-12 05:20] LABS: Hematocrit 36.5 % (42.0-52.0); Hemoglobin 11.9 g/dL (14.0-18.0); Immature Platelet Fraction Pct 3.5 % (0.9-11.2); Mean Corpuscular HGB Conc 32.6 g/dl (32-36); Mean Corpuscular Hemoglobin 30.7 pg (26-34); Mean Corpuscular Volume 94.1 fl (80-100); Platelet Count Result 133 k/mm3 (150-375); Red Blood Count 3.88 M/mm3 (4.6-6.20); Red Cell Distribution Width 11.9 % (11.5-14.5); White Blood Count 5.6 K/mm3 (4.5-10.0)
[2022-06-12 05:34] LABS: Anion Gap 1 mmol/L (8-16); Blood Urea Nitrogen 7 mg/dL (9-20); Calcium 8.5 mg/dL (8.4-10.2); Carbon Dioxide 36 mmol/L (22-30); Chloride 106 mmol/L (98-107); Estimated CRCL calculation 65 ml/min; Estimated Glomerular Filt Rate > 60; Glucose 81 mg/dL (65-110); Potassium 3.9 mmol/L (3.4-5.0); Sodium 143 mmol/L (137-145)
--- NOTE | 2022-06-12 08:10 | ADMGEN ---
This patient, Elan Garzon, was admitted to Medical Room 245-. Patient/family oriented to hospital policies and general routines including ID bracelet, bed and alarms, visiting hours, pain management, procedures, bathroom and other care routines, personal items, smoking policy, room service/diet, and visiting hours. Information on how to activate the Rapid Response Team has been discussed. Patient/Family are encouraged to report perceived risks to care and to ask questions if they do not understand what they are told or what they should do.
--- NOTE | 2022-06-12 08:16 | WPDGIPROGNO ---
Progress Note: A&P Assessment and Plan (1) Acute constipation: Code(s): K59.00 - Constipation, unspecified Status: Acute Assessment and Plan: Patient with apparent constipation at the time presentation. Significant amount of stool noted on CT scan imaging. Currently having bowel movements on a regular basis. Plan to continue MiraLax. Increase activity anticipate early discharge. If symptoms recur air-contrast barium enema may be beneficial. (2) Schizophrenia: Qualifiers: Schizophrenia type: unspecified Qualified Code(s): F20.9 - Schizophrenia, unspecified Code(s): F20.9 - Schizophrenia, unspecified Status: Chronic (3) Mental handicap: Code(s): F79 - Unspecified intellectual disabilities Status: Acute Assessment and Plan: Patient has mental illness and mental deficiency make assessment difficult as he is unable to add any useful history. (4) Ulcerative esophagitis: Code(s): K22.10 - Ulcer of esophagus without bleeding Status: Chronic Assessment and Plan: Patient known to have ulcerative esophagitis in the past documented by EGD in 2019. With follow-up EGDs that showed this has improved. Suggest maintaining patient on pantoprazole 40mg p.o. daily for what appears to be chronic GE reflux disease. Subjective Date/time seen: 06/12/22 08:16 Interval history: Patient remains essentially nonverbal. Difficult to get him to answer any questions. When he does speak it is unreliable. Patient currently appears comfortable lying in bed at rest. Nursing staff reports bowel movements every shift. Patient does not appear to have abdominal pain currently. Review of Systems Review of Systems: Review of systems noncontributory. Exam Narrative: Physical exam reveals patient be alert but not able to be assessed he has a he does not answer questions. HEENT exam reveals no icterus. Lungs are clear. Heart without murmur. Abdomen is soft. Bowel sounds are present no localized tenderness evident. Objective Data Vital Signs Vital Signs: Vital Signs - 24 hr 06/11/22 14:10 06/11/22 19:23 06/12/22 04:44 Temperature 97.6 F 97.5 F L 97 F L Pulse Rate 87 77 60 Respiratory Rate 14 16 16 Blood Pressure 109/68 130/81 110/95 H Pulse Oximetry 97 99 100 Intake/Output Intake/Output: Intake & Output 06/09/22 06/10/22 06/11/2223 23:59 23:59 23:59 23:59 Intake Total 1000 2315 50 Output Total 5 Balance 1000 2310 50 Meds/Results Medications: Active Medications Generic Name Dose Route Start Last Admin Trade Name Freq PRN Reason Stop Dose Admin Acetaminophen 1,000 mg 06/11/22 00:41 Acetaminophen 500 Mg Tablet PO TID PRN Pain 1-3 or fever Hydrocodone Bitart/Acetaminophen 1 tab 06/11/22 00:41 Hydrocodone/Acetaminophen (*Crx) 5-325 Mg Tablet PO Q4-6H PRN Pain Rated 7-10 Amitriptyline HCl 10 mg 06/11/22 21:00 06/11/22 20:58 Amitriptyline Hcl 10 Mg Tablet PO 10 mg HS [facility] Administration Baclofen 10 mg 06/11/22 09:00 06/11/22 10:21 Baclofen 10 Mg Tablet PO 10 mg DAILY SUZETTE Administration Benztropine Mesylate 0.5 mg 06/11/22 09:00 06/11/22 17:06 Benztropine Mesylate 0.5 Mg Tablet PO 0.5 mg BID [facility] Administration Bisacodyl 10 mg 06/10/22 18:33 06/11/22 10:34 Bisacodyl 10 Mg Suppository RECTAL 10 mg QAM PRN Administration Constipation Buspirone HCl 10 mg 06/11/22 09:00 06/11/22 17:07 Buspirone Hcl 10 Mg Tablet PO 10 mg TID SUZETTE Administration Dicyclomine HCl 20 mg 06/10/22 21:32 Dicyclomine Hcl 10 Mg Capsule PO QID PRN Abdominal Cramping Divalproex Sodium 250 mg 06/11/22 17:00 06/11/22 17:07 Divalproex Sodium Sprinkle 125 Mg Cap.Dr PO 250 mg DAILY@1700 [facility] Administration Docusate Sodium 100 mg 06/11/22 09:00 06/11/22 20:58 Docusate Sodium 100 Mg Capsule PO 100 mg Q12HR [facility] Admi
[2022-06-12] MEDS: polyethylene glycoL 3350 17 GM POWD.PACK PO ×2 (09:21→17:25)
[2022-06-12] MEDS: BENZTROPINE MESYLATE 0.5 MG TABLET PO ×2 (09:21→17:26)
[2022-06-12] MEDS: busPIRone HCL 10 MG TABLET PO ×3 (09:22→17:26)
[2022-06-12] MEDS: THERAPEUTIC MULTIVITAMINS/MINERALS TAB (*BKC) 1 TABLET PO (09:22)
[2022-06-12] MEDS: DOCUSATE SODIUM 100 MG CAPSULE PO (09:22)
[2022-06-12] MEDS: FERROUS SULFATE 324 MG TABLET PO (09:22)
[2022-06-12] MEDS: LOSARTAN POTASSIUM 25 MG TABLET PO (09:22)
[2022-06-12] MEDS: CHOLECALCIFEROL 1,000 UNITS TABLET 2000 UNITS PO (09:22)
[2022-06-12] MEDS: FAMOTIDINE 20 MG/2 ML VIAL IV PUSH (09:22)
[2022-06-12] MEDS: BACLOFEN 10 MG TABLET PO (09:22)
[2022-06-12] MEDS: PANTOPRAZOLE 40 MG TABLET PO ×2 (09:23→17:26)
[2022-06-12] MEDS: ONDANSETRON INJ 4 MG/2 ML VIAL IV PUSH (09:26)
[2022-06-12] MEDS: HYDROcodone/acetaminophen (*CRX) 5-325 MG TABLET 1 TAB PO (09:26)
--- NOTE | 2022-06-12 13:57 | PM.DS ---
DS: Admitting Diagnosis Discharge Date 06/12/22 Admitting Diagnosis constipation DS: Discharge Diagnosis Discharge Diagnosis (1) Acute constipation: Code(s): K59.00 - Constipation, unspecified Status: Acute Assessment and Plan: Patient reportedly complained of abdominal pain at nursing facility.CT a/p showed large amount of colonic stool with no acute intra-abdominal/ pelvic process. Patient reportedly has frequent issues with constipation received Fleet enema on admission seen in consultation by Gastroenterology patient had multiple bowel movements during admission will need to continue daily regimen including MiraLax b.i.d. and Colace b.i.d. utilize Dulcolax suppository and fleets enema as needed for ongoing constipation avoid narcotics per GI, if symptoms recur, may benefit from air contrast barium enema (2) Epigastric pain: Code(s): R10.13 - Epigastric pain Status: Acute Assessment and Plan: Patient reportedly complained of epigastric abdominal pain on presentation which seemed to have resolved and patient did not offer any additional complaints started on pantoprazole 40 mg daily per GI recommendations given chronic GERD (3) Psychiatric illness: Code(s): F99 - Mental disorder, not otherwise specified Status: Acute Assessment and Plan: patient with history of bipolar disorder and schizophrenia continue home medications including Zyprexa, Depakote, BuSpar (4) Hypertension: Qualifiers: Hypertension type: essential hypertension Qualified Code(s): I10 - Essential (primary) hypertension Code(s): I10 - Essential (primary) hypertension Status: Chronic Assessment and Plan: blood pressure stable. Continue home losartan (5) Intellectual disability: Code(s): F79 - Unspecified intellectual disabilities Status: Chronic Assessment and Plan: At baseline DS: Summary Hospital Course Hospital Course: Elan Garzon is a 52 year old male with a history of HTN, hyperlipidemia, bipolar disorder, CVA, anemia, intellectual disability, parkinsons, and schizophrenia who presented to the emergency department on 06/10/2022 with complaints of abdominal pain and reports of constipation per nursing staff. On presentation to the ED, his vital signs are stable, he was afebrile, CBC and BMP unremarkable, CT of the abdomen/pelvis showed large amount of colonic stool which could be seen with constipation with no other acute intra-abdominal /pelvic process. He was admitted to the hospitalist service for further evaluation and management and was seen in consultation by Gastroenterology. Please see above for further details. Constipation seemed to resolve and patient was having regular bowel movements. He will continue with a bowel regimen of MiraLax twice a day, Colace twice a day, and additional agents as needed. Narcotic should be avoided. Patient was back to his baseline state of health and was determined to no longer require inpatient care. He was discharged in hemodynamically stable condition on 06/12/2022 to his nursing facility. Time Spent with Patient Time attestation: Total time spent providing and/or coordinating discharge services: 45 minute Time spent: Greater than 30 minutes Exam Narrative: General: Well-nourished, chronically ill-appearing 51-year-old male, supine in bed , comfortable, NARD Neuro: awake, alert, not answer orientation, able follow simple commands, no focal neuro deficits noted HEENMT: normocephalic, atraumatic, EOMI, sclerae anicteric Respiratory: clear to auscultation bilaterally, nonlabored breathing Cardio: regular rate, regular rhythm with S1-S2 Abdomen: nondistended, normoactive bowel sounds, soft, nontender to palpation Extremities: no edema, erythema, or tenderness to palpation Skin: no rashes or lesions, warm and dry Psych: appropriate mood and affect, ju
[2022-06-12 14:00] VITALS: BP 122/59; PULSE 74; RESP 18; TEMP 36.4; O2SAT 100
[2022-06-12 15:39] LABS: EDCOVIDSCREEN Negative (Negative)
[2022-06-12] MEDS: DICYCLOMINE HCL 10 MG CAPSULE 20 MG PO (17:25)
[2022-06-12] MEDS: DIVALPROEX SODIUM SPRINKLE 125 MG CAP.DR 250 MG PO (17:26)
[2022-06-12 19:51] VITALS: BP 136/72; PULSE 60; RESP 18; TEMP 36.7; O2SAT 98
== END 2022-06-12 20:00 ==
LOC: ANHED 18:32 → ANH2MED 18:56
PROVIDERS: Nurse Practitioner; Admitting Provider Family Medicine; Emergency Provider Emergency Medicine; PCP Internal Medicine; Visit Provider Physician Assistant
DX: K59.00 Constipation, unspecified (principal); R10.13 Epigastric pain; F99 Mental disorder, not otherwise specified; I10 Essential (primary) hypertension; F79 Unspecified intellectual disabilities; F20.9 Schizophrenia, unspecified; K22.10 Ulcer of esophagus without bleeding; G20 Parkinson's disease; R19.7 Diarrhea, unspecified; R50.9 Fever, unspecified; F31.9 Bipolar disorder, unspecified; R07.89 Other chest pain; D64.9 Anemia, unspecified; Z20.822 Contact with and (suspected) exposure to COVID-19; F41.8 Other specified anxiety disorders; K21.9 Gastro-esophageal reflux disease without esophagitis; K44.9 Diaphragmatic hernia without obstruction or gangrene; E78.5 Hyperlipidemia, unspecified; R74.02 Elevation of levels of lactic acid dehydrogenase [LDH]; Z86.73 Personal history of transient ischemic attack (TIA), and cerebral infarction without residual deficits; Z79.899 Other long term (current) drug therapy
CPT/HCPCS: 36415; 71045; 74177; 80048; 80053; 81003; 83605; 83735; 84443; 85025; 85027; 85055; 85610; 85730; 87426; 96361; 96374; 96375; 96376; 99285; A9270; C9803; G0378; J1170; J2405; J7030; Q9967

== ENCOUNTER 2023-01-10 01:15 | Observation (INO) | payer OTHER, SELFPAY ==
[2023-01-10] VITALS (10 sets, daily range): BP systolic 96–144; BP diastolic 68–102; PULSE 90–110; RESP 12–20; TEMP 36.2–37.3; O2SAT 95–100; BMI 22.1
--- NOTE | ~2023-01-10 | CT_ITS ---
Noncontrast CT scan of the cervical spine Technique: Multiple contiguous axial [address] images of the cervical spine were obtained and rec onstructed in 2D sagittal and coronal planes on the acquisition scanner. Dose reduction technique was used on this scan by utilizing automated exposure control, adjustment of the mA and/or kV according to patient size. The dose-length product (DLP) was 389.17 mGy-cm. Clinical History: Pain Findings: No fractures or dislocations. At C3-C4, there is mild disc osteophyte complex and probable mild bilateral neural foraminal narrowing and mild central canal stenosis. At C4-C5, there is minima l disc osteophyte complex with mild bilateral neural foraminal narrowing and bilateral facet arthropa thy. There is probable minimal bilateral neural foraminal narrowing at C5-C6 with mild facet arthropa thy. No prevertebral soft tissue swelling. Impression: No fracture or subluxation of the cervical spine. Mild degenerative change, as above. Reviewed, dictated and finalized at [facility]. LOADER Impression: No fracture or subluxation of the cervical spine. Mild degenerative change, as above.
--- NOTE | ~2023-01-10 | XR_ITS ---
Right Knee Technique: AP, lateral, and oblique views were obtained. Clinical History: Pain Findings: No fracture or dislocation is seen. Osseous alignment is anatomic. Joint spaces are preserv ed without degenerative or erosive change. Soft tissues are unremarkable. No joint effusion is seen. Impression: Unremarkable right knee radiographs. Reviewed, dictated and finalized at [facility]. ACE FITTER Impression: Unremarkable right knee radiographs.
--- NOTE | ~2023-01-10 | XR_ITS ---
Portable chest x-ray Comparison: 06/10/2022 Clinical History: Weakness Findings: Lungs are clear, without focal consolidation or pleural effusion. Cardiomediastinal silho uette is stable. Bones and soft tissues are unremarkable. Impression: Clear lungs. Reviewed, dictated and finalized at location . GLAZER Impression: Clear lungs.
--- NOTE | ~2023-01-10 | XR_ITS ---
AP view of the pelvis and AP and lateral views of the right hip Clinical history: Pain Findings: No acute fracture or dislocation is seen. Patient is status post prior ORIF of the proximal right femur. There is heterotopic ossification arising from the right greater trochanter. Bilateral hip and SI joint spaces are preserved. Soft tissues are unremarkable. Impression: No acute abnormality evident. Prior ORIF of the proximal right femur for now healed intertrochanteric fracture deformity. Prominent heterotopic ossification arising from the right greater trochanter. Reviewed, dictated and finalized at location M. ITY REP Impression: No acute abnormality evident. Prior ORIF of the proximal right femur for now healed intertrochanteric fractur e deformity. Prominent heterotopic ossification arising from the right greater trochanter.
--- NOTE | ~2023-01-10 | CT_ITS ---
Non-contrast Head CT History: Head injury Technique: Axial non-contrast imaging of the brain was performed. Dose reduction technique was used on this scan by utilizing automated exposure control and iterative reconstruction technique. The dose -length product (DLP) was 756.67 mGy-cm. Findings: There is no evidence of intracranial hemorrhage, mass lesion, or acute infarct. There is f ocal hypodensity in the left periventricular white matter.. The ventricles and subarachnoid spaces a re normal in size. The calvarium appears normal. The visualized paranasal sinuses and mastoid air c ells are clear. Impression: No acute abnormality seen. Focal hypodensity in the left periventricular white matter could reflect chronic microvascular ischem ic change or chronic lacunar infarct. Reviewed, dictated and finalized at [facility]. OR CLINICAL RESEARCH ASSOCIATE Impression: No acute abnormality seen. Focal hypodensity in the left periventricular white matter could reflect chroni c microvascular ischemic change or chronic lacunar infarct.
--- NOTE | 2023-01-10 01:31 | ECG_ITS ---
Measurements Intervals [place] Rate: 96 P: 50 FL: 153 QRS: 74 QRSD: 79 T: 54 QT: 337 QTc: 426 Interpretive Statements SINUS RHYTHM MINIMAL Q WAVES- ANTEROLAT/INF LEADS BASELINE ARTIFACT- I, II, AVR, V1 BORDERLINE ECG COMPARED TO ECG 06/27/2021 10:02:15 NO SIGNIFICANT CHANGES Electronically Signed On 01-10-2023 6:25:48 CLAIM SERVICE REPRESENTATIVE by Cornelio Waddell D.O.
[2023-01-10 02:01] LABS: Basophils Percent Auto 0.4 % (0.2-1.2); Eosinophils Absolute Auto 0.1 K/mm3 (0-0.3); Eosinophils Percent Auto 1.7 % (0-4.4); Hematocrit 39.5 % (42.0-52.0); Hemoglobin 13.1 g/dL (14.0-18.0); Immature Granulocyte Absolute 0.01 K/mm3 (0.00-0.031); Immature Granulocyte Percent A 0.1 % (0-0.5); Lymphocytes Absolute Auto 1.99 K/mm3 (0.9-3.2); Lymphocytes Percent Auto 27.7 % (18.3-44.2); Mean Corpuscular HGB Conc 33.2 g/dl (32-36); Mean Corpuscular Hemoglobin 30.8 pg (26-34); Mean Corpuscular Volume 92.9 fl (80-100); Mean Platelet Volume 9.5 fl (7.4-10.4); Monocytes Absolute Auto 0.7 K/mm3 (0.1-0.6); Monocytes Percent Auto 9.5 % (2.6-8.5); Neutrophils Absolute Auto 4.4 K/mm3 (1.3-6.7); Neutrophils Percent Auto 60.6 % (45.5-73.1); Platelet Count Result 162 k/mm3 (150-375); Red Blood Count 4.25 M/mm3 (4.6-6.20); Red Cell Distribution Width 11.4 % (11.5-14.5); White Blood Count 7.2 K/mm3 (4.5-10.0)
[2023-01-10 02:14] LABS: Prothrombin Time 13.6 Seconds (11.1-14.7)
[2023-01-10 02:15] LABS: Alanine Aminotransferase 22 U/L (6-50); Albumin Level 2.6 g/dL (3.5-5.1); Alkaline Phosphatase 90 U/L (38-126); Anion Gap 10 mmol/L (8-16); Aspartate Amino Transferase 26 U/L (17-59); Bilirubin,Total 0.9 mg/dL (0.2-1.3); Blood Urea Nitrogen 15 mg/dL (9-20); Calcium 9.4 mg/dL (8.4-10.2); Carbon Dioxide 32 mmol/L (22-30); Chloride 100 mmol/L (98-107); Estimated CRCL calculation 72 ml/min; Estimated Glomerular Filt Rate > 60; Glucose 102 mg/dL (65-110); Partial Thromboplastin Time 30.2 SECONDS (22.3-36.8); Sodium 142 mmol/L (137-145)
[2023-01-10 02:25] LABS: Lactic Acid Reflex 1.1 mmol/L (0.7-2.0)
[2023-01-10] MEDS: SODIUM CHLORIDE 0.9% IV 1,000 ML 999 ML IV CONT ×2 (02:29→05:04)
[2023-01-10 02:50] LABS: Troponin I < 0.012 ng/mL (0.000-0.034)
[2023-01-10 02:57] LABS: Procalcitonin 0.1 ng/mL
[2023-01-10 03:32] LABS: Appearance Urine Clear (Clear); Bilirubin Urine Negative (Negative); Blood Urine Negative (Negative); Color Urine Dark Yellow (Yellow); Glucose Urine UA Negative (Negative); Ketones Urine Trace mg/dL (Negative); Leukocyte Esterase Ur Negative LEU/UL (Negative); Nitrate Urine Negative (Negative); Protein Urine Negative (Negative); Specific Grav Ur 1.023 (1.001-1.035); pH Urine 6.5 (5.0-9.0)
[2023-01-10 03:56] LABS: Add Urine Microscopic? NO
--- NOTE | 2023-01-10 03:59 | ED.GENADULT ---
HPI - General Adult General Chief complaint: Fall Stated complaint: RIGHT HIP AND THIGH PAIN S/P 2 GLF Time Seen by Provider: 01/10/23 01:42 History of Present Illness HPI narrative: Patient is a 52-year-old gentleman presents emergency department with chief complaint of falls and right leg pain. The patient has recently been diagnosed with COVID-19 and the facility has noticed it has been more confused the patient has also had 2 falls. Related Data Home Medications Medication Instructions Recorded Confirmed baclofen 10 mg tablet 10 mg PO DAILY 12/11/19 06/10/22 benztropine 0.5 mg tablet 0.5 mg PO BID 12/11/19 06/10/22 buspirone 10 mg tablet 10 mg PO TID 12/11/19 06/10/22 cholecalciferol (vitamin D3) 50 2,000 unit PO DAILY 12/11/19 06/10/22 mcg (2,000 unit) capsule (Vitamin D3) divalproex 125 mg capsule,delayed 250 mg PO QPM 12/11/19 06/10/22 release sprinkle ferrous sulfate 325 mg (65 mg 325 mg PO DAILY 12/11/19 06/10/22 iron) tablet loratadine 10 mg tablet 10 mg PO DAILY PRN Allergy Symptoms 12/11/19 06/10/22 losartan 50 mg tablet 25 mg PO QAM 12/11/19 06/10/22 olanzapine 5 mg tablet (Zyprexa) 5 mg PO HS 12/11/19 06/10/22 polyethylene glycol 3350 17 gram 17 g PO DAILY 12/11/19 06/10/22 oral powder packet (Miralax) rosuvastatin 10 mg tablet 10 mg PO HS 12/11/19 06/10/22 ondansetron 4 mg disintegrating 4 mg PO Q6H PRN Nausea 05/21/20 06/10/22 tablet bisacodyl 10 mg rectal suppository 10 mg RECTAL DAILY PRN Constipation 06/30/20 06/10/22 famotidine 20 mg tablet 20 mg PO BID 06/30/20 06/12/22 multivitamin with minerals-folic 1 tablet PO DAILY 06/30/20 06/10/22 acid 0.4 mg tablet (Adult One Daily Multivitamin) omeprazole 20 mg capsule,delayed 20 mg PO BID 06/30/20 06/10/22 release sodium phosphates 19 gram-7 118 ml RECTAL ONCE PRN Constipation 06/30/20 06/10/22 gram/118 mL enema (Fleet Enema) acetaminophen 500 mg tablet 1,000 mg PO TID PRN Pain (Scale 06/27/21 06/10/22 Score 1-3),fever isosorbide mononitrate 10 mg tablet 10 mg PO BID 06/10/22 06/10/22 Allergies Allergy/AdvReac Type Severity Reaction Status Date / Time No Known Allergies Allergy Verified 01/10/23 01:33 Review of Systems Review of Systems: A 10 system review of systems was completed on the patient and is negative except for what is stated in the HPI. Nursing and ancillary documentation was reviewed. [facility] Past Medical History Medical History Bipolar disorder Cerebrovascular accident Old CVA noted on brain CT in July 2018. Chronic anemia Closed right hip fracture (~07/2018) Depression with anxiety Epigastric pain Gastroesophageal reflux disease Hernia Hiatal hernia Hyperlipidemia Hypertension Intellectual disability Nausea & vomiting Parkinsons Pneumothorax on left (~09/2018) Schizophrenia Surgical History Surgical History History of appendectomy History of hip surgery (~07/2018) ORIF right hip fracture with trochanteric nail device. History of tonsillectomy Hx laparoscopic cholecystectomy Family History Family History Other Unknown family medical history Social History Social History Social History: He is from [facility]. Surrogate decision maker: Soo Cedeño power of real estate attorney. Code status: Full code. Smoking status: Never smoker Alcohol intake: never Substance use: never Substance use type: does not use Living arrangements: longterm Additional occupation/education comments: Disabled. Gender identity (if verbalized by the patient): Male Spiritual care concerns: No Exam Narrative: GENERAL: Well-appearing, well-nourished, and in no acute distress. HEAD: Normocephalic, atraumatic. EYES: PERRLA and
[2023-01-10 04:08] LABS: Influenza A QL RT-PCR Negative (Negative); Influenza B QL RT-PCR Negative (Negative); RSV RNA, RT-PCR Negative (Negative); SARS-CoV-2 RNA PCR Positive (Negative)
--- NOTE | 2023-01-10 05:25 | PC.NURSE ---
Call received from [facility], spoke to Micheal and gave nurse to nurse report. No decision on admit at this time, will update NH on POC following second L of NS. Fluids infusing. NH updated w/ neg imaging results.
--- NOTE | 2023-01-10 06:08 | PC.NURSE ---
This RN attempted to call [facility] x3 to inform pt is to be admitted, no response, no VM available. Pressed 0 for chlorinator operator as prompted and no answer.
[2023-01-10] MEDS: SODIUM CHLORIDE 0.9% IV 1,000 ML 125 ML IV CONT ×2 (07:24→21:21)
--- NOTE | 2023-01-10 07:37 | PM.IMHP ---
H&P: HPI History of Present Illness Date/Time: 01/10/23 07:37 Chief Complaint: Right hip and thigh pain Narrative: This is a 52 year old male with a significant past medical history of CVA 2019, depression, anxiety, GERD, hyperlipidemia, hypertension, Parkinson's, schizophrenia, bipolar disorder who presented to the hospital after sustaining a fall for evaluation of right leg pain. Patient was recently diagnosed with COVID-19 and has been more confused with frequent falls since the diagnosis. Work up in the hospital included cervical spine CT which did not reveal any fracture or subluxation; CT of the head which did not show any acute abnormality, focal hypodensity in the left periventricular white matter could reflect microvascular ischemic change or chronic lacunar infarct;chest x-ray which was negative for any acute cardiopulmonary changes; hip/pelvis x-ray which was negative for any acute abnormality, prior ORIF of the proximal right femur and prominent heterotopic ossification arising from the right greater trochanter; and a right knee x-ray which was negative for any fractures or dislocations. Labs were essentially unremarkable. Procalcitonin 0.1. Urinalysis shown trace ketones otherwise unremarkable. Respiratory panel positive for COVID-19. On examination today patient is alert to voice, unable to assess orientation as he just moans. Labs today reveal white blood cell count 5.7, hemoglobin 11.3, hematocrit 35.1, sodium 134, potassium 4.0, bicarb 23, BUN 19, creatinine 1.0. Review of Systems Review of Systems: ROS unobtainable: Yes unobtainable due to mental status PMFSH Past Medical History Medical History (Updated 01/10/23 @ 17:29 by Jaci Ayala APRN) Anxiety Bipolar disorder Cerebrovascular accident Old CVA noted on brain CT in July 2018. Chronic anemia Closed right hip fracture (~07/2018) Depression with anxiety Epigastric pain Gastroesophageal reflux disease Hernia Hiatal hernia Hyperlipidemia Hypertension Intellectual disability Nausea & vomiting Parkinsons Pneumothorax on left (~09/2018) Schizophrenia Surgical History Surgical History History of appendectomy History of hip surgery (~07/2018) ORIF right hip fracture with trochanteric nail device. History of tonsillectomy Hx laparoscopic cholecystectomy Family History Family History Other Unknown family medical history Social History Social History Social History: He is from [facility]. Surrogate decision maker: Soo Cedeño power of family law attorney. Code status: Full code. Smoking status: Never smoker Alcohol intake: never Substance use: never Substance use type: does not use Living arrangements: custodial Additional occupation/education comments: Disabled. Gender identity (if verbalized by the patient): Male Spiritual care concerns: No Meds Home Medications and Allergies Home Medications Medication Instructions Recorded Confirmed Type baclofen 10 mg tablet 10 mg PO BID muscle spasm 12/11/19 01/10/23 History benztropine 0.5 mg tablet 0.5 mg PO BID muscle spasm 12/11/19 01/10/23 History buspirone 10 mg tablet 10 mg PO TID Anxiety 12/11/19 01/10/23 History cholecalciferol (vitamin D3) 50 2,000 unit PO DAILY 12/11/19 01/10/23 History mcg (2,000 unit) capsule (Vitamin D3) divalproex 125 mg capsule,delayed 250 mg PO BID 12/11/19 01/10/23 History release sprinkle ferrous sulfate 325 mg (65 mg 325 mg PO DAILY 12/11/19 01/10/23 History iron) tablet loratadine 10 mg tablet 10 mg PO DAILY PRN Allergy Symptoms 12/11/19 01/10/23 History losartan 50 mg tablet 25 mg PO QAM 12/11/19 01/10/23 History olanzapine 5 mg tablet (Zyprexa) 5 mg PO HS 12/11/19 01/10/23 History polyethylene glycol 3350 17 gram 17 g PO BID CONSTIPATION 12/11/19
--- NOTE | 2023-01-10 07:50 | PC.NURSE ---
This patient, Elan Garzon, was admitted to 3 Med Surg Room 304-01 @ 0750. Patient/family oriented to hospital policies and general routines including ID bracelet, bed and alarms, visiting hours, pain management, procedures, bathroom and other care routines, personal items, smoking policy, room service/diet, and visiting hours. Information on how to activate the Rapid Response Team has been discussed. Patient/Family are encouraged to report perceived risks to care and to ask questions if they do not understand what they are told or what they should do.
--- NOTE | 2023-01-10 19:29 | PC.NURSE ---
On 01/10/23, the RESEARCH PROGRAM INTERN, Lisbet King, provided care and completed [place] documentation on this patient. I have reviewed the RESEARCH PROGRAM INTERN's documentation and agree with the findings.
[2023-01-10] MEDS: ROSUVASTATIN 10 MG TABLET PO (21:20)
[2023-01-10] MEDS: OLANZapine 5 MG TABLET PO (21:20)
[2023-01-10] MEDS: AMITRIPTYLINE HCL 10 MG TABLET PO (21:20)
[2023-01-11 05:10] VITALS: BP 121/80; PULSE 94; RESP 18; TEMP 36.4; O2SAT 100
[2023-01-11] MEDS: SODIUM CHLORIDE 0.9% IV 1,000 ML 125 ML IV CONT (05:26)
[2023-01-11 06:07] LABS: Hematocrit 31.8 % (42.0-52.0); Hemoglobin 10.4 g/dL (14.0-18.0); Mean Corpuscular HGB Conc 32.7 g/dl (32-36); Mean Corpuscular Hemoglobin 30.9 pg (26-34); Mean Corpuscular Volume 94.4 fl (80-100); Mean Platelet Volume 9.6 fl (7.4-10.4); Platelet Count Result 134 k/mm3 (150-375); Red Blood Count 3.37 M/mm3 (4.6-6.20); Red Cell Distribution Width 11.3 % (11.5-14.5); White Blood Count 5.1 K/mm3 (4.5-10.0)
[2023-01-11 06:18] LABS: Alanine Aminotransferase 15 U/L (6-50); Albumin Level 3.2 g/dL (3.5-5.1); Alkaline Phosphatase 72 U/L (38-126); Anion Gap 5 mmol/L (8-16); Aspartate Amino Transferase 17 U/L (17-59); Blood Urea Nitrogen 5 mg/dL (9-20); Calcium 8.2 mg/dL (8.4-10.2); Carbon Dioxide 28 mmol/L (22-30); Chloride 107 mmol/L (98-107); Estimated CRCL calculation 100 ml/min; Estimated Glomerular Filt Rate > 60; Glucose 85 mg/dL (65-110); Potassium 3.5 mmol/L (3.4-5.0); Sodium 140 mmol/L (137-145)
[2023-01-11] MEDS: LOSARTAN POTASSIUM 25 MG TABLET PO (10:36)
[2023-01-11] MEDS: BENZTROPINE MESYLATE 0.5 MG TABLET PO (10:36)
[2023-01-11] MEDS: PANTOPRAZOLE 40 MG TABLET PO (10:36)
[2023-01-11] MEDS: CHOLECALCIFEROL 1,000 UNITS TABLET 2000 UNITS PO (10:36)
[2023-01-11] MEDS: FERROUS SULFATE 325 MG TABLET DR PO (10:36)
[2023-01-11] MEDS: DIVALPROEX SODIUM SPRINKLE 125 MG CAP.DR 250 MG PO (10:37)
[2023-01-11] MEDS: busPIRone HCL 10 MG TABLET PO ×2 (10:37→14:26)
[2023-01-11] MEDS: BACLOFEN 10 MG TABLET PO (10:37)
[2023-01-11] MEDS: DOCUSATE SODIUM 100 MG CAPSULE PO (10:37)
[2023-01-11] MEDS: polyethylene glycoL 3350 17 GM POWD.PACK PO (10:37)
[2023-01-11] MEDS: SACCHAROMYCES BOULARDII 250 MG CAPSULE PO (10:38)
[2023-01-11] MEDS: ISOSORBIDE MONONITRATE 10 MG TABLET PO (10:38)
--- NOTE | 2023-01-11 13:44 | PM.DS ---
DS: Admitting Diagnosis Discharge Date 01/11/23 Admitting Diagnosis AMS Repeated falls COVID 19 hypertension hyperlipidemia schizophrenia GERD depression anxiety DS: Discharge Diagnosis Discharge Diagnosis (1) Altered mental status: Code(s): R41.82 - Altered mental status, unspecified Status: Acute (2) Frequent falls: Code(s): R29.6 - Repeated falls Status: Acute (3) COVID-19: Code(s): U07.1 - COVID-19 Status: Acute (4) Hypertension: Qualifiers: Hypertension type: essential hypertension Qualified Code(s): I10 - Essential (primary) hypertension Code(s): I10 - Essential (primary) hypertension Status: Chronic (5) Hyperlipidemia: Code(s): E78.5 - Hyperlipidemia, unspecified Status: Acute (6) Schizophrenia: Qualifiers: Schizophrenia type: unspecified Qualified Code(s): F20.9 - Schizophrenia, unspecified Code(s): F20.9 - Schizophrenia, unspecified Status: Chronic (7) Gastroesophageal reflux disease: Qualifiers: Esophagitis bleeding: with hemorrhage Esophagitis presence: with esophagitis Qualified Code(s): K21.01 - Gastro-esophageal reflux disease with esophagitis, with bleeding Code(s): K21.9 - Gastro-esophageal reflux disease without esophagitis Status: Chronic (8) Depression: Code(s): F32.A - Depression, unspecified Status: Acute (9) Anxiety: Code(s): F41.9 - Anxiety disorder, unspecified Status: Acute DS: Summary Hospital Course Reason for hospitalization: AMS COVID-19 Hospital Course: This is a 52 year old male who presented to the hospital on 01/10/23 who presented to the hospital after sustaining a fall for evaluation of right leg pain. Patient was recently diagnosed with COVID-19 and has been more confused with frequent falls since the diagnosis. Work up in the hospital included cervical spine CT which did not reveal any fracture or subluxation; CT of the head which did not show any acute abnormality, focal hypodensity in the left periventricular white matter could reflect microvascular ischemic change or chronic lacunar infarct;chest x-ray which was negative for any acute cardiopulmonary changes; hip/pelvis x-ray which was negative for any acute abnormality, prior ORIF of the proximal right femur and prominent heterotopic ossification arising from the right greater trochanter; and a right knee x-ray which was negative for any fractures or dislocations. Labs were essentially unremarkable. Procalcitonin 0.1. Urinalysis shown trace ketones otherwise unremarkable. Respiratory panel positive for COVID-19. Patient is not a candidate for inpatient COVID treatment of Remdesivir or Dexamethasone as he is not in any acute respiratory distress and not hypoxic. VSS, he is on room air, he has remained afebrile. Labs today were essentially unremarkable. He is stable for discharge back to his facility at this time. He will need to follow up with PCP in 1 week. Status at Discharge Cognitive/behavioral status at discharge: Alert to voice and oriented 1-2 Functional status at discharge: independent ambulation Overall status at discharge: patient is progressing back to baseline Time Spent with Patient Time attestation: Total time spent providing and/or coordinating discharge services: Time spent: Greater than 30 minutes Exam Narrative: General: In no acute distress, chronically ill appearing Head: atraumatic Eyes: EOMI, PERRLA, sclera clear ENT: moist mucous membranes, nasal passages clear Neck: supple, no JVD, no adenopathy, trachea midline Cardiac: Normal S1 and S2. No murmur, gallops or friction rubs, peripheral pulses intact. Respiratory: Lungs clear to auscultation, no adventitious lung sounds Gastrointestinal: soft, non-distended, non-tender, normoactive bowel sounds. : voiding without difficulty. Extremities: contractures Skin: clean, dry, intact. No wounds or lesi
[2023-01-11 14:00] VITALS: BP 106/63; PULSE 88; RESP 18; TEMP 37.2; O2SAT 100
--- NOTE | 2023-01-11 16:47 | PC.NURSE ---
Lisbet King provided care for this patient today. I have reviewed her charting and agree with her assessments
== END 2023-01-11 16:42 ==
LOC: ANHED 05:48 → ANH3MEDSUR 07:19
PROVIDERS: Nurse Practitioner Acute Care; Admitting Provider Internal Medicine; Emergency Provider Emergency Medicine; PCP Internal Medicine; Visit Provider Student in an Organized Health Care Education/Training Program
DX: S70.01XA Contusion of right hip, initial encounter (principal); R41.82 Altered mental status, unspecified; R29.6 Repeated falls; U07.1 COVID-19; G20.C Parkinsonism, unspecified; F31.9 Bipolar disorder, unspecified; I69.398 Other sequelae of cerebral infarction; I10 Essential (primary) hypertension; F20.9 Schizophrenia, unspecified; R11.0 Nausea; D64.9 Anemia, unspecified; F41.8 Other specified anxiety disorders; K21.01 Gastro-esophageal reflux disease with esophagitis, with bleeding; E78.5 Hyperlipidemia, unspecified; Z79.82 Long term (current) use of aspirin; Z79.899 Other long term (current) drug therapy
CPT/HCPCS: 36415; 70450; 71045; 72125; 73502; 73562; 80053; 81003; 83605; 83735; 84145; 84484; 85025; 85027; 85610; 85730; 87637; 93005; 96360; 96361; 99285; A9270; G0378; J7030

== ENCOUNTER 2023-09-01 15:40 | Emergency (ER) | payer OTHER, SELFPAY ==
[2023-09-01] VITALS (11 sets, daily range): BP systolic 102–135; BP diastolic 68–88; PULSE 76–92; RESP 14–20; TEMP 36.8; O2SAT 98–100
--- NOTE | ~2023-09-01 | XR_ITS ---
EXAMINATION: XR chest 2V DATE: 09/01/2023 16:06 INDICATION: Chest pain TECHNIQUE: frontal and lateral views of the chest were obtained. COMPARISON: Chest radiograph dated 01/10/23 FINDINGS: The lungs remain clear with no focal airspace opacities, pulmonary edema or pleural effusion. There i s suggestion of a small pneumothorax at the medial side of the right apex and posterior to the sternu m on the lateral projection. The cardiomediastinal silhouette is normal. Cholecystectomy clips in rig ht upper quadrant. Thoracic kyphosis with mild anterior wedging of a few lower thoracic vertebral bod ies. IMPRESSION: 1. Possible small right pneumothorax. Reviewed, dictated and finalized at location A.
--- NOTE | ~2023-09-01 | CT_ITS ---
EXAMINATION: CT diagnostic chest wo con DATE: 09/01/2023 18:10 INDICATION: poss R sided PTX TECHNIQUE: Computed tomography (CT) of the chest was performed without intravenous contrast. Addition al 3D reconstructions utilizing coronal maximum intensity projection (MIP) were performed. Automated exposure control and iterative reconstruction technique were employed. The dose-length product was 17 2.62 mGy-cm. COMPARISON: Chest CT dated 06/27/2021 FINDINGS: Lung are clear with no pneumonia, pulmonary hemorrhage, pulmonary edema or pleural effusion. No pneum othorax. Unchanged small tracheal diverticulum to the right of the esophagus at the thoracic inlet. H eart size is normal. Atherosclerotic coronary artery calcification. Thoracic aorta is normal in calib er. No pathologically enlarged thoracic lymphadenopathy. Cholecystectomy clips at the gallbladder fos sa. Moderate thoracic kyphosis with chronic mild anterior wedging of multiple lower thoracic vertebra l bodies and with moderate spondylosis. Again seen are a few old left rib fractures including a likel y chronic nonunited fracture posterior left 10th rib. No acute fractures identified. IMPRESSION: 1. No pneumothorax or other acute cardiopulmonary disease. Reviewed, dictated and finalized at location A.
--- NOTE | 2023-09-01 15:47 | ECG_ITS ---
Test Date: 2023-09-01 15:50:32 Measurements Intervals [place] Rate: 82 P: 69 TX: 172 QRS: 87 QRSD: 83 T: 72 QT: 361 QTc: 422 Interpretive Statements SINUS RHYTHM RSR' IN V1 OR V2, PROBABLY NORMAL VARIANT MINIMAL Q WAVES- INFERIOR LEADS BASELINE ARTIFACT- I, II, III, AVR, AVL, AVF, V1-V6 BORDERLINE ECG No previous ECG available for comparison Electronically Signed On 09-01-2023 19:48:18 CDT by Cornelio Waddell D.O.
[2023-09-01 16:03] LABS: Basophils Percent Auto 0.5 % (0.2-1.2); Eosinophils Percent Auto 0.7 % (0-4.4); Hematocrit 37.8 % (42.0-52.0); Hemoglobin 13.4 g/dL (14.0-18.0); Immature Granulocyte Absolute 0.01 K/mm3 (0.00-0.031); Immature Granulocyte Percent A 0.2 % (0-0.5); Lymphocytes Absolute Auto 1.61 K/mm3 (0.9-3.2); Lymphocytes Percent Auto 26.5 % (18.3-44.2); Mean Corpuscular HGB Conc 35.4 g/dl (32-36); Mean Corpuscular Hemoglobin 31.9 pg (26-34); Mean Platelet Volume 10.2 fl (7.4-10.4); Monocytes Absolute Auto 0.5 K/mm3 (0.1-0.6); Monocytes Percent Auto 7.6 % (2.6-8.5); Neutrophils Absolute Auto 3.9 K/mm3 (1.3-6.7); Neutrophils Percent Auto 64.5 % (45.5-73.1); Platelet Count Result 157 k/mm3 (150-375); Red Cell Distribution Width 12.3 % (11.5-14.5); White Blood Count 6.1 K/mm3 (4.5-10.0)
[2023-09-01 16:24] LABS: Prothrombin Time 13.7 Seconds (11.1-14.7)
[2023-09-01 16:31] LABS: Alanine Aminotransferase 17 U/L (6-50); Albumin Level 4.4 g/dL (3.5-5.1); Alkaline Phosphatase 116 U/L (38-126); Anion Gap 12 mmol/L (4-12); Aspartate Amino Transferase 23 U/L (17-59); Bilirubin,Total 0.7 mg/dL (0.2-1.3); Blood Urea Nitrogen 10 mg/dL (9-20); Calcium 9.4 mg/dL (8.4-10.2); Carbon Dioxide 29 mmol/L (22-30); Chloride 97 mmol/L (98-107); Estimated CRCL calculation 76 ml/min; Estimated Glomerular Filt Rate > 60; Glucose 91 mg/dL (65-110); Lipase 84 U/L (23-300); Potassium 3.8 mmol/L (3.4-5.0); Sodium 138 mmol/L (137-145)
[2023-09-01 16:42] LABS: Troponin I < 0.012 ng/mL (0.000-0.034)
--- NOTE | 2023-09-01 16:53 | ED.CHESTPAIN ---
HPI - Chest Pain General Chief Complaint: Chest Pain Stated Complaint: left sided chest pain Time Seen by Provider: 09/01/23 15:45 Source: patient and RN notes reviewed Limitations: clinical condition and other (baseline cognition) History of Present Illness HPI narrative: Patient presents with complaint of left sided chest pain. Extremely hard of hearing and visually impaired as well as baseline A&O x 1-2 reportedly thus history limited. Denies any radiation of pain. EMS gave 324 aspirin. He is initially assessed while trying to urinate and he is screaming that he can't pee. Related Data Home Medications Medication Instructions Recorded Confirmed baclofen 10 mg tablet 10 mg PO BID muscle spasm 12/11/19 01/10/23 benztropine 0.5 mg tablet 0.5 mg PO BID muscle spasm 12/11/19 01/10/23 buspirone 10 mg tablet 10 mg PO TID Anxiety 12/11/19 01/10/23 cholecalciferol (vitamin D3) 50 2,000 unit PO DAILY 12/11/19 01/10/23 mcg (2,000 unit) capsule (Vitamin D3) divalproex 125 mg capsule,delayed 250 mg PO BID 12/11/19 01/10/23 release sprinkle ferrous sulfate 325 mg (65 mg 325 mg PO DAILY 12/11/19 01/10/23 iron) tablet loratadine 10 mg tablet 10 mg PO DAILY PRN Allergy Symptoms 12/11/19 01/10/23 losartan 50 mg tablet 25 mg PO QAM 12/11/19 01/10/23 olanzapine 5 mg tablet (Zyprexa) 5 mg PO HS 12/11/19 01/10/23 polyethylene glycol 3350 17 gram 17 g PO BID CONSTIPATION 12/11/19 01/10/23 oral powder packet (Miralax) rosuvastatin 10 mg tablet 10 mg PO HS HIGH CHOLESTROL 12/11/19 01/10/23 ondansetron 4 mg disintegrating 4 mg PO Q6H PRN Nausea/Vomiting 05/21/20 01/10/23 tablet famotidine 20 mg tablet 20 mg PO BID Acid Indigestion 06/30/20 01/10/23 multivitamin with minerals-folic 1 tablet PO DAILY 06/30/20 01/10/23 acid 0.4 mg tablet (Adult One Daily Multivitamin) omeprazole 20 mg capsule,delayed 20 mg PO BID GERD 06/30/20 01/10/23 release sodium phosphates 19 gram-7 118 ml RECTAL ONCE PRN Constipation 06/30/20 01/10/23 gram/118 mL enema (Fleet Enema) acetaminophen 500 mg tablet 1,000 mg PO TID PRN Pain (Scale 06/27/21 01/10/23 Score 1-3),fever isosorbide mononitrate 10 mg tablet 10 mg PO BID 06/10/22 01/10/23 docusate sodium 100 mg tablet 100 mg PO BIDWM Constipation 01/10/23 01/10/23 lidocaine HCl 4 % topical cream 1 applic topical BID PRN Pain 01/10/23 01/10/23 (Aspercreme (lidocaine HCl)) linaclotide 72 mcg capsule 72 mcg PO DAILY GERD 01/10/23 01/10/23 (Linzess) magnesium citrate 30 ml PO DAILY PRN Constipation 01/10/23 01/10/23 magnesium hydroxide 2,400 mg/10 mL 30 ml PO PRN PRN Constipation 01/10/23 01/10/23 oral suspension sennosides 8.6 mg-docusate sodium 2 tab-cap PO Q6H PRN Constipation 01/10/23 01/10/23 50 mg tablet Allergies Allergy/AdvReac Type Severity Reaction Status Date / Time No Known Allergies Allergy Verified 01/10/23 01:33 [facility] Past Medical History Medical History Anxiety Bipolar disorder Cerebrovascular accident Old CVA noted on brain CT in July 2018. Chronic anemia Closed right hip fracture (~07/2018) COPD (chronic obstructive pulmonary disease) Depression with anxiety Epigastric pain Esophagitis Gastroesophageal reflux disease Hernia Hiatal hernia History of angina Hyperlipidemia Hypertension Intellectual disability Nausea & vomiting Parkinsons Pneumothorax on left (~09/2018) Schizophrenia TIA (transient ischemic attack) Surgical History Surgical History History of appendectomy History of hip surgery (~07/2018) ORIF right hip fracture with trochanteric nail device. History of tonsillectomy Hx laparoscopic cholecystectomy Family History Family History Other Unknown family medical history Social History Social History Social Histo
[2023-09-01] MEDS: MORPHINE SULFATE (*CRX) 4 MG/ML INJ IV PUSH (17:20)
--- NOTE | 2023-09-01 17:28 | PC.NURSE ---
Pt attempted to urinate, stating he had to go but was unable to. Bladder scan showed 275. MD made aware. Pt requested straight cath.
--- NOTE | 2023-09-01 17:29 | PC.NURSE ---
Pt placed on nonrebreather per EDP Dr. Davis.
[2023-09-01 18:10] LABS: Appearance Urine Clear (Clear); Bilirubin Urine Negative (Negative); Blood Urine Negative (Negative); Color Urine Yellow (Yellow); Glucose Urine UA Negative (Negative); Ketones Urine Negative (Negative); Leukocyte Esterase Ur Negative LEU/UL (Negative); Nitrate Urine Negative (Negative); Protein Urine Negative (Negative); Specific Grav Ur 1.009 (1.001-1.035); pH Urine 8.5 (5.0-9.0)
[2023-09-01 18:13] LABS: Add Urine Microscopic? NO
[2023-09-01] MEDS: LIDOCAINE 5% PATCH 1 PATCH TRANSDERM (19:55)
[2023-09-01] MEDS: HYDROcodone/acetaminophen (*CRX) 5-325 MG TABLET 1 TAB PO (19:55)
[2023-09-01] MEDS: KETOROLAC 15 MG/ML VIAL (*BKC) IV PUSH (19:55)
--- NOTE | 2023-09-01 20:35 | PC.NURSE ---
Report called to [facility] [place] with no answer. Message left with caregiver.
== END 2023-09-01 20:48 ==
PROVIDERS: Emergency Provider Student in an Organized Health Care Education/Training Program; PCP Internal Medicine
DX: R07.9 Chest pain, unspecified (principal); D64.9 Anemia, unspecified; S22.32XK Fracture of one rib, left side, subsequent encounter for fracture with nonunion; I10 Essential (primary) hypertension; G20.A1 Parkinson's disease without dyskinesia, without mention of fluctuations; E78.5 Hyperlipidemia, unspecified; J44.9 Chronic obstructive pulmonary disease, unspecified; K21.9 Gastro-esophageal reflux disease without esophagitis; K44.9 Diaphragmatic hernia without obstruction or gangrene; F31.9 Bipolar disorder, unspecified; F41.8 Other specified anxiety disorders; F20.9 Schizophrenia, unspecified; Z86.718 Personal history of other venous thrombosis and embolism; Z90.49 Acquired absence of other specified parts of digestive tract; Z79.899 Other long term (current) drug therapy; X58.XXXD Exposure to other specified factors, subsequent encounter
CPT/HCPCS: 36415; 71046; 71250; 80053; 81003; 83690; 84484; 85025; 85610; 85730; 93005; 96374; 96375; 99284; A9270; J1885; J2270